=== PATIENT | male | born 1950 ===

== ENCOUNTER 2017-08-07 20:42 | Inpatient (IN) | payer MEDICAID, OTHER ==
[2017-08-07 21:25] VITALS: BMI 23.3
[2017-08-07] MEDS: Meropenem 1 GM in Sodium Chloride 0.9% 100 ML IVPB SCH (22:27)
[2017-08-07] MEDS: Rosuvastatin Calcium 2.5 mg Tab PO SCH (22:28)
--- NOTE | 2017-08-07 23:17 | CP.PCM.HP ---
<Betina Mukherjee - Last Filed: 08/08/17 00:40> History of Present Illness - History of Present Illness History of Present Illness: Patient is a 66 year old male with PMHx of HTN, CAD, [place] with catheterization in 2006 and CABG at [facility] on 07/25/17. Patient getting readmitted after being transferred from [facility] today s/p CABG with possible pancreatitis. Patient has some mild pain at the incision site. Patient denies headache, dizziness, shortness of breath, abdominal pain, nausea, vomiting, constipation or diarrhea. PMD: None Sales Assoc: Unknown. PMHx: WA (2006) with catherization and possible stent placement PSHx: hernia repair (1978), CABG on 07/25/17 Allergies: NKDA Social Hx: Denies Tobacco, Alcohol, or illicit drug use. Family Hx: Denies Meds: patient put on meds that he was discharged with from [facility] Present on Admission - Present on Admission Any Indicators Present on Admission: No History of DVT/PE: No History of Uncontrolled Diabetes: No Urinary Catheter: No Decubitus Ulcer Present: No Review of Systems - Constitutional Constitutional: absent: Fatigue, Headache - EENT Eyes: absent: Blurred Vision - Cardiovascular Cardiovascular: Leg Edema. absent: Dyspnea, Palpitations Additional comments: pain around sternotomy - Respiratory Respiratory: absent: Dyspnea, Wheezing, Stridor - Gastrointestinal Gastrointestinal: absent: Abdominal Pain, Constipation, Diarrhea, Nausea, Vomiting - Genitourinary Genitourinary: absent: Difficulty Urinating - Integumentary Integumentary: absent: Rash Additional comments: chest incision with thomas s/p CABG Past Patient History - Past Medical History & Family History Past Medical History?: Yes - Past Social History Smoking Status: Never Smoked - CARDIAC Hx Hypercholesterolemia: Yes ("I had highchol 2006 but not anymore") Hx Hypertension: Yes (" I had htn 2006 but not anymore") - PULMONARY Hx Respiratory Disorders: No - NEUROLOGICAL Hx Neurological Disorder: No - HEENT Hx HEENT Problems: No - RENAL Hx Chronic Kidney Disease: No - ENDOCRINE/METABOLIC Hx Endocrine Disorders: No - HEMATOLOGICAL/ONCOLOGICAL Hx Blood Disorders: No - INTEGUMENTARY Hx Dermatological Problems: No - MUSCULOSKELETAL/RHEUMATOLOGICAL Hx Musculoskeletal Disorders: No Hx Falls: No - GASTROINTESTINAL Hx Gastrointestinal Disorders: No - GENITOURINARY/GYNECOLOGICAL Hx Genitourinary Disorders: No - PSYCHIATRIC Hx Substance Use: No - SURGICAL HISTORY Hx Surgeries: Yes Hx Cardiac Catheterization: Yes ("2006") Hx Herniorrhaphy: Yes ("1978") - ANESTHESIA Hx Anesthesia: Yes Hx Anesthesia Reactions: No Meds Allergies/Adverse Reactions: Allergies Allergy/AdvReac Type Severity Reaction Status Date / Time No Known Allergies Allergy Unverified 07/11/17 16:42 Physical Exam - Constitutional Appears: Non-toxic, No Acute Distress - Head Exam Head Exam: ATRAUMATIC, NORMAL INSPECTION, NORMOCEPHALIC - Eye Exam Eye Exam: EOMI, Normal appearance - Respiratory Exam Respiratory Exam: Clear to Auscultation Bilateral, NORMAL BREATHING PATTERN - Cardiovascular Exam Cardiovascular Exam: RRR, +S1, +S2 - GI/Abdominal Exam GI & Abdominal Exam: Normal Bowel Sounds, Soft. absent: Tenderness - Extremities Exam Extremities exam: Positive for: normal inspection, pedal edema Additional comments: trace pitting edema b/l lower extremities - Neurological Exam Neurological exam: Alert, Oriented x3 - Psychiatric Exam Psychiatric exam: Normal Affect, Normal Mood - Skin Skin Exam: Normal Color, Warm Results - Vital Signs Recent Vital Signs: Last Vital Signs Temp 97.6 F 08/07/17 20:55 Pulse 70 08/07/17 20:55 Resp 20 08/07/17 20:55 BP 108/67 08/07/17 20:55 Pulse Ox 95 08/07/17 20:55 Assessment & Plan - Assessment and Plan (Free Text) Assessment: CAD, s/p CABG ASA 81mg po daily Plavix 75mg po daily Crestor 2.5mg PO HS Pseudomonas in blood culture Moxifloxacin 400mg q24h Merrem 1 gm q8h repeat blood cultures Hx HTN Metoprolol Tartrate 50mg po BID Elevated Amylase and Lipase continue to monitor CT abd/pelvis showed no evidence of pancreatitis Constipation Colace 100mg po BID Hx DM Insulin Aspart 2 unit sc ACTID ISS-low accuchecks ACHS Prophylaxis DVT: Heparin 5000u sc q8h GI: Protonix 40mg po daily Multivitamin po daily <Matthew Li - Last Filed: 08/08/17 06:32> Results - Vital Signs Recent Vital Signs: Last Vital Signs Temp 98.3 F 08/08/17 00:00 Pulse 77 08/08/17 00:00 Resp 20 08/08/17 00:00 BP 99/62 L 08/08/17 00:00 Pulse Ox 94 L 08/08/17 00:00 Assessment & Plan - Date & Time Date: 08/08/17 (I have seen and examined the patient. I agree with the findings and plan of care as documented by Dr. Mukherjee. Patient s/p CABG. Transferred back from [facility]. Continue aspirin, plavix, and crestor. Also with bacteremia. Repeat blood cultures. Avelox and Meropenem. Monitor for hypotensive and tachycardia. Continue home meds for history of diabetes and hypertension. NISS and accuchecks. Monitor for acute changes.) Time: 06:30 Attending/Attestation - Attestation I have personally seen and examined this patient.: Yes I have fully participated in the care of the patient.: Yes I have reviewed all pertinent clinical information: Yes
[2017-08-07] MEDS: Moxifloxacin IV 400mg/250ml NS 400 MG/250 ML BAG IVPB SCH (23:32)
[2017-08-08] MEDS: Meropenem 1 GM in Sodium Chloride 0.9% 100 ML IVPB SCH ×3 (05:13→21:44)
[2017-08-08 07:26] LABS: EOS # 0.3 K/uL (0.0-0.7); MEAN CELL VOLUME 90.4 fL (80.0-94.0)
[2017-08-08 07:34] LABS: BASO # 0.1 K/uL (0.0-0.2); BASO % 0.4 % (0.0-2.0); LYMPH # 1.3 K/uL (1.0-4.3); LYMPH % 10.1 % (20.0-40.0); MEAN CORPUSCULAR HEMOGLOBIN 30.5 pg (27.0-31.0); MEAN CORPUSCULAR HGB CONC 33.7 g/dL (33.0-37.0); MEAN PLATELET VOLUME 8.8 fL (7.2-11.7); MONO # 0.6 K/uL (0.0-0.8); MONO % 4.7 % (0.0-10.0); NEUT # 10.9 K/uL (1.8-7.0); NEUT % 82.8 % (50.0-75.0); RBC 2.61 Mil/uL (4.40-5.90); RED CELL DISTRIBUTION WIDTH 15.1 % (11.5-14.5)
[2017-08-08 07:36] LABS: WHITE BLOOD COUNT 13.1 K/uL (4.8-10.8)
[2017-08-08] MEDS: (Novolin R) Insulin Human Regular 100 units/ml vial SC SCH ×4 (07:58→22:41)
[2017-08-08] MEDS: (Novolog) Insulin Aspart, Recombinant 100 u/ml 10 ml vial SC SCH ×3 (08:04→17:41)
[2017-08-08 08:23] LABS: ALBUMIN 2.4 g/dL (3.5-5.0); ALT/SGPT 88 U/L (21-72); AST/SGOT 43 U/L (17-59); BLOOD UREA NITROGEN 17 mg/dL (9-20); CALCIUM 7.7 mg/dl (8.6-10.4); GFR AFRICAN-AMERICAN > 60; GFR NON-AFRICAN AMERICAN > 60; MAGNESIUM 1.6 mg/dL (1.6-2.3)
[2017-08-08 08:26] LABS: ALB/GLOB RATIO 0.9 (1.0-2.1)
[2017-08-08] MEDS: Pantoprazole 40 mg EC Tab PO SCH (09:40)
[2017-08-08] MEDS: Multiple Vitamins Tab PO SCH (09:40)
--- NOTE | 2017-08-08 18:52 | CP.PCM.CON ---
History of Present Illness - History of Present Illness History of Present Illness: dictated Past Patient History - Past Medical History & Family History Past Medical History?: Yes - Past Social History Smoking Status: Never Smoked - CARDIAC Hx Cardiac Disorders: Yes (CAD, CABG 07/25/17) Hx Hypercholesterolemia: Yes ("I had highchol 2006 but not anymore") Hx Hypertension: Yes (" I had htn 2006 but not anymore") - PULMONARY Hx Respiratory Disorders: No - NEUROLOGICAL Hx Neurological Disorder: No - HEENT Hx HEENT Problems: No - RENAL Hx Chronic Kidney Disease: No - ENDOCRINE/METABOLIC Hx Endocrine Disorders: No - HEMATOLOGICAL/ONCOLOGICAL Hx Blood Disorders: No - INTEGUMENTARY Hx Dermatological Problems: No - MUSCULOSKELETAL/RHEUMATOLOGICAL Hx Musculoskeletal Disorders: No Hx Falls: No - GASTROINTESTINAL Hx Gastrointestinal Disorders: No - GENITOURINARY/GYNECOLOGICAL Hx Genitourinary Disorders: No - PSYCHIATRIC Hx Substance Use: No - SURGICAL HISTORY Hx Surgeries: Yes Hx Cardiac Catheterization: Yes ("2006") Hx Herniorrhaphy: Yes ("1978") - ANESTHESIA Hx Anesthesia: Yes Hx Anesthesia Reactions: No Meds Allergies/Adverse Reactions: Allergies Allergy/AdvReac Type Severity Reaction Status Date / Time No Known Allergies Allergy Unverified 07/11/17 16:42 - Medications Medications: Current Medications Aspirin (Aspirin Chewable) 81 mg PO DAILY [facility] Last Admin: 08/08/17 09:40 Dose: 81 mg Clopidogrel Bisulfate (Plavix) 75 mg PO DAILY [facility] Last Admin: 08/08/17 09:46 Dose: 75 mg Docusate Sodium (Colace) 100 mg PO BID [facility] Last Admin: 08/08/17 17:42 Dose: 100 mg Heparin Sodium (Porcine) (Heparin) 5,000 units SC Q8 [facility] Last Admin: 08/08/17 14:10 Dose: 5,000 units Meropenem 1 gm/ Sodium (Chloride) 100 mls @ 100 mls/hr IVPB Q8 [facility] Last Admin: 08/08/17 14:07 Dose: 100 mls/hr Moxifloxacin HCl (Avelox Iv 400mg/250ml Ns) 400 mg in 250 mls @ 167 mls/hr IVPB Q24H [facility] Last Admin: 08/07/17 23:32 Dose: 167 mls/hr Insulin Aspart (Novolog) 2 unit SC ACTID [facility] Last Admin: 08/08/17 17:41 Dose: 2 unit Insulin Human Regular (Novolin R) 0 unit SC ACHS [facility] PRN Reason: Protocol Last Admin: 08/08/17 17:43 Dose: Not Given Metoprolol Tartrate (Lopressor) 50 mg PO BID [facility] Last Admin: 08/08/17 17:43 Dose: Not Given Multivitamins (Hexavitamin) 1 tab PO DAILY [facility] Last Admin: 08/08/17 09:40 Dose: 1 tab Pantoprazole Sodium (Protonix Ec Tab) 40 mg PO DAILY [facility] Last Admin: 08/08/17 09:40 Dose: 40 mg Pneumococcal Polyvalent Vaccine (Pneumovax 23 Vaccine) 0.5 ml IM .ONCE ONE Stop: 08/09/17 10:01 Rosuvastatin Calcium (Crestor) 2.5 mg PO HS [facility] Last Admin: 08/07/17 22:28 Dose: 2.5 mg Results - Vital Signs Recent Vital Signs: Last Vital Signs Temp 98.7 F 08/08/17 17:20 Pulse 76 08/08/17 17:20 Resp 20 08/08/17 17:20 BP 98/58 L 08/08/17 17:20 Pulse Ox 95 08/08/17 17:20 - Labs Result Diagrams: 08/08/17 07:10 08/08/17 07:10 Labs: Laboratory Results - last 24 hr 08/08/17 08/08/17 08/08/17 07:10 07:10 07:31 WBC 13.1 H D RBC 2.61 L Hgb 8.0 L D Hct 23.6 L MCV 90.4 MCH 30.5 MCHC 33.7 RDW 15.1 H Plt Count 450 H D MPV 8.8 Neut % (Auto) 82.8 H Lymph % (Auto) 10.1 L Lake % (Auto) 4.7 Eos % (Auto) 2.0 Baso % (Auto) 0.4 Neut # 10.9 H Lymph # 1.3 Lake # 0.6 Eos # 0.3 Baso # 0.1 Sodium 134 Potassium 3.9 Chloride 107 Carbon Dioxide 21 L Anion Gap 10 BUN 17 Creatinine 1.1 Est GFR ( Amer) > 60 Est GFR (Non-Af Amer) > 60 POC Glucose (mg/dL) 94 Random Glucose 84 Calcium 7.7 L Phosphorus 2.6 Magnesium 1.6 Total Bilirubin 1.4 H AST 43 ALT 88 H Alkaline Phosphatase 108 Total Protein 5.1 L Albumin 2.4 L D Globulin 2.7 Albumin/Globulin Ratio 0.9 L 08/08/17 08/08/17 11:34 16:27 WBC RBC Hgb Hct MCV MCH MCHC RDW Plt Count MPV Neut % (Auto) Lymph % (Auto) Lake % (Auto) Eos % (Auto) Baso % (Auto) Neut # Lymph # Lake # Eos # Baso # Sodium Potassium Chloride Carbon Dioxide Anion Gap BUN Creatinine Est GFR ( Amer) Est GFR (Non-Af Amer) POC Glucose (mg/dL) 114 H 108 Random Glucose Calcium Phosphorus Magnesium Total Bilirubin AST ALT Alkaline Phosphatase Total Protein Albumin Globulin Albumin/Globulin Ratio
--- NOTE | 2017-08-08 19:26 | CP.PCM.PN ---
Subjective - Date & Time of Evaluation Date of Evaluation: 08/08/17 Time of Evaluation: 14:00 - Subjective Subjective: lying on bed comfortable Denies pain,no sob,no complain. Has chest CABG site clean with thomas on.Right chest tube side covered Objective - Vital Signs/Intake and Output Vital Signs (last 24 hours): Temp Pulse Resp BP Pulse Ox 98.7 F 76 20 98/58 L 95 08/08/17 17:20 08/08/17 17:20 08/08/17 17:20 08/08/17 17:20 08/08/17 17:20 - Medications Medications: Current Medications Aspirin (Aspirin Chewable) 81 mg PO DAILY [facility] Last Admin: 08/08/17 09:40 Dose: 81 mg Clopidogrel Bisulfate (Plavix) 75 mg PO DAILY [facility] Last Admin: 08/08/17 09:46 Dose: 75 mg Docusate Sodium (Colace) 100 mg PO BID [facility] Last Admin: 08/08/17 17:42 Dose: 100 mg Heparin Sodium (Porcine) (Heparin) 5,000 units SC Q8 [facility] Last Admin: 08/08/17 14:10 Dose: 5,000 units Meropenem 1 gm/ Sodium (Chloride) 100 mls @ 100 mls/hr IVPB Q8 [facility] Last Admin: 08/08/17 14:07 Dose: 100 mls/hr Moxifloxacin HCl (Avelox Iv 400mg/250ml Ns) 400 mg in 250 mls @ 167 mls/hr IVPB Q24H [facility] Last Admin: 08/07/17 23:32 Dose: 167 mls/hr Insulin Aspart (Novolog) 2 unit SC ACTID [facility] Last Admin: 08/08/17 17:41 Dose: 2 unit Insulin Human Regular (Novolin R) 0 unit SC ACHS [facility] PRN Reason: Protocol Last Admin: 08/08/17 17:43 Dose: Not Given Metoprolol Tartrate (Lopressor) 50 mg PO BID [facility] Last Admin: 08/08/17 17:43 Dose: Not Given Multivitamins (Hexavitamin) 1 tab PO DAILY [facility] Last Admin: 08/08/17 09:40 Dose: 1 tab Pantoprazole Sodium (Protonix Ec Tab) 40 mg PO DAILY [facility] Last Admin: 08/08/17 09:40 Dose: 40 mg Pneumococcal Polyvalent Vaccine (Pneumovax 23 Vaccine) 0.5 ml IM .ONCE ONE Stop: 08/09/17 10:01 Rosuvastatin Calcium (Crestor) 2.5 mg PO HS [facility] Last Admin: 08/07/17 22:28 Dose: 2.5 mg - Labs Labs: 08/08/17 07:10 08/08/17 07:10 - Constitutional Appears: Chronically Ill - Head Exam Head Exam: ATRAUMATIC - Eye Exam Eye Exam: Normal appearance - ENT Exam ENT Exam: Mucous Membranes Moist - Neck Exam Neck Exam: Full ROM - Respiratory Exam Respiratory Exam: Clear to Ausculation Bilateral. absent: Chest Wall Tenderness (thomas in place ,no signs of infection) - Cardiovascular Exam Cardiovascular Exam: REGULAR RHYTHM - GI/Abdominal Exam GI & Abdominal Exam: Soft, Normal Bowel Sounds - Exam External exam: NORMAL EXTERNAL EXAM - Extremities Exam Extremities Exam: Full ROM - Back Exam Back Exam: NORMAL INSPECTION - Neurological Exam Neurological Exam: Oriented x3 - Psychiatric Exam Psychiatric exam: Normal Mood - Skin Skin Exam: Dry Assessment and Plan - Assessment and Plan (Free Text) Assessment: This patient is a 66 year old male with PMHx of HTN, CAD, s/p [place] with catheterization and [place] [facility] [place] 07[place]. Patient getting readmitted from [facility]. At [facility] cabg x2,reop for bleeding,multiple blood transfusion ,post op hypoxic respiratory failure,extubated on 07/22, s/p left sided post op pneumothorax pig tail removed 08/05. Blood culture positive for pseudomonas (origin ?). on Merrem given for 7 days at [facility] ,levaquin started at [facility] on 08/07 Recommend to remove thomas on 08/11/[address] Grant on 08/12/2017 continue asprin,plavix,merrem,levaquin,lopressor,protonix an dinsulin Has elevated amylase and lipase.CT abdomen and pelvis with no pancreatitis Plan: 1. Bacteremia/Pseudomonas Continue merrem and avelox Had 7days on Merrem at [facility] as per d/c summary Follow repeat blood cultures ID consult 2.s/p CABG with post op bleeding and pneumothorax chest x ray asprin,plavix,statin and lopressor 3. DM-monitor sugar 4.Elevated amylase and lipase 5. Anemia post op bleeding follow CBC DVT prophylasix and GI prophylasix Plan PT,OT
[2017-08-08 20:43] LABS: URINE BACTERIA RARE (<OCC); URINE BILIRUBIN NEGATIVE (NEGATIVE); URINE BLOOD 3+ (NEGATIVE); URINE CLARITY Clear (Clear); URINE COLOR Yellow (YELLOW); URINE GLUCOSE (UA) NORMAL (Normal); URINE LEUKOCYTE ESTERASE NEG Leu/uL (Negative); URINE NITRATE NEGATIVE (NEGATIVE); URINE PROTEIN NEGATIVE (NEGATIVE); URINE UROBILINOGEN NORMAL mg/dL (0.2-1.0)
--- NOTE | 2017-08-08 21:34 | CON ---
INFECTIOUS DISEASE CONSULTATION REQUESTED BY: Silvana Cronin MD. HISTORY OF PRESENT ILLNESS: This patient is a 66-year-old male. He has a history of hypertension, coronary artery disease and MT and he was sent for CABG at [facility] on 07/25/2017 and the patient was getting readmitted and was transferred here for further workup. He also had a 60% pneumothorax and on 07/30/2017, there are blood cultures which are positive for pseudomonas. He comes back with meropenem and Avelox IV on board and we will continue that. He had a sternal wound and he has many drain sites. Sternal wound right now appears unremarkable. He denies any headache. Denies ear, nose, throat problem. Denies chest pain. No shortness of breath. No abdominal pain and seems to be recuperating, but has this blood cultures which are recently positive and pneumothorax. PAST MEDICAL HISTORY: None. He had a cardiac cath with stent placement. PAST SURGICAL HISTORY: Hernia repair, CABG on 07/25/2017. ALLERGIES: HE IS NOT ALLERGIC TO ANY MEDICINE. FAMILY HISTORY: Noncontributory. SOCIAL HISTORY: Negative for smoking or drinking or any drug abuse. MEDICATIONS: He is on aspirin, Plavix, Colace, heparin, Novolog and meropenem as well as metoprolol, moxifloxacin, and pantoprazole and Crestor, so he is on his cardiac meds and IV medications. PHYSICAL EXAMINATION: VITAL SIGNS: T-max is 98.7, pulse 76, blood pressure is 98/58, respirations are 20. HEENT: Head is atraumatic, normocephalic. Pupils are reacting to light. He speaks Dutch. NECK: Supple. JVP is flat. CHEST WALL: Has scar which is healing and has many drain sites. LUNGS: Clear. Decreased breath sounds on both bases. HEART: S1 and S2 are regular. No murmurs appreciated. ABDOMEN: Soft, nontender. No guarding. No rigidity present. EXTREMITIES: Have no edema, clubbing or cyanosis noted. LABORATORY DATA: Labs are noted. White count is 13.1, hemoglobin 8, hematocrit 23.6, platelet count is 450. The chemistry shows sodium is 134, potassium 3.9, chloride is 107, CO2 is 21 and BUN is 17, creatinine is 1.1 and total bili is 1.1, AST is 43, ALT is 88. ASSESSMENT: At this time, the patient is admitted with Pseudomonas septicemia, etiology of which is unclear. He did have pneumothorax, so it could be related to the lungs. We will order blood as well as urine culture. We will continue meropenem he received from 07/30/2017 on, today is 08/08/2017, so he is at his ninth day, I would think and we will give it for 12 more days. We will follow. Also, we will need to follow the CAT scan of the chest. He did have CAT scan of abdomen and pelvis, which showed no evidence of pancreatitis, it seems. We will follow if we need to do any CAT scan or discontinue the antibiotic. We will need to review the chart for this. Brad Asher MD
[2017-08-08] MEDS: Rosuvastatin Calcium 2.5 mg Tab PO SCH (21:43)
[2017-08-08] MEDS: Moxifloxacin IV 400mg/250ml NS 400 MG/250 ML BAG IVPB SCH (22:23)
[2017-08-09] MEDS: Meropenem 1 GM in Sodium Chloride 0.9% 100 ML IVPB SCH ×3 (05:30→21:23)
[2017-08-09 07:31] LABS: BASO # 0.1 K/uL (0.0-0.2); BASO % 0.6 % (0.0-2.0); EOS # 0.2 K/uL (0.0-0.7); HEMOGLOBIN 8.5 g/dL (12.0-18.0); LYMPH # 1.1 K/uL (1.0-4.3); LYMPH % 9.7 % (20.0-40.0); MEAN CELL VOLUME 90.9 fL (80.0-94.0); MEAN CORPUSCULAR HEMOGLOBIN 30.4 pg (27.0-31.0); MEAN CORPUSCULAR HGB CONC 33.5 g/dL (33.0-37.0); MEAN PLATELET VOLUME 8.7 fL (7.2-11.7); MONO # 0.6 K/uL (0.0-0.8); MONO % 5.6 % (0.0-10.0); NEUT # 9.3 K/uL (1.8-7.0); NEUT % 82.1 % (50.0-75.0); NRBC % 0.1 % (0.0-2.0); PLATELET COUNT 486 K/uL (130-400); RBC 2.79 Mil/uL (4.40-5.90); RED CELL DISTRIBUTION WIDTH 15.6 % (11.5-14.5); WHITE BLOOD COUNT 11.3 K/uL (4.8-10.8)
[2017-08-09] MEDS: (Novolin R) Insulin Human Regular 100 units/ml vial SC SCH ×4 (07:48→21:39)
[2017-08-09 07:49] LABS: ALBUMIN 2.5 g/dL (3.5-5.0); ALT/SGPT 85 U/L (21-72); AMYLASE 290 U/L (30-110); AST/SGOT 44 U/L (17-59); BLOOD UREA NITROGEN 18 mg/dL (9-20); CALCIUM 7.9 mg/dl (8.6-10.4); GFR AFRICAN-AMERICAN > 60; GFR NON-AFRICAN AMERICAN > 60; LIPASE 1050 U/L (23-300); MAGNESIUM 1.6 mg/dL (1.6-2.3)
[2017-08-09] MEDS: (Novolog) Insulin Aspart, Recombinant 100 u/ml 10 ml vial SC SCH ×3 (08:01→16:58)
[2017-08-09] MEDS: Multiple Vitamins Tab PO SCH (09:56)
[2017-08-09] MEDS: Pantoprazole 40 mg EC Tab PO SCH (09:56)
[2017-08-09] MEDS ORDERED: Influenza Vaccine 60 mcg/0.5 mL SYR (4YR UP) IM ONE (10:00)
[2017-08-09] MEDS ORDERED: Pneumococcal 23-Valent Vaccine IM ONE (10:00)
[2017-08-09 10:59] LABS: BANDS 2 % (0-2); EOSINOPHIL 1 % (0-4); LYMPHOCYTE 10 % (20-40); MONOCYTE 5 % (0-10); NEUTROPHIL 82 % (50-75); TOTAL CELLS COUNTED 100
[2017-08-09 11:01] LABS: ANISOCYTOSIS SLIGHT; HYPOCHROMIC SLIGHT; PLATELET ESTIMATE SLIGHTLY INCREASED (NORMAL); POLYCHROMIC SLIGHT; TOXIC GRANULATION PRESENT
[2017-08-09 11:02] LABS: LARGE PLATELETS PRESENT
--- NOTE | 2017-08-09 13:26 | RAD ---
PROCEDURE: CHEST RADIOGRAPH, 1 VIEW HISTORY: s/p Pneumothorax,bacteremia COMPARISON: None available. FINDINGS: LUNGS: Left lower lobe opacification likely representing some combination of atelectasis/infiltrate and effusion. Mild right basilar atelectasis and small right-sided effusion. PLEURA: No pneumothorax or pleural fluid seen. CARDIOVASCULAR: Interval sternotomy and CABG surgery. Cardiomegaly. OSSEOUS STRUCTURES: No significant abnormalities. VISUALIZED UPPER ABDOMEN: Normal. OTHER FINDINGS: Metallic skin closure thomas overlying the left parasagittal -mid thorax. IMPRESSION: Left lower lobe opacification likely representing some combination of atelectasis/infiltrate and effusion. Mild right basilar atelectasis and small right-sided effusion. Go the
--- NOTE | 2017-08-09 16:17 | CP.PCM.PN ---
Subjective - Date & Time of Evaluation Date of Evaluation: 08/09/17 Time of Evaluation: 13:25 - Subjective Subjective: Seen and examined,c/o Feeling Tired,no chest pain,no sob chest drain site and chest wound without signs of infection Right lateral chest Ecchymosis Objective - Vital Signs/Intake and Output Vital Signs (last 24 hours): Temp Pulse Resp BP Pulse Ox 98.1 F 80 20 108/71 95 08/09/17 08:00 08/09/17 08:00 08/09/17 08:00 08/09/17 08:00 08/09/17 08:00 Intake and Output: 08/09/17 08/09/17 06:59 18:59 Intake Total 1700 550 Balance 1700 550 - Medications Medications: Current Medications Aspirin (Aspirin Chewable) 81 mg PO DAILY [facility] Last Admin: 08/09/17 09:56 Dose: 81 mg Clopidogrel Bisulfate (Plavix) 75 mg PO DAILY [facility] Last Admin: 08/09/17 09:56 Dose: 75 mg Docusate Sodium (Colace) 100 mg PO BID [facility] Last Admin: 08/09/17 09:56 Dose: 100 mg Heparin Sodium (Porcine) (Heparin) 5,000 units SC Q8 [facility] Last Admin: 08/09/17 13:05 Dose: 5,000 units Meropenem 1 gm/ Sodium (Chloride) 100 mls @ 100 mls/hr IVPB Q8 [facility] Last Admin: 08/09/17 13:05 Dose: 100 mls/hr Moxifloxacin HCl (Avelox Iv 400mg/250ml Ns) 400 mg in 250 mls @ 167 mls/hr IVPB Q24H [facility] Last Admin: 08/08/17 22:23 Dose: 167 mls/hr Insulin Aspart (Novolog) 2 unit SC ACTID [facility] Last Admin: 08/09/17 11:47 Dose: 2 unit Insulin Human Regular (Novolin R) 0 unit SC ACHS [facility] PRN Reason: Protocol Last Admin: 08/09/17 11:43 Dose: Not Given Metoprolol Tartrate (Lopressor) 50 mg PO BID [facility] Last Admin: 08/09/17 09:56 Dose: 50 mg Multivitamins (Hexavitamin) 1 tab PO DAILY [facility] Last Admin: 08/09/17 09:56 Dose: 1 tab Pantoprazole Sodium (Protonix Ec Tab) 40 mg PO DAILY [facility] Last Admin: 08/09/17 09:56 Dose: 40 mg Rosuvastatin Calcium (Crestor) 2.5 mg PO HS [facility] Last Admin: 08/08/17 21:43 Dose: 2.5 mg - Labs Labs: 08/09/17 07:18 08/09/17 07:18 - Constitutional Appears: Non-toxic, Chronically Ill - Head Exam Head Exam: NORMAL INSPECTION - Eye Exam Eye Exam: Normal appearance - ENT Exam ENT Exam: Mucous Membranes Moist - Neck Exam Neck Exam: Full ROM - Respiratory Exam Respiratory Exam: Clear to Ausculation Bilateral, NORMAL BREATHING PATTERN - Cardiovascular Exam Cardiovascular Exam: REGULAR RHYTHM - GI/Abdominal Exam GI & Abdominal Exam: Soft, Normal Bowel Sounds. absent: Tenderness - Extremities Exam Extremities Exam: Full ROM - Back Exam Back Exam: NORMAL INSPECTION - Neurological Exam Neurological Exam: Awake, Oriented x3 - Psychiatric Exam Psychiatric exam: Normal Mood - Skin Skin Exam: Dry. absent: Normal Color (right chest wall old ecchymosis ,drain site ) Assessment and Plan - Assessment and Plan (Free Text) Assessment: This patient is a 66 year old male with PMHx of HTN, CAD, s/p [place] with catheterization and [place] [facility] [place]. Pt was transferred back to us after CABG [place] [facility] [place] x2,reop for bleeding,multiple blood transfusion ,post op hypoxic respiratory failure,extubated on 07/22, s/p left sided post op pneumothorax pig tail removed 08/05. Blood culture positive for pseudomonas likely from UTI,s/p pseudomonas in urine. on Merrem given for 7 days at [facility] ,levaquin started [place] [facility] [place] 08/07 Recommend to remove thomas on 08/11/[address] Grant on 08/12/2017 continue asprin,plavix,merrem,levaquin,lopressor,protonix an dinsulin Has elevated amylase and lipase.CT abdomen and pelvis with no pancreatitis Plan: 1. Bacteremia/Pseudomonas Continue merrem and avelox on Mer[place] at [facility] as per d/c summary.Merrem started on 08/01 Follow repeat blood cultures ID consult appreciated nO fever,leukocytosis improving 2.s/p CABG with post op bleeding and pneumothorax chest x ray noted asprin,plavix,statin and lopressor f/u with Dr Grant 3. DM-monitor sugar 4.Elevated amylase and lipase,CT abd without pancreatitis follow levels,if going up get GI evaluation 5. Anemia post op bleeding follow CBC DVT prophylasix and GI prophylasix Plan PT,OT and continue antibiotics
[2017-08-09] MEDS: Rosuvastatin Calcium 2.5 mg Tab PO SCH (21:24)
--- NOTE | 2017-08-09 22:12 | PN ---
DATE: SUBJECTIVE: The patient, Joshua Troy was seen today. He did not have any complaints. He was feeling better and his wounds have been healing. PHYSICAL EXAMINATION: VITAL SIGNS: T-max is 98.1, pulse 80, blood pressure 108/71, respirations are 20, pulse oximeter is 95%. LUNGS: Clear. HEART: S1, S2 is regular. ABDOMEN: Soft. SKIN: Chest wall is healing. Groin sites are healing. EXTREMITIES: Have no edema. LABORATORY DATA: His white count is 11.3. On 08/01/2017, he had a urine which had Pseudomonas and blood cultures which had Pseudomonas and he was thus started on meropenem there in the [facility] and he is on meropenem and Avelox both at this time to treat the Pseudomonas and we will follow the cultures here and then also urine culture which is pending at this time and we will follow. He is status post CABG, status post pneumothorax and with Pseudomonas septicemia at this time. Brad Asher MD
[2017-08-09] MEDS: Moxifloxacin IV 400mg/250ml NS 400 MG/250 ML BAG IVPB SCH (22:17)
[2017-08-10] MEDS: Meropenem 1 GM in Sodium Chloride 0.9% 100 ML IVPB SCH ×3 (05:11→21:26)
[2017-08-10] MEDS: (Novolin R) Insulin Human Regular 100 units/ml vial SC SCH ×4 (07:30→21:28)
[2017-08-10] MEDS: (Novolog) Insulin Aspart, Recombinant 100 u/ml 10 ml vial SC SCH ×3 (07:36→17:52)
[2017-08-10] MEDS: Pantoprazole 40 mg EC Tab PO SCH (09:14)
[2017-08-10] MEDS: Multiple Vitamins Tab PO SCH (09:14)
[2017-08-10 09:26] LABS: BASO # 0.1 K/uL (0.0-0.2); BASO % 0.5 % (0.0-2.0); EOS # 0.2 K/uL (0.0-0.7); HEMOGLOBIN 10.1 g/dL (12.0-18.0); LYMPH # 1.1 K/uL (1.0-4.3); LYMPH % 10.2 % (20.0-40.0); MEAN CELL VOLUME 91.3 fL (80.0-94.0); MEAN CORPUSCULAR HEMOGLOBIN 30.3 pg (27.0-31.0); MEAN CORPUSCULAR HGB CONC 33.1 g/dL (33.0-37.0); MEAN PLATELET VOLUME 8.2 fL (7.2-11.7); MONO # 0.5 K/uL (0.0-0.8); NEUT # 8.7 K/uL (1.8-7.0); NEUT % 82.3 % (50.0-75.0); RBC 3.33 Mil/uL (4.40-5.90); RED CELL DISTRIBUTION WIDTH 15.9 % (11.5-14.5); WHITE BLOOD COUNT 10.6 K/uL (4.8-10.8)
[2017-08-10 09:39] LABS: ALB/GLOB RATIO 0.9 (1.0-2.1); ALBUMIN 2.9 g/dL (3.5-5.0); ALT/SGPT 87 U/L (21-72); AMYLASE 299 U/L (30-110); AST/SGOT 51 U/L (17-59); BLOOD UREA NITROGEN 17 mg/dL (9-20); CALCIUM 8.3 mg/dl (8.6-10.4); GFR AFRICAN-AMERICAN > 60; GFR NON-AFRICAN AMERICAN > 60; LIPASE 1089 U/L (23-300); MAGNESIUM 1.7 mg/dL (1.6-2.3)
--- NOTE | 2017-08-10 17:12 | CP.PCM.PN ---
Subjective - Date & Time of Evaluation Date of Evaluation: 08/10/17 Time of Evaluation: 14:00 - Subjective Subjective: Patient was seen and examined,Feeling tired and very weak ,no fever,no sob Objective - Vital Signs/Intake and Output Vital Signs (last 24 hours): Temp Pulse Resp BP Pulse Ox 98.2 F 73 20 104/67 98 08/10/17 16:44 08/10/17 16:44 08/10/17 16:44 08/10/17 16:44 08/10/17 16:44 Intake and Output: 08/10/17 08/10/17 06:59 18:59 Intake Total 1250 550 Output Total 1400 750 Balance -150 -200 - Medications Medications: Current Medications Aspirin (Aspirin Chewable) 81 mg PO DAILY [facility] Last Admin: 08/10/17 09:14 Dose: 81 mg Clopidogrel Bisulfate (Plavix) 75 mg PO DAILY [facility] Last Admin: 08/10/17 09:14 Dose: 75 mg Docusate Sodium (Colace) 100 mg PO BID [facility] Last Admin: 08/10/17 09:14 Dose: 100 mg Heparin Sodium (Porcine) (Heparin) 5,000 units SC Q8 [facility] Last Admin: 08/10/17 13:31 Dose: 5,000 units Meropenem 1 gm/ Sodium (Chloride) 100 mls @ 100 mls/hr IVPB Q8 [facility] Last Admin: 08/10/17 13:31 Dose: 100 mls/hr Moxifloxacin HCl (Avelox Iv 400mg/250ml Ns) 400 mg in 250 mls @ 167 mls/hr IVPB Q24H [facility] Last Admin: 08/09/17 22:17 Dose: 167 mls/hr Insulin Aspart (Novolog) 2 unit SC ACTID [facility] Last Admin: 08/10/17 11:11 Dose: Not Given Insulin Human Regular (Novolin R) 0 unit SC ACHS [facility] PRN Reason: Protocol Last Admin: 08/10/17 11:11 Dose: Not Given Metoprolol Tartrate (Lopressor) 50 mg PO BID [facility] Last Admin: 08/10/17 09:14 Dose: 50 mg Multivitamins (Hexavitamin) 1 tab PO DAILY [facility] Last Admin: 08/10/17 09:14 Dose: 1 tab Pantoprazole Sodium (Protonix Ec Tab) 40 mg PO DAILY [facility] Last Admin: 08/10/17 09:14 Dose: 40 mg Rosuvastatin Calcium (Crestor) 2.5 mg PO HS [facility] Last Admin: 08/09/17 21:24 Dose: 2.5 mg - Labs Labs: 08/10/17 09:19 08/10/17 09:19 - Constitutional Appears: Chronically Ill - Eye Exam Eye Exam: Normal appearance - ENT Exam ENT Exam: Mucous Membranes Moist - Neck Exam Neck Exam: Full ROM - Respiratory Exam Respiratory Exam: Clear to Ausculation Bilateral, NORMAL BREATHING PATTERN. absent: Chest Wall Tenderness (right chest drain site clean,chest thomas in place) - Cardiovascular Exam Cardiovascular Exam: REGULAR RHYTHM - GI/Abdominal Exam GI & Abdominal Exam: Soft, Normal Bowel Sounds - Extremities Exam Extremities Exam: Full ROM - Back Exam Back Exam: NORMAL INSPECTION - Neurological Exam Neurological Exam: Awake, Oriented x3 - Psychiatric Exam Psychiatric exam: Normal Mood - Skin Skin Exam: Dry Assessment and Plan - Assessment and Plan (Free Text) Assessment: This patient is a 66 year old male with PMHx of HTN, CAD, s/p CO with catheterization and CABG at [facility] [place] on 07/25/17. Pt was transferred back to us after CABG At [facility] [place] cabg x2,reop for bleeding,multiple blood transfusion ,post op hypoxic respiratory failure,extubated on 07/22, s/p left sided post op pneumothorax pig tail removed 08/05. Blood culture positive for pseudomonas likely from UTI,s/p pseudomonas in urine. on Merrem given for 7 days at [facility] [place] ,levaquin started at [facility] [place] on 08/07 Recommend to remove thomas on 08/11/[address] Grant on 08/12/2017 Has elevated amylase and lipase.CT abdomen and pelvis with no pancreatitis Plan: 1. Bacteremia/Pseudomonas Continue merrem and avelox on Merrem at [facility] [place] as per d/c summary.Merrem started on 08/01 repeat blood cultures-no growth ID consult appreciated nO fever,leukocytosis improving 2.s/p CABG with post op bleeding and pneumothorax chest x ray noted asprin,plavix,statin and lopressor f/u with Dr Grant 3. DM-monitor sugar 4.Elevated amylase and lipase,CT abd without pancreatitis follow levels,if going up get GI evaluation 5. Anemia post op bleeding follow CBC 6.S/P pneumonia and pneumothorax chest x ray noted,do f/u chest x donnell DVT prophylasix and GI prophylasix Plan PT,OT and continue antibiotics
[2017-08-10] MEDS: Rosuvastatin Calcium 2.5 mg Tab PO SCH (21:26)
[2017-08-10] MEDS: Moxifloxacin IV 400mg/250ml NS 400 MG/250 ML BAG IVPB SCH (22:32)
[2017-08-11] MEDS: Meropenem 1 GM in Sodium Chloride 0.9% 100 ML IVPB SCH ×2 (05:02→14:08)
[2017-08-11 09:03] LABS: BASO # 0.1 K/uL (0.0-0.2); BASO % 0.6 % (0.0-2.0); EOS # 0.2 K/uL (0.0-0.7); EOS % 2.1 % (0.0-4.0); HEMOGLOBIN 10.7 g/dL (12.0-18.0); LYMPH % 10.1 % (20.0-40.0); MEAN CELL VOLUME 91.8 fL (80.0-94.0); MEAN CORPUSCULAR HEMOGLOBIN 31.1 pg (27.0-31.0); MEAN CORPUSCULAR HGB CONC 33.8 g/dL (33.0-37.0); MEAN PLATELET VOLUME 8.5 fL (7.2-11.7); MONO # 0.6 K/uL (0.0-0.8); MONO % 5.5 % (0.0-10.0); NEUT # 8.5 K/uL (1.8-7.0); NEUT % 81.7 % (50.0-75.0); RBC 3.45 Mil/uL (4.40-5.90); RED CELL DISTRIBUTION WIDTH 16.5 % (11.5-14.5); WHITE BLOOD COUNT 10.3 K/uL (4.8-10.8)
[2017-08-11] MEDS: (Novolin R) Insulin Human Regular 100 units/ml vial SC SCH ×4 (09:05→21:26)
[2017-08-11] MEDS: (Novolog) Insulin Aspart, Recombinant 100 u/ml 10 ml vial SC SCH ×3 (09:06→17:10)
[2017-08-11 09:37] LABS: ALT/SGPT 89 U/L (21-72); AMYLASE 277 U/L (30-110); AST/SGOT 50 U/L (17-59); BLOOD UREA NITROGEN 17 mg/dL (9-20); CALCIUM 8.2 mg/dl (8.6-10.4); GFR AFRICAN-AMERICAN > 60; GFR NON-AFRICAN AMERICAN > 60; LIPASE 913 U/L (23-300)
[2017-08-11] MEDS: Saccharomyces Boulardi 250 mg Cap PO SCH ×2 (11:12→17:08)
[2017-08-11] MEDS: Multiple Vitamins Tab PO SCH (11:12)
[2017-08-11] MEDS: Pantoprazole 40 mg EC Tab PO SCH (11:12)
--- NOTE | 2017-08-11 16:15 | CP.PCM.PN ---
<GeorgetownLouise jamisonandre Saenz - Last Filed: 08/11/17 17:14> Subjective - Date & Time of Evaluation Date of Evaluation: 08/11/17 Time of Evaluation: 07:10 - Subjective Subjective: Medicine Note ( PGY-1)---> Dr. Dutotn's service Patient was seen and examined at bedside. Patient states that he is doing well but feels very fatigued. Patient is tolerating diet and has been out of bed to chair. Patient denies chest pain, sob, palpitations, fever, chills, dizziness but admits to no bowel movement for two days. Objective - Vital Signs/Intake and Output Vital Signs (last 24 hours): Temp Pulse Resp BP Pulse Ox 98.1 F 80 20 108/71 95 08/11/17 07:52 08/11/17 07:52 08/11/17 07:52 08/11/17 07:52 08/11/17 07:52 Intake and Output: 08/11/17 08/11/17 06:59 18:59 Intake Total 470 300 Output Total 600 Balance -130 300 - Medications Medications: Current Medications Aspirin (Aspirin Chewable) 81 mg PO DAILY [facility] Last Admin: 08/11/17 11:12 Dose: 81 mg Clopidogrel Bisulfate (Plavix) 75 mg PO DAILY [facility] Last Admin: 08/11/17 11:12 Dose: 75 mg Docusate Sodium (Colace) 100 mg PO BID [facility] Last Admin: 08/11/17 11:12 Dose: 100 mg Meropenem 1 gm/ Sodium (Chloride) 100 mls @ 100 mls/hr IVPB Q8 [facility] Last Admin: 08/11/17 14:08 Dose: 100 mls/hr Insulin Aspart (Novolog) 2 unit SC ACTID [facility] Last Admin: 08/11/17 12:14 Dose: Not Given Insulin Human Regular (Novolin R) 0 unit SC ACHS [facility] PRN Reason: Protocol Last Admin: 08/11/17 12:14 Dose: Not Given Metoprolol Tartrate (Lopressor) 50 mg PO BID [facility] Last Admin: 08/11/17 11:19 Dose: Not Given Moxifloxacin HCl (Avelox) 400 mg PO DAILY [facility] Multivitamins (Hexavitamin) 1 tab PO DAILY [facility] Last Admin: 08/11/17 11:12 Dose: 1 tab Pantoprazole Sodium (Protonix Ec Tab) 40 mg PO DAILY [facility] Last Admin: 08/11/17 11:12 Dose: 40 mg Rosuvastatin Calcium (Crestor) 2.5 mg PO HS [facility] Last Admin: 08/10/17 21:26 Dose: 2.5 mg Saccharomyces Boulardii (Florastor) 250 mg PO BID [facility] Last Admin: 08/11/17 11:12 Dose: 250 mg Sennosides (Senokot Tab) 17.5 mg PO DAILY [facility] - Labs Labs: 08/11/17 08:50 08/11/17 08:50 - Constitutional Appears: Well, No Acute Distress - Head Exam Head Exam: ATRAUMATIC - Eye Exam Eye Exam: EOMI - Respiratory Exam Respiratory Exam: Clear to Ausculation Bilateral, NORMAL BREATHING PATTERN Additional comments: S/p CABG at [facility] 07/21/[address] - Cardiovascular Exam Cardiovascular Exam: REGULAR RHYTHM, +S1, +S2 - GI/Abdominal Exam GI & Abdominal Exam: Soft, Normal Bowel Sounds. absent: Tenderness - Neurological Exam Neurological Exam: Alert, Awake, Oriented x3 - Psychiatric Exam Psychiatric exam: Normal Affect, Normal Mood - Skin Skin Exam: Normal Color Assessment and Plan (1) S/P CABG (coronary artery bypass graft) Assessment & Plan: F/u with Dr. Grant CABG at [facility] 07/25/17 At [facility] cabg x2,reop for bleeding,multiple blood transfusion ,post op hypoxic respiratory failure,extubated on 07/22, s/p left sided post op pneumothorax pig tail removed 08/05, noted on chest X-ray * Chest X-ray (08/08/17): Mild Right basilar atelactasis and small right sided pleural effusion Medications: * ASA 81mg po daily * Plavix 75mg po daily * Crestor 2.5mg PO HS Status: Acute (2) History of coronary artery disease Assessment & Plan: CABG at [facility] 07/25/17 Medications: * ASA 81mg po daily * Plavix 75mg po daily * Crestor 2.5mg PO HS Status: Acute (3) Bacteremia Assessment & Plan: Dr. Lb HELTON on board---> help appreciated Blood culture positive for pseudomonas likely from UTI,s/p pseudomonas in urine * Meropenem started on 08/01 at [facility] as per d/c summary. * Levaquin 08/07 Current medications: * Meropenem 1gm IVPB Q8H (Discontinued 08/11/17) * Avelox 400mg IVPB Q24H ( Discontinued 08/11/17) Labs: Repeat Blood culture (08/08/17): No growth Leukocytosis trending down Status: Acute (4) Elevated amylase and lipase Assessment & Plan: Trending down Continue to monitor Imaging: * CT abd/pelvis showed no evidence of pancreatitis as per [facility] discharge summary Status: Acute (5) Constipation Assessment & Plan: Medications: * Docusate 100mg PO BID * Senna A and B 17.5mg PO daily Status: Acute (6) History of hypertension Assessment & Plan: Medication: * Lopressor 50mg PO BID Continue to monitor Status: Acute (7) History of diabetes mellitus Assessment & Plan: Accuchecks Novolog 2 units TIDAC ISS low dose Status: Acute (8) Prophylactic measure Assessment & Plan: GI: Protonix 40mg PO daily DVT: Lovenox 30mg SC daily Florastor 250mg po bid PT and OT Disposition: DELIA recommendation as per PT and OT Status: Acute <Florencio Dutton H - Last Filed: 08/11/17 18:31> Objective - Vital Signs/Intake and Output Vital Signs (last 24 hours): Temp Pulse Resp BP Pulse Ox 98.2 F 89 20 103/70 96 08/11/17 15:00 08/11/17 15:00 08/11/17 15:00 08/11/17 15:00 08/11/17 15:00 Intake and Output: 08/11/17 08/11/17 06:59 18:59 Intake Total 470 300 Output Total 600 Balance -130 300 - Medications Medications: Current Medications Aspirin (Aspirin Chewable) 81 mg PO DAILY [facility] Last Admin: 08/11/17 11:12 Dose: 81 mg Clopidogrel Bisulfate (Plavix) 75 mg PO DAILY [facility] Last Admin: 08/11/17 11:12 Dose: 75 mg Docusate Sodium (Colace) 100 mg PO BID [facility] Last Admin: 08/11/17 17:08 Dose: 100 mg Enoxaparin Sodium (Lovenox) 30 mg SC DAILY [facility] Insulin Aspart (Novolog) 2 unit SC ACTID [facility] Last Admin: 08/11/17 17:10 Dose: Not Given Insulin Human Regular (Novolin R) 0 unit SC ACHS [facility] PRN Reason: Protocol Last Admin: 08/11/17 17:09 Dose: Not Given Metoprolol Tartrate (Lopressor) 50 mg PO BID [facility] Last Admin: 08/11/17 17:08 Dose: 50 mg Multivitamins (Hexavitamin) 1 tab PO DAILY [facility] Last Admin: 08/11/17 11:12 Dose: 1 tab Pantoprazole Sodium (Protonix Ec Tab) 40 mg PO DAILY [facility] Last Admin: 08/11/17 11:12 Dose: 40 mg Rosuvastatin Calcium (Crestor) 2.5 mg PO HS [facility] Last Admin: 08/10/17 21:26 Dose: 2.5 mg Saccharomyces Boulardii (Florastor) 250 mg PO BID [facility] Last Admin: 08/11/17 17:08 Dose: 250 mg Sennosides (Senokot Tab) 17.5 mg PO DAILY [facility] - Labs Labs: 08/11/17 08:50 08/11/17 08:50 Attending/Attestation - Attestation I have personally seen and examined this patient.: Yes I have fully participated in the care of the patient.: Yes I have reviewed all pertinent clinical information, including history, physical exam and plan: Yes Notes (Text): 08/11/17 18:31 Medical attending: Patient was seen and examined by me, agrees the above note by medical assisting instructor. This patient in no to the hospitalist service from previous admissions. He recently went to [facility] after he was found that he had multivessel disease on a cardiac cath done here [facility]. While here at [facility] he had CABG surgery done. While there he was also found to have positive blood cultures for Pseudomonas. He also had positive Pseudomonas growth in the urine as well he has been on IV meropenem at [facility]. He was then transferred back here to [facility]. He remains on, Plavix, Lopressor , statin, aspirin From what I understand this past week he's been exceptionally weak. He is very dependent on physical therapy. Our goals for the patient is to have him ambulate more. It may be that he'll need a walking cane or rolling walker. Also that his repeat blood cultures were negative. Ideally the patient would benefit a lot from going to subacute rehabilitation or transitional care unit, however because of his economic situation this may not be readily possible Thank you very much, Florencio Dutton
[2017-08-11] MEDS: Rosuvastatin Calcium 2.5 mg Tab PO SCH (21:27)
[2017-08-12 07:04] LABS: BASO # 0.1 K/uL (0.0-0.2); BASO % 0.6 % (0.0-2.0); EOS # 0.3 K/uL (0.0-0.7); EOS % 2.2 % (0.0-4.0); HEMOGLOBIN 10.4 g/dL (12.0-18.0); LYMPH # 1.1 K/uL (1.0-4.3); LYMPH % 9.7 % (20.0-40.0); MEAN CORPUSCULAR HEMOGLOBIN 30.6 pg (27.0-31.0); MEAN CORPUSCULAR HGB CONC 33.6 g/dL (33.0-37.0); MEAN PLATELET VOLUME 7.9 fL (7.2-11.7); MONO # 0.6 K/uL (0.0-0.8); MONO % 5.4 % (0.0-10.0); NEUT # 9.5 K/uL (1.8-7.0); NEUT % 82.1 % (50.0-75.0); PLATELET COUNT 521 K/uL (130-400); RBC 3.41 Mil/uL (4.40-5.90); RED CELL DISTRIBUTION WIDTH 16.7 % (11.5-14.5); WHITE BLOOD COUNT 11.5 K/uL (4.8-10.8)
[2017-08-12 07:50] LABS: ALBUMIN 3.1 g/dL (3.5-5.0); ALT/SGPT 84 U/L (21-72); AST/SGOT 43 U/L (17-59); BLOOD UREA NITROGEN 22 mg/dL (9-20); CALCIUM 8.5 mg/dl (8.6-10.4); GFR AFRICAN-AMERICAN > 60; GFR NON-AFRICAN AMERICAN 51; MAGNESIUM 1.8 mg/dL (1.6-2.3)
[2017-08-12] MEDS: (Novolog) Insulin Aspart, Recombinant 100 u/ml 10 ml vial SC SCH ×3 (07:51→16:30)
[2017-08-12] MEDS: (Novolin R) Insulin Human Regular 100 units/ml vial SC SCH ×4 (07:51→21:25)
--- NOTE | 2017-08-12 09:07 | CP.PCM.PN ---
<ArturDarshanaruddy Saenz - Last Filed: 08/12/17 11:03> Subjective - Date & Time of Evaluation Date of Evaluation: 08/12/17 Time of Evaluation: 07:00 - Subjective Subjective: Medicine Note (PGY-1)---> Dr. Dutton's service Patient was seen and examined at bedside. Patient states that he is doing well and has no new complaints. Patient is tolerating diet and has been out of bed chair and has been working with physical therapy. Patient denies fever, chills, nausea, vomiting, chest pain, SOB, palpitations but admits to fatigue. Objective - Vital Signs/Intake and Output Vital Signs (last 24 hours): Temp Pulse Resp BP Pulse Ox 97.7 F 78 20 102/71 98 08/12/17 08:21 08/12/17 08:21 08/12/17 08:21 08/12/17 08:21 08/12/17 08:21 Intake and Output: 08/12/17 08/12/17 06:59 18:59 Intake Total 540 Output Total 1250 Balance -710 - Medications Medications: Current Medications Aspirin (Aspirin Chewable) 81 mg PO DAILY [facility] Last Admin: 08/11/17 11:12 Dose: 81 mg Clopidogrel Bisulfate (Plavix) 75 mg PO DAILY [facility] Last Admin: 08/11/17 11:12 Dose: 75 mg Docusate Sodium (Colace) 100 mg PO BID [facility] Last Admin: 08/11/17 17:08 Dose: 100 mg Enoxaparin Sodium (Lovenox) 30 mg SC DAILY [facility] Insulin Aspart (Novolog) 2 unit SC ACTID [facility] Last Admin: 08/12/17 07:51 Dose: Not Given Insulin Human Regular (Novolin R) 0 unit SC ACHS [facility] PRN Reason: Protocol Last Admin: 08/12/17 07:51 Dose: Not Given Metoprolol Tartrate (Lopressor) 50 mg PO BID [facility] Last Admin: 08/11/17 17:08 Dose: 50 mg Multivitamins (Hexavitamin) 1 tab PO DAILY [facility] Last Admin: 08/11/17 11:12 Dose: 1 tab Pantoprazole Sodium (Protonix Ec Tab) 40 mg PO DAILY [facility] Last Admin: 08/11/17 11:12 Dose: 40 mg Rosuvastatin Calcium (Crestor) 2.5 mg PO HS [facility] Last Admin: 08/11/17 21:27 Dose: 2.5 mg Saccharomyces Boulardii (Florastor) 250 mg PO BID [facility] Last Admin: 08/11/17 17:08 Dose: 250 mg Sennosides (Senokot Tab) 17.5 mg PO DAILY [facility] - Labs Labs: 08/12/17 06:50 08/12/17 06:50 - Constitutional Appears: Well, No Acute Distress - Head Exam Head Exam: ATRAUMATIC - Eye Exam Eye Exam: EOMI - ENT Exam ENT Exam: Mucous Membranes Moist - Respiratory Exam Respiratory Exam: Clear to Ausculation Bilateral, NORMAL BREATHING PATTERN - Cardiovascular Exam Cardiovascular Exam: REGULAR RHYTHM, +S1 Additional comments: CABG 07/25/17 at [facility] [place] still in place - GI/Abdominal Exam GI & Abdominal Exam: Firm, Guarding, Rigid, Soft, Normal Bowel Sounds - Extremities Exam Extremities Exam: Normal Inspection. absent: Calf Tenderness, Pedal Edema - Neurological Exam Neurological Exam: Alert, Awake, Oriented x3 - Psychiatric Exam Psychiatric exam: Normal Affect - Skin Skin Exam: Normal Color Assessment and Plan (1) S/P CABG (coronary artery bypass graft) Assessment & Plan: F/u with Dr. Grant, Cardithoracic surgeon Mixing Technician, Dr. Bautista----> Consulted CABG at [facility] 07/25/17 Cardiac catheterization (07/15/17)- Dr. Bautista: Multi-vessel disease with 95% stenosis in mid segment of LAD with in-stent re-stenosis. Intimal irregularities in the first diagonal branch. 80% stenosis in proximal segment of circumflex artery. 90% stenosis of right coronary artery. Normal LV systolic function with estimated EF of 50%. Echocardiogram (07/12/17): Showed normal LV size, borderline concentric LV hypertrophy, moderately to severely impaired systolic function, septal hypokinesis, mild to moderate aortic regurgitation, and aortic root is moderately enlarged. At [facility] cabg x2, reop for bleeding,multiple blood transfusion, post op hypoxic, respiratory failure, extubated on 07/22, s/p left sided post op pneumothorax pig tail removed 08/05, noted on chest X-ray * Chest X-ray (08/08/17): Mild Right basilar atelactasis and small right sided pleural effusion Medications: * ASA 81mg po daily * Plavix 75mg po daily * Crestor 2.5mg PO HS Status: Acute (2) History of coronary artery disease Assessment & Plan: CABG at [facility] 07/25/17 * cardiac catheterization (07/14/17) which showed multi-vessel disease with 95% stenosis in mid segment of LAD with in-stent re-stenosis. Intimal irregularities in the first diagonal branch. 80% stenosis in proximal segment of circumflex artery. 90% stenosis of right coronary artery. Normal LV systolic function with estimated EF of 50%. Medications: * ASA 81mg po daily * Plavix 75mg po daily * Crestor 2.5mg PO HS Status: Acute (3) Bacteremia Assessment & Plan: SUNITHA, Dr. Asher on board---> help appreciated Blood culture positive for pseudomonas likely from UTI,s/p pseudomonas in urine * Meropenem started on 08/01 at [facility] as per d/c summary. * Levaquin 08/07 Current medications: * Meropenem 1gm IVPB Q8H (Discontinued 08/11/17) * Avelox 400mg IVPB Q24H ( Discontinued 08/11/17) Labs: Repeat Blood culture (08/08/17): No growth Leukocytosis trending down Status: Acute (4) Elevated amylase and lipase Assessment & Plan: Trending down Continue to monitor Imaging: * CT abd/pelvis showed no evidence of pancreatitis as per [facility] discharge summary Status: Acute (5) Constipation Assessment & Plan: Resolving Medications: * Docusate 100mg PO BID * Senna A and B 17.5mg PO daily Status: Acute (6) History of hypertension Assessment & Plan: Stable Medication: * Lopressor 50mg PO BID Continue to monitor Status: Acute (7) History of diabetes mellitus Assessment & Plan: Accuchecks Novolog 2 units TIDAC ISS low dose Status: Acute (8) Prophylactic measure Assessment & Plan: GI: Protonix 40mg PO daily DVT: Lovenox 30mg SC daily Florastor 250mg po bid PT and OT Disposition: DELIA recommendation as per PT and OT . As per complex case manager, patient' s insurance does not cover DELIA at the moment, but will discuss with social media strategist if something can be done. Status: Acute Status: Acute <Florencio Dutton H - Last Filed: 08/12/17 14:33> Objective - Vital Signs/Intake and Output Vital Signs (last 24 hours): Temp Pulse Resp BP Pulse Ox 97.7 F 78 20 102/71 98 08/12/17 08:21 08/12/17 08:21 08/12/17 08:21 08/12/17 08:21 08/12/17 08:21 Intake and Output: 08/12/17 08/12/17 06:59 18:59 Intake Total 540 Output Total 1250 Balance -710 - Medications Medications: Current Medications Aspirin (Aspirin Chewable) 81 mg PO DAILY [facility] Last Admin: 08/12/17 10:58 Dose: 81 mg Clopidogrel Bisulfate (Plavix) 75 mg PO DAILY [facility] Last Admin: 08/12/17 10:57 Dose: 75 mg Docusate Sodium (Colace) 100 mg PO BID [facility] Last Admin: 08/12/17 10:58 Dose: 100 mg Enoxaparin Sodium (Lovenox) 30 mg SC DAILY [facility] Last Admin: 08/12/17 10:59 Dose: 30 mg Insulin Aspart (Novolog) 2 unit SC ACTID [facility] Last Admin: 08/12/17 12:33 Dose: Not Given Insulin Human Regular (Novolin R) 0 unit SC [facility] PRN Reason: Protocol Last Admin: 08/12/17 12:33 Dose: Not Given Metoprolol Tartrate (Lopressor) 50 mg PO BID [facility] Last Admin: 08/12/17 11:04 Dose: Not Given Multivitamins (Hexavitamin) 1 tab PO DAILY [facility] Last Admin: 08/12/17 10:57 Dose: 1 tab Pantoprazole Sodium (Protonix Ec Tab) 40 mg PO DAILY [facility] Last Admin: 08/12/17 10:58 Dose: 40 mg Rosuvastatin Calcium (Crestor) 2.5 mg PO HS [facility] Last Admin: 08/11/17 21:27 Dose: 2.5 mg Saccharomyces Boulardii (Florastor) 250 mg PO BID [facility] Last Admin: 08/12/17 10:58 Dose: 250 mg Sennosides (Senokot Tab) 17.5 mg PO DAILY [facility] Last Admin: 08/12/17 10:58 Dose: 17.5 mg - Labs Labs: 08/12/17 06:50 08/12/17 06:50 Attending/Attestation - Attestation I have personally seen and examined this patient.: Yes I have fully participated in the care of the patient.: Yes I have reviewed all pertinent clinical information, including history, physical exam and plan: Yes Notes (Text): 08/12/17 14:33 Medical attending: Patient was seen and examined by me, agrees the above note by medical record retrieval specialist. The patient was able to participate with physical therapy yesterday however from what I understand it need a lot of assistance. He had difficulty standing due to feeling weak. We explained to the patient via clubhouse manager that ideally he would benefit from acute rehabilitation however at this time it's unclear if he' ll be able to go to acute rehabilitation or not. In the meantime we encouraged to participate with physical therapy while here as much as possible. He was under any acute distress we saw him, he is not short of breath he did not have chest pain. He was not having fevers. Thank you very much, Florencio Dutton
[2017-08-12 09:18] LABS: EOSINOPHIL 1 % (0-4); LYMPHOCYTE 8 % (20-40); MONOCYTE 7 % (0-10); NEUTROPHIL 84 % (50-75); TOTAL CELLS COUNTED 100
[2017-08-12 09:19] LABS: ANISOCYTOSIS SLIGHT; HYPOCHROMIC SLIGHT; PLATELET ESTIMATE SLIGHTLY INCREASED (NORMAL); POLYCHROMIC SLIGHT
[2017-08-12] MEDS: Multiple Vitamins Tab PO SCH (10:57)
[2017-08-12] MEDS: Saccharomyces Boulardi 250 mg Cap PO SCH ×2 (10:58→18:25)
[2017-08-12] MEDS: Pantoprazole 40 mg EC Tab PO SCH (10:58)
[2017-08-12] MEDS: Enoxaparin 30 mg Syringe SC SCH (10:59)
[2017-08-12] MEDS: Rosuvastatin Calcium 2.5 mg Tab PO SCH (21:35)
[2017-08-13 07:14] LABS: BASO # 0.1 K/uL (0.0-0.2); BASO % 0.6 % (0.0-2.0); EOS # 0.3 K/uL (0.0-0.7); EOS % 2.6 % (0.0-4.0); HEMOGLOBIN 10.4 g/dL (12.0-18.0); LYMPH # 0.9 K/uL (1.0-4.3); LYMPH % 9.5 % (20.0-40.0); MEAN CELL VOLUME 91.9 fL (80.0-94.0); MEAN CORPUSCULAR HEMOGLOBIN 30.3 pg (27.0-31.0); MEAN PLATELET VOLUME 8.2 fL (7.2-11.7); MONO # 0.5 K/uL (0.0-0.8); MONO % 5.3 % (0.0-10.0); NEUT # 8.1 K/uL (1.8-7.0); PLATELET COUNT 462 K/uL (130-400); RBC 3.43 Mil/uL (4.40-5.90); RED CELL DISTRIBUTION WIDTH 17.2 % (11.5-14.5); WHITE BLOOD COUNT 9.9 K/uL (4.8-10.8)
[2017-08-13 07:45] LABS: ALB/GLOB RATIO 0.9 (1.0-2.1); ALBUMIN 3.1 g/dL (3.5-5.0); ALT/SGPT 80 U/L (21-72); AST/SGOT 33 U/L (17-59); BLOOD UREA NITROGEN 22 mg/dL (9-20); CALCIUM 8.3 mg/dl (8.6-10.4); GFR AFRICAN-AMERICAN > 60; GFR NON-AFRICAN AMERICAN > 60; MAGNESIUM 1.8 mg/dL (1.6-2.3)
[2017-08-13] MEDS: (Novolin R) Insulin Human Regular 100 units/ml vial SC SCH ×4 (08:08→21:28)
[2017-08-13] MEDS: (Novolog) Insulin Aspart, Recombinant 100 u/ml 10 ml vial SC SCH ×4 (08:09→16:30)
[2017-08-13 09:14] LABS: EOSINOPHIL 1 % (0-4); LYMPHOCYTE 10 % (20-40); MONOCYTE 2 % (0-10); NEUTROPHIL 87 % (50-75); TOTAL CELLS COUNTED 100
[2017-08-13 09:15] LABS: ANISOCYTOSIS SLIGHT; HYPOCHROMIC SLIGHT; PLATELET ESTIMATE SLIGHTLY INCREASED (NORMAL); POLYCHROMIC SLIGHT
[2017-08-13] MEDS: Enoxaparin 30 mg Syringe SC SCH (09:57)
[2017-08-13] MEDS: Multiple Vitamins Tab PO SCH (09:57)
[2017-08-13] MEDS: Pantoprazole 40 mg EC Tab PO SCH (09:58)
[2017-08-13] MEDS: Saccharomyces Boulardi 250 mg Cap PO SCH (09:59)
--- NOTE | 2017-08-13 13:30 | CP.PCM.PN ---
<FaunsdaleBria jamison Dany - Last Filed: 08/13/17 13:41> Subjective - Date & Time of Evaluation Date of Evaluation: 08/13/17 Time of Evaluation: 07:05 - Subjective Subjective: Medicine Note (PGY-1)---> Dr. Dutton's service Patient was seen and examined at bedside. Patient states that he is doing well and has no new complaints. Patient is tolerating diet and has been out of bed to chair and has been working with physical therapy. Patient denies fever, chills, nausea, vomiting, chest pain, palpitations but admits to fatigue and SOB. Objective - Vital Signs/Intake and Output Vital Signs (last 24 hours): Temp Pulse Resp BP Pulse Ox 97.7 F 71 20 96/60 L 96 08/13/17 00:00 08/13/17 00:00 08/13/17 00:00 08/13/17 00:00 08/13/17 00:00 Intake and Output: 08/13/17 08/13/17 06:59 18:59 Intake Total 300 200 Output Total 500 450 Balance -200 -250 - Medications Medications: Current Medications Aspirin (Aspirin Chewable) 81 mg PO DAILY [facility] Last Admin: 08/13/17 09:57 Dose: 81 mg Clopidogrel Bisulfate (Plavix) 75 mg PO DAILY [facility] Last Admin: 08/13/17 09:58 Dose: 75 mg Docusate Sodium (Colace) 100 mg PO BID [facility] Last Admin: 08/13/17 09:57 Dose: 100 mg Enoxaparin Sodium (Lovenox) 30 mg SC DAILY [facility] Last Admin: 08/13/17 09:57 Dose: 30 mg Insulin Aspart (Novolog) 2 unit SC ACTID [facility] Last Admin: 08/13/17 11:59 Dose: Not Given Insulin Human Regular (Novolin R) 0 unit SC [facility] PRN Reason: Protocol Last Admin: 08/13/17 11:58 Dose: Not Given Metoprolol Tartrate (Lopressor) 50 mg PO BID [facility] Last Admin: 08/13/17 09:57 Dose: 50 mg Multivitamins (Hexavitamin) 1 tab PO DAILY [facility] Last Admin: 08/13/17 09:57 Dose: 1 tab Pantoprazole Sodium (Protonix Ec Tab) 40 mg PO DAILY [facility] Last Admin: 08/13/17 09:58 Dose: 40 mg Rosuvastatin Calcium (Crestor) 2.5 mg PO HS [facility] Last Admin: 08/12/17 21:35 Dose: 2.5 mg Saccharomyces Boulardii (Florastor) 250 mg PO BID [facility] Last Admin: 08/13/17 09:59 Dose: 250 mg Sennosides (Senokot Tab) 17.5 mg PO DAILY [facility] Last Admin: 08/13/17 09:58 Dose: 8.6 mg - Labs Labs: 08/13/17 06:55 08/13/17 06:55 - Constitutional Appears: No Acute Distress - Head Exam Head Exam: ATRAUMATIC - Eye Exam Eye Exam: EOMI - ENT Exam ENT Exam: Mucous Membranes Moist - Respiratory Exam Respiratory Exam: Clear to Ausculation Bilateral, NORMAL BREATHING PATTERN - Cardiovascular Exam Cardiovascular Exam: REGULAR RHYTHM, +S1, +S2 - GI/Abdominal Exam GI & Abdominal Exam: Soft, Normal Bowel Sounds. absent: Distended, Guarding, Rigid, Tenderness - Extremities Exam Extremities Exam: Normal Inspection. absent: Calf Tenderness, Pedal Edema - Back Exam Back Exam: absent: CVA tenderness (L), CVA tenderness (R) - Neurological Exam Neurological Exam: Alert, Awake, Oriented x3 - Psychiatric Exam Psychiatric exam: Normal Affect - Skin Skin Exam: Normal Color Assessment and Plan (1) S/P CABG (coronary artery bypass graft) Assessment & Plan: F/u with Dr. Grant, Cardithoracic surgeon Staff Readiness Officer, Dr. Bautista----> [place] [facility] [place] Cardiac catheterization (07/15/17)- Dr. Bautista: Multi-vessel disease with 95% stenosis in mid segment of LAD with in-stent re-stenosis. Intimal irregularities in the first diagonal branch. 80% stenosis in proximal segment of circumflex artery. 90% stenosis of right coronary artery. Normal LV systolic function with estimated EF of 50%. Echocardiogram (07/12/17): Showed normal LV size, borderline concentric LV hypertrophy, moderately to severely impaired systolic function, septal hypokinesis, mild to moderate aortic regurgitation, and aortic root is moderately enlarged. [place] [facility] [place], reop for bleeding,multiple blood transfusion, post op hypoxic, respiratory failure, extubated on 07/22, s/p left sided post op pneumothorax pig tail removed 08/05, noted on chest X-ray * Chest X-ray (08/08/17): Mild Right basilar atelactasis and small right sided pleural effusion Medications: * ASA 81mg po daily * Plavix 75mg po daily * Crestor 2.5mg PO HS Status: Acute (2) History of coronary artery disease Assessment & Plan: CABG [place] [facility] [place] * cardiac catheterization (07/14/17) which showed multi-vessel disease with 95% stenosis in mid segment of LAD with in-stent re-stenosis. Intimal irregularities in the first diagonal branch. 80% stenosis in proximal segment of circumflex artery. 90% stenosis of right coronary artery. Normal LV systolic function with estimated EF of 50%. Medications: * ASA 81mg po daily * Plavix 75mg po daily * Crestor 2.5mg PO HS Status: Acute (3) Bacteremia Assessment & Plan: Dr. Asher on board---> help appreciated Blood culture positive for pseudomonas likely from UTI,s/p pseudomonas in urine * Meropenem started on 08/01 [place] [facility] as per d/c summary. * Levaquin 08/07 Current medications: * Meropenem 1gm IVPB Q8H (Discontinued 08/11/17) * Avelox 400mg IVPB Q24H ( Discontinued 08/11/17) Labs: Repeat Blood culture (08/08/17): No growth Leukocytosis trending down Status: Acute (4) Elevated amylase and lipase Assessment & Plan: Trending down Continue to monitor Imaging: * CT abd/pelvis showed no evidence of pancreatitis as per [facility] [place] Status: Acute (5) Constipation Assessment & Plan: Resolving Medications: * Docusate 100mg PO BID * Senna A and B 17.5mg PO daily Status: Acute (6) History of hypertension Assessment & Plan: Stable Medication: * Lopressor 50mg PO BID Continue to monitor Status: Acute (7) History of diabetes mellitus Assessment & Plan: Accuchecks Novolog 2 units TIDAC ISS low dose Status: Acute (8) Prophylactic measure Assessment & Plan: GI: Protonix 40mg PO daily DVT: Lovenox 30mg SC daily Multivitamins 1 tab PO daily PT and OT Disposition: DELIA recommendation as per PT and OT . As per caser up, patient' s insurance does not cover DELIA at the moment, but will discuss with social welfare clerk if something can be done. In the mean time, patient will continue to work closely with physical therapy. Status: Acute <Florencio Dutton H - Last Filed: 08/13/17 14:56> Objective - Vital Signs/Intake and Output Vital Signs (last 24 hours): Temp Pulse Resp BP Pulse Ox 97.7 F 71 20 96/60 L 96 08/13/17 00:00 08/13/17 00:00 08/13/17 00:00 08/13/17 00:00 08/13/17 00:00 Intake and Output: 08/13/17 08/13/17 06:59 18:59 Intake Total 300 880 Output Total 500 450 Balance -200 430 - Medications Medications: Current Medications Aspirin (Aspirin Chewable) 81 mg PO DAILY [facility] Last Admin: 08/13/17 09:57 Dose: 81 mg Clopidogrel Bisulfate (Plavix) 75 mg PO DAILY [facility] Last Admin: 08/13/17 09:58 Dose: 75 mg Docusate Sodium (Colace) 100 mg PO BID [facility] Last Admin: 08/13/17 09:57 Dose: 100 mg Enoxaparin Sodium (Lovenox) 30 mg SC DAILY [facility] Last Admin: 08/13/17 09:57 Dose: 30 mg Insulin Aspart (Novolog) 2 unit SC ACTID [facility] Last Admin: 08/13/17 11:59 Dose: Not Given Insulin Human Regular (Novolin R) 0 unit SC [facility] PRN Reason: Protocol Last Admin: 08/13/17 11:58 Dose: Not Given Metoprolol Tartrate (Lopressor) 50 mg PO BID [facility] Last Admin: 08/13/17 09:57 Dose: 50 mg Multivitamins (Hexavitamin) 1 tab PO DAILY [facility] Last Admin: 08/13/17 09:57 Dose: 1 tab Pantoprazole Sodium (Protonix Ec Tab) 40 mg PO DAILY [facility] Last Admin: 08/13/17 09:58 Dose: 40 mg Rosuvastatin Calcium (Crestor) 2.5 mg PO HS [facility] Last Admin: 08/12/17 21:35 Dose: 2.5 mg Sennosides (Senokot Tab) 17.5 mg PO DAILY [facility] Last Admin: 08/13/17 09:58 Dose: 8.6 mg - Labs Labs: 08/13/17 06:55 08/13/17 06:55 Attending/Attestation - Attestation I have personally seen and examined this patient.: Yes I have fully participated in the care of the patient.: Yes I have reviewed all pertinent clinical information, including history, physical exam and plan: Yes Notes (Text): 08/13/17 14:56 Medical attending: Patient was seen and examined by me, agrees the above note by associate medical director. The patient was not under any acute distress we saw him. He was out of bed sitting in a chair. He explains to us that when he did try to participate with physical therapy yesterday that he felt very weak and also got very short of breath. Working to get a PA and lateral chest x-ray just assess if he's had any potential pulmonary congestion or edema. Thank you very much, Florencio Dutton
[2017-08-13 14:17] LABS: LIPASE 962 U/L (23-300)
--- NOTE | 2017-08-13 14:22 | RAD ---
HISTORY: COMPARISON: 08/08/2017. TECHNIQUE: Chest PA and lateral FINDINGS: LINES AND TUBES: None. LUNG AND PLEURA: Again seen is a right basilar atelectasis and persistent consolidation in the left lower lobe. There are stable bilateral pleural effusions. HEART AND MEDIASTINUM: The cardiomediastinal silhouette is stable. Status post CABG. The hilar and mediastinal contours are within normal limits. SKELETAL STRUCTURES: The bony structures are within normal limits for the patient's age. VISUALIZED UPPER ABDOMEN: Normal. OTHER FINDINGS: None. IMPRESSION: No change in right basilar atelectasis and left lower lobe consolidation with small pleural effusions.
[2017-08-13] MEDS: Rosuvastatin Calcium 2.5 mg Tab PO SCH (21:28)
[2017-08-14 07:35] LABS: BASO % 0.5 % (0.0-2.0); EOS # 0.2 K/uL (0.0-0.7); EOS % 2.7 % (0.0-4.0); HEMOGLOBIN 10.3 g/dL (12.0-18.0); LYMPH % 12.6 % (20.0-40.0); MEAN CELL VOLUME 91.3 fL (80.0-94.0); MEAN CORPUSCULAR HEMOGLOBIN 30.7 pg (27.0-31.0); MEAN CORPUSCULAR HGB CONC 33.6 g/dL (33.0-37.0); MEAN PLATELET VOLUME 8.1 fL (7.2-11.7); MONO # 0.5 K/uL (0.0-0.8); MONO % 6.3 % (0.0-10.0); NEUT # 5.9 K/uL (1.8-7.0); NEUT % 77.9 % (50.0-75.0); RBC 3.36 Mil/uL (4.40-5.90); RED CELL DISTRIBUTION WIDTH 17.3 % (11.5-14.5); WHITE BLOOD COUNT 7.5 K/uL (4.8-10.8)
[2017-08-14 07:59] LABS: ALBUMIN 3.1 g/dL (3.5-5.0); ALT/SGPT 67 U/L (21-72); AST/SGOT 35 U/L (17-59); BLOOD UREA NITROGEN 21 mg/dL (9-20); CALCIUM 8.4 mg/dl (8.6-10.4); GFR AFRICAN-AMERICAN > 60; GFR NON-AFRICAN AMERICAN > 60; LIPASE 888 U/L (23-300); MAGNESIUM 1.8 mg/dL (1.6-2.3)
[2017-08-14] MEDS: (Novolin R) Insulin Human Regular 100 units/ml vial SC SCH ×4 (08:34→22:04)
[2017-08-14] MEDS: (Novolog) Insulin Aspart, Recombinant 100 u/ml 10 ml vial SC SCH ×3 (08:35→17:10)
[2017-08-14] MEDS: Pantoprazole 40 mg EC Tab PO SCH (09:17)
[2017-08-14] MEDS: Multiple Vitamins Tab PO SCH (09:18)
[2017-08-14] MEDS: Enoxaparin 30 mg Syringe SC SCH (09:19)
--- NOTE | 2017-08-14 11:20 | CP.PCM.PN ---
<Bria Siddiqui Dany - Last Filed: 08/14/17 11:33> Subjective - Date & Time of Evaluation Date of Evaluation: 08/14/17 Time of Evaluation: 07:20 - Subjective Subjective: Medicine Note (PGY-1)---> Dr. Dutton's service Patient was seen and examined at bedside. Patient states that he is feeling very weak this morning and nauseous. Patient denies chest pain, SOB, headache, blurry vision, dizziness, vomiting. Patient was out of bed to chair today, tolerating diet and working with physical therapy. Objective - Vital Signs/Intake and Output Vital Signs (last 24 hours): Temp Pulse Resp BP Pulse Ox 97.9 F 85 20 106/73 96 08/14/17 08:00 08/14/17 08:00 08/14/17 08:00 08/14/17 08:00 08/13/17 23:21 - Medications Medications: Current Medications Aspirin (Aspirin Chewable) 81 mg PO DAILY [facility] Last Admin: 08/14/17 09:17 Dose: 81 mg Clopidogrel Bisulfate (Plavix) 75 mg PO DAILY [facility] Last Admin: 08/14/17 09:18 Dose: 75 mg Docusate Sodium (Colace) 100 mg PO BID [facility] Last Admin: 08/14/17 09:17 Dose: 100 mg Enoxaparin Sodium (Lovenox) 30 mg SC DAILY [facility] Last Admin: 08/14/17 09:19 Dose: 30 mg Insulin Aspart (Novolog) 2 unit SC ACTID [facility] Last Admin: 08/14/17 08:35 Dose: Not Given Insulin Human Regular (Novolin R) 0 unit SC [facility] PRN Reason: Protocol Last Admin: 08/14/17 08:34 Dose: Not Given Metoprolol Tartrate (Lopressor) 12.5 mg PO BID [facility] Multivitamins (Hexavitamin) 1 tab PO DAILY [facility] Last Admin: 08/14/17 09:18 Dose: 1 tab Pantoprazole Sodium (Protonix Ec Tab) 40 mg PO DAILY [facility] Last Admin: 08/14/17 09:17 Dose: 40 mg Rosuvastatin Calcium (Crestor) 2.5 mg PO HS [facility] Last Admin: 08/13/17 21:28 Dose: 2.5 mg Sennosides (Senokot Tab) 17.5 mg PO DAILY [facility] Last Admin: 08/14/17 09:18 Dose: 17.5 mg - Labs Labs: 08/14/17 07:06 08/14/17 07:06 - Constitutional Appears: Well, No Acute Distress - Head Exam Head Exam: absent: ATRAUMATIC - Eye Exam Eye Exam: EOMI - ENT Exam ENT Exam: Mucous Membranes Moist - Respiratory Exam Respiratory Exam: NORMAL BREATHING PATTERN Additional comments: 2L NC - Cardiovascular Exam Cardiovascular Exam: REGULAR RHYTHM, +S1, +S2 Additional comments: Alex in place, s/p CABG (07/25/17) - GI/Abdominal Exam GI & Abdominal Exam: Soft, Normal Bowel Sounds. absent: Tenderness - Extremities Exam Extremities Exam: Normal Inspection. absent: Calf Tenderness - Neurological Exam Neurological Exam: Alert, Awake, Oriented x3 - Psychiatric Exam Psychiatric exam: Normal Affect - Skin Skin Exam: Normal Color Assessment and Plan (1) S/P CABG (coronary artery bypass graft) Assessment & Plan: F/u with Dr. Grant, Cardithoracic surgeon Echocardiologist, Dr. Bautista----> Consulted CABG at [facility] [place] 07/25/17 Cardiac catheterization (07/15/17)- Dr. Bautista: Multi-vessel disease with 95% stenosis in mid segment of LAD with in-stent re-stenosis. Intimal irregularities in the first diagonal branch. 80% stenosis in proximal segment of circumflex artery. 90% stenosis of right coronary artery. Normal LV systolic function with estimated EF of 50%. Echocardiogram (07/12/17): Showed normal LV size, borderline concentric LV hypertrophy, moderately to severely impaired systolic function, septal hypokinesis, mild to moderate aortic regurgitation, and aortic root is moderately enlarged. At [facility] cabg x2, reop for bleeding,multiple blood transfusion, post op hypoxic, respiratory failure, extubated on 07/22, s/p left sided post op pneumothorax pig tail removed 08/05, noted on chest X-ray * Chest X-ray (08/08/17): Mild Right basilar atelactasis and small right sided pleural effusion * Repeat Chest X-ray (08/13/17): No change in right basilar atelectasis and left lower lobe consolidation with small pleural effusions. * f/u Repeat echo: Medications: * ASA 81mg po daily * Plavix 75mg po daily * Crestor 2.5mg PO HS * Lopressor 50mg PO BID -----> Switched to 12.5mg PO BID Status: Acute (2) History of coronary artery disease Assessment & Plan: CABG at [facility] 07/25/17 * cardiac catheterization (07/14/17) which showed multi-vessel disease with 95% stenosis in mid segment of LAD with in-stent re-stenosis. Intimal irregularities in the first diagonal branch. 80% stenosis in proximal segment of circumflex artery. 90% stenosis of right coronary artery. Normal LV systolic function with estimated EF of 50%. Medications: * ASA 81mg po daily * Plavix 75mg po daily * Crestor 2.5mg PO HS Status: Acute (3) Bacteremia Assessment & Plan: Dr. Asher on board---> help appreciated Blood culture positive for pseudomonas likely from UTI,s/p pseudomonas in urine * Meropenem started on 08/01 at [facility] as per d/c summary. * Levaquin 08/07 Current medications: * Meropenem 1gm IVPB Q8H (Discontinued 08/11/17) * Avelox 400mg IVPB Q24H ( Discontinued 08/11/17) Labs: Repeat Blood culture (08/08/17): No growth Leukocytosis normalized Status: Acute (4) Elevated amylase and lipase Assessment & Plan: Trending down Continue to monitor Imaging: * CT abd/pelvis showed no evidence of pancreatitis as per [facility] discharge summary Status: Acute (5) Constipation Assessment & Plan: Resolving Medications: * Docusate 100mg PO BID * Senna A and B 17.5mg PO daily Status: Acute (6) History of hypertension Assessment & Plan: Stable Medication: * Lopressor 50mg PO BID----> Decreased to 12.5mg PO BID ( 08/14/2017) Continue to monitor Status: Acute (7) History of diabetes mellitus Assessment & Plan: Accuchecks Novolog 2 units TIDAC ISS low dose Status: Acute (8) Prophylactic measure Assessment & Plan: GI: Protonix 40mg PO daily DVT: Lovenox 30mg SC daily Multivitamins 1 tab PO daily PT and OT Disposition: DELIA recommendation as per PT and OT . As per returned case inspector, patient' s insurance does not cover DELIA at the moment, but will discuss with nephrology social worker if something can be done. In the mean time, patient will continue to work closely with physical therapy. Status: Acute <Dutton,Peter H - Last Filed: 08/14/17 15:39> Objective - Vital Signs/Intake and Output Vital Signs (last 24 hours): Temp Pulse Resp BP Pulse Ox 97.9 F 85 20 101/73 96 08/14/17 08:00 08/14/17 13:59 08/14/17 13:59 08/14/17 13:59 08/13/17 23:21 Intake and Output: 08/14/17 08/14/17 06:59 18:59 Intake Total 400 Balance 400 - Medications Medications: Current Medications Aspirin (Aspirin Chewable) 81 mg PO DAILY [facility] Last Admin: 08/14/17 09:17 Dose: 81 mg Clopidogrel Bisulfate (Plavix) 75 mg PO DAILY [facility] Last Admin: 08/14/17 09:18 Dose: 75 mg Docusate Sodium (Colace) 100 mg PO BID [facility] Last Admin: 08/14/17 09:17 Dose: 100 mg Enoxaparin Sodium (Lovenox) 30 mg SC DAILY [facility] Last Admin: 08/14/17 09:19 Dose: 30 mg Insulin Aspart (Novolog) 2 unit SC ACTID [facility] Last Admin: 08/14/17 12:22 Dose: Not Given Insulin Human Regular (Novolin R) 0 unit SC [facility] PRN Reason: Protocol Last Admin: 08/14/17 12:21 Dose: Not Given Metoprolol Tartrate (Lopressor) 12.5 mg PO BID [facility] Last Admin: 08/14/17 11:55 Dose: Not Given Multivitamins (Hexavitamin) 1 tab PO DAILY [facility] Last Admin: 08/14/17 09:18 Dose: 1 tab Pantoprazole Sodium (Protonix Ec Tab) 40 mg PO DAILY [facility] Last Admin: 08/14/17 09:17 Dose: 40 mg Rosuvastatin Calcium (Crestor) 2.5 mg PO HS [facility] Last Admin: 08/13/17 21:28 Dose: 2.5 mg Sennosides (Senokot Tab) 17.5 mg PO DAILY [facility] Last Admin: 08/14/17 09:18 Dose: 17.5 mg - Labs Labs: 08/14/17 07:06 08/14/17 07:06 Attending/Attestation - Attestation I have personally seen and examined this patient.: Yes I have fully participated in the care of the patient.: Yes I have reviewed all pertinent clinical information, including history, physical exam and plan: Yes Notes (Text): 08/14/17 15:38 Medical attending: Patient was seen and examined by me, agrees the above note by medical library assistant. The patient is still extremely weak and fatigued he has a lot of trouble with physical therapy. He is sitting up out of bed, however he needs assistance just getting from the chair to his bed. We encouraged the patient to continue to participate with physical therapy. Thank you very much, Florencio Dutton
[2017-08-14] MEDS: Rosuvastatin Calcium 2.5 mg Tab PO SCH (21:48)
[2017-08-15] MEDS: (Novolog) Insulin Aspart, Recombinant 100 u/ml 10 ml vial SC SCH ×3 (07:39→16:30)
[2017-08-15] MEDS: (Novolin R) Insulin Human Regular 100 units/ml vial SC SCH ×4 (07:39→21:57)
[2017-08-15 08:12] LABS: BASO # 0.1 K/uL (0.0-0.2); BASO % 0.7 % (0.0-2.0); EOS # 0.2 K/uL (0.0-0.7); EOS % 3.1 % (0.0-4.0); HEMOGLOBIN 10.8 g/dL (12.0-18.0); LYMPH % 13.9 % (20.0-40.0); MEAN CELL VOLUME 92.2 fL (80.0-94.0); MEAN CORPUSCULAR HEMOGLOBIN 30.7 pg (27.0-31.0); MEAN CORPUSCULAR HGB CONC 33.3 g/dL (33.0-37.0); MEAN PLATELET VOLUME 7.8 fL (7.2-11.7); MONO # 0.4 K/uL (0.0-0.8); MONO % 5.8 % (0.0-10.0); NEUT # 5.8 K/uL (1.8-7.0); NEUT % 76.5 % (50.0-75.0); RBC 3.53 Mil/uL (4.40-5.90); RED CELL DISTRIBUTION WIDTH 17.8 % (11.5-14.5); WHITE BLOOD COUNT 7.5 K/uL (4.8-10.8)
[2017-08-15 08:32] LABS: BLOOD UREA NITROGEN 17 mg/dL (9-20); GFR AFRICAN-AMERICAN > 60; GFR NON-AFRICAN AMERICAN > 60
[2017-08-15 08:33] LABS: ALBUMIN 3.3 g/dL (3.5-5.0); ALT/SGPT 64 U/L (21-72); AST/SGOT 32 U/L (17-59); CALCIUM 8.4 mg/dl (8.6-10.4); LIPASE 667 U/L (23-300); MAGNESIUM 1.7 mg/dL (1.6-2.3)
[2017-08-15] MEDS: Multiple Vitamins Tab PO SCH (10:29)
[2017-08-15] MEDS: Pantoprazole 40 mg EC Tab PO SCH (10:29)
[2017-08-15] MEDS: Enoxaparin 30 mg Syringe SC SCH (10:29)
--- NOTE | 2017-08-15 14:42 | CP.PCM.PN ---
<[place] jamison Dany - Last Filed: 08/15/17 14:43> Subjective - Date & Time of Evaluation Date of Evaluation: 08/15/17 Time of Evaluation: 07:10 - Subjective Subjective: Medicine Note (PGY-1)---> Dr. Dutton's service Patient was seen and examined at bedside. Patient states that his symptoms are improving but still feeling quite fatigued. Patient denies chest pain, SOB, headache, blurry vision, dizziness, vomiting. Patient was out of bed to chair today and working with physical therapy. Objective - Vital Signs/Intake and Output Vital Signs (last 24 hours): Temp Pulse Resp BP Pulse Ox 98.3 F 86 20 105/68 96 08/15/17 07:42 08/15/17 07:42 08/15/17 07:42 08/15/17 07:42 08/15/17 07:42 - Medications Medications: Current Medications Aspirin (Aspirin Chewable) 81 mg PO DAILY [facility] Last Admin: 08/15/17 10:29 Dose: 81 mg Clopidogrel Bisulfate (Plavix) 75 mg PO DAILY [facility] Last Admin: 08/15/17 10:29 Dose: 75 mg Docusate Sodium (Colace) 100 mg PO BID [facility] Last Admin: 08/15/17 10:29 Dose: 100 mg Enoxaparin Sodium (Lovenox) 30 mg SC DAILY [facility] Last Admin: 08/15/17 10:29 Dose: 30 mg Insulin Aspart (Novolog) 2 unit SC ACTID [facility] Last Admin: 08/15/17 11:15 Dose: Not Given Insulin Human Regular (Novolin R) 0 unit SC ACHS [facility] PRN Reason: Protocol Last Admin: 08/15/17 11:15 Dose: Not Given Metoprolol Tartrate (Lopressor) 12.5 mg PO BID [facility] Last Admin: 08/15/17 10:29 Dose: 12.5 mg Multivitamins (Hexavitamin) 1 tab PO DAILY [facility] Last Admin: 08/15/17 10:29 Dose: 1 tab Pantoprazole Sodium (Protonix Ec Tab) 40 mg PO DAILY [facility] Last Admin: 08/15/17 10:29 Dose: 40 mg Rosuvastatin Calcium (Crestor) 2.5 mg PO HS [facility] Last Admin: 08/14/17 21:48 Dose: 2.5 mg Sennosides (Senokot Tab) 17.5 mg PO DAILY [facility] Last Admin: 08/15/17 10:29 Dose: 17.5 mg Sodium Phosphate (Fleet Enema) 135 ml MI DAILY PRN - Labs Labs: 08/15/17 07:43 08/15/17 07:43 - Constitutional Appears: Well, No Acute Distress - Head Exam Head Exam: ATRAUMATIC - Eye Exam Eye Exam: EOMI - ENT Exam ENT Exam: Mucous Membranes Moist - Respiratory Exam Respiratory Exam: Clear to Ausculation Bilateral, NORMAL BREATHING PATTERN Additional comments: on 2L NC - Cardiovascular Exam Cardiovascular Exam: REGULAR RHYTHM, +S1, +S2 - GI/Abdominal Exam GI & Abdominal Exam: Soft, Normal Bowel Sounds - Extremities Exam Extremities Exam: Normal Inspection. absent: Calf Tenderness, Pedal Edema - Neurological Exam Neurological Exam: Alert, Awake, Oriented x3 - Psychiatric Exam Psychiatric exam: Normal Affect - Skin Skin Exam: Normal Color Assessment and Plan (1) S/P CABG (coronary artery bypass graft) Assessment & Plan: F/u with Dr. Grant, Cardithoracic surgeon Transportation Solutions Manager, Dr. Bautista----> Consulted CABG at [facility] 07/25/17 Cardiac catheterization (07/15/17)- Dr. Bautista: Multi-vessel disease with 95% stenosis in mid segment of LAD with in-stent re-stenosis. Intimal irregularities in the first diagonal branch. 80% stenosis in proximal segment of circumflex artery. 90% stenosis of right coronary artery. Normal LV systolic function with estimated EF of 50%. Echocardiogram (07/12/17): Showed normal LV size, borderline concentric LV hypertrophy, moderately to severely impaired systolic function, septal hypokinesis, mild to moderate aortic regurgitation, and aortic root is moderately enlarged. At [facility] cabg x2, reop for bleeding,multiple blood transfusion, post op hypoxic, respiratory failure, extubated on 07/22, s/p left sided post op pneumothorax pig tail removed 08/05, noted on chest X-ray * Chest X-ray (08/08/17): Mild Right basilar atelactasis and small right sided pleural effusion * Repeat Chest X-ray (08/13/17): No change in right basilar atelectasis and left lower lobe consolidation with small pleural effusions. * f/u Repeat echo: Medications: * ASA 81mg po daily * Plavix 75mg po daily * Crestor 2.5mg PO HS * Lopressor 50mg PO BID -----> Switched to 12.5mg PO BID Status: Acute (2) History of coronary artery disease Assessment & Plan: CABG at [facility] 07/25/17 * cardiac catheterization (07/14/17) which showed multi-vessel disease with 95% stenosis in mid segment of LAD with in-stent re-stenosis. Intimal irregularities in the first diagonal branch. 80% stenosis in proximal segment of circumflex artery. 90% stenosis of right coronary artery. Normal LV systolic function with estimated EF of 50%. Medications: * ASA 81mg po daily * Plavix 75mg po daily * Crestor 2.5mg PO HS Status: Acute (3) Bacteremia Assessment & Plan: Resolved Dr. Asher on board---> help appreciated Blood culture positive for pseudomonas likely from UTI, s/p pseudomonas in urine * Meropenem started on 08/01 at [facility] as per d/c summary. * Levaquin 08/07 Medications: * Meropenem 1gm IVPB Q8H (Discontinued 08/11/17) * Avelox 400mg IVPB Q24H ( Discontinued 08/11/17) Labs: Repeat Blood culture (08/08/17): No growth Leukocytosis normalized Status: Acute (4) Elevated amylase and lipase Assessment & Plan: Trending down Continue to monitor Imaging: * CT abd/pelvis showed no evidence of pancreatitis as per [facility] discharge summary Status: Acute (5) Constipation Assessment & Plan: Resolving Medications: * Docusate 100mg PO BID * Senna A and B 17.5mg PO daily * Fleet enema PRN Status: Acute (6) History of hypertension Assessment & Plan: Stable Medication: * Lopressor 50mg PO BID----> Decreased to 12.5mg PO BID ( 08/14/2017) Continue to monitor Status: Acute (7) History of diabetes mellitus Assessment & Plan: Accuchecks Novolog 2 units TIDAC ISS low dose Status: Acute (8) Prophylactic measure Assessment & Plan: GI: Protonix 40mg PO daily DVT: Lovenox 30mg SC daily Multivitamins 1 tab PO daily PT and OT Disposition: DELIA recommendation as per PT and OT . As per case checker, patient' s insurance does not cover DELIA or home physical therapy at the moment, but will discuss with social service liaison if something can be done. In the mean time, patient will continue to work very closely with physical therapy. Status: Acute <Florencio Dutton H - Last Filed: 08/15/17 16:17> Objective - Vital Signs/Intake and Output Vital Signs (last 24 hours): Temp Pulse Resp BP Pulse Ox 98.3 F 86 20 105/68 96 08/15/17 07:42 08/15/17 07:42 08/15/17 07:42 08/15/17 07:42 08/15/17 07:42 Intake and Output: 08/15/17 08/15/17 06:59 18:59 Intake Total 450 Balance 450 - Medications Medications: Current Medications Aspirin (Aspirin Chewable) 81 mg PO DAILY [facility] Last Admin: 08/15/17 10:29 Dose: 81 mg Clopidogrel Bisulfate (Plavix) 75 mg PO DAILY [facility] Last Admin: 08/15/17 10:29 Dose: 75 mg Docusate Sodium (Colace) 100 mg PO BID [facility] Last Admin: 08/15/17 10:29 Dose: 100 mg Enoxaparin Sodium (Lovenox) 30 mg SC DAILY [facility] Last Admin: 08/15/17 10:29 Dose: 30 mg Insulin Aspart (Novolog) 2 unit SC ACTID [facility] Last Admin: 08/15/17 11:15 Dose: Not Given Insulin Human Regular (Novolin R) 0 unit SC ACHS [facility] PRN Reason: Protocol Last Admin: 08/15/17 11:15 Dose: Not Given Metoprolol Tartrate (Lopressor) 12.5 mg PO BID [facility] Last Admin: 08/15/17 10:29 Dose: 12.5 mg Multivitamins (Hexavitamin) 1 tab PO DAILY [facility] Last Admin: 08/15/17 10:29 Dose: 1 tab Pantoprazole Sodium (Protonix Ec Tab) 40 mg PO DAILY [facility] Last Admin: 08/15/17 10:29 Dose: 40 mg Rosuvastatin Calcium (Crestor) 2.5 mg PO HS [facility] Last Admin: 08/14/17 21:48 Dose: 2.5 mg Sennosides (Senokot Tab) 17.5 mg PO DAILY [facility] Last Admin: 08/15/17 10:29 Dose: 17.5 mg Sodium Phosphate (Fleet Enema) 135 ml MI DAILY [facility] Last Admin: 08/15/17 15:27 Dose: 135 ml - Labs Labs: 08/15/17 07:43 08/15/17 07:43 Attending/Attestation - Attestation I have personally seen and examined this patient.: Yes I have fully participated in the care of the patient.: Yes I have reviewed all pertinent clinical information, including history, physical exam and plan: Yes Notes (Text): 08/15/17 16:17 Medical attending: Patient was seen and examined by me, agrees the above note by medical billing clerk. The patient was not under any acute distress at this time. He was sitting up out of bed in a chair He is able to participate better with physical therapy today. He explains that he had to still use the rolling walker however he was able to get out to almost the nurses station and then back to his room. He was very proud of this. As mentioned previously patient has just had been to [facility] and also at that time had a bout with pancreatitis and then septicemia. He's been bedbound for quite some time now. Because of economic/social situations he' s not qualify for DELIA at this moment. Thank you very much, Florencio Dutton
[2017-08-15] MEDS: Rosuvastatin Calcium 2.5 mg Tab PO SCH (21:57)
[2017-08-16] MEDS: (Novolog) Insulin Aspart, Recombinant 100 u/ml 10 ml vial SC SCH ×3 (07:30→16:30)
[2017-08-16] MEDS: (Novolin R) Insulin Human Regular 100 units/ml vial SC SCH ×4 (07:30→22:35)
[2017-08-16 07:36] LABS: BASO # 0.1 K/uL (0.0-0.2); BASO % 0.8 % (0.0-2.0); EOS # 0.3 K/uL (0.0-0.7); EOS % 4.2 % (0.0-4.0); HEMOGLOBIN 10.6 g/dL (12.0-18.0); LYMPH # 0.8 K/uL (1.0-4.3); LYMPH % 11.9 % (20.0-40.0); MEAN CORPUSCULAR HEMOGLOBIN 30.8 pg (27.0-31.0); MEAN CORPUSCULAR HGB CONC 33.5 g/dL (33.0-37.0); MEAN PLATELET VOLUME 8.1 fL (7.2-11.7); MONO # 0.4 K/uL (0.0-0.8); MONO % 6.5 % (0.0-10.0); NEUT # 5.3 K/uL (1.8-7.0); NEUT % 76.6 % (50.0-75.0); RBC 3.45 Mil/uL (4.40-5.90); RED CELL DISTRIBUTION WIDTH 18.7 % (11.5-14.5); WHITE BLOOD COUNT 6.9 K/uL (4.8-10.8)
[2017-08-16 08:14] LABS: ALBUMIN 3.2 g/dL (3.5-5.0); ALT/SGPT 58 U/L (21-72); AST/SGOT 37 U/L (17-59); BLOOD UREA NITROGEN 19 mg/dL (9-20); CALCIUM 8.7 mg/dl (8.6-10.4); GFR AFRICAN-AMERICAN > 60; GFR NON-AFRICAN AMERICAN > 60; LIPASE 678 U/L (23-300); MAGNESIUM 1.7 mg/dL (1.6-2.3)
[2017-08-16] MEDS: Multiple Vitamins Tab PO SCH (10:29)
[2017-08-16] MEDS: Enoxaparin 30 mg Syringe SC SCH (10:30)
[2017-08-16] MEDS: Pantoprazole 40 mg EC Tab PO SCH (10:31)
--- NOTE | 2017-08-16 12:11 | CP.PCM.PN ---
<Bria Siddiqui Dany - Last Filed: 08/16/17 12:21> Subjective - Date & Time of Evaluation Date of Evaluation: 08/16/17 Time of Evaluation: 08:30 - Subjective Subjective: Medicine Note (PGY-1)---> Dr. Dutton's service Patient was seen and examined at bedside. Patient states that he is doing well with mild fatigue. Patient continues to get out of bed to chair and working with physical therapy daily. Patient denies chest pain, SOB, palpitations, headache, blurry vision, dizziness, vomiting and abdominal pain. Patient is tolerating diet. Objective - Vital Signs/Intake and Output Vital Signs (last 24 hours): Temp Pulse Resp BP Pulse Ox 97.8 F 76 20 105/66 96 08/16/17 00:05 08/16/17 00:05 08/16/17 00:05 08/16/17 00:05 08/16/17 00:05 - Medications Medications: Current Medications Aspirin (Aspirin Chewable) 81 mg PO DAILY [facility] Last Admin: 08/16/17 10:29 Dose: 81 mg Clopidogrel Bisulfate (Plavix) 75 mg PO DAILY [facility] Last Admin: 08/16/17 10:31 Dose: 75 mg Docusate Sodium (Colace) 100 mg PO BID [facility] Last Admin: 08/16/17 10:29 Dose: 100 mg Enoxaparin Sodium (Lovenox) 30 mg SC DAILY [facility] Last Admin: 08/16/17 10:30 Dose: 30 mg Insulin Aspart (Novolog) 2 unit SC ACTID [facility] Last Admin: 08/16/17 07:30 Dose: Not Given Insulin Human Regular (Novolin R) 0 unit SC [facility] PRN Reason: Protocol Last Admin: 08/16/17 07:30 Dose: Not Given Metoprolol Tartrate (Lopressor) 12.5 mg PO BID [facility] Last Admin: 08/16/17 10:30 Dose: 12.5 mg Multivitamins (Hexavitamin) 1 tab PO DAILY [facility] Last Admin: 08/16/17 10:29 Dose: 1 tab Pantoprazole Sodium (Protonix Ec Tab) 40 mg PO DAILY [facility] Last Admin: 08/16/17 10:31 Dose: 40 mg Rosuvastatin Calcium (Crestor) 2.5 mg PO HS [facility] Last Admin: 08/15/17 21:57 Dose: 2.5 mg Sennosides (Senokot Tab) 17.5 mg PO DAILY [facility] Last Admin: 08/16/17 10:32 Dose: 17.5 mg Sodium Phosphate (Fleet Enema) 135 ml MA DAILY [facility] Last Admin: 08/15/17 15:27 Dose: 135 ml - Labs Labs: 08/16/17 07:05 08/16/17 07:05 - Constitutional Appears: Well, No Acute Distress - Head Exam Head Exam: ATRAUMATIC - Eye Exam Eye Exam: EOMI, Normal appearance - ENT Exam ENT Exam: Mucous Membranes Moist - Respiratory Exam Respiratory Exam: Clear to Ausculation Bilateral, NORMAL BREATHING PATTERN - Cardiovascular Exam Cardiovascular Exam: REGULAR RHYTHM, +S1, +S2 Additional comments: [place]07[place]25/17[place] [facility] [place] place) - GI/Abdominal Exam GI & Abdominal Exam: Soft, Normal Bowel Sounds. absent: Firm, Guarding, Rigid, Tenderness - Extremities Exam Extremities Exam: Normal Inspection. absent: Calf Tenderness, Pedal Edema, Tenderness - Neurological Exam Neurological Exam: Alert, Awake, Oriented x3 - Psychiatric Exam Psychiatric exam: Normal Affect, Normal Mood - Skin Skin Exam: Normal Color Assessment and Plan (1) S/P CABG (coronary artery bypass graft) Assessment & Plan: F/u with Dr. Grant, Cardithoracic surgeon Manager Credit, Dr. Bautista----> Consult[place] [facility] [place] Cardiac catheterization (07/15/17)- Dr. Bautista: Multi-vessel disease with 95% stenosis in mid segment of LAD with in-stent re-stenosis. Intimal irregularities in the first diagonal branch. 80% stenosis in proximal segment of circumflex artery. 90% stenosis of right coronary artery. Normal LV systolic function with estimated EF of 50%. Echocardiogram (07/12/17): Showed normal LV size, borderline concentric LV hypertrophy, moderately to severely impaired systolic function, septal hypokinesis, mild to moderate aortic regurgitation, and aortic root is moderately enlarged. [place] [facility] [place], reop for bleeding,multiple blood transfusion, post op hypoxic, respiratory failure, extubated on 07/22, s/p left sided post op pneumothorax pig tail removed 08/05, noted on chest X-ray * Chest X-ray (08/08/17): Mild Right basilar atelactasis and small right sided pleural effusion * Repeat Chest X-ray (08/13/17): No change in right basilar atelectasis and left lower lobe consolidation with small pleural effusions. * F/U official Echocardiogram report (08/14/17): Medications: * ASA 81mg po daily * Plavix 75mg po daily * Crestor 2.5mg PO HS * Lopressor 50mg PO BID -----> Switched to 12.5mg PO BID Status: Acute (2) History of coronary artery disease Assessment & Plan: [place] [facility] [place] * cardiac catheterization (07/14/17) which showed multi-vessel disease with 95% stenosis in mid segment of LAD with in-stent re-stenosis. Intimal irregularities in the first diagonal branch. 80% stenosis in proximal segment of circumflex artery. 90% stenosis of right coronary artery. Normal LV systolic function with estimated EF of 50%. Medications: * ASA 81mg po daily * Plavix 75mg po daily * Crestor 2.5mg PO HS * Lopressor 12.5mg PO BID Status: Acute (3) Bacteremia Assessment & Plan: Resolved Dr. Asher on board---> help appreciated Blood culture positive for pseudomonas likely from UTI, s/p pseudomonas in urine * Meropenem started [place] 08/01 [place] [facility] [place] per d/c summary. * Levaquin 08/07 Medications: * Meropenem 1gm IVPB Q8H (Discontinued 08/11/17) * Avelox 400mg IVPB Q24H ( Discontinued 08/11/17) Labs: Repeat Blood culture (08/08/17): No growth Leukocytosis normalized and no bandemia; no signs of infection Status: Acute (4) Elevated amylase and lipase Assessment & Plan: Trending down Continue to monitor with labs Imaging: * CT abd/pelvis showed no evidence of pancreatitis as per [facility] [place] summary Status: Acute (5) Constipation Assessment & Plan: Resolving Medications: * Docusate 100mg PO BID * Senna A and B 17.5mg PO daily * Fleet enema PRN Status: Acute (6) History of hypertension Assessment & Plan: Stable Medication: * Lopressor 50mg PO BID----> Decreased to 12.5mg PO BID ( 08/14/2017) Continue to monitor with vital signs Status: Acute (7) History of diabetes mellitus Assessment & Plan: Accuchecks Novolog 2 units TIDAC ISS low dose Status: Acute (8) Prophylactic measure Assessment & Plan: GI: Protonix 40mg PO daily DVT: Lovenox 30mg SC daily Multivitamins 1 tab PO daily PT and OT Disposition: DELIA recommendation as per PT and OT . As per director of casework, patient' s insurance does not cover DELIA or home physical therapy at the moment. sand control worker working on the possibility of DELIA or home physical therapy approval. In the mean time, patient will continue to work very closely with physical therapy. Status: Acute Status: Acute <Florencio Dutton H - Last Filed: 08/16/17 14:13> Objective - Vital Signs/Intake and Output Vital Signs (last 24 hours): Temp Pulse Resp BP Pulse Ox 97.8 F 76 20 105/66 96 08/16/17 00:05 08/16/17 00:05 08/16/17 00:05 08/16/17 00:05 08/16/17 00:05 - Medications Medications: Current Medications Aspirin (Aspirin Chewable) 81 mg PO DAILY [facility] Last Admin: 08/16/17 10:29 Dose: 81 mg Clopidogrel Bisulfate (Plavix) 75 mg PO DAILY [facility] Last Admin: 08/16/17 10:31 Dose: 75 mg Docusate Sodium (Colace) 100 mg PO BID [facility] Last Admin: 08/16/17 10:29 Dose: 100 mg Enoxaparin Sodium (Lovenox) 30 mg SC DAILY [facility] Last Admin: 08/16/17 10:30 Dose: 30 mg Insulin Aspart (Novolog) 2 unit SC ACTID [facility] Last Admin: 08/16/17 12:16 Dose: Not Given Insulin Human Regular (Novolin R) 0 unit SC ACHS [facility] PRN Reason: Protocol Last Admin: 08/16/17 12:15 Dose: Not Given Metoprolol Tartrate (Lopressor) 12.5 mg PO BID [facility] Last Admin: 08/16/17 10:30 Dose: 12.5 mg Multivitamins (Hexavitamin) 1 tab PO DAILY [facility] Last Admin: 08/16/17 10:29 Dose: 1 tab Pantoprazole Sodium (Protonix Ec Tab) 40 mg PO DAILY [facility] Last Admin: 08/16/17 10:31 Dose: 40 mg Rosuvastatin Calcium (Crestor) 2.5 mg PO HS [facility] Last Admin: 08/15/17 21:57 Dose: 2.5 mg Sennosides (Senokot Tab) 17.5 mg PO DAILY [facility] Last Admin: 08/16/17 10:32 Dose: 17.5 mg Sodium Phosphate (Fleet Enema) 135 ml MA DAILY [facility] Last Admin: 08/15/17 15:27 Dose: 135 ml - Labs Labs: 08/16/17 07:05 08/16/17 07:05 Attending/Attestation - Attestation I have personally seen and examined this patient.: Yes I have fully participated in the care of the patient.: Yes I have reviewed all pertinent clinical information, including history, physical exam and plan: Yes Notes (Text): Medical Attending: Patient was seen and examined by me. Agree with the above note by the resident Today patient's brother was present - patient was ok with this as we talked. I updated the patient's brother with the recent heart surgery / bypass We encourage patient to continue with working with PT as well as being as active as possible Continue medications thank you Florencio Dutton
[2017-08-16] MEDS: Rosuvastatin Calcium 2.5 mg Tab PO SCH (21:28)
--- NOTE | 2017-08-17 01:36 | CARD ---
APPROVED REPORT EXAM: Two-dimensional and M-mode echocardiogram with Doppler and color Doppler. Other Information Quality : GoodRhythm : Surgery/Intervention CABG: Date: JUL 2017 RISK FACTORS Hypertension Diabetes 2D DIMENSIONS IVSd1.3 (0.7-1.1cm)LVDd4.2 (3.9-5.9cm) PWd1.2 (0.7-1.1cm)LVDs3.7 (2.5-4.0cm) FS (%) 12.3 %LVEF (%)26.8 (>50%) M-Mode DIMENSIONS Left Atrium (MM)3.40 (2.5-4.0cm)Aortic Root3.84 (2.2-3.7cm) Aortic Cusp Exc.2.22 (1.5-2.0cm) Aortic Valve AI P 1/2 [id number] Mitral Valve MV E Qkhpgzwx96.2cm/sMV A Tdxjunds543.9cm/sE/A ratio0.5 TDI E/Lateral E'0.0E/Medial E'0.0 Tricuspid Valve TR Peak Epavbmcl612gp/sTR Peak Gr.[id number] LEFT VENTRICLE The left ventricle is normal size. There is mild concentric left ventricular hypertrophy. Left ventricle systolic function is severely impaired. The Ejection Fraction is 25-30%. Significant regional wall motion abnormalities noted. The left ventricular diastolic function is abnormal. Transmitral Doppler flow pattern is Grade I-abnormal relaxation pattern. No left ventricle thrombus noted on this study. RIGHT VENTRICLE The right ventricle is normal size. The right ventricular systolic function is normal. ATRIA The left atrium size is normal. The right atrium size is normal. AORTIC VALVE The aortic valve is mildly sclerotic. The aortic valve is trileaflet. There is mild aortic regurgitation. There is no aortic valvular stenosis. There is no aortic valvular vegetation. MITRAL VALVE Mitral annular calcification is mild to moderate. There is no evidence of mitral valve prolapse. There is no mitral valve stenosis. TRICUSPID VALVE The tricuspid valve is normal in structure. There is mild tricuspid regurgitation. Right ventricular systolic pressure is estimated at less than 30 mmHg. There is no pulmonary hypertension. There is no tricuspid valve prolapse or vegetation. There is no tricuspid valve stenosis. PULMONIC VALVE The pulmonic valve is not well visualized. There is no pulmonic valvular regurgitation. GREAT VESSELS There is mild aortic root dilatation. The IVC is normal in size and collapses >50% with inspiration. PERICARDIAL EFFUSION There is no pericardial effusion. There is no pleural effusion. <Conclusion> The left ventricle is normal size. Left ventricle systolic function is severely impaired. The Ejection Fraction is 25-30%. The left ventricular diastolic function is abnormal. Transmitral Doppler flow pattern is Grade I-abnormal relaxation pattern. The right ventricle is normal size. The right ventricular systolic function is normal. The left atrium size is normal. The right atrium size is normal. There is mild aortic regurgitation. There is mild tricuspid regurgitation. There is mild aortic root dilatation.
--- NOTE | 2017-08-17 02:04 | PN ---
DATE: SUBJECTIVE: He is being treated for Pseudomonas septicemia. He is feeling better now. He remains afebrile. No new complaints. He is getting physical therapy and has no chest pain. His surgical scars are healing. Chest tube sites are healing. PHYSICAL EXAMINATION: LUNGS: Clear. No crackles or rales present. HEART: S1 and S2 is regular. ABDOMEN: Soft, nontender. No guarding, no rigidity present. EXTREMITIES: Have no edema, clubbing, or cyanosis. ASSESSMENT AND PLAN: He is status post coronary artery bypass graft with Pseudomonas bacteremia, which was most likely from the urinary tract infection and he has been on antibiotics since 08/08 and should continue antibiotics. I am going to put them back; I do not know why they discontinued it. Patient needs Merrem for 2 weeks and that was from 08/01, I think from 08/01 he was on the antibiotics, so he got antibiotics from 08/01 and he got almost 2 weeks, so those were discontinued and he is doing better now. Brad Asher MD
[2017-08-17 07:30] LABS: BASO % 0.4 % (0.0-2.0); EOS # 0.3 K/uL (0.0-0.7); EOS % 4.8 % (0.0-4.0); HEMOGLOBIN 10.6 g/dL (12.0-18.0); LYMPH # 0.7 K/uL (1.0-4.3); LYMPH % 11.3 % (20.0-40.0); MEAN CELL VOLUME 93.1 fL (80.0-94.0); MEAN CORPUSCULAR HEMOGLOBIN 30.8 pg (27.0-31.0); MEAN CORPUSCULAR HGB CONC 33.1 g/dL (33.0-37.0); MEAN PLATELET VOLUME 7.8 fL (7.2-11.7); MONO # 0.4 K/uL (0.0-0.8); MONO % 6.4 % (0.0-10.0); NEUT # 4.9 K/uL (1.8-7.0); NEUT % 77.1 % (50.0-75.0); NRBC % 0.1 % (0.0-2.0); RBC 3.46 Mil/uL (4.40-5.90); RED CELL DISTRIBUTION WIDTH 18.2 % (11.5-14.5); WHITE BLOOD COUNT 6.4 K/uL (4.8-10.8)
[2017-08-17 07:55] LABS: ALT/SGPT 52 U/L (21-72); AST/SGOT 31 U/L (17-59); BLOOD UREA NITROGEN 16 mg/dL (9-20); CALCIUM 8.3 mg/dl (8.6-10.4); GFR AFRICAN-AMERICAN > 60; GFR NON-AFRICAN AMERICAN > 60; LIPASE 586 U/L (23-300); MAGNESIUM 1.6 mg/dL (1.6-2.3)
[2017-08-17] MEDS: (Novolin R) Insulin Human Regular 100 units/ml vial SC SCH ×3 (08:00→22:00)
[2017-08-17] MEDS: (Novolog) Insulin Aspart, Recombinant 100 u/ml 10 ml vial SC SCH ×2 (08:00→17:25)
[2017-08-17] MEDS: Multiple Vitamins Tab PO SCH (09:26)
[2017-08-17] MEDS: Enoxaparin 30 mg Syringe SC SCH (09:26)
[2017-08-17] MEDS: Pantoprazole 40 mg EC Tab PO SCH (09:28)
--- NOTE | 2017-08-17 10:32 | CP.PCM.PN ---
<HueysvilleBria jamison Dany - Last Filed: 08/17/17 10:52> Subjective - Date & Time of Evaluation Date of Evaluation: 08/17/17 Time of Evaluation: 08:00 - Subjective Subjective: Medicine Note (PGY-1)---> Dr. Dutton's service Patient was seen and examined at bedside. Patient states that he is doing well with mild fatigue. Patient continues to get out of bed to chair daily. Patient denies chest pain, SOB, palpitations, headache, blurry vision, dizziness, vomiting and abdominal pain. Patient is tolerating diet. Patient has no complaints at time. Objective - Vital Signs/Intake and Output Vital Signs (last 24 hours): Temp Pulse Resp BP Pulse Ox 97.9 F 85 20 111/78 95 08/17/17 07:55 08/17/17 07:55 08/17/17 07:55 08/17/17 07:55 08/17/17 07:55 Intake and Output: 08/17/17 08/17/17 06:59 18:59 Intake Total 930 Balance 930 - Medications Medications: Current Medications Aspirin (Aspirin Chewable) 81 mg PO DAILY [facility] Last Admin: 08/17/17 09:26 Dose: 81 mg Clopidogrel Bisulfate (Plavix) 75 mg PO DAILY [facility] Last Admin: 08/17/17 09:28 Dose: 75 mg Docusate Sodium (Colace) 100 mg PO BID [facility] Last Admin: 08/17/17 09:26 Dose: 100 mg Enoxaparin Sodium (Lovenox) 30 mg SC DAILY [facility] Last Admin: 08/17/17 09:26 Dose: 30 mg Insulin Aspart (Novolog) 2 unit SC ACTID [facility] Last Admin: 08/17/17 08:00 Dose: Not Given Insulin Human Regular (Novolin R) 0 unit SC ACHS [facility] PRN Reason: Protocol Last Admin: 08/17/17 08:00 Dose: Not Given Metoprolol Tartrate (Lopressor) 12.5 mg PO BID [facility] Last Admin: 08/17/17 09:26 Dose: 12.5 mg Multivitamins (Hexavitamin) 1 tab PO DAILY [facility] Last Admin: 08/17/17 09:26 Dose: 1 tab Pantoprazole Sodium (Protonix Ec Tab) 40 mg PO DAILY [facility] Last Admin: 08/17/17 09:28 Dose: 40 mg Rosuvastatin Calcium (Crestor) 2.5 mg PO HS [facility] Last Admin: 08/16/17 21:28 Dose: 2.5 mg Sennosides (Senokot Tab) 17.5 mg PO DAILY [facility] Last Admin: 08/17/17 09:28 Dose: 17.5 mg Sodium Phosphate (Fleet Enema) 135 ml MS DAILY [facility] Last Admin: 08/15/17 15:27 Dose: 135 ml - Labs Labs: 08/17/17 07:17 08/17/17 07:17 Assessment and Plan (1) S/P CABG (coronary artery bypass graft) Assessment & Plan: /u with Dr. Grant, Cardithoracic surgeon Mortgage Or Loan Underwriter, Dr. Bautista----> [place] [facility] [place] Cardiac catheterization (07/15/17)- Dr. Bautista: Multi-vessel disease with 95% stenosis in mid segment of LAD with in-stent re-stenosis. Intimal irregularities in the first diagonal branch. 80% stenosis in proximal segment of circumflex artery. 90% stenosis of right coronary artery. Normal LV systolic function with estimated EF of 50%. Echocardiogram (07/12/17): Showed normal LV size, borderline concentric LV hypertrophy, moderately to severely impaired systolic function, septal hypokinesis, mild to moderate aortic regurgitation, and aortic root is moderately enlarged. At [facility] [place] x[place], reop for bleeding,multiple blood transfusion, post op hypoxic, respiratory failure, extubated on 07/22, s/p left sided post op pneumothorax pig tail removed 08/05, noted on chest X-ray * Chest X-ray (08/08/17): Mild Right basilar atelactasis and small right sided pleural effusion * Repeat Chest X-ray (08/13/17): No change in right basilar atelectasis and left lower lobe consolidation with small pleural effusions. * Echocardiogram report (08/14/17): EF (25-30%), LV systolic is severely impaired, LV diastolic function is abnormal, LV is normal size. Right ventricle is normal size, with normal systolic function, RA is normal size. Mild Aortic root dilatation and mild triscuspid regurgitation Medications: * ASA 81mg po daily * Plavix 75mg po daily * Crestor 2.5mg PO HS * Lopressor 50mg PO BID -----> Switched to 12.5mg PO BID Status: Acute (2) History of coronary artery disease Assessment & Plan: CABG [place] [facility] [place] * cardiac catheterization (07/14/17) which showed multi-vessel disease with 95% stenosis in mid segment of LAD with in-stent re-stenosis. Intimal irregularities in the first diagonal branch. 80% stenosis in proximal segment of circumflex artery. 90% stenosis of right coronary artery. Normal LV systolic function with estimated EF of 50%. Medications: * ASA 81mg po daily * Plavix 75mg po daily * Crestor 2.5mg PO HS * Lopressor 12.5mg PO BID Status: Acute (3) Bacteremia Assessment & Plan: Resolved Dr. Asher on board---> help appreciated Blood culture positive for pseudomonas likely from UTI, s/p pseudomonas in urine * Meropenem started on 08/01 at [facility] as per d/c summary. * Levaquin 08/07 Medications: * Meropenem 1gm IVPB Q8H (Discontinued 08/11/17) * Avelox 400mg IVPB Q24H ( Discontinued 08/11/17) Labs: Repeat Blood culture (08/08/17): No growth Leukocytosis normalized and no bandemia; no signs of infection Status: Acute (4) Elevated amylase and lipase Assessment & Plan: Trending down Continue to monitor with labs Imaging: * CT abd/pelvis showed no evidence of pancreatitis as per [facility] [place] summary Status: Acute (5) Constipation Assessment & Plan: Resolving Medications: * Docusate 100mg PO BID * Senna A and B 17.5mg PO daily * Fleet enema PRN Status: Acute (6) History of hypertension Assessment & Plan: Stable Medication: * Lopressor 50mg PO BID----> Decreased to 12.5mg PO BID ( 08/14/2017) Continue to monitor with vital signs Status: Acute (7) History of diabetes mellitus Assessment & Plan: Accuchecks Novolog 2 units TIDAC ISS low dose Status: Acute (8) Prophylactic measure Assessment & Plan: GI: Protonix 40mg PO daily DVT: Lovenox 30mg SC daily Multivitamins 1 tab PO daily PT and OT Incentive spirometer Disposition: DELIA recommendation as per PT and OT . As per case management rn, patient' s insurance does not cover DELIA or home physical therapy at the moment. 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 In the mean time, patient will continue to work very closely with physical therapy. Status: Acute <DuttonFlorencio patterson H - Last Filed: 08/17/17 15:02> Objective - Vital Signs/Intake and Output Vital Signs (last 24 hours): Temp Pulse Resp BP Pulse Ox 97.9 F 85 20 111/78 95 08/17/17 07:55 08/17/17 07:55 08/17/17 07:55 08/17/17 07:55 08/17/17 07:55 Intake and Output: 08/17/17 08/17/17 06:59 18:59 Intake Total 930 780 Output Total 600 Balance 930 180 - Medications Medications: Current Medications Aspirin (Aspirin Chewable) 81 mg PO DAILY [facility] Last Admin: 08/17/17 09:26 Dose: 81 mg Clopidogrel Bisulfate (Plavix) 75 mg PO DAILY [facility] Last Admin: 08/17/17 09:28 Dose: 75 mg Docusate Sodium (Colace) 100 mg PO BID [facility] Last Admin: 08/17/17 09:26 Dose: 100 mg Enoxaparin Sodium (Lovenox) 30 mg SC DAILY [facility] Last Admin: 08/17/17 09:26 Dose: 30 mg Insulin Aspart (Novolog) 2 unit SC ACTID [facility] Last Admin: 08/17/17 08:00 Dose: Not Given Insulin Human Regular (Novolin R) 0 unit SC ACHS [facility] PRN Reason: Protocol Last Admin: 08/17/17 08:00 Dose: Not Given Metoprolol Tartrate (Lopressor) 12.5 mg PO BID [facility] Last Admin: 08/17/17 09:26 Dose: 12.5 mg Multivitamins (Hexavitamin) 1 tab PO DAILY [facility] Last Admin: 08/17/17 09:26 Dose: 1 tab Pantoprazole Sodium (Protonix Ec Tab) 40 mg PO DAILY [facility] Last Admin: 08/17/17 09:28 Dose: 40 mg Rosuvastatin Calcium (Crestor) 2.5 mg PO HS [facility] Last Admin: 08/16/17 21:28 Dose: 2.5 mg Sennosides (Senokot Tab) 17.5 mg PO DAILY [facility] Last Admin: 08/17/17 09:28 Dose: 17.5 mg Sodium Phosphate (Fleet Enema) 135 ml MS DAILY [facility] Last Admin: 08/15/17 15:27 Dose: 135 ml - Labs Labs: 08/17/17 07:17 08/17/17 07:17 Attending/Attestation - Attestation I have personally seen and examined this patient.: Yes I have fully participated in the care of the patient.: Yes I have reviewed all pertinent clinical information, including history, physical exam and plan: Yes Notes (Text): 08/17/17 15:00 Medical Attending: Patient was seen and examined by me He is doing a lot more PT now. He still requires a rolling walker however he is able to go past the nurses station from his room in the corner He reports no acute distress. No chest pain and no shortness of breath Continue with medication regimen at this time thank you Florencio Dutton
[2017-08-17] MEDS: Rosuvastatin Calcium 2.5 mg Tab PO SCH (21:49)
[2017-08-18] MEDS: (Novolin R) Insulin Human Regular 100 units/ml vial SC SCH ×4 (08:05→21:51)
[2017-08-18] MEDS: (Novolog) Insulin Aspart, Recombinant 100 u/ml 10 ml vial SC SCH ×3 (08:14→16:00)
[2017-08-18] MEDS: Enoxaparin 30 mg Syringe SC SCH (09:46)
[2017-08-18] MEDS: Multiple Vitamins Tab PO SCH (09:48)
[2017-08-18] MEDS: Pantoprazole 40 mg EC Tab PO SCH (09:48)
--- NOTE | 2017-08-18 11:18 | CP.PCM.PN ---
Addendum entered and electronically signed by Bria Siddiqui 08/18/17 13:06: As per conversation with Dr. Grant's office, patient can be seen for post-op visit on 08/26/17 Original Note: <Bria Siddiqui - Last Filed: 08/18/17 12:15> Subjective - Date & Time of Evaluation Date of Evaluation: 08/18/17 Time of Evaluation: 06:45 - Subjective Subjective: Medicine note (PGY-1)----> Dr. Cronin Patient was seen and examined at bedside. Patient was out of bed to chair. Patient states that he is doing well and has no new complaints. Patient denies chest pain, SOB, palpitations, dizziness, fever, chills, nausea and vomiting. Patient continues to work closely with physical therapy. Patient was given a walker so that he can ambulate more on his own. Objective - Vital Signs/Intake and Output Vital Signs (last 24 hours): Temp Pulse Resp BP Pulse Ox 98 F 80 20 105/75 98 08/18/17 08:00 08/18/17 08:00 08/18/17 08:00 08/18/17 08:00 08/18/17 08:00 Intake and Output: 08/18/17 08/18/17 06:59 18:59 Intake Total 650 Output Total 400 Balance 250 - Medications Medications: Current Medications Aspirin (Aspirin Chewable) 81 mg PO DAILY [facility] Last Admin: 08/18/17 09:48 Dose: 81 mg Clopidogrel Bisulfate (Plavix) 75 mg PO DAILY [facility] Last Admin: 08/18/17 09:52 Dose: 75 mg Docusate Sodium (Colace) 100 mg PO BID [facility] Last Admin: 08/18/17 09:48 Dose: 100 mg Enoxaparin Sodium (Lovenox) 30 mg SC DAILY [facility] Last Admin: 08/18/17 09:46 Dose: 30 mg Insulin Aspart (Novolog) 2 unit SC ACTID [facility] Last Admin: 08/18/17 08:14 Dose: Not Given Insulin Human Regular (Novolin R) 0 unit SC ACHS [facility] PRN Reason: Protocol Last Admin: 08/18/17 08:05 Dose: Not Given Metoprolol Tartrate (Lopressor) 12.5 mg PO BID [facility] Last Admin: 08/18/17 09:47 Dose: 12.5 mg Multivitamins (Hexavitamin) 1 tab PO DAILY [facility] Last Admin: 08/18/17 09:48 Dose: 1 tab Pantoprazole Sodium (Protonix Ec Tab) 40 mg PO DAILY [facility] Last Admin: 08/18/17 09:48 Dose: 40 mg Rosuvastatin Calcium (Crestor) 2.5 mg PO HS [facility] Last Admin: 08/17/17 21:49 Dose: 2.5 mg Sennosides (Senokot Tab) 17.5 mg PO DAILY [facility] Last Admin: 08/18/17 09:48 Dose: 17.5 mg Sodium Phosphate (Fleet Enema) 135 ml SC DAILY [facility] Last Admin: 08/15/17 15:27 Dose: 135 ml - Labs Labs: 08/17/17 07:17 08/17/17 07:17 - Constitutional Appears: Well, No Acute Distress - Head Exam Head Exam: ATRAUMATIC - Eye Exam Eye Exam: EOMI, Normal appearance - ENT Exam ENT Exam: Mucous Membranes Moist - Respiratory Exam Respiratory Exam: Decreased Breath Sounds, NORMAL BREATHING PATTERN Additional comments: Bilateral lower bases - Cardiovascular Exam Cardiovascular Exam: REGULAR RHYTHM, +S1, +S2 - GI/Abdominal Exam GI & Abdominal Exam: Soft, Normal Bowel Sounds. absent: Tenderness - Extremities Exam Extremities Exam: Normal Inspection. absent: Calf Tenderness, Pedal Edema - Neurological Exam Neurological Exam: Alert, Awake, Oriented x3 - Psychiatric Exam Psychiatric exam: Normal Affect - Skin Skin Exam: Normal Color Assessment and Plan (1) S/P CABG (coronary artery bypass graft) Assessment & Plan: F/u with Dr. Grant, Cardiothoracic surgeon [place] [facility] [place] as per Dr. Bautista at [phone] and left a voicemail for Dr. Grant (08/18/17) Will manage as per Dr. Grant's recommendation Film Processor, Dr. Bautista----> Consulted * Management as per recommendation [place] [facility] [place] Cardiac catheterization (07/15/17)- Dr. Bautista: Multi-vessel disease with 95% stenosis in mid segment of LAD with in-stent re-stenosis. Intimal irregularities in the first diagonal branch. 80% stenosis in proximal segment of circumflex artery. 90% stenosis of right coronary artery. Normal LV systolic function with estimated EF of 50%. Echocardiogram (07/12/17): Showed normal LV size, borderline concentric LV hypertrophy, moderately to severely impaired systolic function, septal hypokinesis, mild to moderate aortic regurgitation, and aortic root is moderately enlarged. [place] [facility] [place], reop for bleeding,multiple blood transfusion, post op hypoxic, respiratory failure, extubated on 07/22, s/p left sided post op pneumothorax pig tail removed 08/05, noted on chest X-ray * Chest X-ray (08/08/17): Mild Right basilar atelactasis and small right sided pleural effusion * Repeat Chest X-ray (08/13/17): No change in right basilar atelectasis and left lower lobe consolidation with small pleural effusions. * Echocardiogram report (08/14/17): EF (25-30%), LV systolic is severely impaired, LV diastolic function is abnormal, LV is normal size. Right ventricle is normal size, with normal systolic function, RA is normal size. Mild Aortic root dilatation and mild triscuspid regurgitation Medications: * ASA 81mg po daily * Plavix 75mg po daily * Crestor 2.5mg PO HS * Lopressor 50mg PO BID -----> Switched to 12.5mg PO BID Status: Acute (2) History of coronary artery disease Assessment & Plan: [place] [facility] [place] * cardiac catheterization (07/14/17) which showed multi-vessel disease with 95% stenosis in mid segment of LAD with in-stent re-stenosis. Intimal irregularities in the first diagonal branch. 80% stenosis in proximal segment of circumflex artery. 90% stenosis of right coronary artery. Normal LV systolic function with estimated EF of 50%. Medications: * ASA 81mg po daily * Plavix 75mg po daily * Crestor 2.5mg PO HS * Lopressor 12.5mg PO BID Status: Acute (3) Bacteremia Assessment & Plan: Resolved Dr. Asher on board---> help appreciated Blood culture positive for pseudomonas likely from UTI, s/p pseudomonas in urine * Meropenem started on 08/01 [place] [facility] [place] d/[place] summary. * Levaquin 08/07 Medications: * Meropenem 1gm IVPB Q8H (Discontinued 08/11/17) * Avelox 400mg IVPB Q24H ( Discontinued 08/11/17) Labs: Repeat Blood culture (08/08/17): No growth Leukocytosis normalized and no bandemia; no signs of infection Status: Acute (4) Elevated amylase and lipase Assessment & Plan: Trending down Continue to monitor with labs Imaging: * CT abd/pelvis showed no evidence of pancreatitis as per [facility] [place] Status: Acute (5) Constipation Assessment & Plan: Resolving Medications: * Docusate 100mg PO BID * Senna A and B 17.5mg PO daily * Fleet enema PRN Status: Acute (6) History of hypertension Assessment & Plan: Stable Medication: * Lopressor 50mg PO BID----> Decreased to 12.5mg PO BID ( 08/14/2017) Continue to monitor with vital signs Status: Acute (7) History of diabetes mellitus Assessment & Plan: Accuchecks Novolog 2 units TIDAC ISS low dose Status: Acute (8) Prophylactic measure Assessment & Plan: GI: Protonix 40mg PO daily DVT: Lovenox 30mg SC daily Multivitamins 1 tab PO daily PT and OT Incentive spirometer Disposition: DELIA recommendation as per PT and OT . As per case hardener, patient' s insurance does not cover DELIA or home physical therapy at the moment. 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 In the mean time, patient will continue to work very closely with physical therapy. Patient was given a walker today by physical therapy in order for patient to ambulate more frequently Status: Acute <Marjorie Cronin - Last Filed: 08/18/17 17:23> Objective - Vital Signs/Intake and Output Vital Signs (last 24 hours): Temp Pulse Resp BP Pulse Ox 97.8 F 77 20 100/68 97 08/18/17 15:10 08/18/17 15:10 08/18/17 15:10 08/18/17 15:10 08/18/17 15:10 Intake and Output: 08/18/17 08/18/17 06:59 18:59 Intake Total 650 360 Output Total 400 Balance 250 360 - Medications Medications: Current Medications Aspirin (Aspirin Chewable) 81 mg PO DAILY [facility] Last Admin: 08/18/17 09:48 Dose: 81 mg Clopidogrel Bisulfate (Plavix) 75 mg PO DAILY [facility] Last Admin: 08/18/17 09:52 Dose: 75 mg Docusate Sodium (Colace) 100 mg PO BID [facility] Last Admin: 08/18/17 09:48 Dose: 100 mg Enoxaparin Sodium (Lovenox) 30 mg SC DAILY [facility] Last Admin: 08/18/17 09:46 Dose: 30 mg Insulin Aspart (Novolog) 2 unit SC ACTID [facility] Last Admin: 08/18/17 12:30 Dose: Not Given Insulin Human Regular (Novolin R) 0 unit SC ACHS [facility] PRN Reason: Protocol Last Admin: 08/18/17 12:30 Dose: Not Given Metoprolol Tartrate (Lopressor) 12.5 mg PO BID [facility] Last Admin: 08/18/17 09:47 Dose: 12.5 mg Multivitamins (Hexavitamin) 1 tab PO DAILY [facility] Last Admin: 08/18/17 09:48 Dose: 1 tab Pantoprazole Sodium (Protonix Ec Tab) 40 mg PO DAILY [facility] Last Admin: 08/18/17 09:48 Dose: 40 mg Rosuvastatin Calcium (Crestor) 2.5 mg PO HS [facility] Last Admin: 08/17/17 21:49 Dose: 2.5 mg Sennosides (Senokot Tab) 17.5 mg PO DAILY [facility] Last Admin: 08/18/17 09:48 Dose: 17.5 mg Sodium Phosphate (Fleet Enema) 135 ml SC DAILY [facility] Last Admin: 08/15/17 15:27 Dose: 135 ml - Labs Labs: 08/18/17 11:34 08/18/17 11:34 Attending/Attestation - Attestation I have personally seen and examined this patient.: Yes I have fully participated in the care of the patient.: Yes I have reviewed all pertinent clinical information, including history, physical exam and plan: Yes Notes (Text): Patient was seen and examined His chest wound is clean with thomas in place. right axillary drain site with dark /minimal discharge Encourage to ambulate,monitor pulse oxy d/c plan as per CW/SW [place] cardiac [place] [facility] [place]/18[place] 17:21
[2017-08-18 11:42] LABS: BASO % 0.3 % (0.0-2.0); EOS # 0.4 K/uL (0.0-0.7); EOS % 5.3 % (0.0-4.0); HEMOGLOBIN 11.2 g/dL (12.0-18.0); LYMPH # 0.7 K/uL (1.0-4.3); MEAN CELL VOLUME 93.4 fL (80.0-94.0); MEAN CORPUSCULAR HEMOGLOBIN 30.7 pg (27.0-31.0); MEAN CORPUSCULAR HGB CONC 32.9 g/dL (33.0-37.0); MEAN PLATELET VOLUME 7.9 fL (7.2-11.7); MONO # 0.5 K/uL (0.0-0.8); MONO % 7.3 % (0.0-10.0); NEUT # 5.2 K/uL (1.8-7.0); NEUT % 77.1 % (50.0-75.0); NRBC % 0.1 % (0.0-2.0); RBC 3.65 Mil/uL (4.40-5.90); RED CELL DISTRIBUTION WIDTH 19.2 % (11.5-14.5); WHITE BLOOD COUNT 6.7 K/uL (4.8-10.8)
[2017-08-18 12:10] LABS: ALB/GLOB RATIO 0.8 (1.0-2.1); ALBUMIN 3.5 g/dL (3.5-5.0); ALT/SGPT 47 U/L (21-72); AST/SGOT 48 U/L (17-59); BLOOD UREA NITROGEN 14 mg/dL (9-20); CALCIUM 8.4 mg/dl (8.6-10.4); GFR AFRICAN-AMERICAN > 60; GFR NON-AFRICAN AMERICAN > 60; MAGNESIUM 1.8 mg/dL (1.6-2.3)
[2017-08-18] MEDS: Rosuvastatin Calcium 2.5 mg Tab PO SCH (21:49)
[2017-08-19 06:40] LABS: BASO % 0.7 % (0.0-2.0); EOS # 0.4 K/uL (0.0-0.7); EOS % 6.7 % (0.0-4.0); HEMOGLOBIN 10.3 g/dL (12.0-18.0); LYMPH # 0.8 K/uL (1.0-4.3); LYMPH % 13.7 % (20.0-40.0); MEAN CELL VOLUME 92.5 fL (80.0-94.0); MEAN CORPUSCULAR HEMOGLOBIN 30.6 pg (27.0-31.0); MEAN CORPUSCULAR HGB CONC 33.1 g/dL (33.0-37.0); MEAN PLATELET VOLUME 7.8 fL (7.2-11.7); MONO # 0.5 K/uL (0.0-0.8); MONO % 8.5 % (0.0-10.0); NEUT # 3.9 K/uL (1.8-7.0); NEUT % 70.4 % (50.0-75.0); NRBC % 0.1 % (0.0-2.0); RBC 3.36 Mil/uL (4.40-5.90); WHITE BLOOD COUNT 5.6 K/uL (4.8-10.8)
[2017-08-19 06:56] LABS: ALB/GLOB RATIO 0.8 (1.0-2.1); ALBUMIN 3.1 g/dL (3.5-5.0); ALT/SGPT 59 U/L (21-72); AST/SGOT 28 U/L (17-59); BLOOD UREA NITROGEN 13 mg/dL (9-20); CALCIUM 8.2 mg/dl (8.6-10.4); GFR AFRICAN-AMERICAN > 60; GFR NON-AFRICAN AMERICAN > 60; MAGNESIUM 1.6 mg/dL (1.6-2.3)
[2017-08-19] MEDS: (Novolin R) Insulin Human Regular 100 units/ml vial SC SCH ×4 (08:14→21:16)
[2017-08-19] MEDS: (Novolog) Insulin Aspart, Recombinant 100 u/ml 10 ml vial SC SCH ×3 (08:15→16:30)
[2017-08-19] MEDS: Multiple Vitamins Tab PO SCH (09:27)
[2017-08-19] MEDS: Pantoprazole 40 mg EC Tab PO SCH (09:28)
[2017-08-19] MEDS: Enoxaparin 30 mg Syringe SC SCH (09:33)
--- NOTE | 2017-08-19 10:01 | CP.PCM.PN ---
<South GardinerDarshana jamisonruddy Saenz - Last Filed: 08/19/17 10:33> Subjective - Date & Time of Evaluation Date of Evaluation: 08/19/17 Time of Evaluation: 07:00 - Subjective Subjective: Medicine note (PGY-1)----> Dr. Cronin Patient was seen and examined at bedside. Patient was out of bed to chair. Patient states that he is doing well and has no new complaints. Patient denies chest pain, SOB, palpitations, dizziness, fever, chills, nausea and vomiting. Patient continues to work closely with physical therapy. Patient was given a walker so that he can ambulate more on his own. Pa Objective - Vital Signs/Intake and Output Vital Signs (last 24 hours): Temp Pulse Resp BP Pulse Ox 97.9 F 97 H 20 118/83 95 08/19/17 08:05 08/19/17 08:05 08/19/17 08:05 08/19/17 08:05 08/19/17 08:05 Intake and Output: 08/19/17 08/19/17 06:59 18:59 Intake Total 300 Balance 300 - Medications Medications: Current Medications Albuterol/Ipratropium (Duoneb 3 Mg/0.5 Mg (3 Ml) Ud) 3 ml INH RQ6 [facility] Aspirin (Aspirin Chewable) 81 mg PO DAILY [facility] Last Admin: 08/19/17 09:26 Dose: 81 mg Clopidogrel Bisulfate (Plavix) 75 mg PO DAILY [facility] Last Admin: 08/19/17 09:28 Dose: 75 mg Docusate Sodium (Colace) 100 mg PO BID [facility] Last Admin: 08/19/17 09:27 Dose: 100 mg Enoxaparin Sodium (Lovenox) 30 mg SC DAILY [facility] Last Admin: 08/19/17 09:33 Dose: 30 mg Insulin Aspart (Novolog) 2 unit SC ACTID [facility] Last Admin: 08/19/17 08:15 Dose: Not Given Insulin Human Regular (Novolin R) 0 unit SC ACHS [facility] PRN Reason: Protocol Last Admin: 08/19/17 08:14 Dose: Not Given Metoprolol Tartrate (Lopressor) 12.5 mg PO BID [facility] Last Admin: 08/19/17 09:27 Dose: 12.5 mg Multivitamins (Hexavitamin) 1 tab PO DAILY [facility] Last Admin: 08/19/17 09:27 Dose: 1 tab Pantoprazole Sodium (Protonix Ec Tab) 40 mg PO DAILY [facility] Last Admin: 08/19/17 09:28 Dose: 40 mg Rosuvastatin Calcium (Crestor) 2.5 mg PO HS [facility] Last Admin: 08/18/17 21:49 Dose: 2.5 mg Sennosides (Senokot Tab) 17.5 mg PO DAILY [facility] Last Admin: 08/19/17 09:28 Dose: 17.5 mg Sodium Phosphate (Fleet Enema) 135 ml [place] DAILY [facility] Last Admin: 08/15/17 15:27 Dose: 135 ml - Labs Labs: 08/19/17 06:24 08/19/17 06:24 - Constitutional Appears: Well, No Acute Distress - Head Exam Head Exam: ATRAUMATIC, NORMAL INSPECTION - Eye Exam Eye Exam: EOMI, Normal appearance - ENT Exam ENT Exam: Mucous Membranes Moist - Respiratory Exam Respiratory Exam: Decreased Breath Sounds, NORMAL BREATHING PATTERN Additional comments: Bilateral lower bases - Cardiovascular Exam Cardiovascular Exam: REGULAR RHYTHM, +S1, +S2 Additional comments: S/P CABG on 07/25/17, Alex will be removed on 08/26/[address] Grant, Cardiothoracic surgeon at [facility] - GI/Abdominal Exam GI & Abdominal Exam: Soft, Normal Bowel Sounds. absent: Tenderness - Extremities Exam Extremities Exam: Normal Inspection. absent: Pedal Edema - Neurological Exam Neurological Exam: Alert, Awake - Psychiatric Exam Psychiatric exam: Normal Affect - Skin Skin Exam: Normal Color Assessment and Plan (1) S/P CABG (coronary artery bypass graft) Assessment & Plan: F/u with Dr. Grant, Cardiothoracic surgeon Called [facility] Cardiothoracic office as per Dr. Bautista at [phone] and left a voicemail for Dr. Grant (08/18/17); Patient is scheduled for an appointment with Dr. Grant on 08/26/17 for post-op care Will manage as per Dr. Grant's recommendation Industrial Psychology Teacher, Dr. Bautista----> Consulted * Management as per recommendation CABG at [facility] 07/25/17 Cardiac catheterization (07/15/17)- Dr. Bautista: Multi-vessel disease with 95% stenosis in mid segment of LAD with in-stent re-stenosis. Intimal irregularities in the first diagonal branch. 80% stenosis in proximal segment of circumflex artery. 90% stenosis of right coronary artery. Normal LV systolic function with estimated EF of 50%. Echocardiogram (07/12/17): Showed normal LV size, borderline concentric LV hypertrophy, moderately to severely impaired systolic function, septal hypokinesis, mild to moderate aortic regurgitation, and aortic root is moderately enlarged. At [facility] cabg x2, reop for bleeding,multiple blood transfusion, post op hypoxic, respiratory failure, extubated on 07/22, s/p left sided post op pneumothorax pig tail removed 08/05, noted on chest X-ray * Chest X-ray (08/08/17): Mild Right basilar atelactasis and small right sided pleural effusion * Repeat Chest X-ray (08/13/17): No change in right basilar atelectasis and left lower lobe consolidation with small pleural effusions. * Echocardiogram report (08/14/17): EF (25-30%), LV systolic is severely impaired, LV diastolic function is abnormal, LV is normal size. Right ventricle is normal size, with normal systolic function, RA is normal size. Mild Aortic root dilatation and mild triscuspid regurgitation Medications/Management: * ASA 81mg po daily * Plavix 75mg po daily * Crestor 2.5mg PO HS * Lopressor 50mg PO BID -----> Switched to 12.5mg PO BID * Duonebs 3ML INH RQ6H and chest physical therapy Status: Acute (2) History of coronary artery disease Assessment & Plan: CABG at [facility] 07/25/17 * cardiac catheterization (07/14/17) which showed multi-vessel disease with 95% stenosis in mid segment of LAD with in-stent re-stenosis. Intimal irregularities in the first diagonal branch. 80% stenosis in proximal segment of circumflex artery. 90% stenosis of right coronary artery. Normal LV systolic function with estimated EF of 50%. Medications: * ASA 81mg po daily * Plavix 75mg po daily * Crestor 2.5mg PO HS * Lopressor 12.5mg PO BID Status: Acute (3) Bacteremia Assessment & Plan: Resolved Dr. Asher on board---> help appreciated Blood culture positive for pseudomonas likely from UTI, s/p pseudomonas in urine * Meropenem started on 08/01 at [facility] as per d/c summary. * Levaquin 08/07 Medications: * Meropenem 1gm IVPB Q8H (Discontinued 08/11/17) * Avelox 400mg IVPB Q24H ( Discontinued 08/11/17) Labs: Repeat Blood culture (08/08/17): No growth Leukocytosis normalized and no bandemia; no signs of infection Status: Acute Status: Acute (4) Elevated amylase and lipase Assessment & Plan: Trending down Continue to monitor with labs Imaging: * CT abd/pelvis showed no evidence of pancreatitis as per [facility] discharge summary Status: Acute (5) Constipation Assessment & Plan: Resolving Medications: * Docusate 100mg PO BID * Senna A and B 17.5mg PO daily * Fleet enema PRN Status: Acute (6) History of hypertension Assessment & Plan: Stable Medication: * Lopressor 50mg PO BID----> Decreased to 12.5mg PO BID ( 08/14/2017) Continue to monitor with vital signs Status: Acute (7) History of diabetes mellitus Assessment & Plan: Accuchecks Novolog 2 units TIDAC ISS low dose Status: Acute (8) Prophylactic measure Assessment & Plan: GI: Protonix 40mg PO daily DVT: Lovenox 30mg SC daily Multivitamins 1 tab PO daily PT and OT Incentive spirometer Disposition: DELIA recommendation as per PT and OT . As per machine adjuster leader case trim, patient' s insurance does not cover DELIA or home physical therapy at the moment. 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 In the mean time, patient will continue to work very closely with physical therapy. Patient was given a walker today by physical therapy in order for patient to ambulate more frequently Patient will follow up with Dr. Grant, cardiothoracic surgeon at [facility] on for post-op care Status: Acute <Marjorie Cronin - Last Filed: 08/19/17 18:26> Objective - Vital Signs/Intake and Output Vital Signs (last 24 hours): Temp Pulse Resp BP Pulse Ox 98.4 F 90 20 111/71 95 08/19/17 15:00 08/19/17 16:27 08/19/17 15:00 08/19/17 15:00 08/19/17 16:27 Intake and Output: 08/19/17 08/19/17 06:59 18:59 Intake Total 300 360 Balance 300 360 - Medications Medications: Current Medications Albuterol/Ipratropium (Duoneb 3 Mg/0.5 Mg (3 Ml) Ud) 3 ml INH RQ6 [facility] Last Admin: 08/19/17 13:22 Dose: Not Given Aspirin (Aspirin Chewable) 81 mg PO DAILY [facility] Last Admin: 08/19/17 09:26 Dose: 81 mg Clopidogrel Bisulfate (Plavix) 75 mg PO DAILY [facility] Last Admin: 08/19/17 09:28 Dose: 75 mg Docusate Sodium (Colace) 100 mg PO BID [facility] Last Admin: 08/19/17 17:46 Dose: 100 mg Enoxaparin Sodium (Lovenox) 30 mg SC DAILY [facility] Last Admin: 08/19/17 09:33 Dose: 30 mg Insulin Aspart (Novolog) 2 unit SC ACTID [facility] Last Admin: 08/19/17 16:30 Dose: Not Given Insulin Human Regular (Novolin R) 0 unit SC ACHS [facility] PRN Reason: Protocol Last Admin: 08/19/17 16:30 Dose: Not Given Metoprolol Tartrate (Lopressor) 12.5 mg PO BID [facility] Last Admin: 08/19/17 17:46 Dose: 12.5 mg Multivitamins (Hexavitamin) 1 tab PO DAILY [facility] Last Admin: 08/19/17 09:27 Dose: 1 tab Pantoprazole Sodium (Protonix Ec Tab) 40 mg PO DAILY [facility] Last Admin: 08/19/17 09:28 Dose: 40 mg Rosuvastatin Calcium (Crestor) 2.5 mg PO HS [facility] Last Admin: 08/18/17 21:49 Dose: 2.5 mg Sennosides (Senokot Tab) 17.5 mg PO DAILY [facility] Last Admin: 08/19/17 09:28 Dose: 17.5 mg Sodium Phosphate (Fleet Enema) 135 ml [place] DAILY [facility] Last Admin: 08/15/17 15:27 Dose: 135 ml - Labs Labs: 08/19/17 06:24 08/19/17 06:24 Attending/Attestation - Attestation I have personally seen and examined this patient.: Yes I have fully participated in the care of the patient.: Yes I have reviewed all pertinent clinical information, including history, physical exam and plan: Yes Notes (Text): Seen and examined.d/w PT his ambulation is improving.On oxygen during ambulation chest x ray done shows improvement Encourage ambulation f/w cardiology 08/19/17 18:25
[2017-08-19] MEDS: Albuterol-Ipratrop 3 mg / 0.5 (3 ml) UD INH SCH ×3 (11:08→20:58)
--- NOTE | 2017-08-19 15:25 | RAD ---
PROCEDURE: CHEST RADIOGRAPH, 1 VIEW HISTORY: Hypoxia COMPARISON: None available. FINDINGS: LUNGS: Interval increased lung volume. Interval improvement in the aeration at the right lung base were prior basilar atelectasis was reported. The consolidation -left lung base so was last. Residual thin bands of fibrosis or subsegmental atelectasis here persists. PLEURA: No pneumothorax. Similar small bilateral pleural effusions CARDIOVASCULAR: Mild cardiomegaly similar. Status post sternotomy and coronary artery bypass surgery - similar-appearing. OSSEOUS STRUCTURES: Sternotomy VISUALIZED UPPER ABDOMEN: Normal. OTHER FINDINGS: None. IMPRESSION: Interval improvement in the bibasilar atelectasis and/or fibrosis. . Similar small bilateral pleural effusions Postop changes as before
[2017-08-19] MEDS: Rosuvastatin Calcium 2.5 mg Tab PO SCH (21:20)
[2017-08-20] MEDS: Albuterol-Ipratrop 3 mg / 0.5 (3 ml) UD INH SCH ×4 (02:46→19:29)
[2017-08-20 06:56] LABS: BASO % 0.4 % (0.0-2.0); EOS # 0.4 K/uL (0.0-0.7); EOS % 7.9 % (0.0-4.0); HEMOGLOBIN 10.3 g/dL (12.0-18.0); LYMPH # 0.7 K/uL (1.0-4.3); LYMPH % 13.8 % (20.0-40.0); MEAN CORPUSCULAR HEMOGLOBIN 30.8 pg (27.0-31.0); MEAN CORPUSCULAR HGB CONC 33.1 g/dL (33.0-37.0); MEAN PLATELET VOLUME 8.1 fL (7.2-11.7); MONO # 0.5 K/uL (0.0-0.8); MONO % 8.8 % (0.0-10.0); NEUT # 3.7 K/uL (1.8-7.0); NEUT % 69.1 % (50.0-75.0); NRBC % 0.1 % (0.0-2.0); RBC 3.35 Mil/uL (4.40-5.90); RED CELL DISTRIBUTION WIDTH 18.9 % (11.5-14.5); WHITE BLOOD COUNT 5.3 K/uL (4.8-10.8)
[2017-08-20 07:05] LABS: ALT/SGPT 48 U/L (21-72); AST/SGOT 33 U/L (17-59); BLOOD UREA NITROGEN 15 mg/dL (9-20); CALCIUM 8.3 mg/dl (8.6-10.4); GFR AFRICAN-AMERICAN > 60; GFR NON-AFRICAN AMERICAN > 60; LIPASE 568 U/L (23-300); MAGNESIUM 1.6 mg/dL (1.6-2.3)
[2017-08-20] MEDS: (Novolin R) Insulin Human Regular 100 units/ml vial SC SCH ×4 (08:10→22:00)
[2017-08-20] MEDS: (Novolog) Insulin Aspart, Recombinant 100 u/ml 10 ml vial SC SCH ×3 (08:11→16:30)
[2017-08-20] MEDS: Multiple Vitamins Tab PO SCH (09:28)
[2017-08-20] MEDS: Enoxaparin 30 mg Syringe SC SCH (09:28)
[2017-08-20] MEDS: Pantoprazole 40 mg EC Tab PO SCH (09:29)
--- NOTE | 2017-08-20 09:48 | CP.PCM.PN ---
<ArturDarshanaruddy Saenz - Last Filed: 08/20/17 11:33> Subjective - Date & Time of Evaluation Date of Evaluation: 08/20/17 Time of Evaluation: 07:05 - Subjective Subjective: Medicine note (PGY-1)----> Dr. Cronin Patient was seen and examined at bedside. Patient was out of bed to chair. Patient states that he is doing well and has no new complaints. Patient denies chest pain, SOB, palpitations, dizziness, fever, chills, nausea and vomiting. Patient continues to work closely with physical therapy. Patient states that he has been utilizing his walker to ambulate more as well as his incentive spirometer. As per nursing, patient had dark urine. Objective - Vital Signs/Intake and Output Vital Signs (last 24 hours): Temp Pulse Resp BP Pulse Ox 98.1 F 106 H 20 122/79 97 08/20/17 08:57 08/20/17 08:57 08/20/17 08:57 08/20/17 08:57 08/20/17 08:57 Intake and Output: 08/20/17 08/20/17 06:59 18:59 Intake Total 400 Output Total 700 Balance -300 - Medications Medications: Current Medications Albuterol/Ipratropium (Duoneb 3 Mg/0.5 Mg (3 Ml) Ud) 3 ml INH RQ6 [facility] Last Admin: 08/20/17 07:35 Dose: 3 ml Aspirin (Aspirin Chewable) 81 mg PO DAILY [facility] Last Admin: 08/20/17 09:27 Dose: 81 mg Clopidogrel Bisulfate (Plavix) 75 mg PO DAILY [facility] Last Admin: 08/20/17 09:28 Dose: 75 mg Docusate Sodium (Colace) 100 mg PO BID [facility] Last Admin: 08/20/17 09:27 Dose: 100 mg Enoxaparin Sodium (Lovenox) 30 mg SC DAILY [facility] Last Admin: 08/20/17 09:28 Dose: 30 mg Insulin Aspart (Novolog) 2 unit SC ACTID [facility] Last Admin: 08/20/17 08:11 Dose: Not Given Insulin Human Regular (Novolin R) 0 unit SC ACHS [facility] PRN Reason: Protocol Last Admin: 08/20/17 08:10 Dose: Not Given Metoprolol Tartrate (Lopressor) 12.5 mg PO BID [facility] Last Admin: 08/20/17 09:28 Dose: 12.5 mg Multivitamins (Hexavitamin) 1 tab PO DAILY [facility] Last Admin: 08/20/17 09:28 Dose: 1 tab Pantoprazole Sodium (Protonix Ec Tab) 40 mg PO DAILY [facility] Last Admin: 08/20/17 09:29 Dose: 40 mg Rosuvastatin Calcium (Crestor) 2.5 mg PO HS [facility] Last Admin: 08/19/17 21:20 Dose: 2.5 mg Sennosides (Senokot Tab) 17.5 mg PO DAILY [facility] Last Admin: 08/20/17 09:29 Dose: 17.5 mg Sodium Phosphate (Fleet Enema) 135 ml [place] DAILY [facility] Last Admin: 08/15/17 15:27 Dose: 135 ml - Labs Labs: 08/20/17 06:40 08/20/17 06:40 - Constitutional Appears: Well, No Acute Distress - Head Exam Head Exam: ATRAUMATIC, NORMAL INSPECTION - Eye Exam Eye Exam: EOMI - ENT Exam ENT Exam: Mucous Membranes Moist - Respiratory Exam Respiratory Exam: Clear to Ausculation Bilateral, NORMAL BREATHING PATTERN Additional comments: On 2L NC - Cardiovascular Exam Cardiovascular Exam: REGULAR RHYTHM, +S1, +S2 - GI/Abdominal Exam GI & Abdominal Exam: Soft, Normal Bowel Sounds - Extremities Exam Extremities Exam: Normal Inspection - Neurological Exam Neurological Exam: Alert, Awake, Oriented x3 - Psychiatric Exam Psychiatric exam: Normal Affect, Normal Mood - Skin Skin Exam: Normal Color Assessment and Plan (1) S/P CABG (coronary artery bypass graft) Assessment & Plan: F/u with Dr. Grant, Cardiothoracic surgeon [place] [facility] [place]oth[place] office as per Dr. Bautista at [phone] and left a voicemail for Dr. Grant (08/18/17); Patient is scheduled for an appointment with Dr. Grant on 08/26/17 for post-op care Will manage as per Dr. Grant's recommendation Courtroom Reporter, Dr. Bautista----> Consulted * Management as per recommendation CABG at [facility] 07/25/17 Cardiac catheterization (07/15/17)- Dr. Bautista: Multi-vessel disease with 95% stenosis in mid segment of LAD with in-stent re-stenosis. Intimal irregularities in the first diagonal branch. 80% stenosis in proximal segment of circumflex artery. 90% stenosis of right coronary artery. Normal LV systolic function with estimated EF of 50%. Echocardiogram (07/12/17): Showed normal LV size, borderline concentric LV hypertrophy, moderately to severely impaired systolic function, septal hypokinesis, mild to moderate aortic regurgitation, and aortic root is moderately enlarged. At [facility] [place] x2, reop for bleeding,multiple blood transfusion, post op hypoxic, respiratory failure, extubated on 07/22, s/p left sided post op pneumothorax pig tail removed 08/05, noted on chest X-ray * Chest X-ray (08/08/17): Mild Right basilar atelactasis and small right sided pleural effusion * Repeat Chest X-ray (08/13/17): No change in right basilar atelectasis and left lower lobe consolidation with small pleural effusions. * Echocardiogram report (08/14/17): EF (25-30%), LV systolic is severely impaired, LV diastolic function is abnormal, LV is normal size. Right ventricle is normal size, with normal systolic function, RA is normal size. Mild Aortic root dilatation and mild triscuspid regurgitation Medications/Management: * ASA 81mg po daily * Plavix 75mg po daily * Crestor 2.5mg PO HS * Lopressor 50mg PO BID -----> Switched to 12.5mg PO BID * Duonebs 3ML INH RQ6H and chest physical therapy Status: Acute (2) History of coronary artery disease Assessment & Plan: CABG at [facility] [place] * cardiac catheterization (07/14/17) which showed multi-vessel disease with 95% stenosis in mid segment of LAD with in-stent re-stenosis. Intimal irregularities in the first diagonal branch. 80% stenosis in proximal segment of circumflex artery. 90% stenosis of right coronary artery. Normal LV systolic function with estimated EF of 50%. Medications: * ASA 81mg po daily * Plavix 75mg po daily * Crestor 2.5mg PO HS * Lopressor 12.5mg PO BID Status: Acute (3) Urine discoloration Assessment & Plan: f/U UA Encourage fluid intake Status: Acute (4) Constipation Assessment & Plan: Resolving Medications: * Docusate 100mg PO BID * Senna A and B 17.5mg PO daily * Fleet enema PRN Status: Acute (5) Bacteremia Assessment & Plan: Resolved Dr. Asher on board---> help appreciated Blood culture positive for pseudomonas likely from UTI, s/p pseudomonas in urine * Meropenem started on 08/01 at [facility] as per d/c summary. * Levaquin 08/07 Medications: * Meropenem 1gm IVPB Q8H (Discontinued 08/11/17) * Avelox 400mg IVPB Q24H ( Discontinued 08/11/17) Labs: Repeat Blood culture (08/08/17): No growth Leukocytosis normalized and no bandemia; no signs of infection Status: Acute (6) Serum lipase elevation Assessment & Plan: Trending down Continue to monitor with labs Imaging: * CT abd/pelvis showed no evidence of pancreatitis as per [facility] discharge summary Status: Acute (7) History of hypertension Assessment & Plan: Stable Medication: * Lopressor 50mg PO BID----> Decreased to 12.5mg PO BID ( 08/14/2017) Continue to monitor with vital signs Status: Acute (8) History of diabetes mellitus Assessment & Plan: Accuchecks Novolog 2 units TIDAC ISS low dose Status: Acute (9) Prophylactic measure Assessment & Plan: GI: Protonix 40mg PO daily DVT: Lovenox 30mg SC daily Multivitamins 1 tab PO daily PT and OT Incentive spirometer Disposition: DELIA recommendation as per PT and OT . As per pillowcase maker, patient' s insurance does not cover DELIA or home physical therapy at the moment. 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 In the mean time, patient will continue to work very closely with physical therapy. Patient was given a walker today by physical therapy in order for patient to ambulate more frequently Patient will follow up with Dr. Grant, cardiothoracic surgeon at [facility] [place] for post-op care Status: Acute <Marjorie Cronin - Last Filed: 08/20/17 15:27> Objective - Vital Signs/Intake and Output Vital Signs (last 24 hours): Temp Pulse Resp BP Pulse Ox 98.1 F 106 H 20 122/79 97 08/20/17 08:57 08/20/17 08:57 08/20/17 08:57 08/20/17 08:57 08/20/17 08:57 Intake and Output: 08/20/17 08/20/17 06:59 18:59 Intake Total 400 480 Output Total 700 400 Balance -300 80 - Medications Medications: Current Medications Albuterol/Ipratropium (Duoneb 3 Mg/0.5 Mg (3 Ml) Ud) 3 ml INH RQ6 [facility] Last Admin: 08/20/17 13:13 Dose: 3 ml Aspirin (Aspirin Chewable) 81 mg PO DAILY [facility] Last Admin: 08/20/17 09:27 Dose: 81 mg Clopidogrel Bisulfate (Plavix) 75 mg PO DAILY [facility] Last Admin: 08/20/17 09:28 Dose: 75 mg Docusate Sodium (Colace) 100 mg PO BID [facility] Last Admin: 08/20/17 09:27 Dose: 100 mg Enoxaparin Sodium (Lovenox) 30 mg SC DAILY [facility] Last Admin: 08/20/17 09:28 Dose: 30 mg Insulin Aspart (Novolog) 2 unit SC ACTID [facility] Last Admin: 08/20/17 12:30 Dose: Not Given Insulin Human Regular (Novolin R) 0 unit SC ACHS [facility] PRN Reason: Protocol Last Admin: 08/20/17 12:30 Dose: Not Given Metoprolol Tartrate (Lopressor) 12.5 mg PO BID [facility] Last Admin: 08/20/17 09:28 Dose: 12.5 mg Multivitamins (Hexavitamin) 1 tab PO DAILY [facility] Last Admin: 08/20/17 09:28 Dose: 1 tab Pantoprazole Sodium (Protonix Ec Tab) 40 mg PO DAILY [facility] Last Admin: 08/20/17 09:29 Dose: 40 mg Rosuvastatin Calcium (Crestor) 2.5 mg PO HS [facility] Last Admin: 08/19/17 21:20 Dose: 2.5 mg Sennosides (Senokot Tab) 17.5 mg PO DAILY [facility] Last Admin: 08/20/17 09:29 Dose: 17.5 mg Sodium Phosphate (Fleet Enema) 135 ml [place] DAILY [facility] Last Admin: 08/15/17 15:27 Dose: 135 ml - Labs Labs: 08/20/17 06:40 08/20/17 06:40 Attending/Attestation - Attestation I have personally seen and examined this patient.: Yes I have fully participated in the care of the patient.: Yes I have reviewed all pertinent clinical information, including history, physical exam and plan: Yes Notes (Text): seen and examined this morning. no chest pain,no sob,using walker plan discussed with the resident f/u his surgeon
[2017-08-20 12:50] LABS: URINE BILIRUBIN NEGATIVE (NEGATIVE); URINE BLOOD 3+ (NEGATIVE); URINE CLARITY Hazy (Clear); URINE COLOR Yellow (YELLOW); URINE GLUCOSE (UA) NORMAL (Normal); URINE LEUKOCYTE ESTERASE 3+ Leu/uL (Negative); URINE NITRATE NEGATIVE (NEGATIVE); URINE PROTEIN 2+ mg/dL (NEGATIVE); URINE UROBILINOGEN NORMAL mg/dL (0.2-1.0)
[2017-08-20 12:53] LABS: URINE BACTERIA OCC (<OCC); WBC CLUMPS FEW /hpf
[2017-08-20] MEDS: Rosuvastatin Calcium 2.5 mg Tab PO SCH (22:01)
[2017-08-21] MEDS: Albuterol-Ipratrop 3 mg / 0.5 (3 ml) UD INH SCH ×4 (02:54→19:36)
[2017-08-21] MEDS: (Novolin R) Insulin Human Regular 100 units/ml vial SC SCH ×2 (08:05→12:04)
[2017-08-21] MEDS: (Novolog) Insulin Aspart, Recombinant 100 u/ml 10 ml vial SC SCH ×2 (08:05→12:04)
[2017-08-21 08:08] LABS: BASO % 0.4 % (0.0-2.0); EOS # 0.4 K/uL (0.0-0.7); EOS % 8.3 % (0.0-4.0); HEMOGLOBIN 10.7 g/dL (12.0-18.0); LYMPH # 0.8 K/uL (1.0-4.3); LYMPH % 18.1 % (20.0-40.0); MEAN CELL VOLUME 92.7 fL (80.0-94.0); MEAN CORPUSCULAR HEMOGLOBIN 31.5 pg (27.0-31.0); MEAN PLATELET VOLUME 7.8 fL (7.2-11.7); MONO # 0.5 K/uL (0.0-0.8); MONO % 9.8 % (0.0-10.0); NEUT % 63.4 % (50.0-75.0); NRBC % 0.1 % (0.0-2.0); RBC 3.38 Mil/uL (4.40-5.90); RED CELL DISTRIBUTION WIDTH 18.7 % (11.5-14.5); WHITE BLOOD COUNT 4.7 K/uL (4.8-10.8)
[2017-08-21 08:36] LABS: ALBUMIN 3.1 g/dL (3.5-5.0); ALT/SGPT 50 U/L (21-72); AST/SGOT 22 U/L (17-59); BLOOD UREA NITROGEN 14 mg/dL (9-20); CALCIUM 8.5 mg/dl (8.6-10.4); GFR AFRICAN-AMERICAN > 60; GFR NON-AFRICAN AMERICAN > 60; LIPASE 479 U/L (23-300); MAGNESIUM 1.6 mg/dL (1.6-2.3)
[2017-08-21] MEDS: Pantoprazole 40 mg EC Tab PO SCH (10:16)
[2017-08-21] MEDS: Enoxaparin 30 mg Syringe SC SCH (10:17)
[2017-08-21] MEDS: Multiple Vitamins Tab PO SCH (10:17)
--- NOTE | 2017-08-21 10:19 | CP.PCM.PN ---
<Bria Siddiqui E - Last Filed: 08/21/17 14:47> Subjective - Date & Time of Evaluation Date of Evaluation: 08/21/17 Time of Evaluation: 07:20 - Subjective Subjective: Medicine note ( PGY-1)-----> Dr. Cronin's service Patient was seen and examined at bedside. Patient states that he is doing well and has no complaints. As per nursing, there were no acute issues overnight. Patient denies chest pain, SOB, palpitations, fever, chills, nausea and vomiting. Patient continues to get out of bed daily, using his walker and works with physical therapy. Objective - Vital Signs/Intake and Output Vital Signs (last 24 hours): Temp Pulse Resp BP Pulse Ox 98.2 F 105 H 20 111/75 96 08/21/17 08:52 08/21/17 08:52 08/21/17 08:52 08/21/17 08:52 08/21/17 08:52 Intake and Output: 08/21/17 08/21/17 06:59 18:59 Intake Total 550 Output Total 1150 Balance -600 - Medications Medications: Current Medications Albuterol/Ipratropium (Duoneb 3 Mg/0.5 Mg (3 Ml) Ud) 3 ml INH RQ6 [facility] Last Admin: 08/21/17 07:37 Dose: 3 ml Aspirin (Aspirin Chewable) 81 mg PO DAILY [facility] Last Admin: 08/20/17 09:27 Dose: 81 mg Clopidogrel Bisulfate (Plavix) 75 mg PO DAILY [facility] Last Admin: 08/20/17 09:28 Dose: 75 mg Docusate Sodium (Colace) 100 mg PO BID [facility] Last Admin: 08/20/17 17:56 Dose: 100 mg Enoxaparin Sodium (Lovenox) 30 mg SC DAILY [facility] Last Admin: 08/20/17 09:28 Dose: 30 mg Insulin Aspart (Novolog) 2 unit SC ACTID [facility] Last Admin: 08/21/17 08:05 Dose: Not Given Insulin Human Regular (Novolin R) 0 unit SC ACHS [facility] PRN Reason: Protocol Last Admin: 08/21/17 08:05 Dose: Not Given Metoprolol Tartrate (Lopressor) 12.5 mg PO BID [facility] Last Admin: 08/20/17 17:56 Dose: 12.5 mg Multivitamins (Hexavitamin) 1 tab PO DAILY [facility] Last Admin: 08/20/17 09:28 Dose: 1 tab Pantoprazole Sodium (Protonix Ec Tab) 40 mg PO DAILY [facility] Last Admin: 08/20/17 09:29 Dose: 40 mg Rosuvastatin Calcium (Crestor) 2.5 mg PO HS [facility] Last Admin: 08/20/17 22:01 Dose: 2.5 mg Sennosides (Senokot Tab) 17.5 mg PO DAILY [facility] Last Admin: 08/20/17 09:29 Dose: 17.5 mg Sodium Phosphate (Fleet Enema) 135 ml ID DAILY [facility] Last Admin: 08/15/17 15:27 Dose: 135 ml - Labs Labs: 08/21/17 07:58 08/21/17 07:58 - Constitutional Appears: Well, No Acute Distress - Head Exam Head Exam: ATRAUMATIC, NORMAL INSPECTION - Eye Exam Eye Exam: EOMI, Normal appearance - ENT Exam ENT Exam: Mucous Membranes Moist - Respiratory Exam Respiratory Exam: NORMAL BREATHING PATTERN Additional comments: On 2L NC - Cardiovascular Exam Cardiovascular Exam: REGULAR RHYTHM, +S1, +S2 Additional comments: S/p CABG [place] 07/25/17 at [facility]; Post-op follow-up with Rudy Hickey, cardiothoracic surgeon on 08/26/[address] - GI/Abdominal Exam GI & Abdominal Exam: Soft, Normal Bowel Sounds. absent: Firm, Guarding, Rigid, Tenderness - Extremities Exam Extremities Exam: Normal Inspection. absent: Calf Tenderness, Pedal Edema - Neurological Exam Neurological Exam: Alert, Awake, Oriented x3 Assessment and Plan (1) S/P CABG (coronary artery bypass graft) Assessment & Plan: F/u with Dr. Grant, Cardiothoracic surgeon Called [facility] Cardioth[place]acic office as per Dr. Bautista at [phone] and left a voicemail for Dr. Grant (08/18/17); Patient is scheduled for an appointment with Dr. Grant on 08/26/17 for post-op care Will manage as per Dr. Grant's recommendation Portrait Studio Photographer, Dr. Bautista----> Consulted * Management as per recommendation CABG at [facility] 07/25/17 Cardiac catheterization (07/15/17)- Dr. Bautista: Multi-vessel disease with 95% stenosis in mid segment of LAD with in-stent re-stenosis. Intimal irregularities in the first diagonal branch. 80% stenosis in proximal segment of circumflex artery. 90% stenosis of right coronary artery. Normal LV systolic function with estimated EF of 50%. Echocardiogram (07/12/17): Showed normal LV size, borderline concentric LV hypertrophy, moderately to severely impaired systolic function, septal hypokinesis, mild to moderate aortic regurgitation, and aortic root is moderately enlarged. At [facility] cabg x2, reop for bleeding,multiple blood transfusion, post op hypoxic, respiratory failure, extubated on 07/22, s/p left sided post op pneumothorax pig tail removed 08/05, noted on chest X-ray * Chest X-ray (08/08/17): Mild Right basilar atelactasis and small right sided pleural effusion * Repeat Chest X-ray (08/13/17): No change in right basilar atelectasis and left lower lobe consolidation with small pleural effusions. * Echocardiogram report (08/14/17): EF (25-30%), LV systolic is severely impaired, LV diastolic function is abnormal, LV is normal size. Right ventricle is normal size, with normal systolic function, RA is normal size. 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 Intimal irregularities in the first diagonal branch. 80% stenosis in proximal segment of circumflex artery. 90% stenosis of right coronary artery. Normal LV systolic function with estimated EF of 50%. Medications: * ASA 81mg po daily * Plavix 75mg po daily * Crestor 2.5mg PO HS * Lopressor 12.5mg PO BID Status: Acute (4) Urine discoloration Assessment & Plan: f/U UA Encourage fluid intake Status: Acute (5) Constipation Assessment & Plan: Resolving Medications: * Docusate 100mg PO BID * Senna A and B 17.5mg PO daily * Fleet enema PRN Status: Acute (6) Bacteremia Assessment & Plan: Resolved Dr. Asher on board---> help appreciated Blood culture positive for pseudomonas likely from UTI, s/p pseudomonas in urine * Meropenem started on 08/01 at [facility] as per d/c summary. * Levaquin 08/07 Medications: * Meropenem 1gm IVPB Q8H (Discontinued 08/11/17) * Avelox 400mg IVPB Q24H ( Discontinued 08/11/17) Labs: Repeat Blood culture (08/08/17): No growth Leukocytosis normalized and no bandemia; no signs of infection Status: Acute (7) Serum lipase elevation Assessment & Plan: Trending down Continue to monitor with labs Imaging: * CT abd/pelvis showed no evidence of pancreatitis as per [facility] discharge summary Status: Acute (8) History of hypertension Assessment & Plan: Stable Medication: * Lopressor 50mg PO BID----> Decreased to 12.5mg PO BID ( 08/14/2017) Continue to monitor with vital signs Status: Acute (9) History of diabetes mellitus Assessment & Plan: Accuchecks Novolog 2 units TIDAC ISS low dose Status: Acute (10) Prophylactic measure Assessment & Plan: GI: Protonix 40mg PO daily DVT: Lovenox 30mg SC daily Multivitamins 1 tab PO daily PT and OT Incentive spirometer Disposition: DELIA recommendation as per PT and OT . As per mental health case manager, patient' s insurance does not cover DELIA or home physical therapy at the moment. 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 In the mean time, patient will continue to work very closely with physical therapy. Patient was given a walker today by physical therapy in order for patient to ambulate more frequently Patient will follow up with Dr. Grant, cardiothoracic surgeon at [facility] on for post-op care Status: Acute <Marjorie Cronin - Last Filed: 08/21/17 18:06> Objective - Vital Signs/Intake and Output Vital Signs (last 24 hours): Temp Pulse Resp BP Pulse Ox 98.3 F 97 H 20 132/77 97 08/21/17 15:00 08/21/17 16:15 08/21/17 15:00 08/21/17 16:15 08/21/17 16:15 Intake and Output: 08/21/17 08/21/17 06:59 18:59 Intake Total 550 360 Output Total 1150 Balance -600 360 - Medications Medications: Current Medications Albuterol/Ipratropium (Duoneb 3 Mg/0.5 Mg (3 Ml) Ud) 3 ml INH RQ6 [facility] Last Admin: 08/21/17 13:45 Dose: 3 ml Aspirin (Aspirin Chewable) 81 mg PO DAILY [facility] Last Admin: 08/21/17 10:16 Dose: 81 mg Clopidogrel Bisulfate (Plavix) 75 mg PO DAILY [facility] Last Admin: 08/21/17 10:17 Dose: 75 mg Docusate Sodium (Colace) 100 mg PO BID [facility] Last Admin: 08/21/17 10:17 Dose: 100 mg Enoxaparin Sodium (Lovenox) 30 mg SC DAILY [facility] Last Admin: 08/21/17 10:17 Dose: 30 mg Insulin Aspart (Novolog) 2 unit SC ACTID [facility] Last Admin: 08/21/17 12:04 Dose: Not Given Insulin Human Regular (Novolin R) 0 unit SC ACHS [facility] PRN Reason: Protocol Last Admin: 08/21/17 12:04 Dose: Not Given Metoprolol Tartrate (Lopressor) 12.5 mg PO BID [facility] Last Admin: 08/21/17 10:17 Dose: 12.5 mg Multivitamins (Hexavitamin) 1 tab PO DAILY [facility] Last Admin: 08/21/17 10:17 Dose: 1 tab Pantoprazole Sodium (Protonix Ec Tab) 40 mg PO DAILY [facility] Last Admin: 08/21/17 10:16 Dose: 40 mg Rosuvastatin Calcium (Crestor) 2.5 mg PO HS [facility] Last Admin: 08/20/17 22:01 Dose: 2.5 mg Sennosides (Senokot Tab) 17.5 mg PO DAILY [facility] Last Admin: 08/21/17 10:17 Dose: 17.5 mg Sodium Phosphate (Fleet Enema) 135 ml ID DAILY [facility] Last Admin: 08/15/17 15:27 Dose: 135 ml - Labs Labs: 08/21/17 07:58 08/21/17 07:58 Attending/Attestation - Attestation I have personally seen and examined this patient.: Yes I have fully participated in the care of the patient.: Yes I have reviewed all pertinent clinical information, including history, physical exam and plan: Yes Notes (Text): Patient was seen and examined ,no complain,ambulating with walker/get tired and SOB His pulse oxy checked without oxygen during ambulation and resting He is hypoxic during ambulation d/w Dr Garcia CTA ordered Has poor venous access to give contrast IR request for access I agree with the resident's documentation of the assessment and the plan 08/21/17 18:06
[2017-08-21] MEDS ORDERED: Iodixanol 320 mg/ml 150 ml Bottle IV ONE (12:04)
[2017-08-21 13:50] LABS: ABG ALLEN TEST POS; ARTERIAL BLOOD GAS HCO3 27.4 mmol/L (21-28); ARTERIAL BLOOD GAS HEMOGLOBIN 9.9 g/dL (11.7-17.4); ARTERIAL BLOOD GAS O2 SAT 97.8 % (95-98); ARTERIAL BLOOD GAS PCO2 34 mm/Hg (35-45); ARTERIAL BLOOD GAS PO2 72 mm/Hg (80-100); ARTERIAL BLOOD GAS TCO2 27.5 mmol/L (22-28)
[2017-08-21] MEDS: Rosuvastatin Calcium 2.5 mg Tab PO SCH (21:30)
[2017-08-22] MEDS: Albuterol-Ipratrop 3 mg / 0.5 (3 ml) UD INH SCH ×4 (01:16→19:39)
[2017-08-22 08:01] LABS: BASO % 0.6 % (0.0-2.0); EOS # 0.4 K/uL (0.0-0.7); EOS % 8.1 % (0.0-4.0); HEMOGLOBIN 10.6 g/dL (12.0-18.0); LYMPH # 0.7 K/uL (1.0-4.3); LYMPH % 14.5 % (20.0-40.0); MEAN CELL VOLUME 93.6 fL (80.0-94.0); MEAN CORPUSCULAR HEMOGLOBIN 31.5 pg (27.0-31.0); MEAN CORPUSCULAR HGB CONC 33.6 g/dL (33.0-37.0); MEAN PLATELET VOLUME 8.1 fL (7.2-11.7); MONO # 0.5 K/uL (0.0-0.8); MONO % 11.2 % (0.0-10.0); NEUT # 3.2 K/uL (1.8-7.0); NEUT % 65.6 % (50.0-75.0); RBC 3.37 Mil/uL (4.40-5.90); RED CELL DISTRIBUTION WIDTH 18.6 % (11.5-14.5); WHITE BLOOD COUNT 4.8 K/uL (4.8-10.8)
[2017-08-22] MEDS: (Novolin R) Insulin Human Regular 100 units/ml vial SC SCH ×4 (08:24→22:05)
[2017-08-22] MEDS: (Novolog) Insulin Aspart, Recombinant 100 u/ml 10 ml vial SC SCH ×3 (08:24→17:10)
[2017-08-22 08:26] LABS: ALBUMIN 3.2 g/dL (3.5-5.0); ALT/SGPT 43 U/L (21-72); AST/SGOT 25 U/L (17-59); BLOOD UREA NITROGEN 13 mg/dL (9-20); CALCIUM 8.5 mg/dl (8.6-10.4); GFR AFRICAN-AMERICAN > 60; GFR NON-AFRICAN AMERICAN > 60; MAGNESIUM 1.5 mg/dL (1.6-2.3)
[2017-08-22 08:29] LABS: ALB/GLOB RATIO 1.1 (1.0-2.1)
[2017-08-22] MEDS: Pantoprazole 40 mg EC Tab PO SCH (10:09)
[2017-08-22] MEDS: Multiple Vitamins Tab PO SCH (10:09)
[2017-08-22] MEDS: Enoxaparin 30 mg Syringe SC SCH (10:10)
--- NOTE | 2017-08-22 10:59 | CP.PCM.PN ---
Addendum entered and electronically signed by Bria Siddiqui 08/22/17 15:15: Chest CT: No CT evidence for acute pulmonary embolism. 7 mm subpleural nodule in the right lower lobe. Follow-up CT scan in 6-12 months interval is recommended to assess stability. Mild cardiomegaly, small pericardial effusion and trace bilateral pleural effusions. Original Note: <Bria Siddiqui - Last Filed: 08/22/17 10:54> Subjective - Date & Time of Evaluation Date of Evaluation: 08/22/17 Time of Evaluation: 07:35 - Subjective Subjective: Medicine note ( PGY-1): Dr. Cronin's service Patient was seen and examined at bedside. Patient states that he is doing well and has no complaints. Patient denies chest pain, SOB, palpitations, fever, chills, nausea and vomiting but admits to mild cough. Patient continues to get out of bed to chair. Incentive spirometer use was reinforced during the encounter. Objective - Vital Signs/Intake and Output Vital Signs (last 24 hours): Temp Pulse Resp BP Pulse Ox 98.3 F 104 H 20 103/66 97 08/22/17 08:50 08/22/17 08:50 08/22/17 08:50 08/22/17 08:50 08/22/17 08:50 Intake and Output: 08/22/17 08/22/17 06:59 18:59 Intake Total 180 Balance 180 - Medications Medications: Current Medications Albuterol/Ipratropium (Duoneb 3 Mg/0.5 Mg (3 Ml) Ud) 3 ml INH RQ6 [facility] Last Admin: 08/22/17 07:34 Dose: 3 ml Aspirin (Aspirin Chewable) 81 mg PO DAILY [facility] Last Admin: 08/22/17 10:09 Dose: 81 mg Clopidogrel Bisulfate (Plavix) 75 mg PO DAILY [facility] Last Admin: 08/22/17 10:09 Dose: 75 mg Docusate Sodium (Colace) 100 mg PO BID [facility] Last Admin: 08/22/17 10:09 Dose: 100 mg Enoxaparin Sodium (Lovenox) 30 mg SC DAILY [facility] Last Admin: 08/22/17 10:10 Dose: 30 mg Insulin Aspart (Novolog) 2 unit SC ACTID [facility] Last Admin: 08/22/17 08:24 Dose: Not Given Insulin Human Regular (Novolin R) 0 unit SC ACHS [facility] PRN Reason: Protocol Last Admin: 08/22/17 08:24 Dose: Not Given Metoprolol Tartrate (Lopressor) 12.5 mg PO BID [facility] Last Admin: 08/22/17 10:09 Dose: 12.5 mg Multivitamins (Hexavitamin) 1 tab PO DAILY [facility] Last Admin: 08/22/17 10:09 Dose: 1 tab Pantoprazole Sodium (Protonix Ec Tab) 40 mg PO DAILY [facility] Last Admin: 08/22/17 10:09 Dose: 40 mg Rosuvastatin Calcium (Crestor) 2.5 mg PO HS [facility] Last Admin: 08/21/17 21:30 Dose: 2.5 mg Sennosides (Senokot Tab) 17.5 mg PO DAILY [facility] Last Admin: 08/22/17 10:09 Dose: 17.5 mg Sodium Phosphate (Fleet Enema) 135 ml VT DAILY [facility] Last Admin: 08/15/17 15:27 Dose: 135 ml - Labs Labs: 08/22/17 07:33 08/22/17 07:33 - Constitutional Appears: Well, No Acute Distress - Head Exam Head Exam: ATRAUMATIC, NORMAL INSPECTION - Eye Exam Eye Exam: EOMI - ENT Exam ENT Exam: Mucous Membranes Moist - Respiratory Exam Respiratory Exam: Decreased Breath Sounds, NORMAL BREATHING PATTERN - Cardiovascular Exam Cardiovascular Exam: REGULAR RHYTHM, +S1, +S2 - GI/Abdominal Exam GI & Abdominal Exam: Soft, Normal Bowel Sounds. absent: Tenderness - Extremities Exam Extremities Exam: Normal Inspection - Neurological Exam Neurological Exam: Alert, Awake, Oriented x3 - Psychiatric Exam Psychiatric exam: Normal Affect, Normal Mood - Skin Skin Exam: Normal Color Assessment and Plan (1) S/P CABG (coronary artery bypass graft) Assessment & Plan: F/u with Dr. Grant, Cardiothoracic surgeon Called [facility] Cardiothoracic office as per Dr. Bautista at [phone] and left a voicemail for Dr. Grant (08/18/17); Patient is scheduled for an appointment with Dr. Grant on 08/26/17 for post-op care Will manage as per Dr. Grant's recommendation Cook Helper, Dr. Bautista----> Consulted * Management as per recommendation CABG at [facility] 07/25/17 Cardiac catheterization (07/15/17)- Dr. Bautista: Multi-vessel disease with 95% stenosis in mid segment of LAD with in-stent re-stenosis. Intimal irregularities in the first diagonal branch. 80% stenosis in proximal segment of circumflex artery. 90% stenosis of right coronary artery. Normal LV systolic function with estimated EF of 50%. Echocardiogram (07/12/17): Showed normal LV size, borderline concentric LV hypertrophy, moderately to severely impaired systolic function, septal hypokinesis, mild to moderate aortic regurgitation, and aortic root is moderately enlarged. At [facility] cabg x2, reop for bleeding,multiple blood transfusion, post op hypoxic, respiratory failure, extubated on 07/22, s/p left sided post op pneumothorax pig tail removed 08/05, noted on chest X-ray * Chest X-ray (08/08/17): Mild Right basilar atelactasis and small right sided pleural effusion * Repeat Chest X-ray (08/13/17): No change in right basilar atelectasis and left lower lobe consolidation with small pleural effusions. * Echocardiogram report (08/14/17): EF (25-30%), LV systolic is severely impaired, LV diastolic function is abnormal, LV is normal size. Right ventricle is normal size, with normal systolic function, RA is normal size. 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 Intimal irregularities in the first diagonal branch. 80% stenosis in proximal segment of circumflex artery. 90% stenosis of right coronary artery. Normal LV systolic function with estimated EF of 50%. Medications: * ASA 81mg po daily * Plavix 75mg po daily * Crestor 2.5mg PO HS * Lopressor 12.5mg PO BID Status: Acute (4) Urine discoloration Assessment & Plan: Encourage fluid intake UA ( LE (3+) and Urine WBC (50) UC: + Psedomonas Aeruginosa Medications: * Cipro 500mg PO BID (Started 08/22/17) Status: Acute (5) Constipation Assessment & Plan: Resolving Medications: * Docusate 100mg PO BID * Senna A and B 17.5mg PO daily * Fleet enema PRN Status: Acute (6) Bacteremia Assessment & Plan: Resolved Dr. Asher on board---> help appreciated Blood culture positive for pseudomonas likely from UTI, s/p pseudomonas in urine * Meropenem started on 08/01 at [facility] as per d/c summary. * Levaquin 08/07 Medications: * Meropenem 1gm IVPB Q8H (Discontinued 08/11/17) * Avelox 400mg IVPB Q24H ( Discontinued 08/11/17) Labs: Repeat Blood culture (08/08/17): No growth Leukocytosis normalized and no bandemia; no signs of infection Status: Acute (7) Serum lipase elevation Assessment & Plan: Trending down Continue to monitor with labs Imaging: * CT abd/pelvis showed no evidence of pancreatitis as per [facility] discharge summary Status: Acute (8) History of hypertension Assessment & Plan: Stable Medication: * Lopressor 50mg PO BID----> Decreased to 12.5mg PO BID ( 08/14/2017) Continue to monitor with vital signs Status: Acute (9) History of diabetes mellitus Assessment & Plan: Accuchecks Novolog 2 units TIDAC ISS low dose Status: Acute (10) Prophylactic measure Assessment & Plan: GI: Protonix 40mg PO daily DVT: Lovenox 30mg SC daily Multivitamins 1 tab PO daily PT and OT Incentive spirometer Disposition: DELIA recommendation as per PT and OT . As per case picker, patient' s insurance does not cover DELIA or home physical therapy at the moment. group social worker working on the possibility of DELIA or home physical therapy approval. In the mean time, patient will continue to work very closely with physical therapy. Patient was given a walker today by physical therapy in order for patient to ambulate more frequently Patient will follow up with Dr. Grant, cardiothoracic surgeon at [facility] on for post-op care Status: Acute <Marjorie Cronin - Last Filed: 08/22/17 17:40> Objective - Vital Signs/Intake and Output Vital Signs (last 24 hours): Temp Pulse Resp BP Pulse Ox 98.9 F 96 H 20 129/78 93 L 08/22/17 16:00 08/22/17 16:00 08/22/17 16:00 08/22/17 16:00 08/22/17 16:00 Intake and Output: 08/22/17 08/22/17 06:59 18:59 Intake Total 180 350 Balance 180 350 - Medications Medications: Current Medications Albuterol/Ipratropium (Duoneb 3 Mg/0.5 Mg (3 Ml) Ud) 3 ml INH RQ6 [facility] Last Admin: 08/22/17 13:19 Dose: 3 ml Aspirin (Aspirin Chewable) 81 mg PO DAILY [facility] Last Admin: 08/22/17 10:09 Dose: 81 mg Ciprofloxacin (Cipro) 500 mg PO BID [facility] Last Admin: 08/22/17 11:57 Dose: 500 mg Clopidogrel Bisulfate (Plavix) 75 mg PO DAILY [facility] Last Admin: 08/22/17 10:09 Dose: 75 mg Docusate Sodium (Colace) 100 mg PO BID [facility] Last Admin: 08/22/17 17:33 Dose: 100 mg Enoxaparin Sodium (Lovenox) 30 mg SC DAILY [facility] Last Admin: 08/22/17 10:10 Dose: 30 mg Insulin Aspart (Novolog) 2 unit SC ACTID [facility] Last Admin: 08/22/17 11:36 Dose: Not Given Insulin Human Regular (Novolin R) 0 unit SC ACHS [facility] PRN Reason: Protocol Last Admin: 08/22/17 11:36 Dose: Not Given Metoprolol Tartrate (Lopressor) 12.5 mg PO BID [facility] Last Admin: 08/22/17 17:33 Dose: 12.5 mg Multivitamins (Hexavitamin) 1 tab PO DAILY [facility] Last Admin: 08/22/17 10:09 Dose: 1 tab Pantoprazole Sodium (Protonix Ec Tab) 40 mg PO DAILY [facility] Last Admin: 08/22/17 10:09 Dose: 40 mg Rosuvastatin Calcium (Crestor) 2.5 mg PO HS [facility] Last Admin: 08/21/17 21:30 Dose: 2.5 mg Sennosides (Senokot Tab) 17.5 mg PO DAILY [facility] Last Admin: 08/22/17 10:09 Dose: 17.5 mg Sodium Phosphate (Fleet Enema) 135 ml [place] DAILY [facility] Last Admin: 08/15/17 15:27 Dose: 135 ml - Labs Labs: 08/22/17 07:33 08/22/17 07:33 Attending/Attestation - Attestation I have personally seen and examined this patient.: Yes I have fully participated in the care of the patient.: Yes I have reviewed all pertinent clinical information, including history, physical exam and plan: Yes Notes (Text): Patient seen and examined CTA done to rule out PE-negative for PE I agree with the documentation of the assessment and plan 08/22/17 17:38
[2017-08-22] MEDS ORDERED: Iodixanol 320 mg/ml 150 ml Bottle IV ONE (12:26)
--- NOTE | 2017-08-22 12:53 | CP.PCM.CON ---
History of Present Illness - History of Present Illness History of Present Illness: reason for consultation: patient desaturates on exertion Patient is a 66 year old male with PMHx of HTN, CAD, s/p CABG at [facility] on 07/25/17. Patient admitted after being transferred from [facility] s/p CABG with possible pancreatitis. Patient denies headache, dizziness, shortness of breath, abdominal pain, nausea, vomiting, constipation or diarrhea. ABG done on room air showed no hypoxemia, but saturation drops on exertion. Patient denies history of smoking. PMD: None Admitting Officer: Unknown. PMHx: OR (2006) with catherization and possible stent placement PSHx: hernia repair (1978), CABG on 07/25/17 Allergies: NKDA Social Hx: Denies Tobacco, Alcohol, or illicit drug use. Family Hx: Denies Meds: patient put on meds that he was discharged with from [facility] Past Patient History - Past Medical History & Family History Past Medical History?: Yes - Past Social History Smoking Status: Never Smoked - CARDIAC Hx Cardiac Disorders: Yes (CAD, CABG 07/25/17) Hx Hypercholesterolemia: Yes ("I had highchol 2006 but not anymore") Hx Hypertension: Yes (" I had htn 2006 but not anymore") - PULMONARY Hx Respiratory Disorders: No - NEUROLOGICAL Hx Neurological Disorder: No - HEENT Hx HEENT Problems: No - RENAL Hx Chronic Kidney Disease: No - ENDOCRINE/METABOLIC Hx Endocrine Disorders: No - HEMATOLOGICAL/ONCOLOGICAL Hx Blood Disorders: No - INTEGUMENTARY Hx Dermatological Problems: No - MUSCULOSKELETAL/RHEUMATOLOGICAL Hx Musculoskeletal Disorders: No Hx Falls: No - GASTROINTESTINAL Hx Gastrointestinal Disorders: No - GENITOURINARY/GYNECOLOGICAL Hx Genitourinary Disorders: No - PSYCHIATRIC Hx Substance Use: No - SURGICAL HISTORY Hx Surgeries: Yes Hx Cardiac Catheterization: Yes ("2006") Hx Herniorrhaphy: Yes ("1978") - ANESTHESIA Hx Anesthesia: Yes Hx Anesthesia Reactions: No Meds Allergies/Adverse Reactions: Allergies Allergy/AdvReac Type Severity Reaction Status Date / Time No Known Allergies Allergy Unverified 07/11/17 16:42 - Medications Medications: Current Medications Albuterol/Ipratropium (Duoneb 3 Mg/0.5 Mg (3 Ml) Ud) 3 ml INH RQ6 [facility] Last Admin: 08/22/17 07:34 Dose: 3 ml Aspirin (Aspirin Chewable) 81 mg PO DAILY [facility] Last Admin: 08/22/17 10:09 Dose: 81 mg Ciprofloxacin (Cipro) 500 mg PO BID [facility] Last Admin: 08/22/17 11:57 Dose: 500 mg Clopidogrel Bisulfate (Plavix) 75 mg PO DAILY [facility] Last Admin: 08/22/17 10:09 Dose: 75 mg Docusate Sodium (Colace) 100 mg PO BID [facility] Last Admin: 08/22/17 10:09 Dose: 100 mg Enoxaparin Sodium (Lovenox) 30 mg SC DAILY [facility] Last Admin: 08/22/17 10:10 Dose: 30 mg Insulin Aspart (Novolog) 2 unit SC ACTID [facility] Last Admin: 08/22/17 11:36 Dose: Not Given Insulin Human Regular (Novolin R) 0 unit SC ACHS [facility] PRN Reason: Protocol Last Admin: 08/22/17 11:36 Dose: Not Given Metoprolol Tartrate (Lopressor) 12.5 mg PO BID [facility] Last Admin: 08/22/17 10:09 Dose: 12.5 mg Multivitamins (Hexavitamin) 1 tab PO DAILY [facility] Last Admin: 08/22/17 10:09 Dose: 1 tab Pantoprazole Sodium (Protonix Ec Tab) 40 mg PO DAILY [facility] Last Admin: 08/22/17 10:09 Dose: 40 mg Rosuvastatin Calcium (Crestor) 2.5 mg PO HS [facility] Last Admin: 08/21/17 21:30 Dose: 2.5 mg Sennosides (Senokot Tab) 17.5 mg PO DAILY [facility] Last Admin: 08/22/17 10:09 Dose: 17.5 mg Sodium Phosphate (Fleet Enema) 135 ml [place] DAILY [facility]N Last Admin: 08/15/17 15:27 Dose: 135 ml Physical Exam - Head Exam Head Exam: ATRAUMATIC, NORMOCEPHALIC - Eye Exam Eye Exam: Normal appearance - ENT Exam ENT Exam: Mucous Membranes Moist - Neck Exam Neck exam: Positive for: Normal Inspection - Respiratory Exam Respiratory Exam: Decreased Breath Sounds - Cardiovascular Exam Cardiovascular Exam: REGULAR RHYTHM - GI/Abdominal Exam GI & Abdominal Exam: Normal Bowel Sounds, Soft - Extremities Exam Extremities exam: Positive for: normal inspection Results - Vital Signs Recent Vital Signs: Last Vital Signs Temp 98.3 F 08/22/17 08:50 Pulse 104 H 08/22/17 08:50 Resp 20 08/22/17 08:50 BP 103/66 08/22/17 08:50 Pulse Ox 97 08/22/17 08:50 - Labs Result Diagrams: 08/22/17 07:33 08/22/17 07:33 Labs: Laboratory Results - last 24 hr 08/21/17 08/21/17 08/21/17 13:47 16:25 20:57 WBC RBC Hgb Hct MCV MCH MCHC RDW Plt Count MPV Neut % (Auto) Lymph % (Auto) Blackford % (Auto) Eos % (Auto) Baso % (Auto) Neut # Lymph # [place]ford # Eos # Baso # Puncture Site Rrad pCO2 34 L pO2 72 L HCO3 27.4 ABG pH 7.50 H ABG Total CO2 27.5 ABG O2 Saturation 97.8 ABG Base Excess 3.3 H ABG Hemoglobin 9.9 L ABG Carboxyhemoglobin 2.7 H POC ABG HHb (Measured) 2.1 ABG Methemoglobin 1.5 Jason Test Pos Hgb O2 Saturation 93.7 L Sodium Potassium Chloride Carbon Dioxide Anion Gap BUN Creatinine Est GFR ( Amer) Est GFR (Non-Af Amer) POC Glucose (mg/dL) 133 H 95 Random Glucose Calcium Phosphorus Magnesium Total Bilirubin AST ALT Alkaline Phosphatase Total Protein Albumin Globulin Albumin/Globulin Ratio 08/22/17 08/22/17 08/22/17 07:07 07:33 07:33 WBC 4.8 RBC 3.37 L Hgb 10.6 L Hct 31.5 L MCV 93.6 MCH 31.5 H MCHC 33.6 RDW 18.6 H Plt Count 249 MPV 8.1 Neut % (Auto) 65.6 Lymph % (Auto) 14.5 L Blackford % (Auto) 11.2 H Eos % (Auto) 8.1 H Baso % (Auto) 0.6 Neut # 3.2 Lymph # 0.7 L Blackford # 0.5 Eos # 0.4 Baso # 0.0 Puncture Site pCO2 pO2 HCO3 ABG pH ABG Total CO2 ABG O2 Saturation ABG Base Excess ABG Hemoglobin ABG Carboxyhemoglobin POC ABG HHb (Measured) ABG Methemoglobin Jason Test Hgb O2 Saturation Sodium 138 Potassium 4.2 Chloride 102 Carbon Dioxide 29 Anion Gap 11 BUN 13 Creatinine 1.1 Est GFR ( Amer) > 60 Est GFR (Non-Af Amer) > 60 POC Glucose (mg/dL) 81 Random Glucose 90 Calcium 8.5 L Phosphorus 4.7 H Magnesium 1.5 L Total Bilirubin 0.7 AST 25 ALT 43 Alkaline Phosphatase 99 Total Protein 6.1 L Albumin 3.2 L Globulin 2.9 Albumin/Globulin Ratio 1.1 08/22/17 11:14 WBC RBC Hgb Hct MCV MCH MCHC RDW Plt Count MPV Neut % (Auto) Lymph % (Auto) Blackford % (Auto) Eos % (Auto) Baso % (Auto) Neut # Lymph # Blackford # Eos # Baso # Puncture Site pCO2 pO2 HCO3 ABG pH ABG Total CO2 ABG O2 Saturation ABG Base Excess ABG Hemoglobin ABG Carboxyhemoglobin POC ABG HHb (Measured) ABG Methemoglobin Jason Test Hgb O2 Saturation Sodium Potassium Chloride Carbon Dioxide Anion Gap BUN Creatinine Est GFR ( Amer) Est GFR (Non-Af Amer) POC Glucose (mg/dL) 95 Random Glucose Calcium Phosphorus Magnesium Total Bilirubin AST ALT Alkaline Phosphatase Total Protein Albumin Globulin Albumin/Globulin Ratio Assessment & Plan (1) Hypoxia Status: Acute Comment: hypoxemia on exertion most likely secondary to atelectasis which again is due to recent surgery. CT angio. Nebulizer treatment
--- NOTE | 2017-08-22 13:31 | CT ---
PROCEDURE: CT Chest with contrast (Pulmonary Angiogram) HISTORY: HYPOXIA ON AMBULATION COMPARISON: None available. TECHNIQUE: Axial computed tomography images were obtained of the chest in the pulmonary arterial phase of enhancement. Coronal and sagittal reformatted images were created and reviewed. Intravenous contrast dose: 100 mL Visipaque 320 Radiation dose: Total exam DLP = 292.81 mGy-cm. This CT exam was performed using one or more of the following dose reduction techniques: Automated exposure control, adjustment of the mA and/or kV according to patient size, and/or use of iterative reconstruction technique. FINDINGS: PULMONARY ARTERIES: There are no filling defects in the pulmonary arteries to suggest acute pulmonary embolism. AORTA: There is mild dilatation of the ascending aorta. LUNGS: There is subsegmental atelectasis in the left lower lobe. There is a 7 mm subpleural nodule in the right lower lobe. No focal consolidation. PLEURAL SPACES: There are trace pleural effusions. No pneumothorax. HEART: There is mild cardiomegaly and small pericardial effusion. There are advanced atherosclerotic coronary arteries. LYMPH NODES: No pathologic lymphadenopathy. BONES, CHEST WALL: Unremarkable. No fracture or destructive lesion OTHER FINDINGS: Unremarkable. IMPRESSION: 1. No CT evidence for acute pulmonary embolism. 2. 7 mm subpleural nodule in the right lower lobe. Follow-up CT scan in 6-12 months interval is recommended to assess stability. 3. Mild cardiomegaly, small pericardial effusion and trace bilateral pleural effusions.
[2017-08-22] MEDS: Rosuvastatin Calcium 2.5 mg Tab PO SCH (22:04)
[2017-08-23] MEDS: Albuterol-Ipratrop 3 mg / 0.5 (3 ml) UD INH SCH ×4 (01:58→19:24)
--- NOTE | 2017-08-23 02:21 | CP.PCM.PN ---
<Dulce Maria Guajardo - Last Filed: 08/23/17 02:18> Subjective - Date & Time of Evaluation Date of Evaluation: 08/23/17 Time of Evaluation: 02:18 - Subjective Subjective: Medicine Progress note for Dr. Cronin Patient was seen and examined at bedside. Patient reports feeling well. He reports he has mild pain when he touches his chest and pain at his right lateral chest with deep inspiration. Patient otherwise has no complaints and denies having abdominal pain, shortness of breath, nausea, vomiting, fevers, headaches, and leg pain. Objective - Vital Signs/Intake and Output Vital Signs (last 24 hours): Temp Pulse Resp BP Pulse Ox 98.2 F 83 20 105/68 97 08/22/17 23:39 08/22/17 23:39 08/22/17 23:39 08/22/17 23:39 08/22/17 23:39 Intake and Output: 08/22/17 08/23/17 18:59 06:59 Intake Total 350 350 Balance 350 350 - Medications Medications: Current Medications Albuterol/Ipratropium (Duoneb 3 Mg/0.5 Mg (3 Ml) Ud) 3 ml INH RQ6 [facility] Last Admin: 08/23/17 01:58 Dose: 3 ml Aspirin (Aspirin Chewable) 81 mg PO DAILY [facility] Last Admin: 08/22/17 10:09 Dose: 81 mg Ciprofloxacin (Cipro) 500 mg PO BID [facility] Last Admin: 08/22/17 17:39 Dose: 500 mg Clopidogrel Bisulfate (Plavix) 75 mg PO DAILY [facility] Last Admin: 08/22/17 10:09 Dose: 75 mg Docusate Sodium (Colace) 100 mg PO BID [facility] Last Admin: 08/22/17 17:33 Dose: 100 mg Enoxaparin Sodium (Lovenox) 30 mg SC DAILY [facility] Last Admin: 08/22/17 10:10 Dose: 30 mg Insulin Aspart (Novolog) 2 unit SC ACTID [facility] Last Admin: 08/22/17 17:10 Dose: Not Given Insulin Human Regular (Novolin R) 0 unit SC ACHS [facility] PRN Reason: Protocol Last Admin: 08/22/17 22:05 Dose: Not Given Metoprolol Tartrate (Lopressor) 12.5 mg PO BID [facility] Last Admin: 08/22/17 17:33 Dose: 12.5 mg Multivitamins (Hexavitamin) 1 tab PO DAILY [facility] Last Admin: 08/22/17 10:09 Dose: 1 tab Pantoprazole Sodium (Protonix Ec Tab) 40 mg PO DAILY [facility] Last Admin: 08/22/17 10:09 Dose: 40 mg Rosuvastatin Calcium (Crestor) 2.5 mg PO HS [facility] Last Admin: 08/22/17 22:04 Dose: 2.5 mg Sennosides (Senokot Tab) 17.5 mg PO DAILY [facility] Last Admin: 08/22/17 10:09 Dose: 17.5 mg Sodium Phosphate (Fleet Enema) 135 ml [place] DAILY [facility] Last Admin: 08/15/17 15:27 Dose: 135 ml - Labs Labs: 08/22/17 07:33 08/22/17 07:33 - Constitutional Appears: No Acute Distress - Head Exam Head Exam: ATRAUMATIC, NORMAL INSPECTION - Eye Exam Eye Exam: EOMI, Normal appearance - ENT Exam ENT Exam: Mucous Membranes Moist - Respiratory Exam Respiratory Exam: Decreased Breath Sounds, Clear to Ausculation Bilateral, NORMAL BREATHING PATTERN. absent: Rales, Rhonchi, Wheezes, Respiratory Distress - Cardiovascular Exam Cardiovascular Exam: REGULAR RHYTHM, +S1, +S2 - GI/Abdominal Exam GI & Abdominal Exam: Soft, Normal Bowel Sounds. absent: Distended, Firm, Tenderness - Extremities Exam Extremities Exam: Normal Inspection - Neurological Exam Neurological Exam: Alert, Awake, Oriented x3 - Psychiatric Exam Psychiatric exam: Normal Affect, Normal Mood - Skin Skin Exam: Dry, Normal Color, Warm Additional comments: thomas-mildline chest; surgical site- clean, dry, intact; Assessment and Plan - Assessment and Plan (Free Text) Plan: Assessment and Plan (1) S/P CABG (coronary artery bypass graft) Assessment & Plan: * F/u with Dr. Grant, Cardiothoracic surgeon * Called [facility] Cardiothoracic office as per Dr. Bautista at [phone] and left a voicemail for Dr. Grant (08/18/17); Patient is scheduled for an appointment with Dr. Grant on 08/26/17 for post-op care * Will manage as per Dr. Grant's recommendation * Tool Coordinator, Dr. Bautista----> Consulted * Management as per recommendation * Cardiac catheterization (07/15/17)- Dr. Bautista: Multi-vessel disease with 95% stenosis in mid segment of LAD with in-stent re-stenosis. Intimal irregularities in the first diagonal branch. 80% stenosis in proximal segment of circumflex artery. 90% stenosis of right coronary artery. Normal LV systolic function with estimated EF of 50%. * CABG at [facility] 07/25/17 * At [facility] cabg x2, reop for bleeding,multiple blood transfusion, post op hypoxic, respiratory failure, extubated on 07/22, s/p left sided post op pneumothorax pig tail removed 08/05, noted on chest X-ray * Echocardiogram (07/12/17): Showed normal LV size, borderline concentric LV hypertrophy, moderately to severely impaired systolic function, septal hypokinesis, mild to moderate aortic regurgitation, and aortic root is moderately enlarged. * Echocardiogram report (08/14/17): EF (25-30%), LV systolic is severely impaired, LV diastolic function is abnormal, LV is normal size. Right ventricle is normal size, with normal systolic function, RA is normal size. Mild Aortic root dilatation and mild triscuspid regurgitation Chest X-ray (08/08/17): Mild Right basilar atelactasis and small right sided pleural effusion * Repeat Chest X-ray (08/13/17): No change in right basilar atelectasis and left lower lobe consolidation with small pleural effusions. Medications/Management: * ASA 81mg po daily * Plavix 75mg po daily * Crestor 2.5mg PO HS * Lopressor 50mg PO BID -----> Switched to 12.5mg PO BID * Duonebs 3ML INH RQ6H and chest physical therapy Status: Acute (2) Hypoxia Assessment & Plan: On ambulation Snailer Consult, Dr. Garcia * Management as per recommendation * AB.50/34/72/27.4 * Chest CT: No CT evidence for acute pulmonary embolism. 7 mm subpleural nodule in the right lower lobe. Follow-up CT scan in 6-12 months interval is recommended to assess stability. Mild cardiomegaly, small pericardial effusion and trace bilateral pleural effusions. (3) History of coronary artery disease Assessment & Plan: CABG at [facility] 07/25/17 * cardiac catheterization (07/14/17) which showed multi-vessel disease with 95% stenosis in mid segment of LAD with in-stent re-stenosis. Intimal irregularities in the first diagonal branch. 80% stenosis in proximal segment of circumflex artery. 90% stenosis of right coronary artery. Normal LV systolic function with estimated EF of 50%. Medications: * ASA 81mg po daily * Plavix 75mg po daily * Crestor 2.5mg PO HS * Lopressor 12.5mg PO BID (4) Urine discoloration Assessment & Plan: Encourage fluid intake UA ( LE (3+) and Urine WBC (50) UC: + Psedomonas Aeruginosa Medications: * Cipro 500mg PO BID (Started 08/22/17) (5) Constipation Assessment & Plan: Resolving Medications: * Docusate 100mg PO BID * Senna A and B 17.5mg PO daily * Fleet enema PRN (6) Bacteremia Assessment & Plan: Resolved Dr. Asher on board---> help appreciated Blood culture positive for pseudomonas likely from UTI, s/p pseudomonas in urine * Meropenem started on 08/01 at [facility] as per d/c summary. * Levaquin 08/07 Medications: * Meropenem 1gm IVPB Q8H (Discontinued 08/11/17) * Avelox 400mg IVPB Q24H ( Discontinued 08/11/17) Labs: Repeat Blood culture (08/08/17): No growth Leukocytosis normalized and no bandemia; no signs of infection (7) Serum lipase elevation Assessment & Plan: Trending down Continue to monitor with labs Imaging: * CT abd/pelvis showed no evidence of pancreatitis as per [facility] discharge summary (8) History of hypertension Assessment & Plan: Stable Continue to monitor with vital signs Medication: * Lopressor 50mg PO BID----> Decreased to 12.5mg PO BID ( 08/14/2017) (9) History of diabetes mellitus Assessment & Plan: Accuchecks Novolog 2 units TIDAC ISS low dose (10) Prophylactic measure Assessment & Plan: GI: Protonix 40mg PO daily DVT: Lovenox 30mg SC daily Multivitamins 1 tab PO daily PT and OT Incentive spirometer Disposition: DELIA recommendation as per PT and OT . As per mattress spring encaser, patient' s insurance does not cover DELIA or home physical therapy at the moment. storage worker working on the possibility of DELIA or home physical therapy approval. In the mean time, patient will continue to work very closely with physical therapy. Patient was given a walker today by physical therapy in order for patient to ambulate more frequently Patient will follow up with Dr. Grant, cardiothoracic surgeon at [facility] on for post-op care <VenuMichael carverashiajustino - Last Filed: 08/23/17 18:27> Objective - Vital Signs/Intake and Output Vital Signs (last 24 hours): Temp Pulse Resp BP Pulse Ox 97.6 F 86 20 111/77 97 08/23/17 16:00 08/23/17 16:00 08/23/17 16:00 08/23/17 16:00 08/23/17 16:00 Intake and Output: 08/23/17 08/23/17 06:59 18:59 Intake Total 470 240 Balance 470 240 - Medications Medications: Current Medications Albuterol/Ipratropium (Duoneb 3 Mg/0.5 Mg (3 Ml) Ud) 3 ml INH RQ6 [facility] Last Admin: 08/23/17 13:13 Dose: 3 ml Aspirin (Aspirin Chewable) 81 mg PO DAILY [facility] Last Admin: 08/23/17 09:00 Dose: 81 mg Ciprofloxacin (Cipro) 500 mg PO BID [facility] Last Admin: 08/23/17 17:59 Dose: 500 mg Clopidogrel Bisulfate (Plavix) 75 mg PO DAILY [facility] Last Admin: 08/23/17 08:59 Dose: 75 mg Docusate Sodium (Colace) 100 mg PO BID [facility] Last Admin: 08/23/17 18:00 Dose: 100 mg Enoxaparin Sodium (Lovenox) 30 mg SC DAILY [facility] Last Admin: 08/23/17 09:00 Dose: 30 mg Insulin Aspart (Novolog) 2 unit SC ACTID [facility] Last Admin: 08/23/17 12:22 Dose: Not Given Insulin Human Regular (Novolin R) 0 unit SC ACHS [facility] PRN Reason: Protocol Last Admin: 08/23/17 11:31 Dose: Not Given Metoprolol Tartrate (Lopressor) 12.5 mg PO BID [facility] Last Admin: 08/23/17 18:00 Dose: 12.5 mg Multivitamins (Hexavitamin) 1 tab PO DAILY [facility] Last Admin: 08/23/17 09:00 Dose: 1 tab Pantoprazole Sodium (Protonix Ec Tab) 40 mg PO DAILY [facility] Last Admin: 08/23/17 09:00 Dose: 40 mg Rosuvastatin Calcium (Crestor) 2.5 mg PO HS [facility] Last Admin: 08/22/17 22:04 Dose: 2.5 mg Sennosides (Senokot Tab) 17.5 mg PO DAILY [facility] Last Admin: 08/23/17 08:59 Dose: 17.5 mg Sodium Phosphate (Fleet Enema) 135 ml [place] DAILY [facility] Last Admin: 08/15/17 15:27 Dose: 135 ml - Labs Labs: 08/23/17 06:44 08/23/17 06:44 Attending/Attestation - Attestation I have personally seen and examined this patient.: Yes I have fully participated in the care of the patient.: Yes I have reviewed all pertinent clinical information, including history, physical exam and plan: Yes Notes (Text): patient was seen and examined No complain,Denies shortness of breath,sitting comfortable,walking with case management assistant CTA negative for PE 08/23/17 18:25
[2017-08-23 06:52] LABS: BASO % 0.4 % (0.0-2.0); EOS # 0.4 K/uL (0.0-0.7); HEMOGLOBIN 10.5 g/dL (12.0-18.0); LYMPH # 0.7 K/uL (1.0-4.3); LYMPH % 14.9 % (20.0-40.0); MEAN CELL VOLUME 92.1 fL (80.0-94.0); MEAN CORPUSCULAR HEMOGLOBIN 31.4 pg (27.0-31.0); MEAN CORPUSCULAR HGB CONC 34.1 g/dL (33.0-37.0); MEAN PLATELET VOLUME 7.4 fL (7.2-11.7); MONO # 0.6 K/uL (0.0-0.8); MONO % 12.7 % (0.0-10.0); NEUT # 2.9 K/uL (1.8-7.0); NRBC % 1.1 % (0.0-2.0); RBC 3.34 Mil/uL (4.40-5.90); RED CELL DISTRIBUTION WIDTH 18.4 % (11.5-14.5); WHITE BLOOD COUNT 4.5 K/uL (4.8-10.8)
[2017-08-23 07:08] LABS: ALB/GLOB RATIO 1.1 (1.0-2.1); ALT/SGPT 48 U/L (21-72); AST/SGOT 36 U/L (17-59); BLOOD UREA NITROGEN 14 mg/dL (9-20); CALCIUM 8.7 mg/dl (8.6-10.4); GFR AFRICAN-AMERICAN > 60; GFR NON-AFRICAN AMERICAN > 60; LIPASE 305 U/L (23-300); MAGNESIUM 1.5 mg/dL (1.6-2.3)
[2017-08-23] MEDS: (Novolin R) Insulin Human Regular 100 units/ml vial SC SCH ×2 (07:49→11:31)
[2017-08-23] MEDS: (Novolog) Insulin Aspart, Recombinant 100 u/ml 10 ml vial SC SCH ×2 (07:49→12:22)
[2017-08-23] MEDS: Enoxaparin 30 mg Syringe SC SCH (09:00)
[2017-08-23] MEDS: Pantoprazole 40 mg EC Tab PO SCH (09:00)
[2017-08-23] MEDS: Multiple Vitamins Tab PO SCH (09:00)
[2017-08-23] MEDS ORDERED: Magnesium Sulfate 1 gm in D5W 1 GM/100 ML BAG IVPB ONE (10:00)
[2017-08-23] MEDS: Rosuvastatin Calcium 2.5 mg Tab PO SCH (22:04)
--- NOTE | 2017-08-24 01:14 | CP.PCM.PN ---
<Dulce Maria Guajardo - Last Filed: 08/24/17 01:11> Subjective - Date & Time of Evaluation Date of Evaluation: 08/24/17 Time of Evaluation: 01:11 - Subjective Subjective: Medicine Progress note for Dr. Cronin Patient was seen and examined at bedside. Patient reports feeling well. He reports he feels shaky ever since the nurses tried getting an IV yesterday. He also reports he sometimes feels a pinching sensation at his midline. Patient otherwise has no complaints and denies having abdominal pain, shortness of breath, nausea, vomiting, fevers, headaches, and leg pain. Objective - Vital Signs/Intake and Output Vital Signs (last 24 hours): Temp Pulse Resp BP Pulse Ox 98 F 90 20 104/69 96 08/24/17 00:30 08/24/17 00:30 08/24/17 00:30 08/24/17 00:30 08/24/17 00:30 Intake and Output: 08/23/17 08/24/17 18:59 06:59 Intake Total 240 200 Balance 240 200 - Medications Medications: Current Medications Albuterol/Ipratropium (Duoneb 3 Mg/0.5 Mg (3 Ml) Ud) 3 ml INH RQ6 [facility] Last Admin: 08/23/17 19:24 Dose: 3 ml Aspirin (Aspirin Chewable) 81 mg PO DAILY [facility] Last Admin: 08/23/17 09:00 Dose: 81 mg Ciprofloxacin (Cipro) 500 mg PO BID [facility] Last Admin: 08/23/17 17:59 Dose: 500 mg Clopidogrel Bisulfate (Plavix) 75 mg PO DAILY [facility] Last Admin: 08/23/17 08:59 Dose: 75 mg Docusate Sodium (Colace) 100 mg PO BID [facility] Last Admin: 08/23/17 18:00 Dose: 100 mg Enoxaparin Sodium (Lovenox) 30 mg SC DAILY [facility] Last Admin: 08/23/17 09:00 Dose: 30 mg Insulin Aspart (Novolog) 2 unit SC ACTID [facility] Last Admin: 08/23/17 12:22 Dose: Not Given Insulin Human Regular (Novolin R) 0 unit SC ACHS [facility] PRN Reason: Protocol Last Admin: 08/23/17 11:31 Dose: Not Given Metoprolol Tartrate (Lopressor) 12.5 mg PO BID [facility] Last Admin: 08/23/17 18:00 Dose: 12.5 mg Multivitamins (Hexavitamin) 1 tab PO DAILY [facility] Last Admin: 08/23/17 09:00 Dose: 1 tab Pantoprazole Sodium (Protonix Ec Tab) 40 mg PO DAILY [facility] Last Admin: 08/23/17 09:00 Dose: 40 mg Rosuvastatin Calcium (Crestor) 2.5 mg PO HS [facility] Last Admin: 08/23/17 22:04 Dose: 2.5 mg Sennosides (Senokot Tab) 17.5 mg PO DAILY [facility] Last Admin: 08/23/17 08:59 Dose: 17.5 mg Sodium Phosphate (Fleet Enema) 135 ml UT DAILY [facility] Last Admin: 08/15/17 15:27 Dose: 135 ml - Labs Labs: 08/23/17 06:44 08/23/17 06:44 - Additional Findings Additional findings: - Constitutional Appears: No Acute Distress - Head Exam Head Exam: ATRAUMATIC, NORMAL INSPECTION - Eye Exam Eye Exam: EOMI, Normal appearance - ENT Exam ENT Exam: Mucous Membranes Moist - Respiratory Exam Respiratory Exam: Decreased Breath Sounds, Clear to Ausculation Bilateral, NORMAL BREATHING PATTERN. absent: Rales, Rhonchi, Wheezes, Respiratory Distress - Cardiovascular Exam Cardiovascular Exam: REGULAR RHYTHM, +S1, +S2 - GI/Abdominal Exam GI & Abdominal Exam: Soft, Normal Bowel Sounds. absent: Distended, Firm, Tenderness - Extremities Exam Extremities Exam: Normal Inspection - Neurological Exam Neurological Exam: Alert, Awake, Oriented x3 - Psychiatric Exam Psychiatric exam: Normal Affect, Normal Mood - Skin Skin Exam: Dry, Normal Color, Warm Additional comments: thomas-mildline chest; surgical site- clean, dry, intact; midline on Right UE Assessment and Plan - Assessment and Plan (Free Text) Plan: Assessment and Plan (1) S/P CABG (coronary artery bypass graft) Assessment & Plan: * F/u with Dr. Grant, Cardiothoracic surgeon * Called [facility] [place] as per Dr. Bautista at [phone] and left a voicemail for Dr. Grant (08/18/17); Patient is scheduled for an appointment with Dr. Grant on 08/26/17 for post-op care * Will manage as per Dr. Grant's recommendation * [employer], Dr. Bautista----> Consulted * Management as per recommendation * Cardiac catheterization (07/15/17)- Dr. Bautista: Multi-vessel disease with 95% stenosis in mid segment of LAD with in-stent re-stenosis. Intimal irregularities in the first diagonal branch. 80% stenosis in proximal segment of circumflex artery. 90% stenosis of right coronary artery. Normal LV systolic function with estimated EF of 50%. * CABG at [facility] [place]17 * At [facility] cabg x2, reop for bleeding,multiple blood transfusion, post op hypoxic, respiratory failure, extubated on 07/22, s/p left sided post op pneumothorax pig tail removed 08/05, noted on chest X-ray * Echocardiogram (07/12/17): Showed normal LV size, borderline concentric LV hypertrophy, moderately to severely impaired systolic function, septal hypokinesis, mild to moderate aortic regurgitation, and aortic root is moderately enlarged. * Echocardiogram report (08/14/17): EF (25-30%), LV systolic is severely impaired, LV diastolic function is abnormal, LV is normal size. Right ventricle is normal size, with normal systolic function, RA is normal size. Mild Aortic root dilatation and mild triscuspid regurgitation Chest X-ray (08/08/17): Mild Right basilar atelactasis and small right sided pleural effusion * Repeat Chest X-ray (08/13/17): No change in right basilar atelectasis and left lower lobe consolidation with small pleural effusions. Medications/Management: * ASA 81mg po daily * Plavix 75mg po daily * Crestor 2.5mg PO HS * Lopressor 50mg PO BID -----> Switched to 12.5mg PO BID * Duonebs 3ML INH RQ6H and chest physical therapy Status: Acute (2) Hypoxia Assessment & Plan: On ambulation Switch Coupler Consult, Dr. Garcia * Management as per recommendation * AB.50/34/72/27.4 * Chest CT: No CT evidence for acute pulmonary embolism. 7 mm subpleural nodule in the right lower lobe. Follow-up CT scan in 6-12 months interval is recommended to assess stability. Mild cardiomegaly, small pericardial effusion and trace bilateral pleural effusions. (3) History of coronary artery disease Assessment & Plan: CABG at [facility] 07/[place]17 * cardiac catheterization (07/14/17) which showed multi-vessel disease with 95% stenosis in mid segment of LAD with in-stent re-stenosis. Intimal irregularities in the first diagonal branch. 80% stenosis in proximal segment of circumflex artery. 90% stenosis of right coronary artery. Normal LV systolic function with estimated EF of 50%. Medications: * ASA 81mg po daily * Plavix 75mg po daily * Crestor 2.5mg PO HS * Lopressor 12.5mg PO BID (4) Urine discoloration Assessment & Plan: Encourage fluid intake UA ( LE (3+) and Urine WBC (50) UC: + Psedomonas Aeruginosa Medications: * Cipro 500mg PO BID (Started 08/22/17) (5) Constipation Assessment & Plan: Resolving Medications: * Docusate 100mg PO BID * Senna A and B 17.5mg PO daily * Fleet enema PRN (6) Bacteremia Assessment & Plan: Resolved Dr. Asher on board---> help appreciated Blood culture positive for pseudomonas likely from UTI, s/p pseudomonas in urine * Meropenem started on 08/01 at [facility] as per d/c summary. * Levaquin 08/07 Medications: * Meropenem 1gm IVPB Q8H (Discontinued 08/11/17) * Avelox 400mg IVPB Q24H ( Discontinued 08/11/17) Labs: Repeat Blood culture (08/08/17): No growth Leukocytosis normalized and no bandemia; no signs of infection (7) Serum lipase elevation Assessment & Plan: Trending down Continue to monitor with labs Imaging: * CT abd/pelvis showed no evidence of pancreatitis as per [facility] discharge summary (8) History of hypertension Assessment & Plan: Stable Continue to monitor with vital signs Medication: * Lopressor 50mg PO BID----> Decreased to 12.5mg PO BID ( 08/14/2017) (9) History of diabetes mellitus Assessment & Plan: Accuchecks Novolog 2 units TIDAC ISS low dose (10) Prophylactic measure Assessment & Plan: GI: Protonix 40mg PO daily DVT: Lovenox 30mg SC daily Multivitamins 1 tab PO daily PT and OT Incentive spirometer Disposition: DELIA recommendation as per PT and OT . As per test case developer, patient' s insurance does not cover DELIA or home physical therapy at the moment. convention worker working on the possibility of DELIA or home physical therapy approval. In the mean time, patient will continue to work very closely with physical therapy. Patient was given a walker today by physical therapy in order for patient to ambulate more frequently Patient will follow up with Dr. Grant, cardiothoracic surgeon at [facility] on for post-op care <Marjorie Cronin - Last Filed: 08/24/17 12:47> Objective - Vital Signs/Intake and Output Vital Signs (last 24 hours): Temp Pulse Resp BP Pulse Ox 98.3 F 91 H 20 104/66 96 08/24/17 07:23 08/24/17 07:23 08/24/17 07:23 08/24/17 07:23 08/24/17 07:23 Intake and Output: 08/24/17 08/24/17 06:59 18:59 Intake Total 200 Balance 200 - Medications Medications: Current Medications Aspirin (Aspirin Chewable) 81 mg PO DAILY [facility] Last Admin: 08/24/17 10:22 Dose: 81 mg Calcium [facility] ([facility]lo) [facility] Ciprofloxacin (Cipro) 500 mg PO BID [facility] Last Admin: 08/24/17 10:31 Dose: 500 mg Clopidogrel Bisulfate (Plavix) 75 mg PO DAILY [facility] Last Admin: 08/24/17 10:21 Dose: 75 mg Docusate Sodium (Colace) 100 mg PO BID [facility] Last Admin: 08/24/17 10:21 Dose: 100 mg Enoxaparin Sodium (Lovenox) 30 mg SC DAILY [facility] Last Admin: 08/24/17 10:22 Dose: 30 mg Insulin Aspart (Novolog) 2 unit SC ACTID [facility] Last Admin: 08/24/17 11:49 Dose: Not Given Insulin Human Regular (Novolin R) 0 unit SC [facility] PRN Reason: Protocol Last Admin: 08/24/17 11:49 Dose: Not Given Metoprolol Tartrate (Lopressor) 12.5 mg PO BID [facility] Last Admin: 08/23/17 18:00 Dose: 12.5 mg Multivitamins (Hexavitamin) 1 tab PO DAILY [facility] Last Admin: 08/24/17 10:21 Dose: 1 tab Pantoprazole Sodium (Protonix Ec Tab) 40 mg PO DAILY [facility] Last Admin: 08/24/17 10:22 Dose: 40 mg Rosuvastatin Calcium (Crestor) 2.5 mg PO HS [facility] Last Admin: 08/23/17 22:04 Dose: 2.5 mg Sennosides (Senokot Tab) 17.2 mg PO DAILY [facility] Last Admin: 08/24/17 10:32 Dose: Not Given Sodium Phosphate (Fleet Enema) 135 ml UT DAILY [facility] Last Admin: 08/15/17 15:27 Dose: 135 ml - Labs Labs: 08/24/17 08:06 08/24/17 08:06 Attending/Attestation - Attestation I have personally seen and examined this patient.: Yes I have fully participated in the care of the patient.: Yes I have reviewed all pertinent clinical information, including history, physical exam and plan: Yes Notes (Text): Lying on bed, 08/24/17 12:46
[2017-08-24] MEDS: Albuterol-Ipratrop 3 mg / 0.5 (3 ml) UD INH SCH ×2 (01:25→07:34)
[2017-08-24 08:14] LABS: BASO % 0.5 % (0.0-2.0); EOS # 0.3 K/uL (0.0-0.7); EOS % 7.2 % (0.0-4.0); LYMPH # 0.7 K/uL (1.0-4.3); LYMPH % 15.3 % (20.0-40.0); MEAN CELL VOLUME 92.7 fL (80.0-94.0); MEAN CORPUSCULAR HEMOGLOBIN 31.5 pg (27.0-31.0); MEAN PLATELET VOLUME 7.6 fL (7.2-11.7); MONO # 0.6 K/uL (0.0-0.8); MONO % 12.9 % (0.0-10.0); NEUT # 2.9 K/uL (1.8-7.0); NEUT % 64.1 % (50.0-75.0); RBC 3.48 Mil/uL (4.40-5.90); RED CELL DISTRIBUTION WIDTH 17.8 % (11.5-14.5); WHITE BLOOD COUNT 4.5 K/uL (4.8-10.8)
[2017-08-24 08:50] LABS: ALBUMIN 3.1 g/dL (3.5-5.0); ALT/SGPT 42 U/L (21-72); AST/SGOT 30 U/L (17-59); BLOOD UREA NITROGEN 16 mg/dL (9-20); CALCIUM 8.3 mg/dl (8.6-10.4); GFR AFRICAN-AMERICAN > 60; GFR NON-AFRICAN AMERICAN > 60; MAGNESIUM 1.6 mg/dL (1.6-2.3)
[2017-08-24] MEDS: (Novolin R) Insulin Human Regular 100 units/ml vial SC SCH ×4 (10:19→21:53)
[2017-08-24] MEDS: (Novolog) Insulin Aspart, Recombinant 100 u/ml 10 ml vial SC SCH ×3 (10:20→17:40)
[2017-08-24] MEDS: Multiple Vitamins Tab PO SCH (10:21)
[2017-08-24] MEDS: Enoxaparin 30 mg Syringe SC SCH (10:22)
[2017-08-24] MEDS: Pantoprazole 40 mg EC Tab PO SCH (10:22)
[2017-08-24] MEDS: Rosuvastatin Calcium 2.5 mg Tab PO SCH (21:53)
[2017-08-25 07:37] LABS: BASO % 0.7 % (0.0-2.0); EOS # 0.3 K/uL (0.0-0.7); HEMOGLOBIN 11.1 g/dL (12.0-18.0); LYMPH # 0.8 K/uL (1.0-4.3); LYMPH % 17.9 % (20.0-40.0); MEAN CELL VOLUME 93.2 fL (80.0-94.0); MEAN CORPUSCULAR HEMOGLOBIN 31.5 pg (27.0-31.0); MEAN CORPUSCULAR HGB CONC 33.8 g/dL (33.0-37.0); MEAN PLATELET VOLUME 7.9 fL (7.2-11.7); MONO # 0.5 K/uL (0.0-0.8); MONO % 11.8 % (0.0-10.0); NEUT # 2.8 K/uL (1.8-7.0); NEUT % 62.6 % (50.0-75.0); RBC 3.52 Mil/uL (4.40-5.90); WHITE BLOOD COUNT 4.5 K/uL (4.8-10.8)
[2017-08-25 08:02] LABS: ALB/GLOB RATIO 0.8 (1.0-2.1); ALBUMIN 3.1 g/dL (3.5-5.0); ALT/SGPT 47 U/L (21-72); AST/SGOT 26 U/L (17-59); BLOOD UREA NITROGEN 15 mg/dL (9-20); CALCIUM 8.6 mg/dl (8.6-10.4); GFR AFRICAN-AMERICAN > 60; GFR NON-AFRICAN AMERICAN > 60; MAGNESIUM 1.6 mg/dL (1.6-2.3)
[2017-08-25] MEDS: (Novolin R) Insulin Human Regular 100 units/ml vial SC SCH ×4 (08:15→21:27)
[2017-08-25] MEDS: (Novolog) Insulin Aspart, Recombinant 100 u/ml 10 ml vial SC SCH ×3 (08:16→17:20)
[2017-08-25] MEDS: Enoxaparin 30 mg Syringe SC SCH (09:01)
[2017-08-25] MEDS: Pantoprazole 40 mg EC Tab PO SCH (09:01)
[2017-08-25] MEDS: Multiple Vitamins Tab PO SCH (09:03)
--- NOTE | 2017-08-25 11:45 | CP.PCM.PN ---
<Bria Siddiqui Dany - Last Filed: 08/25/17 14:43> Subjective - Date & Time of Evaluation Date of Evaluation: 08/25/17 Time of Evaluation: 07:30 - Subjective Subjective: Medicine Note (PGY-1)---> Dr. Dutton's service Patient was seen and examined at bedside. Patient states that he is doing well and has no complaints. As per nursing, patient had no acute issues overnight. Patient continues to tolerate diet and ambulating while using his walker. Patient denies chest pain, palpitations, SOB, nausea, vomiting, fever, chills or urinary symptoms. Patient is aware that he is going to the [facility] at [facility] [place] [place], tomorrow, 08/26/17, for post-op care. Objective - Vital Signs/Intake and Output Vital Signs (last 24 hours): Temp Pulse Resp BP Pulse Ox 97.7 F 87 20 117/80 98 08/25/17 08:14 08/25/17 08:14 08/25/17 08:14 08/25/17 08:14 08/25/17 08:14 Intake and Output: 08/25/17 08/25/17 06:59 18:59 Intake Total 240 Balance 240 - Medications Medications: Current Medications Aspirin (Aspirin Chewable) 81 mg PO DAILY [facility] Last Admin: 08/25/17 09:01 Dose: 81 mg [facility]) [facility] Last Admin: 08/25/17 08:50 Dose: 667 mg Ciprofloxacin (Cipro) 500 mg PO BID [facility] Last Admin: 08/25/17 09:01 Dose: 500 mg Clopidogrel Bisulfate (Plavix) 75 mg PO DAILY [facility] Last Admin: 08/25/17 09:02 Dose: 75 mg Docusate Sodium (Colace) 100 mg PO BID [facility] Last Admin: 08/25/17 09:02 Dose: 100 mg Enoxaparin Sodium (Lovenox) 30 mg SC DAILY [facility] Last Admin: 08/25/17 09:01 Dose: 30 mg Insulin Aspart (Novolog) 2 unit SC ACTID [facility] Last Admin: 08/25/17 08:16 Dose: Not Given Insulin Human Regular (Novolin R) 0 unit SC ACHS [facility] PRN Reason: Protocol Last Admin: 08/25/17 08:15 Dose: Not Given Metoprolol Tartrate (Lopressor) 12.5 mg PO BID [facility] Last Admin: 08/25/17 09:01 Dose: 12.5 mg Multivitamins (Hexavitamin) 1 tab PO DAILY [facility] Last Admin: 08/25/17 09:03 Dose: 1 tab Pantoprazole Sodium (Protonix Ec Tab) 40 mg PO DAILY [facility] Last Admin: 08/25/17 09:01 Dose: 40 mg Rosuvastatin Calcium (Crestor) 2.5 mg PO HS [facility] Last Admin: 08/24/17 21:53 Dose: 2.5 mg Sennosides (Senokot Tab) 17.2 mg PO DAILY [facility] Last Admin: 08/25/17 09:01 Dose: 17.2 mg Sodium Phosphate (Fleet Enema) 135 ml ID DAILY [facility] Last Admin: 08/15/17 15:27 Dose: 135 ml - Labs Labs: 08/25/17 07:14 08/25/17 07:14 - Constitutional Appears: Well, No Acute Distress - Head Exam Head Exam: ATRAUMATIC - Eye Exam Eye Exam: EOMI, Normal appearance - ENT Exam ENT Exam: Mucous Membranes Moist - Respiratory Exam Respiratory Exam: Decreased Breath Sounds, NORMAL BREATHING PATTERN Additional comments: Bilateral lower lobes - Cardiovascular Exam Cardiovascular Exam: REGULAR RHYTHM, +S1, +S2 Additional comments: CABG ON 07/25/17, thomas in place. Plans for staple removal tomorrow by Dr. Grant, Cardiothoracic surgeon at [facility] [place] [place] - GI/Abdominal Exam GI & Abdominal Exam: Soft, Normal Bowel Sounds. absent: Distended, Guarding, Rigid, Tenderness - Extremities Exam Extremities Exam: Normal Inspection. absent: Calf Tenderness, Pedal Edema - Neurological Exam Neurological Exam: Alert, Awake, Oriented x3 - Psychiatric Exam Psychiatric exam: Normal Affect, Normal Mood - Skin Skin Exam: Normal Color Assessment and Plan (1) S/P CABG (coronary artery bypass graft) Assessment & Plan: F/u with Dr. Grant, Cardiothoracic surgeon Called [facility] [place] [place] Cardiothoracic office as per Dr. Bautista at [phone] and left a voicemail for Dr. Grant (08/18/17); Patient is scheduled for an appointment with Dr. Grant on 08/26/17 for post-op care Will manage as per Dr. Grant's recommendation Personal Attendant, Dr. Bautista----> Consulted * Management as per recommendation CABG at [facility] [place] [place] 07/25/17 Cardiac catheterization (07/15/17)- Dr. Bautista: Multi-vessel disease with 95% stenosis in mid segment of LAD with in-stent re-stenosis. Intimal irregularities in the first diagonal branch. 80% stenosis in proximal segment of circumflex artery. 90% stenosis of right coronary artery. Normal LV systolic function with estimated EF of 50%. Echocardiogram (07/12/17): Showed normal LV size, borderline concentric LV hypertrophy, moderately to severely impaired systolic function, septal hypokinesis, mild to moderate aortic regurgitation, and aortic root is moderately enlarged. At [facility] [place] [place] cabg x2, reop for bleeding,multiple blood transfusion, post op hypoxic, respiratory failure, extubated on 07/22, s/p left sided post op pneumothorax pig tail removed 08/05, noted on chest X-ray * Chest X-ray (08/08/17): Mild Right basilar atelactasis and small right sided pleural effusion * Repeat Chest X-ray (08/13/17): No change in right basilar atelectasis and left lower lobe consolidation with small pleural effusions. * Echocardiogram report (08/14/17): EF (25-30%), LV systolic is severely impaired, LV diastolic function is abnormal, LV is normal size. Right ventricle is normal size, with normal systolic function, RA is normal size. Mild Aortic root dilatation and mild triscuspid regurgitation Medications/Management: * ASA 81mg po daily * Plavix 75mg po daily * Crestor 2.5mg PO HS * Lopressor 50mg PO BID -----> Switched to 12.5mg PO BID * Duonebs 3ML INH RQ6H and chest physical therapy Status: Acute (2) Hypoxia Assessment & Plan: On ambulation Orthopedic Shoe Fitter Consult, Dr. Garcia * Management as per recommendation * AB.50/34/72/27.4 * Chest CT: No CT evidence for acute pulmonary embolism. 7 mm subpleural nodule in the right lower lobe. Follow-up CT scan in 6-12 months interval is recommended to assess stability. Mild cardiomegaly, small pericardial effusion and trace bilateral pleural effusions. Continue to encourage incentive spirometer use Status: Acute (3) History of coronary artery disease Assessment & Plan: CABG at [facility] [place] [place] 07/25/17 * cardiac catheterization (07/14/17) which showed multi-vessel disease with 95% stenosis in mid segment of LAD with in-stent re-stenosis. Intimal irregularities in the first diagonal branch. 80% stenosis in proximal segment of circumflex artery. 90% stenosis of right coronary artery. Normal LV systolic function with estimated EF of 50%. Medications: * ASA 81mg po daily * Plavix 75mg po daily * Crestor 2.5mg PO HS * Lopressor 12.5mg PO BID Status: Acute (4) Urine discoloration Assessment & Plan: Discoloration resolved Encourage fluid intake UA ( LE (3+) and Urine WBC (50) UC: + Psedomonas Aeruginosa Medications: * Cipro 500mg PO BID (Started 08/22/17) Status: Acute (5) Urinary tract infection Assessment & Plan: UA ( LE (3+) and Urine WBC (50) UC: + Psedomonas Aeruginosa Medications: * Cipro 500mg PO BID (Started 08/22/17) Status: Acute (6) Constipation Assessment & Plan: Resolving Medications: * Docusate 100mg PO BID * Senna A and B 17.5mg PO daily * Fleet enema PRN Status: Acute (7) Bacteremia Assessment & Plan: Resolved Dr. Asher on board---> help appreciated Blood culture positive for pseudomonas likely from UTI, s/p pseudomonas in urine * Meropenem started on 08/01 at [facility] [place] [place] as per d/c summary. * Levaquin 08/07 Medications: * Meropenem 1gm IVPB Q8H (Discontinued 08/11/17) * Avelox 400mg IVPB Q24H ( Discontinued 08/11/17) Labs: Repeat Blood culture (08/08/17): No growth Repeat Blood culture (08/22/17): No growth Leukocytosis normalized and no bandemia; no signs of infection Status: Acute (8) Serum lipase elevation Assessment & Plan: Trending down Continue to monitor with labs Imaging: * CT abd/pelvis showed no evidence of pancreatitis as per [facility] [place] [place] discharge summary Status: Acute (9) History of diabetes mellitus Assessment & Plan: Accuchecks Novolog 2 units TIDAC ISS low dose Status: Acute (10) History of hypertension Assessment & Plan: Stable Continue to monitor with vital signs Medication: * Lopressor 50mg PO BID----> Decreased to 12.5mg PO BID ( 08/14/2017) Status: Acute (11) Prophylactic measure Assessment & Plan: GI: Protonix 40mg PO daily DVT: Lovenox 30mg SC daily Multivitamins 1 tab PO daily PT and OT Continue to encourage Incentive spirometer used Status: Acute <Florencio Dutton H - Last Filed: 08/25/17 15:39> Objective - Vital Signs/Intake and Output Vital Signs (last 24 hours): Temp Pulse Resp BP Pulse Ox 97.7 F 87 20 117/80 98 08/25/17 08:14 08/25/17 08:14 08/25/17 08:14 08/25/17 08:14 08/25/17 08:14 Intake and Output: 08/25/17 08/25/17 06:59 18:59 Intake Total 740 Balance 740 - Medications Medications: Current Medications Albuterol/Ipratropium (Duoneb 3 Mg/0.5 Mg (3 Ml) Ud) 3 ml INH RQ6 [facility] Aspirin (Aspirin Chewable) 81 mg PO DAILY [facility] Last Admin: 08/25/17 09:01 Dose: 81 mg Calcium Acetate (Phoslo) 667 mg PO BIDCC [facility] Last Admin: 08/25/17 08:50 Dose: 667 mg Ciprofloxacin (Cipro) 500 mg PO BID [facility] Last Admin: 08/25/17 09:01 Dose: 500 mg Clopidogrel Bisulfate (Plavix) 75 mg PO DAILY [facility] Last Admin: 08/25/17 09:02 Dose: 75 mg Docusate Sodium (Colace) 100 mg PO BID [facility] Last Admin: 08/25/17 09:02 Dose: 100 mg Enoxaparin Sodium (Lovenox) 30 mg SC DAILY [facility] Last Admin: 08/25/17 09:01 Dose: 30 mg Insulin Aspart (Novolog) 2 unit SC ACTID [facility] Last Admin: 08/25/17 11:48 Dose: Not Given Insulin Human Regular (Novolin R) 0 unit SC ACHS [facility] PRN Reason: Protocol Last Admin: 08/25/17 11:48 Dose: Not Given Metoprolol Tartrate (Lopressor) 12.5 mg PO BID [facility] Last Admin: 08/25/17 09:01 Dose: 12.5 mg Multivitamins (Hexavitamin) 1 tab PO DAILY [facility] Last Admin: 08/25/17 09:03 Dose: 1 tab Pantoprazole Sodium (Protonix Ec Tab) 40 mg PO DAILY [facility] Last Admin: 08/25/17 09:01 Dose: 40 mg Rosuvastatin Calcium (Crestor) 2.5 mg PO HS [facility] Last Admin: 08/24/17 21:53 Dose: 2.5 mg Sennosides (Senokot Tab) 17.2 mg PO DAILY [facility] Last Admin: 08/25/17 09:01 Dose: 17.2 mg Sodium Phosphate (Fleet Enema) 135 ml ID DAILY [facility] Last Admin: 08/15/17 15:27 Dose: 135 ml - Labs Labs: 08/25/17 07:14 08/25/17 07:14 Attending/Attestation - Attestation I have personally seen and examined this patient.: Yes I have fully participated in the care of the patient.: Yes I have reviewed all pertinent clinical information, including history, physical exam and plan: Yes Notes (Text): 08/25/17 15:39 Medical attending: Patient was seen and examined by me, agrees the above note by certified medical dosimetrist. There was no acute events the previous week, the patient is pending going over to [facility] [place] to be evaluated by cardiology for follow-up visit and then returned here to [facility] he'll be continuing with his physical therapy. As mentioned previously he is improving in strength. Last week's team was concerned about his desaturations whenever he attempted physical therapy. 4 Been told he's doing better on physical therapy and does not desaturate as much as previously. Last week's team also did a CTA and showed that he does not have any pulmonary embolism Thank you very much, Florencio Dutton
[2017-08-25] MEDS: Albuterol-Ipratrop 3 mg / 0.5 (3 ml) UD INH SCH (20:33)
[2017-08-25] MEDS: Rosuvastatin Calcium 2.5 mg Tab PO SCH (21:27)
[2017-08-26] MEDS: Albuterol-Ipratrop 3 mg / 0.5 (3 ml) UD INH SCH ×4 (01:45→19:16)
[2017-08-26] MEDS: (Novolog) Insulin Aspart, Recombinant 100 u/ml 10 ml vial SC SCH ×3 (07:30→17:51)
[2017-08-26] MEDS: (Novolin R) Insulin Human Regular 100 units/ml vial SC SCH ×4 (07:30→21:37)
[2017-08-26 07:52] LABS: BASO % 0.6 % (0.0-2.0); EOS # 0.2 K/uL (0.0-0.7); EOS % 4.3 % (0.0-4.0); HEMOGLOBIN 10.9 g/dL (12.0-18.0); LYMPH # 0.8 K/uL (1.0-4.3); LYMPH % 16.1 % (20.0-40.0); MEAN CELL VOLUME 92.5 fL (80.0-94.0); MEAN CORPUSCULAR HEMOGLOBIN 30.9 pg (27.0-31.0); MEAN CORPUSCULAR HGB CONC 33.4 g/dL (33.0-37.0); MEAN PLATELET VOLUME 7.6 fL (7.2-11.7); MONO # 0.6 K/uL (0.0-0.8); MONO % 11.8 % (0.0-10.0); NEUT # 3.5 K/uL (1.8-7.0); NEUT % 67.2 % (50.0-75.0); NRBC % 0.3 % (0.0-2.0); RBC 3.51 Mil/uL (4.40-5.90); RED CELL DISTRIBUTION WIDTH 18.1 % (11.5-14.5); WHITE BLOOD COUNT 5.2 K/uL (4.8-10.8)
[2017-08-26 08:31] LABS: ALBUMIN 3.1 g/dL (3.5-5.0); ALT/SGPT 50 U/L (21-72); AST/SGOT 21 U/L (17-59); BLOOD UREA NITROGEN 16 mg/dL (9-20); CALCIUM 8.4 mg/dl (8.6-10.4); GFR AFRICAN-AMERICAN > 60; GFR NON-AFRICAN AMERICAN > 60; MAGNESIUM 1.5 mg/dL (1.6-2.3)
[2017-08-26 08:37] LABS: ALB/GLOB RATIO 0.8 (1.0-2.1)
--- NOTE | 2017-08-26 10:59 | CP.PCM.PN ---
<Bria Siddiqui Dany - Last Filed: 08/26/17 10:57> Subjective - Date & Time of Evaluation Date of Evaluation: 08/26/17 Time of Evaluation: 07:50 - Subjective Subjective: Medicine Note (PGY-1)-----> Dr. Dutton's service Patient was seen and examined at bedside. Patient states that he is doing well and has no new complaints. Patient denies chest pain, SOB, palpitations, dizziness, fever, chills, nausea or vomiting. Patient is tolerating diet and ambulating. Patient is aware that he is going to [facility] for post-op visit with Dr. Grant. Objective - Vital Signs/Intake and Output Vital Signs (last 24 hours): Temp Pulse Resp BP Pulse Ox 97.6 F 91 H 20 104/70 95 08/26/17 07:35 08/26/17 07:35 08/26/17 07:35 08/26/17 07:35 08/26/17 07:35 - Medications Medications: Current Medications Albuterol/Ipratropium (Duoneb 3 Mg/0.5 Mg (3 Ml) Ud) 3 ml INH RQ6 [facility] Last Admin: 08/26/17 07:37 Dose: 3 ml Aspirin (Aspirin Chewable) 81 mg PO DAILY [facility] Last Admin: 08/25/17 09:01 Dose: 81 mg Calcium Acetate ([facility]oslo) [facility] Last Admin: 08/25/17 17:21 Dose: 667 mg Ciprofloxacin (Cipro) 500 mg PO BID [facility] Last Admin: 08/25/17 17:20 Dose: 500 mg Clopidogrel Bisulfate (Plavix) 75 mg PO DAILY [facility] Last Admin: 08/25/17 09:02 Dose: 75 mg Docusate Sodium (Colace) 100 mg PO BID [facility] Last Admin: 08/25/17 17:21 Dose: 100 mg Enoxaparin Sodium (Lovenox) 30 mg SC DAILY [facility] Last Admin: 08/25/17 09:01 Dose: 30 mg Insulin Aspart (Novolog) 2 unit SC ACTID [facility] Last Admin: 08/25/17 17:20 Dose: Not Given Insulin Human Regular (Novolin R) 0 unit SC ACHS [facility] PRN Reason: Protocol Last Admin: 08/25/17 21:27 Dose: Not Given Metoprolol Tartrate (Lopressor) 12.5 mg PO BID [facility] Last Admin: 08/25/17 17:20 Dose: 12.5 mg Multivitamins (Hexavitamin) 1 tab PO DAILY [facility] Last Admin: 08/25/17 09:03 Dose: 1 tab Pantoprazole Sodium (Protonix Ec Tab) 40 mg PO DAILY [facility] Last Admin: 08/25/17 09:01 Dose: 40 mg Rosuvastatin Calcium (Crestor) 2.5 mg PO HS [facility] Last Admin: 08/25/17 21:27 Dose: 2.5 mg Sennosides (Senokot Tab) 17.2 mg PO DAILY [facility] Last Admin: 08/25/17 09:01 Dose: 17.2 mg Sodium Phosphate (Fleet Enema) 135 ml HI DAILY [facility] Last Admin: 08/15/17 15:27 Dose: 135 ml - Labs Labs: 08/26/17 07:41 08/26/17 07:41 - Constitutional Appears: Well, No Acute Distress - Head Exam Head Exam: ATRAUMATIC - Eye Exam Eye Exam: EOMI, Normal appearance - ENT Exam ENT Exam: Mucous Membranes Moist - Respiratory Exam Respiratory Exam: NORMAL BREATHING PATTERN - Cardiovascular Exam Cardiovascular Exam: REGULAR RHYTHM, +S1, +S2 - GI/Abdominal Exam GI & Abdominal Exam: Soft, Normal Bowel Sounds. absent: Guarding, Rigid, Tenderness - Extremities Exam Extremities Exam: Normal Inspection. absent: Calf Tenderness, Pedal Edema - Neurological Exam Neurological Exam: Alert, Awake, Oriented x3 - Psychiatric Exam Psychiatric exam: Normal Affect, Normal Mood - Skin Skin Exam: Normal Color Assessment and Plan (1) S/P CABG (coronary artery bypass graft) Assessment & Plan: F/u with Dr. Grant, Cardiothoracic surgeon * Patient to be seen today at [facility] by Dr. Grant for post-op care * Will continue to manage as per Dr. Grant's recommendation Distribution Operations Manager, Dr. Bautista----> Consulted * Management as per recommendation CABG at [facility] 07/25/17 Cardiac catheterization (07/15/17)- Dr. Bautista: Multi-vessel disease with 95% stenosis in mid segment of LAD with in-stent re-stenosis. Intimal irregularities in the first diagonal branch. 80% stenosis in proximal segment of circumflex artery. 90% stenosis of right coronary artery. Normal LV systolic function with estimated EF of 50%. Echocardiogram (07/12/17): Showed normal LV size, borderline concentric LV hypertrophy, moderately to severely impaired systolic function, septal hypokinesis, mild to moderate aortic regurgitation, and aortic root is moderately enlarged. At [facility] cabg x2, reop for bleeding,multiple blood transfusion, post op hypoxic, respiratory failure, extubated on 07/22, s/p left sided post op pneumothorax pig tail removed 08/05, noted on chest X-ray * Chest X-ray (08/08/17): Mild Right basilar atelactasis and small right sided pleural effusion * Repeat Chest X-ray (08/13/17): No change in right basilar atelectasis and left lower lobe consolidation with small pleural effusions. * Echocardiogram report (08/14/17): EF (25-30%), LV systolic is severely impaired, LV diastolic function is abnormal, LV is normal size. Right ventricle is normal size, with normal systolic function, RA is normal size. 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 Garcia * Management as per recommendation * AB.50/34/72/27.4 * Chest CT: No CT evidence for acute pulmonary embolism. 7 mm subpleural nodule in the right lower lobe. Follow-up CT scan in 6-12 months interval is recommended to assess stability. Mild cardiomegaly, small pericardial effusion and trace bilateral pleural effusions. Continue to encourage incentive spirometer use and physical therapy Status: Acute (3) History of coronary artery disease Assessment & Plan: CABG at [facility] [place] 07/25/17 * cardiac catheterization (07/14/17) which showed multi-vessel disease with 95% stenosis in mid segment of LAD with in-stent re-stenosis. Intimal irregularities in the first diagonal branch. 80% stenosis in proximal segment of circumflex artery. 90% stenosis of right coronary artery. Normal LV systolic function with estimated EF of 50%. Medications: * ASA 81mg po daily * Plavix 75mg po daily * Crestor 2.5mg PO HS * Lopressor 12.5mg PO BID Status: Acute (4) Urine discoloration Assessment & Plan: Discoloration resolved Encourage fluid intake UA ( LE (3+) and Urine WBC (50) UC: + Psedomonas Aeruginosa Medications: * Cipro 500mg PO BID (Started 08/22/17 Status: Acute (5) Urinary tract infection Assessment & Plan: UA ( LE (3+) and Urine WBC (50) UC: + Psedomonas Aeruginosa Medications: * Cipro 500mg PO BID (Started 08/22/17) Status: Acute (6) Constipation Assessment & Plan: Resolving Medications: * Docusate 100mg PO BID * Senna A and B 17.5mg PO daily * Fleet enema PRN Status: Acute (7) Bacteremia Assessment & Plan: Resolved Dr. Asher on board---> help appreciated Blood culture positive for pseudomonas likely from UTI, s/p pseudomonas in urine * Meropenem started on 08/01 at [facility] as per d/c summary. * Levaquin 08/07 Medications: * Meropenem 1gm IVPB Q8H (Discontinued 08/11/17) * Avelox 400mg IVPB Q24H ( Discontinued 08/11/17) Labs: Repeat Blood culture (08/08/17): No growth Repeat Blood culture (08/22/17): No growth Leukocytosis normalized and no bandemia; no signs of infection Status: Acute (8) Serum lipase elevation Assessment & Plan: Trending down Continue to monitor with labs Imaging: * CT abd/pelvis showed no evidence of pancreatitis as per [facility] discharge summary Status: Acute (9) History of diabetes mellitus Status: Acute (10) History of hypertension Assessment & Plan: Stable Continue to monitor with vital signs Medication: * Lopressor 50mg PO BID----> Decreased to 12.5mg PO BID ( 08/14/2017) Status: Acute (11) Prophylactic measure Assessment & Plan: GI: Protonix 40mg PO daily DVT: Lovenox 30mg SC daily Multivitamins 1 tab PO daily PT and OT Continue to encourage Incentive spirometer used Status: Acute <Florencio Dutton H - Last Filed: 08/26/17 13:22> Objective - Vital Signs/Intake and Output Vital Signs (last 24 hours): Temp Pulse Resp BP Pulse Ox 97.6 F 91 H 20 104/70 95 08/26/17 07:35 08/26/17 07:35 08/26/17 07:35 08/26/17 07:35 08/26/17 07:35 - Medications Medications: Current Medications Albuterol/Ipratropium (Duoneb 3 Mg/0.5 Mg (3 Ml) Ud) 3 ml INH RQ6 [facility] Last Admin: 08/26/17 07:37 Dose: 3 ml Aspirin (Aspirin Chewable) 81 mg PO DAILY [facility] Last Admin: 08/26/17 11:28 Dose: 81 mg Calcium Acetate (Phoslo) 667 mg PO BIDCC [facility] Last Admin: 08/26/17 08:00 Dose: Not Given Ciprofloxacin (Cipro) 500 mg PO BID [facility] Last Admin: 08/26/17 11:29 Dose: 500 mg Clopidogrel Bisulfate (Plavix) 75 mg PO DAILY [facility] Last Admin: 08/26/17 11:28 Dose: 75 mg Docusate Sodium (Colace) 100 mg PO BID [facility] Last Admin: 08/26/17 11:28 Dose: 100 mg Enoxaparin Sodium (Lovenox) 30 mg SC DAILY [facility] Last Admin: 08/26/17 11:28 Dose: 30 mg Insulin Aspart (Novolog) 2 unit SC ACTID [facility] Last Admin: 08/26/17 11:33 Dose: Not Given Insulin Human Regular (Novolin R) 0 unit SC ACHS [facility] PRN Reason: Protocol Last Admin: 08/26/17 11:32 Dose: Not Given Metoprolol Tartrate (Lopressor) 12.5 mg PO BID [facility] Last Admin: 08/26/17 11:35 Dose: 12.5 mg Multivitamins (Hexavitamin) 1 tab PO DAILY [facility] Last Admin: 08/26/17 11:28 Dose: 1 tab Pantoprazole Sodium (Protonix Ec Tab) 40 mg PO DAILY [facility] Last Admin: 08/26/17 11:30 Dose: 40 mg Rosuvastatin Calcium (Crestor) 2.5 mg PO HS [facility] Last Admin: 08/25/17 21:27 Dose: 2.5 mg Sennosides (Senokot Tab) 17.2 mg PO DAILY [facility] Last Admin: 08/26/17 11:30 Dose: 17.2 mg Sodium Phosphate (Fleet Enema) 135 ml HI DAILY [facility] Last Admin: 08/15/17 15:27 Dose: 135 ml - Labs Labs: 08/26/17 07:41 08/26/17 07:41 Attending/Attestation - Attestation I have personally seen and examined this patient.: Yes I have fully participated in the care of the patient.: Yes I have reviewed all pertinent clinical information, including history, physical exam and plan: Yes Notes (Text): 08/26/17 13:22 Medical attending: Patient was seen and examined by me as well, agree with the above note by medical claims manager. Please note I did not actually see the patient today as of this morning try checking back again later on in the afternoon. He has left just temporarily to follow-up with surgeon at [facility] and will be coming back later sometime today thank you Florencio Dutton
[2017-08-26] MEDS: Multiple Vitamins Tab PO SCH (11:28)
[2017-08-26] MEDS: Enoxaparin 30 mg Syringe SC SCH (11:28)
[2017-08-26] MEDS: Pantoprazole 40 mg EC Tab PO SCH (11:30)
[2017-08-26] MEDS: Rosuvastatin Calcium 2.5 mg Tab PO SCH (21:37)
[2017-08-27] MEDS: Albuterol-Ipratrop 3 mg / 0.5 (3 ml) UD INH SCH ×4 (01:50→20:10)
[2017-08-27 08:26] LABS: BASO # 0.1 K/uL (0.0-0.2); BASO % 0.9 % (0.0-2.0); EOS # 0.3 K/uL (0.0-0.7); EOS % 4.2 % (0.0-4.0); HEMOGLOBIN 12.8 g/dL (12.0-18.0); LYMPH # 1.3 K/uL (1.0-4.3); LYMPH % 19.5 % (20.0-40.0); MEAN CELL VOLUME 93.3 fL (80.0-94.0); MEAN CORPUSCULAR HEMOGLOBIN 31.2 pg (27.0-31.0); MEAN CORPUSCULAR HGB CONC 33.4 g/dL (33.0-37.0); MEAN PLATELET VOLUME 7.4 fL (7.2-11.7); MONO # 0.6 K/uL (0.0-0.8); MONO % 8.4 % (0.0-10.0); NEUT # 4.4 K/uL (1.8-7.0); RBC 4.12 Mil/uL (4.40-5.90); RED CELL DISTRIBUTION WIDTH 18.3 % (11.5-14.5); WHITE BLOOD COUNT 6.6 K/uL (4.8-10.8)
[2017-08-27] MEDS: (Novolog) Insulin Aspart, Recombinant 100 u/ml 10 ml vial SC SCH ×3 (08:30→17:39)
[2017-08-27] MEDS: (Novolin R) Insulin Human Regular 100 units/ml vial SC SCH ×4 (08:30→21:15)
[2017-08-27 08:51] LABS: ALB/GLOB RATIO 1.1 (1.0-2.1); ALBUMIN 3.9 g/dL (3.5-5.0); ALT/SGPT 48 U/L (21-72); AST/SGOT 31 U/L (17-59); BLOOD UREA NITROGEN 13 mg/dL (9-20); CALCIUM 8.9 mg/dl (8.6-10.4); GFR AFRICAN-AMERICAN > 60; GFR NON-AFRICAN AMERICAN > 60; MAGNESIUM 1.6 mg/dL (1.6-2.3)
[2017-08-27] MEDS: Pantoprazole 40 mg EC Tab PO SCH (09:13)
[2017-08-27] MEDS: Multiple Vitamins Tab PO SCH (09:14)
[2017-08-27] MEDS: Enoxaparin 30 mg Syringe SC SCH (09:14)
--- NOTE | 2017-08-27 09:39 | CP.PCM.PN ---
<Bria Siddiqui Dany - Last Filed: 08/27/17 09:35> Subjective - Date & Time of Evaluation Date of Evaluation: 08/27/17 Time of Evaluation: 07:05 - Subjective Subjective: Medicine Note (PGY-1)-----> Dr. Dutton's service Patient was seen and examined at bedside. Patient states that he is doing well. Patient had complaints of right hand trembling, he thinks it is from daily lab work; patient does have mild baseline trembling. Patient denies chest pain, SOB , palpitations, dizziness, fever, chills, nausea or vomiting. Patient is tolerating diet and ambulating with his worker. Objective - Vital Signs/Intake and Output Vital Signs (last 24 hours): Temp Pulse Resp BP Pulse Ox 97.8 F 91 H 20 122/80 95 08/27/17 08:00 08/27/17 08:00 08/27/17 08:00 08/27/17 08:00 08/27/17 08:00 Intake and Output: 08/27/17 08/27/17 06:59 18:59 Intake Total 400 240 Balance 400 240 - Medications Medications: Current Medications Albuterol/Ipratropium (Duoneb 3 Mg/0.5 Mg (3 Ml) Ud) 3 ml INH RQ6 [facility] Last Admin: 08/27/17 01:50 Dose: Not Given Aspirin (Aspirin Chewable) 81 mg PO DAILY [facility] Last Admin: 08/27/17 09:13 Dose: 81 mg Calcium Acetate (Phoslo) 667 mg PO BIDCC [facility] Last Admin: 08/27/17 09:00 Dose: 667 mg Ciprofloxacin (Cipro) 500 mg PO BID [facility] Last Admin: 08/27/17 09:13 Dose: 500 mg Clopidogrel Bisulfate (Plavix) 75 mg PO DAILY [facility] Last Admin: 08/27/17 09:14 Dose: 75 mg Docusate Sodium (Colace) 100 mg PO BID [facility] Last Admin: 08/27/17 09:13 Dose: 100 mg Enoxaparin Sodium (Lovenox) 30 mg SC DAILY [facility] Last Admin: 08/27/17 09:14 Dose: 30 mg Insulin Aspart (Novolog) 2 unit SC ACTID [facility] Last Admin: 08/27/17 08:30 Dose: Not Given Insulin Human Regular (Novolin R) 0 unit SC ACHS [facility] PRN Reason: Protocol Last Admin: 08/27/17 08:30 Dose: Not Given Metoprolol Tartrate (Lopressor) 12.5 mg PO BID [facility] Last Admin: 08/27/17 09:13 Dose: 12.5 mg Multivitamins (Hexavitamin) 1 tab PO DAILY [facility] Last Admin: 08/27/17 09:14 Dose: 1 tab Pantoprazole Sodium (Protonix Ec Tab) 40 mg PO DAILY [facility] Last Admin: 08/27/17 09:13 Dose: 40 mg Rosuvastatin Calcium (Crestor) 2.5 mg PO HS [facility] Last Admin: 08/26/17 21:37 Dose: 2.5 mg Sennosides (Senokot Tab) 17.2 mg PO DAILY [facility] Last Admin: 08/27/17 09:13 Dose: 17.2 mg Sodium Phosphate (Fleet Enema) 135 ml [place] DAILY [facility] Last Admin: 08/15/17 15:27 Dose: 135 ml - Labs Labs: 08/27/17 08:10 08/27/17 08:10 - Constitutional Appears: Well, No Acute Distress - Head Exam Head Exam: ATRAUMATIC - Eye Exam Eye Exam: EOMI, Normal appearance - ENT Exam ENT Exam: Mucous Membranes Moist - Respiratory Exam Respiratory Exam: Clear to Ausculation Bilateral, NORMAL BREATHING PATTERN - Cardiovascular Exam Cardiovascular Exam: REGULAR RHYTHM, +S1, +S2 Additional comments: CABG 07/25/[address] [facility], thomas removed 08/26/[address] Grant, cardiothoracic surgeon at [facility] - GI/Abdominal Exam GI & Abdominal Exam: Soft, Normal Bowel Sounds. absent: Distended, Firm, Guarding, Rigid - Extremities Exam Extremities Exam: Normal Inspection. absent: Calf Tenderness, Pedal Edema - Neurological Exam Neurological Exam: Alert, Awake, Oriented x3 - Psychiatric Exam Psychiatric exam: Normal Affect, Normal Mood - Skin Skin Exam: Normal Color, Warm Assessment and Plan (1) S/P CABG (coronary artery bypass graft) Assessment & Plan: F/u with Dr. Grant, Cardiothoracic surgeon * Patient seen today at [facility] by Dr. Grant for post-op care; thomas removed ( 08/26/17) * Will continue to manage as per Dr. Grant's recommendation Private Inquiry Agent, Dr. Bautista----> Consulted * Management as per recommendation CABG at [facility] 07/25/17 Cardiac catheterization (07/15/17)- Dr. Bautista: Multi-vessel disease with 95% stenosis in mid segment of LAD with in-stent re-stenosis. Intimal irregularities in the first diagonal branch. 80% stenosis in proximal segment of circumflex artery. 90% stenosis of right coronary artery. Normal LV systolic function with estimated EF of 50%. Echocardiogram (07/12/17): Showed normal LV size, borderline concentric LV hypertrophy, moderately to severely impaired systolic function, septal hypokinesis, mild to moderate aortic regurgitation, and aortic root is moderately enlarged. At [facility] cabg x2, reop for bleeding,multiple blood transfusion, post op hypoxic, respiratory failure, extubated on 07/22, s/p left sided post op pneumothorax pig tail removed 08/05, noted on chest X-ray * Chest X-ray (08/08/17): Mild Right basilar atelactasis and small right sided pleural effusion * Repeat Chest X-ray (08/13/17): No change in right basilar atelectasis and left lower lobe consolidation with small pleural effusions. * Echocardiogram report (08/14/17): EF (25-30%), LV systolic is severely impaired, LV diastolic function is abnormal, LV is normal size. Right ventricle is normal size, with normal systolic function, RA is normal size. 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 Garcia * Management as per recommendation * AB.50/34/72/27.4 * Chest CT: No CT evidence for acute pulmonary embolism. 7 mm subpleural nodule in the right lower lobe. Follow-up CT scan in 6-12 months interval is recommended to assess stability. Mild cardiomegaly, small pericardial effusion and trace bilateral pleural effusions. Continue to encourage incentive spirometer use and physical therapy * As per physical therapy, improving saturtation during gait and able to recovery desaturation with rest Status: Acute (3) History of coronary artery disease Assessment & Plan: CABG at [facility] 07/25/17 * cardiac catheterization (07/14/17) which showed multi-vessel disease with 95% stenosis in mid segment of LAD with in-stent re-stenosis. Intimal irregularities in the first diagonal branch. 80% stenosis in proximal segment of circumflex artery. 90% stenosis of right coronary artery. Normal LV systolic function with estimated EF of 50%. Medications: * ASA 81mg po daily * Plavix 75mg po daily * Crestor 2.5mg PO HS * Lopressor 12.5mg PO BID Status: Acute (4) Urinary tract infection Assessment & Plan: UA ( LE (3+) and Urine WBC (50) UC: + Psedomonas Aeruginosa Medications: * Cipro 500mg PO BID (Started 08/22/17) Status: Acute (5) Constipation Assessment & Plan: Resolving Medications: * Docusate 100mg PO BID * Senna A and B 17.5mg PO daily * Fleet enema PRN Status: Acute (6) Bacteremia Assessment & Plan: Resolved Dr. Asher on board---> help appreciated Blood culture positive for pseudomonas likely from UTI, s/p pseudomonas in urine * Meropenem started on 08/[address] [facility] as per d/c summary. * Levaquin 08/07 Medications: * Meropenem 1gm IVPB Q8H (Discontinued 08/11/17) * Avelox 400mg IVPB Q24H ( Discontinued 08/11/17) Labs: Repeat Blood culture (08/08/17): No growth Repeat Blood culture (08/22/17): No growth Leukocytosis normalized and no bandemia; no signs of infection Status: Acute (7) Serum lipase elevation Assessment & Plan: Trending down Continue to monitor with labs Imaging: * CT abd/pelvis showed no evidence of pancreatitis as per [facility] discharge summary Status: Acute (8) History of diabetes mellitus Assessment & Plan: Accuchecks Novolog 2 units TIDAC ISS low dose Status: Acute (9) History of hypertension Assessment & Plan: Stable with medication Continue to monitor with vital signs Medication: * Lopressor 50mg PO BID----> Decreased to 12.5mg PO BID ( 08/14/2017) Status: Acute (10) Prophylactic measure Assessment & Plan: GI: Protonix 40mg PO daily DVT: Lovenox 30mg SC daily Multivitamins 1 tab PO daily PT and OT Continue to encourage Incentive spirometer used Status: Acute <Florencio Dutton H - Last Filed: 08/27/17 12:56> Objective - Vital Signs/Intake and Output Vital Signs (last 24 hours): Temp Pulse Resp BP Pulse Ox 97.8 F 91 H 20 122/80 95 08/27/17 08:00 08/27/17 08:00 08/27/17 08:00 08/27/17 08:00 08/27/17 08:00 Intake and Output: 08/27/17 08/27/17 06:59 18:59 Intake Total 400 240 Balance 400 240 - Medications Medications: Current Medications Albuterol/Ipratropium (Duoneb 3 Mg/0.5 Mg (3 Ml) Ud) 3 ml INH RQ6 [facility] Last Admin: 08/27/17 07:48 Dose: 3 ml Aspirin (Aspirin Chewable) 81 mg PO DAILY [facility] Last Admin: 08/27/17 09:13 Dose: 81 mg Calcium Acetate (Phoslo) 667 mg PO BIDCC [facility] Last Admin: 08/27/17 09:00 Dose: 667 mg Ciprofloxacin (Cipro) 500 mg PO BID [facility] Last Admin: 08/27/17 09:13 Dose: 500 mg Clopidogrel Bisulfate (Plavix) 75 mg PO DAILY [facility] Last Admin: 08/27/17 09:14 Dose: 75 mg Docusate Sodium (Colace) 100 mg PO BID [facility] Last Admin: 08/27/17 09:13 Dose: 100 mg Enoxaparin Sodium (Lovenox) 30 mg SC DAILY [facility] Last Admin: 08/27/17 09:14 Dose: 30 mg Insulin Aspart (Novolog) 2 unit SC ACTID [facility] Last Admin: 08/27/17 12:22 Dose: Not Given Insulin Human Regular (Novolin R) 0 unit SC ACHS [facility] PRN Reason: Protocol Last Admin: 08/27/17 12:22 Dose: Not Given Metoprolol Tartrate (Lopressor) 12.5 mg PO BID [facility] Last Admin: 08/27/17 09:13 Dose: 12.5 mg Multivitamins (Hexavitamin) 1 tab PO DAILY [facility] Last Admin: 08/27/17 09:14 Dose: 1 tab Pantoprazole Sodium (Protonix Ec Tab) 40 mg PO DAILY [facility] Last Admin: 08/27/17 09:13 Dose: 40 mg Rosuvastatin Calcium (Crestor) 2.5 mg PO HS [facility] Last Admin: 08/26/17 21:37 Dose: 2.5 mg Sennosides (Senokot Tab) 17.2 mg PO DAILY [facility] Last Admin: 08/27/17 09:13 Dose: 17.2 mg Sodium Phosphate (Fleet Enema) 135 ml [place] DAILY PR[facility] Last Admin: 08/15/17 15:27 Dose: 135 ml - Labs Labs: 08/27/17 08:10 08/27/17 08:10 Attending/Attestation - Attestation I have personally seen and examined this patient.: Yes I have fully participated in the care of the patient.: Yes I have reviewed all pertinent clinical information, including history, physical exam and plan: Yes Notes (Text): 08/27/17 12:56 Medical attending: Patient was seen and examined by me, agree with the above note by medical social consultant. There is no changes the patient situation at this moment. Summary has given him a new sweater. He appears to be quite happy with thank you very much, Florencio Dutton
[2017-08-27] MEDS: Rosuvastatin Calcium 2.5 mg Tab PO SCH (21:15)
[2017-08-28] MEDS: Albuterol-Ipratrop 3 mg / 0.5 (3 ml) UD INH SCH (01:51)
[2017-08-28] MEDS ORDERED: Phenylephrine 1% Nasal Spray (15 ml) NAS SCH (06:39)
--- NOTE | 2017-08-28 07:09 | PCM.RRT ---
<Bria Siddiqui E - Last Filed: 08/28/17 07:11> CRAFT DEMONSTRATOR Nurses Assessment New IV Insertion Tolerance: Good I.Reason for CRAFT DEMONSTRATOR - A) Acute Change in Patient: Subjective: Patient is a 66 year old male who recently [place] [facility] currently being treated for a UTI ( Pseudomonas A.), CRAFT DEMONSTRATOR was called at 6:31am for profuse nose bled. Upon arrival, patient was very stable, alert and oriented. Patient denies any trauma and states that he has never had nose bled in the past. - Neurological Status (Select all that apply): Responsive, Oriented, Verbal, Follows Commands - Head Head Exam: ATRAUMATIC - Eyes Eye Exam: EOMI - Respiratory Exam Respiratory Exam: NORMAL BREATHING PATTERN - Cardiovascular Exam Cardiovascular Exam: REGULAR RHYTHM, +S1, +S2 - GI/Abdominal Exam GI & Abdominal Exam: Soft, Normal Bowel Sounds. absent: Tenderness - Neurological Exam Neurological Exam: Alert, Awake, Oriented x3 - Extremities Exam Extremities Exam: Normal Inspection. absent: Calf Tenderness Plan - Assessment of Findings&Treatment Plan Patient is a 66 year old male who recently had a CAB[place] on 07/25/17 [place] [facility] and currently being treated for a UTI ( Pseudomonas A.), CRAFT DEMONSTRATOR was called at 6:31am for profuse nose bled. Upon arrival, patient was very stable, alert and oriented. Patient denies any trauma and states that he has never had nose bled in the past. 1. Pinching of the nose 2. No visible trauma 3. Posterior nasal packing (7.5) 4. Type and screen/ Type and cross 5. Coags 6. CBC: monitor H/H, if significantly decreased, transfuse 1 units of PRBC 7. If bleeding does not stop, consider ICU evaluation and Phenylphrine spray ordered 8. ENT consult, Dr. Mata <Rocky Do P - Last Filed: 08/28/17 07:58> CRAFT DEMONSTRATOR Nurses Assessment - Vital Signs Vital Signs: Rapid Response Vital Sign Blood Pressure 118/90 Pulse Rate 104 Respiratory Rate 20 Temperature 98.2 F Oxygen Saturation 96 - Vital Signs at end of CRAFT DEMONSTRATOR Vital Signs at end of CRAFT DEMONSTRATOR: Rapid Response End Vital Sign Blood Pressure 124/89 Pulse Rate 115 Respiratory Rate 20 Temperature 98.2 F O2 Sat by Pulse Oximetry 96 Attending/Attestation - Attestation I have personally seen and examined this patient.: Yes I have fully participated in the care of the patient.: Yes I have reviewed all pertinent clinical information, including history, physical exam and plan: Yes Notes (Text): Right nostril bleeding probably posterior as not stopping with pressure anteriorly, improved with spontaneous pressure and then 7.5 cm rapid rhino inserted and inflated cuff with tolerable pressure. No active anterior or retro pharyngeal bleeding noticed post packing. Stat lab work including coag's ordered. Will start oral doxycycline as abx. ENT consulted.
[2017-08-28 07:16] LABS: BASO # 0.1 K/uL (0.0-0.2); EOS # 0.2 K/uL (0.0-0.7); EOS % 3.3 % (0.0-4.0); HEMOGLOBIN 12.8 g/dL (12.0-18.0); LYMPH # 1.4 K/uL (1.0-4.3); LYMPH % 20.6 % (20.0-40.0); MEAN CELL VOLUME 92.7 fL (80.0-94.0); MEAN CORPUSCULAR HGB CONC 33.4 g/dL (33.0-37.0); MEAN PLATELET VOLUME 7.6 fL (7.2-11.7); MONO # 0.6 K/uL (0.0-0.8); MONO % 8.5 % (0.0-10.0); NEUT # 4.7 K/uL (1.8-7.0); NEUT % 66.6 % (50.0-75.0); RBC 4.12 Mil/uL (4.40-5.90); RED CELL DISTRIBUTION WIDTH 18.3 % (11.5-14.5)
--- NOTE | 2017-08-28 07:17 | CP.PCM.PN ---
Addendum entered and electronically signed by Bria Siddiqui 08/28/17 10:53: Assessment for serum lipase elevation: serum lipase is now within now levels. Original Note: <Bria Siddiqui - Last Filed: 08/28/17 10:37> Subjective - Date & Time of Evaluation Date of Evaluation: 08/28/17 Time of Evaluation: 06:30 - Subjective Subjective: Medicine Note (PGY-1): Dr. Dutton's service Patient was seen and examined at bedside at the beginning of a EXCEL VBA DEVELOPER that was called for him due to profuse right nose bleeding. Patient remained clinical stable during the EXCEL VBA DEVELOPER. Bleeding lasted for 20minutes and started to diminish, posterior nasal packing was used and nasal phenylphrine was ordered; bleeding was controlled with nasal packing and patient's vital signs remained stable during the EXCEL VBA DEVELOPER. Patient was seen approximately 30 minutes later after the EXCEL VBA DEVELOPER, patient stated that he is more comfortable now, denies headache, dizziness, blurry vision, chest pain, SOB, palpitations, nausea and vomiting. Objective - Vital Signs/Intake and Output Vital Signs (last 24 hours): Temp Pulse Resp BP Pulse Ox 98.1 F 88 20 108/69 96 08/28/17 00:13 08/28/17 00:13 08/28/17 00:13 08/28/17 00:13 08/28/17 00:13 - Medications Medications: Current Medications Albuterol/Ipratropium (Duoneb 3 Mg/0.5 Mg (3 Ml) Ud) 3 ml INH RQ6 [facility] Last Admin: 08/28/17 01:51 Dose: 3 ml Aspirin (Aspirin Chewable) 81 mg PO DAILY [facility] Last Admin: 08/27/17 09:13 Dose: 81 mg Calcium Acetate (Phoslo) 667 mg PO BIDCC [facility] Last Admin: 08/27/17 17:38 Dose: 667 mg Ciprofloxacin (Cipro) 500 mg PO BID [facility] Last Admin: 08/27/17 17:38 Dose: 500 mg Clopidogrel Bisulfate (Plavix) 75 mg PO DAILY [facility] Last Admin: 08/27/17 09:14 Dose: 75 mg Docusate Sodium (Colace) 100 mg PO BID [facility] Last Admin: 08/27/17 17:38 Dose: 100 mg Enoxaparin Sodium (Lovenox) 30 mg SC DAILY [facility] Last Admin: 08/27/17 09:14 Dose: 30 mg Insulin Aspart (Novolog) 2 unit SC ACTID [facility] Last Admin: 08/27/17 17:39 Dose: Not Given Insulin Human Regular (Novolin R) 0 unit SC ACHS [facility] PRN Reason: Protocol Last Admin: 08/27/17 21:15 Dose: Not Given Metoprolol Tartrate (Lopressor) 12.5 mg PO BID [facility] Last Admin: 08/27/17 17:39 Dose: 12.5 mg Multivitamins (Hexavitamin) 1 tab PO DAILY [facility] Last Admin: 08/27/17 09:14 Dose: 1 tab Pantoprazole Sodium (Protonix Ec Tab) 40 mg PO DAILY [facility] Last Admin: 08/27/17 09:13 Dose: 40 mg Phenylephrine HCl (Carroll-Synephrine 1% Nasal [place]) 1 ml MACHELLE PRN PRN PRN Reason: Nasal congestion Rosuvastatin Calcium (Crestor) 2.5 mg PO HS [facility] Last Admin: 08/27/17 21:15 Dose: 2.5 mg Sennosides (Senokot Tab) 17.2 mg PO DAILY [facility] Last Admin: 08/27/17 09:13 Dose: 17.2 mg Sodium Phosphate (Fleet Enema) 135 ml [place] DAILY PRN Last Admin: 08/15/17 15:27 Dose: 135 ml - Labs Labs: 08/27/17 08:10 08/27/17 08:10 - Constitutional Appears: Well, No Acute Distress - Head Exam Head Exam: ATRAUMATIC - Eye Exam Eye Exam: EOMI, Normal appearance - ENT Exam ENT Exam: Mucous Membranes Moist - Respiratory Exam Respiratory Exam: Clear to Ausculation Bilateral, NORMAL BREATHING PATTERN - Cardiovascular Exam Cardiovascular Exam: REGULAR RHYTHM, +S1, +S2 - GI/Abdominal Exam GI & Abdominal Exam: Soft, Normal Bowel Sounds. absent: Tenderness - Extremities Exam Extremities Exam: Normal Inspection. absent: Calf Tenderness, Pedal Edema - Neurological Exam Neurological Exam: Alert, Awake, Oriented x3 - Psychiatric Exam Psychiatric exam: Normal Affect, Normal Mood - Skin Skin Exam: Normal Color Assessment and Plan (1) Nasal bleeding Assessment & Plan: Right nose bleeding ENT Consult, Dr. Mata---> Help appreciated * Management as per recommendation Posterior nasal packing Phenylphrine nasal spray PRN Prophylatic DVT, lovenox 30mg SC daily held. Status: Acute (2) S/P CABG (coronary artery bypass graft) Assessment & Plan: F/u with Dr. Grant, Cardiothoracic surgeon * Patient seen today at [facility] [place] by [place]. Grant for post-op care; thomas removed ( 08/26/17) * Will continue to manage as per Dr. 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 Bautista: Multi-vessel disease with 95% stenosis in mid segment of LAD with in-stent re-stenosis. Intimal irregularities in the first diagonal branch. 80% stenosis in proximal segment of circumflex artery. 90% stenosis of right coronary artery. Normal LV systolic function with estimated EF of 50%. Echocardiogram (07/12/17): Showed normal LV size, borderline concentric LV hypertrophy, moderately to severely impaired systolic function, septal hypokinesis, mild to moderate aortic regurgitation, and aortic root is moderately enlarged. At [facility] cabg x2, reop for bleeding,multiple blood transfusion, post op hypoxic, respiratory failure, extubated on 07/22, s/p left sided post op pneumothorax pig tail removed 08/05, noted on chest X-ray * Chest X-ray (08/08/17): Mild Right basilar atelactasis and small right sided pleural effusion * Repeat Chest X-ray (08/13/17): No change in right basilar atelectasis and left lower lobe consolidation with small pleural effusions. * Echocardiogram report (08/14/17): EF (25-30%), LV systolic is severely impaired, LV diastolic function is abnormal, LV is normal size. Right ventricle is normal size, with normal systolic function, RA is normal size. Mild Aortic root dilatation and mild triscuspid regurgitation Medications/Management: * ASA 81mg po daily * Plavix 75mg po daily * Crestor 2.5mg PO HS * Lopressor 50mg PO BID -----> Switched to 12.5mg PO * Duonebs 3ML INH RQ6H and chest physical therapy Status: Acute (3) Hypoxia Assessment & Plan: On ambulation Media Specialist Consult, Dr. Garcia * Management as per recommendation * AB.50/34/72/27.4 * Chest CT: No CT evidence for acute pulmonary embolism. 7 mm subpleural nodule in the right lower lobe. Follow-up CT scan in 6-12 months interval is recommended to assess stability. Mild cardiomegaly, small pericardial effusion and trace bilateral pleural effusions. Continue to encourage incentive spirometer use and physical therapy * As per physical therapy, improving saturtation during gait and able to recovery desaturation with rest Status: Acute (4) History of coronary artery disease Assessment & Plan: CABG at [facility] 07/25/17 * cardiac catheterization (07/14/17) which showed multi-vessel disease with 95% stenosis in mid segment of LAD with in-stent re-stenosis. Intimal irregularities in the first diagonal branch. 80% stenosis in proximal segment of circumflex artery. 90% stenosis of right coronary artery. Normal LV systolic function with estimated EF of 50%. Medications: * ASA 81mg po daily * Plavix 75mg po daily * Crestor 2.5mg PO HS * Lopressor 12.5mg PO BID Status: Acute (5) Urinary tract infection Assessment & Plan: UA ( LE (3+) and Urine WBC (50) UC: + Psedomonas Aeruginosa Medications: * Cipro 500mg PO BID (Started 08/22/17) Status: Acute (6) Constipation Assessment & Plan: Resolved with medications Medications: * Docusate 100mg PO BID * Senna A and B 17.5mg PO daily * Fleet enema PRN Status: Acute (7) Bacteremia Assessment & Plan: Resolved Dr. Asher on board---> help appreciated Blood culture positive for pseudomonas likely from UTI, s/p pseudomonas in urine * Meropenem started on 08/01 at [facility] as per d/c summary. * Levaquin 08/07 Medications: * Meropenem 1gm IVPB Q8H (Discontinued 08/11/17) * Avelox 400mg IVPB Q24H ( Discontinued 08/11/17) Labs: Repeat Blood culture (08/08/17): No growth Repeat Blood culture (08/22/17): No growth Leukocytosis normalized and no bandemia; no signs of infection Status: Acute (8) Serum lipase elevation Assessment & Plan: Trending down Continue to monitor with labs Imaging: * CT abd/pelvis showed no evidence of pancreatitis as per [facility] discharge summary Status: Acute (9) History of diabetes mellitus Assessment & Plan: Accuchecks Novolog 2 units TIDAC ISS low dose Status: Acute (10) History of hypertension Assessment & Plan: Stable with medication Continue to monitor with vital signs Medication: * Lopressor 50mg PO BID----> Decreased to 12.5mg PO BID ( 08/14/2017) Status: Acute (11) Prophylactic measure Assessment & Plan: GI: Protonix 40mg PO daily DVT: Lovenox 30mg SC daily---> Held due to nasal bleeding Multivitamins 1 tab PO daily PT and OT; continue to encourage ambulation with walker Continue to encourage Incentive spirometer used Status: Acute <MarijaFlorencio H - Last Filed: 08/28/17 14:06> Objective - Vital Signs/Intake and Output Vital Signs (last 24 hours): Temp Pulse Resp BP Pulse Ox 98.3 F 88 20 113/76 95 08/28/17 08:34 08/28/17 08:34 08/28/17 08:34 08/28/17 08:34 08/28/17 08:34 - Medications Medications: Current Medications Albuterol/Ipratropium (Duoneb 3 Mg/0.5 Mg (3 Ml) Ud) 3 ml INH RQ6 [facility] Last Admin: 08/28/17 01:51 Dose: 3 ml Aspirin (Aspirin Chewable) 81 mg PO DAILY [facility] Last Admin: 08/28/17 09:34 Dose: Not Given Calcium Acetate (Phoslo) 667 mg PO BIDCC [facility] Last Admin: 08/28/17 09:00 Dose: Not Given Ciprofloxacin (Cipro) 500 mg PO BID [facility] Last Admin: 08/28/17 10:42 Dose: 500 mg Clopidogrel Bisulfate (Plavix) 75 mg PO DAILY [facility] Last Admin: 08/28/17 09:35 Dose: Not Given Docusate Sodium (Colace) 100 mg PO BID [facility] Last Admin: 08/28/17 10:43 Dose: 100 mg Insulin Aspart (Novolog) 2 unit SC ACTID [facility] Last Admin: 08/28/17 12:30 Dose: Not Given Insulin Human Regular (Novolin R) 0 unit SC ACHS [facility] PRN Reason: Protocol Last Admin: 08/28/17 12:30 Dose: Not Given Metoprolol Tartrate (Lopressor) 12.5 mg PO BID [facility] Last Admin: 08/28/17 10:43 Dose: 12.5 mg Multivitamins (Hexavitamin) 1 tab PO DAILY [facility] Last Admin: 08/28/17 10:43 Dose: 1 tab Pantoprazole Sodium (Protonix Ec Tab) 40 mg PO DAILY [facility] Last Admin: 08/28/17 10:43 Dose: 40 mg Rosuvastatin Calcium (Crestor) 2.5 mg PO HS [facility] Last Admin: 08/27/17 21:15 Dose: 2.5 mg Sennosides (Senokot Tab) 17.2 mg PO DAILY [facility] Last Admin: 08/28/17 10:43 Dose: 17.2 mg Sodium Phosphate (Fleet Enema) 135 ml [place] DAILY PRN Last Admin: 08/15/17 15:27 Dose: 135 ml - Labs Labs: 08/28/17 07:08 08/28/17 07:08 PT 12.9 SECONDS (9.7-12.2) H 08/28/17 07:08 INR 1.2 08/28/17 07:08 APTT 29 SECONDS (21-34) 08/28/17 07:08 Attending/Attestation - Attestation I have personally seen and examined this patient.: Yes I have fully participated in the care of the patient.: Yes I have reviewed all pertinent clinical information, including history, physical exam and plan: Yes Notes (Text): 08/28/17 14:06 Medical attending: Reviewed the above note by medical center manager, I also saw the patient with the medical center manager and agree with above. Earlier in the morning the patient had an EXCEL VBA DEVELOPER after he had profusebleeding. It eventually did slowdown and of rhino rocket was placed in the nostril. There is a ENT consult. By the time I came and saw the patient with the medical residents he was not in any acute distress. He denied having any facial or abdominal pain when I saw him. Thank you so much, Florencio Dutton
[2017-08-28 07:26] LABS: INR 1.2; PROTHROMBIN TIME 12.9 SECONDS (9.7-12.2)
[2017-08-28 07:27] LABS: ALB/GLOB RATIO 1.1 (1.0-2.1); ALBUMIN 3.8 g/dL (3.5-5.0); ALT/SGPT 54 U/L (21-72); AST/SGOT 32 U/L (17-59); BLOOD UREA NITROGEN 14 mg/dL (9-20); CALCIUM 8.9 mg/dl (8.6-10.4); GFR AFRICAN-AMERICAN > 60; GFR NON-AFRICAN AMERICAN > 60; LIPASE 251 U/L (23-300); MAGNESIUM 1.6 mg/dL (1.6-2.3)
[2017-08-28] MEDS: (Novolog) Insulin Aspart, Recombinant 100 u/ml 10 ml vial SC SCH ×3 (08:19→17:48)
[2017-08-28] MEDS: (Novolin R) Insulin Human Regular 100 units/ml vial SC SCH ×4 (08:19→22:52)
[2017-08-28] MEDS: Enoxaparin 30 mg Syringe SC SCH (09:34)
[2017-08-28] MEDS: Multiple Vitamins Tab PO SCH (10:43)
[2017-08-28] MEDS: Pantoprazole 40 mg EC Tab PO SCH (10:43)
--- NOTE | 2017-08-28 21:44 | CON ---
DATE: REASON FOR CONSULTATION: Epistaxis. REQUESTING PHYSICIAN: Dr. Berman. HISTORY OF PRESENT ILLNESS: This is a 66-year-old male who began having epistaxis early this morning on the right, that was moderate constant. No pain. Patient was packed with a Rhino Rocket, has not had bleeding since. PAST MEDICAL HISTORY: As noted in the chart by me. MEDICATIONS: As noted in the chart by me. PHYSICAL EXAMINATION HEAD: Atraumatic and normocephalic. FACE: Good facial movements bilaterally. CONSTITUTIONAL: Well fed, well nourished. EXTERNAL NOSE AND EARS: No masses. No lesions. No erythema. No edema. INTERNAL NOSE: Deviated septum. Packed nose on the right. No epistaxis. No masses. No lesions. No erythema. No edema. ORAL CAVITY AND OROPHARYNX: No bleeding or postnasal drip. No masses. No lesions. No erythema. No edema. LIPS AND GUMS: No masses. No lesions. No erythema. No edema. NECK: Supple. THYROID: No thyromegaly. No goiter. LYMPH NODES: No lymphadenopathy in the neck. ASSESSMENT: 1. Epistaxis, controlled. 2. Deviated septum. PLAN: We will keep pack in for 2 days. We will remove pack on Friday. Continue antibiotics. Orlando Mata MD
[2017-08-28] MEDS: Rosuvastatin Calcium 2.5 mg Tab PO SCH (22:52)
[2017-08-29] MEDS: (Novolog) Insulin Aspart, Recombinant 100 u/ml 10 ml vial SC SCH ×3 (07:55→17:10)
[2017-08-29] MEDS: (Novolin R) Insulin Human Regular 100 units/ml vial SC SCH ×4 (07:55→22:04)
[2017-08-29] MEDS: Pantoprazole 40 mg EC Tab PO SCH (09:31)
[2017-08-29] MEDS: Multiple Vitamins Tab PO SCH (09:31)
[2017-08-29 11:27] LABS: BASO % 0.8 % (0.0-2.0); EOS # 0.1 K/uL (0.0-0.7); EOS % 2.5 % (0.0-4.0); HEMOGLOBIN 10.9 g/dL (12.0-18.0); LYMPH # 1.1 K/uL (1.0-4.3); MEAN CELL VOLUME 93.3 fL (80.0-94.0); MEAN CORPUSCULAR HEMOGLOBIN 30.2 pg (27.0-31.0); MEAN CORPUSCULAR HGB CONC 32.3 g/dL (33.0-37.0); MEAN PLATELET VOLUME 7.4 fL (7.2-11.7); MONO # 0.5 K/uL (0.0-0.8); MONO % 8.7 % (0.0-10.0); NEUT # 4.1 K/uL (1.8-7.0); RBC 3.6 Mil/uL (4.40-5.90); WHITE BLOOD COUNT 5.8 K/uL (4.8-10.8)
[2017-08-29 11:44] LABS: ALB/GLOB RATIO 0.8 (1.0-2.1); ALBUMIN 3.2 g/dL (3.5-5.0); ALT/SGPT 64 U/L (21-72); AST/SGOT 35 U/L (17-59); BLOOD UREA NITROGEN 9 mg/dL (9-20); CALCIUM 8.6 mg/dl (8.6-10.4); GFR AFRICAN-AMERICAN > 60; GFR NON-AFRICAN AMERICAN > 60; MAGNESIUM 1.5 mg/dL (1.6-2.3)
[2017-08-29 15:07] LABS: URINE BACTERIA RARE (<OCC); URINE BILIRUBIN NEGATIVE (NEGATIVE); URINE BLOOD NEGATIVE (NEGATIVE); URINE CLARITY Clear (Clear); URINE COLOR Yellow (YELLOW); URINE GLUCOSE (UA) NORMAL (Normal); URINE LEUKOCYTE ESTERASE TRACE Leu/uL (Negative); URINE NITRATE NEGATIVE (NEGATIVE); URINE PROTEIN NEGATIVE (NEGATIVE); URINE UROBILINOGEN NORMAL mg/dL (0.2-1.0)
[2017-08-29] MEDS ORDERED: Magnesium Sulfate 1 gm in D5W 1 GM/100 ML BAG IVPB ONE (16:25)
--- NOTE | 2017-08-29 16:27 | CP.PCM.PN ---
<Parish العليa - Last Filed: 08/29/17 17:00> Subjective - Date & Time of Evaluation Date of Evaluation: 08/29/17 Time of Evaluation: 10:00 - Subjective Subjective: Medicine Note for Hospitalist Service- Dr. Dutton Patient was seen and examined at bedside. No acute complaints. Denied fever, chills, headache, chest pain, SOB, abdominal pain, n/v/d/c, or urinary symptoms. Objective - Vital Signs/Intake and Output Vital Signs (last 24 hours): Temp Pulse Resp BP Pulse Ox 97.9 F 82 20 128/78 95 08/29/17 15:00 08/29/17 15:00 08/29/17 15:00 08/29/17 15:00 08/29/17 15:00 Intake and Output: 08/29/17 08/29/17 06:59 18:59 Intake Total 480 540 Balance 480 540 - Medications Medications: Current Medications Albuterol/Ipratropium (Duoneb 3 Mg/0.5 Mg (3 Ml) Ud) 3 ml INH RQ6 [facility] Last Admin: 08/28/17 01:51 Dose: 3 ml Aspirin (Aspirin Chewable) 81 mg PO DAILY [facility] Last Admin: 08/28/17 09:34 Dose: Not Given [facility] Last Admin: 08/29/17 09:00 Dose: 667 mg Ciprofloxacin (Cipro) 500 mg PO BID [facility] Last Admin: 08/29/17 09:31 Dose: 500 mg Clopidogrel Bisulfate (Plavix) 75 mg PO DAILY [facility] Last Admin: 08/28/17 09:35 Dose: Not Given Docusate Sodium (Colace) 100 mg PO BID [facility] Last Admin: 08/29/17 09:31 Dose: 100 mg Magnesium Sulfate/Dextrose (Magnesium Sulfate 1 Gm/100 Ml D5w) 1 gm in 100 mls @ 200 mls/hr IVPB ONCE ONE Stop: 08/29/17 16:54 Insulin Aspart (Novolog) 2 unit SC ACTID [facility] Last Admin: 08/29/17 12:13 Dose: Not Given Insulin Human Regular (Novolin R) 0 unit SC ACHS [facility] PRN Reason: Protocol Last Admin: 08/29/17 12:13 Dose: Not Given Metoprolol Tartrate (Lopressor) 12.5 mg PO BID [facility] Last Admin: 12/15/17 09:31 Dose: 12.5 mg Multivitamins (Hexavitamin) 1 tab PO DAILY [facility] Last Admin: 08/29/17 09:31 Dose: 1 tab Pantoprazole Sodium (Protonix Ec Tab) 40 mg PO DAILY [facility] Last Admin: 08/29/17 09:31 Dose: 40 mg Rosuvastatin Calcium (Crestor) 2.5 mg PO HS [facility] Last Admin: 08/28/17 22:52 Dose: 2.5 mg Sennosides (Senokot Tab) 17.2 mg PO DAILY [facility] Last Admin: 08/29/17 09:31 Dose: 17.2 mg Sodium Phosphate (Fleet Enema) 135 ml [place] DAILY [facility] Last Admin: 08/15/17 15:27 Dose: 135 ml - Labs Labs: 08/29/17 11:22 08/29/17 11:22 PT 12.9 SECONDS (9.7-12.2) H 08/28/17 07:08 INR 1.2 08/28/17 07:08 APTT 29 SECONDS (21-34) 08/28/17 07:08 - Additional Findings Additional findings: - Constitutional Appears: Well, No Acute Distress - Head Exam Head Exam: ATRAUMATIC - Eye Exam Eye Exam: EOMI, Normal appearance - ENT Exam ENT Exam: Mucous Membranes Moist, rhino rocket in right nostril - Respiratory Exam Respiratory Exam: Clear to Ausculation Bilateral, NORMAL BREATHING PATTERN - Cardiovascular Exam Cardiovascular Exam: REGULAR RHYTHM, +S1, +S2 Additional comments: CABG 07/25/17 at [facility] [place] [place], thomas removed 08/26/[address] Grant, cardiothoracic surgeon at [facility] [place] [place] - GI/Abdominal Exam GI & Abdominal Exam: Soft, Normal Bowel Sounds. absent: Distended, Firm, Guarding, Rigid - Extremities Exam Extremities Exam: Normal Inspection. absent: Calf Tenderness, Pedal Edema - Neurological Exam Neurological Exam: Alert, Awake, Oriented x3 - Psychiatric Exam Psychiatric exam: Normal Affect, Normal Mood - Skin Skin Exam: Normal Color, Warm Assessment and Plan - Assessment and Plan (Free Text) Plan: Epitaxis Assessment & Plan: ENT consulted - Dr. Mata- help appreciated Rhino Rocket placed- will be removed Friday by ENT S/P CABG (coronary artery bypass graft) Assessment & Plan: F/u with Dr. Grant, Cardiothoracic surgeon * Patient seen today at [facility] [place] [place] by Dr. Grant for post-op care; thomas removed ( 08/26/17) * Will continue to manage as per Dr. 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 Bautista: Multi-vessel disease with 95% stenosis in mid segment of LAD with in-stent re-stenosis. Intimal irregularities in the first diagonal branch. 80% stenosis in proximal segment of circumflex artery. 90% stenosis of right coronary artery. Normal LV systolic function with estimated EF of 50%. Echocardiogram (07/12/17): Showed normal LV size, borderline concentric LV hypertrophy, moderately to severely impaired systolic function, septal hypokinesis, mild to moderate aortic regurgitation, and aortic root is moderately enlarged. At [facility] [place] [place] cabg x2, reop for bleeding,multiple blood transfusion, post op hypoxic, respiratory failure, extubated on 07/22, s/p left sided post op pneumothorax pig tail removed 08/05, noted on chest X-ray * Chest X-ray (08/08/17): Mild Right basilar atelactasis and small right sided pleural effusion * Repeat Chest X-ray (08/13/17): No change in right basilar atelectasis and left lower lobe consolidation with small pleural effusions. * Echocardiogram report (08/14/17): EF (25-30%), LV systolic is severely impaired, LV diastolic function is abnormal, LV is normal size. Right ventricle is normal size, with normal systolic function, RA is normal size. Mild Aortic root dilatation and mild triscuspid regurgitation Medications/Management: * ASA 81mg po daily * Plavix 75mg po daily * Crestor 2.5mg PO HS * Lopressor 50mg PO BID -----> Switched to 12.5mg PO * Duonebs 3ML INH RQ6H and chest physical therapy Status: Acute Hypoxia Assessment & Plan: On ambulation Process Designer Consult, Dr. Garcia * Management as per recommendation * AB.50/34/72/27.4 * Chest CT: No CT evidence for acute pulmonary embolism. 7 mm subpleural nodule in the right lower lobe. Follow-up CT scan in 6-12 months interval is recommended to assess stability. Mild cardiomegaly, small pericardial effusion and trace bilateral pleural effusions. Continue to encourage incentive spirometer use and physical therapy * As per physical therapy, improving saturtation during gait and able to recovery desaturation with rest Status: Acute History of coronary artery disease Assessment & Plan: CABG at [facility] [place] [place] 07/25/17 * cardiac catheterization (07/14/17) which showed multi-vessel disease with 95% stenosis in mid segment of LAD with in-stent re-stenosis. Intimal irregularities in the first diagonal branch. 80% stenosis in proximal segment of circumflex artery. 90% stenosis of right coronary artery. Normal LV systolic function with estimated EF of 50%. Medications: * ASA 81mg po daily * Plavix 75mg po daily * Crestor 2.5mg PO HS * Lopressor 12.5mg PO BID Status: Acute Urinary tract infection Assessment & Plan: UA ( LE (3+) and Urine WBC (50) UC: + Psedomonas Aeruginosa Medications: * Cipro 500mg PO BID (Started 08/22/17) Status: Acute Constipation Assessment & Plan: Resolving Medications: * Docusate 100mg PO BID * Senna A and B 17.5mg PO daily * Fleet enema PRN Status: Acute Bacteremia Assessment & Plan: Resolved Dr. Asher on board---> help appreciated Blood culture positive for pseudomonas likely from UTI, s/p pseudomonas in urine * Meropenem started on 08/01 at [facility] [place] [place] as per d/c summary. * Levaquin 08/07 Medications: * Meropenem 1gm IVPB Q8H (Discontinued 08/11/17) * Avelox 400mg IVPB Q24H ( Discontinued 08/11/17) Labs: Repeat Blood culture (08/08/17): No growth Repeat Blood culture (08/22/17): No growth Leukocytosis normalized and no bandemia; no signs of infection Status: Acute Serum lipase elevation Assessment & Plan: Trending down Continue to monitor with labs Imaging: * CT abd/pelvis showed no evidence of pancreatitis as per [facility] [place] [place] discharge summary Status: Acute History of diabetes mellitus Assessment & Plan: Accuchecks Novolog 2 units TIDAC ISS low dose Status: Acute History of hypertension Assessment & Plan: Stable with medication Continue to monitor with vital signs Medication: * Lopressor 50mg PO BID----> Decreased to 12.5mg PO BID ( 08/14/2017) Prophylactic measure Assessment & Plan: GI: Protonix 40mg PO daily DVT: Lovenox 30mg SC daily Multivitamins 1 tab PO daily PT and OT Continue to encourage Incentive spirometer used Status: Acute DW Dr. Dutton, Zohra VELASQUEZ, PGY-1 <Florencio Dutton H - Last Filed: 08/29/17 17:42> Objective - Vital Signs/Intake and Output Vital Signs (last 24 hours): Temp Pulse Resp BP Pulse Ox 97.9 F 82 20 128/78 95 08/29/17 15:00 08/29/17 15:00 08/29/17 15:00 08/29/17 15:00 08/29/17 15:00 Intake and Output: 08/29/17 08/29/17 06:59 18:59 Intake Total 480 540 Balance 480 540 - Medications Medications: Current Medications Albuterol/Ipratropium (Duoneb 3 Mg/0.5 Mg (3 Ml) Ud) 3 ml INH RQ6 [facility] Last Admin: 08/28/17 01:51 Dose: 3 ml Aspirin (Aspirin Chewable) 81 mg PO DAILY [facility] Last Admin: 08/28/17 09:34 Dose: Not Given Calcium Acetate (Phoslo) 667 mg PO BIDCC [facility] Last Admin: 08/29/17 17:34 Dose: 667 mg Ciprofloxacin (Cipro) 500 mg PO BID [facility] Last Admin: 08/29/17 17:30 Dose: 500 mg Clopidogrel Bisulfate (Plavix) 75 mg PO DAILY [facility] Last Admin: 08/28/17 09:35 Dose: Not Given Docusate Sodium (Colace) 100 mg PO BID [facility] Last Admin: 08/29/17 17:31 Dose: 100 mg Insulin Aspart (Novolog) 2 unit SC ACTID [facility] Last Admin: 08/29/17 17:10 Dose: Not Given Insulin Human Regular (Novolin R) 0 unit SC ACHS [facility] PRN Reason: Protocol Last Admin: 08/29/17 17:10 Dose: Not Given Metoprolol Tartrate (Lopressor) 12.5 mg PO BID [facility] Last Admin: 08/29/17 17:31 Dose: 12.5 mg Multivitamins (Hexavitamin) 1 tab PO DAILY [facility] Last Admin: 08/29/17 09:31 Dose: 1 tab Pantoprazole Sodium (Protonix Ec Tab) 40 mg PO DAILY [facility] Last Admin: 08/29/17 09:31 Dose: 40 mg Rosuvastatin Calcium (Crestor) 2.5 mg PO HS [facility] Last Admin: 08/28/17 22:52 Dose: 2.5 mg Sennosides (Senokot Tab) 17.2 mg PO DAILY [facility] Last Admin: 08/29/17 09:31 Dose: 17.2 mg Sodium Phosphate (Fleet Enema) 135 ml IN DAILY [facility] Last Admin: 08/15/17 15:27 Dose: 135 ml - Labs Labs: 08/29/17 11:22 08/29/17 11:22 PT 12.9 SECONDS (9.7-12.2) H 08/28/17 07:08 INR 1.2 08/28/17 07:08 APTT 29 SECONDS (21-34) 08/28/17 07:08 Attending/Attestation - Attestation I have personally seen and examined this patient.: Yes I have fully participated in the care of the patient.: Yes I have reviewed all pertinent clinical information, including history, physical exam and plan: Yes Notes (Text): 08/29/17 17:42 Medical consult: Patient was seen and examined by me, agrees the above note by certified medical dosimetrist. He was not under any acute distress today, he did not have any pain in the facial area on exam. He was not actively bleeding from the right near. No chest pain and no shortness of breath. Appreciate ENT seen the patient, per their notes they're planning to remove this on tomorrow Thank you very much, Florencio Dutton
[2017-08-29] MEDS: Rosuvastatin Calcium 2.5 mg Tab PO SCH (22:06)
--- NOTE | 2017-08-30 00:23 | CP.PCM.PN ---
<Chester HeightsLouise jamisonandre E - Last Filed: 08/30/17 00:44> Subjective - Date & Time of Evaluation Date of Evaluation: 08/30/17 Time of Evaluation: 00:30 - Subjective Subjective: Medicine Note (PGY-1)-----> Dr. Dutton's service Patient was seen and examined at bedside in no acute distress. Patient states that he is doing well and has no new complaints. Patient denies chest pain, palpitations, SOB, cough, dizziness, nausea, vomiting, fever, chills and further episodes of epistaxis. Objective - Vital Signs/Intake and Output Vital Signs (last 24 hours): Temp Pulse Resp BP Pulse Ox 97.6 F 80 20 125/75 96 08/29/17 23:24 08/29/17 23:24 08/29/17 23:24 08/29/17 23:24 08/29/17 23:24 Intake and Output: 08/29/17 08/30/17 18:59 06:59 Intake Total 540 450 Balance 540 450 - Medications Medications: Current Medications Albuterol/Ipratropium (Duoneb 3 Mg/0.5 Mg (3 Ml) Ud) 3 ml INH RQ6 [facility] Last Admin: 08/28/17 01:51 Dose: 3 ml Aspirin (Aspirin Chewable) 81 mg PO DAILY [facility] Last Admin: 08/28/17 09:34 Dose: Not Given Calcium Acetate (Phoslo) 667 mg PO BIDCC [facility] Last Admin: 08/29/17 17:34 Dose: 667 mg Ciprofloxacin (Cipro) 500 mg PO BID [facility] Last Admin: 08/29/17 17:30 Dose: 500 mg Clopidogrel Bisulfate (Plavix) 75 mg PO DAILY [facility] Last Admin: 08/28/17 09:35 Dose: Not Given Docusate Sodium (Colace) 100 mg PO BID [facility] Last Admin: 08/29/17 17:31 Dose: 100 mg Insulin Aspart (Novolog) 2 unit SC ACTID [facility] Last Admin: 08/29/17 17:10 Dose: Not Given Insulin Human Regular (Novolin R) 0 unit SC ACHS [facility] PRN Reason: Protocol Last Admin: 08/29/17 22:04 Dose: Not Given Metoprolol Tartrate (Lopressor) 12.5 mg PO BID [facility] Last Admin: 08/29/17 17:31 Dose: 12.5 mg Multivitamins (Hexavitamin) 1 tab PO DAILY [facility] Last Admin: 08/29/17 09:31 Dose: 1 tab Pantoprazole Sodium (Protonix Ec Tab) 40 mg PO DAILY [facility] Last Admin: 08/29/17 09:31 Dose: 40 mg Rosuvastatin Calcium (Crestor) 2.5 mg PO HS [facility] Last Admin: 08/29/17 22:06 Dose: 2.5 mg Sennosides (Senokot Tab) 17.2 mg PO DAILY [facility] Last Admin: 08/29/17 09:31 Dose: 17.2 mg Sodium Phosphate (Fleet Enema) 135 ml [place] DAILY [facility] Last Admin: 08/15/17 15:27 Dose: 135 ml - Labs Labs: 08/29/17 11:22 08/29/17 11:22 PT 12.9 SECONDS (9.7-12.2) H 08/28/17 07:08 INR 1.2 08/28/17 07:08 APTT 29 SECONDS (21-34) 08/28/17 07:08 - Constitutional Appears: Well, No Acute Distress - Head Exam Head Exam: ATRAUMATIC, NORMAL INSPECTION - Eye Exam Eye Exam: EOMI, Normal appearance - ENT Exam ENT Exam: Mucous Membranes Moist - Respiratory Exam Respiratory Exam: Clear to Ausculation Bilateral, NORMAL BREATHING PATTERN - Cardiovascular Exam Cardiovascular Exam: REGULAR RHYTHM, +S1, +S2 - GI/Abdominal Exam GI & Abdominal Exam: Soft, Normal Bowel Sounds. absent: Distended, Guarding, Rigid, Tenderness - Extremities Exam Extremities Exam: Normal Inspection. absent: Calf Tenderness, Pedal Edema - Neurological Exam Neurological Exam: Alert, Awake, Oriented x3 - Psychiatric Exam Psychiatric exam: Normal Affect, Normal Mood - Skin Skin Exam: Normal Color Assessment and Plan (1) Epistaxis Assessment & Plan: ENT consulted - Dr. Mata- help appreciated * Rhino Rocket placed- will be removed Friday by ENT; further management as per ENT * DVT PPx: lovenox 30mg SC held Status: Acute (2) S/P CABG (coronary artery bypass graft) Assessment & Plan: F/u with Dr. Grant, Cardiothoracic surgeon * Patient seen today at [facility] [place] by Dr. Grant for post-op care; thomas removed ( 08/26/17) * Will continue to manage as per Dr. 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 Bautista: Multi-vessel disease with 95% stenosis in mid segment of LAD with in-stent re-stenosis. Intimal irregularities in the first diagonal branch. 80% stenosis in proximal segment of circumflex artery. 90% stenosis of right coronary artery. Normal LV systolic function with estimated EF of 50%. Echocardiogram (07/12/17): Showed normal LV size, borderline concentric LV hypertrophy, moderately to severely impaired systolic function, septal hypokinesis, mild to moderate aortic regurgitation, and aortic root is moderately enlarged. At [facility] [place] cabg x2, reop for bleeding,multiple blood transfusion, post op hypoxic, respiratory failure, extubated on 07/22, s/p left sided post op pneumothorax pig tail removed 08/05, noted on chest X-ray * Chest X-ray (08/08/17): Mild Right basilar atelactasis and small right sided pleural effusion * Repeat Chest X-ray (08/13/17): No change in right basilar atelectasis and left lower lobe consolidation with small pleural effusions. * Echocardiogram report (08/14/17): EF (25-30%), LV systolic is severely impaired, LV diastolic function is abnormal, LV is normal size. Right ventricle is normal size, with normal systolic function, RA is normal size. 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 7 mm subpleural nodule in the right lower lobe. Follow-up CT scan in 6-12 months interval is recommended to assess stability. Mild cardiomegaly, small pericardial effusion and trace bilateral pleural effusions. Continue to encourage incentive spirometer use and physical therapy * As per physical therapy, improving saturtation during gait and able to recovery desaturation with rest. Status: Acute (4) History of coronary artery disease Assessment & Plan: CABG at [facility] [place] 07/25/17 * cardiac catheterization (07/14/17) which showed multi-vessel disease with 95% stenosis in mid segment of LAD with in-stent re-stenosis. Intimal irregularities in the first diagonal branch. 80% stenosis in proximal segment of circumflex artery. 90% stenosis of right coronary artery. Normal LV systolic function with estimated EF of 50%. Medications: * ASA 81mg po daily * Plavix 75mg po daily * Crestor 2.5mg PO HS * Lopressor 12.5mg PO BID Status: Acute (5) Urinary tract infection Assessment & Plan: UA ( LE (3+) and Urine WBC (50) UC: + Psedomonas Aeruginosa Medications: Cipro 500mg PO BID (Started 08/22/17) Status: Acute (6) Constipation Assessment & Plan: Resolved Medications: * Docusate 100mg PO BID * Senna A and B 17.5mg PO daily Status: Acute (7) Bacteremia Assessment & Plan: Resolved Dr. Asher on board---> help appreciated Blood culture positive for pseudomonas likely from UTI, s/p pseudomonas in urine * Meropenem started on 08/01 at [facility] [place] as per d/c summary. * Levaquin 08/07 Medications: * Meropenem 1gm IVPB Q8H (Discontinued 08/11/17) * Avelox 400mg IVPB Q24H ( Discontinued 08/11/17) Labs: Repeat Blood culture (08/08/17): No growth Repeat Blood culture (08/22/17): No growth Leukocytosis normalized and no bandemia; no signs of infection Status: Acute (8) Serum lipase elevation Assessment & Plan: Trending down; Normalized Continue to monitor with labs Imaging: * CT abd/pelvis showed no evidence of pancreatitis as per [facility] [place] discharge summary Status: Acute (9) History of diabetes mellitus Assessment & Plan: Accuchecks Novolog 2 units TIDAC ISS low dose Status: Acute (10) History of hypertension Assessment & Plan: Stable with medication Continue to monitor with vital signs Medication: * Lopressor 50mg PO BID----> Decreased to 12.5mg PO BID ( 08/14/2017) Status: Acute (11) Prophylactic measure Assessment & Plan: GI: Protonix 40mg PO daily DVT: Lovenox 30mg SC daily Multivitamins 1 tab PO daily PT and OT Continue to encourage Incentive spirometer used Disposition: commissioning manager is working on home health care visit once patient is cleared. Status: Acute <Florencio Dutton H - Last Filed: 08/30/17 12:10> Objective - Vital Signs/Intake and Output Vital Signs (last 24 hours): Temp Pulse Resp BP Pulse Ox 97.8 F 89 20 124/83 95 08/30/17 08:04 08/30/17 08:04 08/30/17 08:04 08/30/17 08:04 08/30/17 08:04 Intake and Output: 08/30/17 08/30/17 06:59 18:59 Intake Total 750 Balance 750 - Medications Medications: Current Medications Albuterol/Ipratropium (Duoneb 3 Mg/0.5 Mg (3 Ml) Ud) 3 ml INH RQ6 [facility] Last Admin: 08/28/17 01:51 Dose: 3 ml Aspirin (Aspirin Chewable) 81 mg PO DAILY [facility] Last Admin: 08/28/17 09:34 Dose: Not Given Calcium Acetate (Phoslo) 667 mg PO BIDCC [facility] Last Admin: 08/30/17 08:00 Dose: 667 mg Ciprofloxacin (Cipro) 500 mg PO BID [facility] Last Admin: 08/30/17 09:46 Dose: 500 mg Clopidogrel Bisulfate (Plavix) 75 mg PO DAILY [facility] Last Admin: 08/28/17 09:35 Dose: Not Given Docusate Sodium (Colace) 100 mg PO BID [facility] Last Admin: 08/30/17 09:46 Dose: 100 mg Insulin Aspart (Novolog) 2 unit SC ACTID [facility] Last Admin: 08/30/17 07:30 Dose: Not Given Insulin Human Regular (Novolin R) 0 unit SC ACHS [facility] PRN Reason: Protocol Last Admin: 08/30/17 07:35 Dose: Not Given Metoprolol Tartrate (Lopressor) 12.5 mg PO BID [facility] Last Admin: 08/30/17 09:46 Dose: 12.5 mg Multivitamins (Hexavitamin) 1 tab PO DAILY [facility] Last Admin: 08/30/17 09:50 Dose: 1 tab Pantoprazole Sodium (Protonix Ec Tab) 40 mg PO DAILY [facility] Last Admin: 12/16/17 09:46 Dose: 40 mg Rosuvastatin Calcium (Crestor) 2.5 mg PO HS [facility] Last Admin: 08/29/17 22:06 Dose: 2.5 mg Sennosides (Senokot Tab) 17.2 mg PO DAILY [facility] Last Admin: 08/30/17 09:46 Dose: 17.2 mg - Labs Labs: 08/30/17 08:01 08/30/17 08:01 PT 12.9 SECONDS (9.7-12.2) H 08/28/17 07:08 INR 1.2 08/28/17 07:08 APTT 29 SECONDS (21-34) 08/28/17 07:08 Attending/Attestation - Attestation I have personally seen and examined this patient.: Yes I have fully participated in the care of the patient.: Yes I have reviewed all pertinent clinical information, including history, physical exam and plan: Yes Notes (Text): 08/30/17 12:09 Medical attending: Patient was seen and examined by me. Agree with the above note by the resident The patient is later today removal of nose packing Patient reports he feels fine. Denied face pain, denied bleeding Hgb is stable as well thank you Florencio Dutton
[2017-08-30] MEDS: (Novolog) Insulin Aspart, Recombinant 100 u/ml 10 ml vial SC SCH ×3 (07:30→17:25)
[2017-08-30] MEDS: (Novolin R) Insulin Human Regular 100 units/ml vial SC SCH ×4 (07:35→21:25)
[2017-08-30 08:13] LABS: BASO % 0.6 % (0.0-2.0); EOS # 0.2 K/uL (0.0-0.7); EOS % 2.3 % (0.0-4.0); HEMOGLOBIN 11.5 g/dL (12.0-18.0); LYMPH # 1.3 K/uL (1.0-4.3); LYMPH % 18.5 % (20.0-40.0); MEAN CELL VOLUME 92.6 fL (80.0-94.0); MEAN CORPUSCULAR HEMOGLOBIN 31.8 pg (27.0-31.0); MEAN CORPUSCULAR HGB CONC 34.3 g/dL (33.0-37.0); MEAN PLATELET VOLUME 7.4 fL (7.2-11.7); MONO # 0.5 K/uL (0.0-0.8); MONO % 6.8 % (0.0-10.0); NEUT # 4.9 K/uL (1.8-7.0); NEUT % 71.8 % (50.0-75.0); RBC 3.62 Mil/uL (4.40-5.90); RED CELL DISTRIBUTION WIDTH 17.4 % (11.5-14.5); WHITE BLOOD COUNT 6.8 K/uL (4.8-10.8)
[2017-08-30 08:29] LABS: ALB/GLOB RATIO 1.1 (1.0-2.1); ALBUMIN 3.4 g/dL (3.5-5.0); ALT/SGPT 65 U/L (21-72); AST/SGOT 29 U/L (17-59); BLOOD UREA NITROGEN 6 mg/dL (9-20); CALCIUM 8.2 mg/dl (8.6-10.4); GFR AFRICAN-AMERICAN > 60; GFR NON-AFRICAN AMERICAN > 60; MAGNESIUM 1.6 mg/dL (1.6-2.3)
[2017-08-30] MEDS: Pantoprazole 40 mg EC Tab PO SCH (09:46)
[2017-08-30] MEDS: Multiple Vitamins Tab PO SCH (09:50)
--- NOTE | 2017-08-30 13:23 | CP.PCM.PN ---
Subjective - Date & Time of Evaluation Date of Evaluation: 08/30/17 Time of Evaluation: 13:20 - Subjective Subjective: NO epistaxis, no pain in nose on both sides head: atraumatic face: good movements General: well fed, well groomed com: communicates well and appropriately external nose and ears: no masses, no lesions nose: pack removed, no epistaxis, no masses, no lesions, deviated septum oc/op: no masses, no lesions, no bloody PND lips/gums: no masses, no lesions neck: supple lymph: no lad thyroid: no goiter a/p: epistaxis resolved deviated septum ok to d/c home from ent point Objective - Vital Signs/Intake and Output Vital Signs (last 24 hours): Temp Pulse Resp BP Pulse Ox 97.8 F 89 20 124/83 95 08/30/17 08:04 08/30/17 08:04 08/30/17 08:04 08/30/17 08:04 08/30/17 08:04 Intake and Output: 08/30/17 08/30/17 06:59 18:59 Intake Total 750 Balance 750 - Medications Medications: Current Medications Albuterol/Ipratropium (Duoneb 3 Mg/0.5 Mg (3 Ml) Ud) 3 ml INH RQ6 [facility] Last Admin: 08/28/17 01:51 Dose: 3 ml Aspirin (Aspirin Chewable) 81 mg PO DAILY [facility] Last Admin: 08/28/17 09:34 Dose: Not Given Calcium Acetate (Phoslo) 667 mg PO BIDCC [facility] Last Admin: 08/30/17 08:00 Dose: 667 mg Ciprofloxacin (Cipro) 500 mg PO BID [facility] Last Admin: 08/30/17 09:46 Dose: 500 mg Clopidogrel Bisulfate (Plavix) 75 mg PO DAILY [facility] Last Admin: 08/28/17 09:35 Dose: Not Given Docusate Sodium (Colace) 100 mg PO BID [facility] Last Admin: 08/30/17 09:46 Dose: 100 mg Insulin Aspart (Novolog) 2 unit SC ACTID [facility] Last Admin: 08/30/17 07:30 Dose: Not Given Insulin Human Regular (Novolin R) 0 unit SC ACHS [facility] PRN Reason: Protocol Last Admin: 08/30/17 07:35 Dose: Not Given Metoprolol Tartrate (Lopressor) 12.5 mg PO BID [facility] Last Admin: 08/30/17 09:46 Dose: 12.5 mg Multivitamins (Hexavitamin) 1 tab PO DAILY [facility] Last Admin: 08/30/17 09:50 Dose: 1 tab Pantoprazole Sodium (Protonix Ec Tab) 40 mg PO DAILY [facility] Last Admin: 08/30/17 09:46 Dose: 40 mg Rosuvastatin Calcium (Crestor) 2.5 mg PO HS [facility] Last Admin: 08/29/17 22:06 Dose: 2.5 mg Sennosides (Senokot Tab) 17.2 mg PO DAILY [facility] Last Admin: 08/30/17 09:46 Dose: 17.2 mg - Labs Labs: 08/30/17 08:01 08/30/17 08:01 PT 12.9 SECONDS (9.7-12.2) H 08/28/17 07:08 INR 1.2 08/28/17 07:08 APTT 29 SECONDS (21-34) 08/28/17 07:08
[2017-08-30] MEDS: Rosuvastatin Calcium 2.5 mg Tab PO SCH (21:26)
--- NOTE | 2017-08-31 00:36 | CP.PCM.PN ---
<Bria Siddiqui E - Last Filed: 08/31/17 00:42> Subjective - Date & Time of Evaluation Date of Evaluation: 08/31/17 Time of Evaluation: 00:30 - Subjective Subjective: Medicine Note (PGY-1)-----> Dr. Dutton's service Patient was seen and examined at bedside in no acute distress. Patient states that he is doing well and has no new complaints. Patient denies chest pain, palpitations, SOB, cough, dizziness, nausea, vomiting, fever, chills and further episodes of epistaxis. Patient's posterior nasal packing has been removed by Dr. Mata. Patient is tolerating diet and ambulating with his walker. Objective - Vital Signs/Intake and Output Vital Signs (last 24 hours): Temp Pulse Resp BP Pulse Ox 98 F 66 18 137/81 99 08/30/17 23:41 08/30/17 23:41 08/30/17 23:41 08/30/17 23:41 08/30/17 23:41 Intake and Output: 08/30/17 08/31/17 18:59 06:59 Intake Total 300 Balance 300 - Medications Medications: Current Medications Albuterol/Ipratropium (Duoneb 3 Mg/0.5 Mg (3 Ml) Ud) 3 ml INH RQ6 [facility] Last Admin: 08/28/17 01:51 Dose: 3 ml Aspirin (Aspirin Chewable) 81 mg PO DAILY [facility] Last Admin: 08/28/17 09:34 Dose: Not Given Calcium Acetate (Phoslo) 667 mg PO BIDCC [facility] Last Admin: 08/30/17 17:37 Dose: 667 mg Ciprofloxacin (Cipro) 500 mg PO BID [facility] Last Admin: 08/30/17 17:39 Dose: 500 mg Clopidogrel Bisulfate (Plavix) 75 mg PO DAILY [facility] Last Admin: 08/28/17 09:35 Dose: Not Given Docusate Sodium (Colace) 100 mg PO BID [facility] Last Admin: 08/30/17 17:39 Dose: 100 mg Insulin Aspart (Novolog) 2 unit SC ACTID [facility] Last Admin: 08/30/17 17:25 Dose: Not Given Insulin Human Regular (Novolin R) 0 unit SC ACHS [facility] PRN Reason: Protocol Last Admin: 08/30/17 21:25 Dose: Not Given Metoprolol Tartrate (Lopressor) 12.5 mg PO BID [facility] Last Admin: 08/30/17 17:40 Dose: 12.5 mg Multivitamins (Hexavitamin) 1 tab PO DAILY [facility] Last Admin: 08/30/17 09:50 Dose: 1 tab Pantoprazole Sodium (Protonix Ec Tab) 40 mg PO DAILY [facility] Last Admin: 08/30/17 09:46 Dose: 40 mg Rosuvastatin Calcium (Crestor) 2.5 mg PO HS [facility] Last Admin: 08/30/17 21:26 Dose: 2.5 mg Sennosides (Senokot Tab) 17.2 mg PO DAILY [facility] Last Admin: 08/30/17 09:46 Dose: 17.2 mg - Labs Labs: 08/30/17 08:01 08/30/17 08:01 PT 12.9 SECONDS (9.7-12.2) H 08/28/17 07:08 INR 1.2 08/28/17 07:08 APTT 29 SECONDS (21-34) 08/28/17 07:08 - Constitutional Appears: Well, No Acute Distress - Head Exam Head Exam: ATRAUMATIC, NORMAL INSPECTION - Eye Exam Eye Exam: EOMI, Normal appearance - ENT Exam ENT Exam: Mucous Membranes Moist - Respiratory Exam Respiratory Exam: Clear to Ausculation Bilateral, NORMAL BREATHING PATTERN - Cardiovascular Exam Cardiovascular Exam: REGULAR RHYTHM, +S1, +S2 - GI/Abdominal Exam GI & Abdominal Exam: Soft, Normal Bowel Sounds. absent: Distended, Firm, Guarding, Rigid, Tenderness - Extremities Exam Extremities Exam: Normal Inspection. absent: Calf Tenderness, Pedal Edema - Neurological Exam Neurological Exam: Alert, Awake, Oriented x3 - Psychiatric Exam Psychiatric exam: Normal Affect, Normal Mood - Skin Skin Exam: Normal Color Assessment and Plan (1) Epistaxis Assessment & Plan: ENT consulted - Dr. Mata- help appreciated * Rhino Rocket placed removed by Dr. Mata * As per Dr. Mata, epistaxis resolved, deviated septum and patient is stable and cleared from ENT standpoint Status: Acute (2) S/P CABG (coronary artery bypass graft) Assessment & Plan: F/u with Dr. Grant, Cardiothoracic surgeon * Patient seen today at [facility] [place] by Dr. Grant for post-op care; thomas removed ( 08/26/17) * Will continue to manage as per Dr. 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 Bautista: Multi-vessel disease with 95% stenosis in mid segment of LAD with in-stent re-stenosis. Intimal irregularities in the first diagonal branch. 80% stenosis in proximal segment of circumflex artery. 90% stenosis of right coronary artery. Normal LV systolic function with estimated EF of 50%. Echocardiogram (07/12/17): Showed normal LV size, borderline concentric LV hypertrophy, moderately to severely impaired systolic function, septal hypokinesis, mild to moderate aortic regurgitation, and aortic root is moderately enlarged. At [facility] [place] cabg x2, reop for bleeding,multiple blood transfusion, post op hypoxic, respiratory failure, extubated on 07/22, s/p left sided post op pneumothorax pig tail removed 08/05, noted on chest X-ray * Chest X-ray (08/08/17): Mild Right basilar atelactasis and small right sided pleural effusion * Repeat Chest X-ray (08/13/17): No change in right basilar atelectasis and left lower lobe consolidation with small pleural effusions. * Echocardiogram report (08/14/17): EF (25-30%), LV systolic is severely impaired, LV diastolic function is abnormal, LV is normal size. Right ventricle is normal size, with normal systolic function, RA is normal size. 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 Garcia * Management as per recommendation * AB.50/34/72/27.4 * Chest CT: No CT evidence for acute pulmonary embolism. 7 mm subpleural nodule in the right lower lobe. Follow-up CT scan in 6-12 months interval is recommended to assess stability. Mild cardiomegaly, small pericardial effusion and trace bilateral pleural effusions. Continue to encourage incentive spirometer use and physical therapy * As per physical therapy, improving saturtation during gait and able to recovery desaturation with rest. Status: Acute (4) History of coronary artery disease Assessment & Plan: CABG at [facility] [place] 07/25/17 * cardiac catheterization (07/14/17) which showed multi-vessel disease with 95% stenosis in mid segment of LAD with in-stent re-stenosis. Intimal irregularities in the first diagonal branch. 80% stenosis in proximal segment of circumflex artery. 90% stenosis of right coronary artery. Normal LV systolic function with estimated EF of 50%. Medications: * ASA 81mg po daily * Plavix 75mg po daily * Crestor 2.5mg PO HS * Lopressor 12.5mg PO BID Status: Acute (5) Urinary tract infection Assessment & Plan: UA ( LE (3+) and Urine WBC (50) UC: + Psedomonas Aeruginosa Medications: Cipro 500mg PO BID (Started 08/22/17) Status: Acute (6) Constipation Assessment & Plan: Resolved Medications: * Docusate 100mg PO BID * Senna A and B 17.5mg PO daily Status: Acute (7) Bacteremia Assessment & Plan: Resolved Dr. Asher on board---> help appreciated Blood culture positive for pseudomonas likely from UTI, s/p pseudomonas in urine * Meropenem started on 08/01 at [facility] [place] as per d/c summary. * Levaquin 08/07 Medications: * Meropenem 1gm IVPB Q8H (Discontinued 08/11/17) * Avelox 400mg IVPB Q24H ( Discontinued 08/11/17) Labs: Repeat Blood culture (08/08/17): No growth Repeat Blood culture (08/22/17): No growth Leukocytosis normalized and no bandemia; no signs of infection Status: Acute (8) Serum lipase elevation Assessment & Plan: Trending down; Normalized Continue to monitor with labs Imaging: * CT abd/pelvis showed no evidence of pancreatitis as per [facility] [facility] discharge summary Status: Acute (9) History of diabetes mellitus Assessment & Plan: Accuchecks Novolog 2 units TIDAC ISS low dose Status: Acute (10) History of hypertension Assessment & Plan: Stable with medication Continue to monitor with vital signs Medication: * Lopressor 50mg PO BID----> Decreased to 12.5mg PO BID ( 08/14/2017) Status: Acute (11) Prophylactic measure Assessment & Plan: GI: Protonix 40mg PO daily DVT: Lovenox 30mg SC daily Multivitamins 1 tab PO daily PT and OT Continue to encourage Incentive spirometer used Disposition: manager talent acquisition is working on home health care visit once patient is cleared. Status: Acute <Florencio Dutton Daryl - Last Filed: 08/31/17 12:39> Objective - Vital Signs/Intake and Output Vital Signs (last 24 hours): Temp Pulse Resp BP Pulse Ox 98.8 F 87 20 135/85 95 08/31/17 07:40 08/31/17 07:40 08/31/17 07:40 08/31/17 07:40 08/31/17 07:40 Intake and Output: 08/31/17 08/31/17 06:59 18:59 Intake Total 250 Balance 250 - Medications Medications: Current Medications Albuterol/Ipratropium (Duoneb 3 Mg/0.5 Mg (3 Ml) Ud) 3 ml INH RQ6 [facility] Last Admin: 08/28/17 01:51 Dose: 3 ml Aspirin (Aspirin Chewable) 81 mg PO DAILY [facility] Last Admin: 08/31/17 10:15 Dose: 81 mg Calcium Acetate (Phoslo) 667 mg PO BIDCC [facility] Last Admin: 08/31/17 08:39 Dose: 667 mg Ciprofloxacin (Cipro) 500 mg PO BID [facility] Last Admin: 08/31/17 10:12 Dose: 500 mg Clopidogrel Bisulfate (Plavix) 75 mg PO DAILY [facility] Last Admin: 08/31/17 10:15 Dose: 75 mg Docusate Sodium (Colace) 100 mg PO BID [facility] Last Admin: 08/31/17 10:12 Dose: 100 mg Enoxaparin Sodium (Lovenox) 30 mg SC DAILY [facility] Last Admin: 08/31/17 10:12 Dose: 30 mg Insulin Aspart (Novolog) 2 unit SC ACTID [facility] Last Admin: 08/31/17 07:35 Dose: Not Given Insulin Human Regular (Novolin R) 0 unit SC [facility] PRN Reason: Protocol Last Admin: 08/31/17 07:34 Dose: Not Given Metoprolol Tartrate (Lopressor) 12.5 mg PO BID [facility] Last Admin: 08/31/17 10:12 Dose: 12.5 mg Multivitamins (Hexavitamin) 1 tab PO DAILY [facility] Last Admin: 08/31/17 10:12 Dose: 1 tab Pantoprazole Sodium (Protonix Ec Tab) 40 mg PO DAILY [facility] Last Admin: 08/31/17 10:12 Dose: 40 mg Rosuvastatin Calcium (Crestor) 2.5 mg PO HS [facility] Last Admin: 08/30/17 21:26 Dose: 2.5 mg Sennosides (Senokot Tab) 17.2 mg PO DAILY [facility] Last Admin: 08/31/17 10:13 Dose: 17.2 mg - Labs Labs: 08/31/17 08:47 08/31/17 08:47 PT 12.9 SECONDS (9.7-12.2) H 08/28/17 07:08 INR 1.2 08/28/17 07:08 APTT 29 SECONDS (21-34) 08/28/17 07:08 Attending/Attestation - Attestation I have personally seen and examined this patient.: Yes I have fully participated in the care of the patient.: Yes I have reviewed all pertinent clinical information, including history, physical exam and plan: Yes Notes (Text): 08/31/17 12:37 Medical Attending: Patient was seen and examined by me. Agree with the above note by the resident The patient had the nasal packing removed yesterday He appears to be well He was out of bed to chair when I saw him Denied face pain, denied chest pain, denied shortness of breath Continue with PT thank you Florencio Dutton
[2017-08-31] MEDS: (Novolin R) Insulin Human Regular 100 units/ml vial SC SCH ×4 (07:34→21:53)
[2017-08-31] MEDS: (Novolog) Insulin Aspart, Recombinant 100 u/ml 10 ml vial SC SCH ×3 (07:35→17:20)
[2017-08-31 09:04] LABS: BASO # 0.1 K/uL (0.0-0.2); EOS # 0.2 K/uL (0.0-0.7); EOS % 2.4 % (0.0-4.0); LYMPH # 1.4 K/uL (1.0-4.3); LYMPH % 20.2 % (20.0-40.0); MEAN CELL VOLUME 92.8 fL (80.0-94.0); MEAN CORPUSCULAR HEMOGLOBIN 31.7 pg (27.0-31.0); MEAN CORPUSCULAR HGB CONC 34.2 g/dL (33.0-37.0); MEAN PLATELET VOLUME 7.5 fL (7.2-11.7); MONO # 0.4 K/uL (0.0-0.8); MONO % 6.3 % (0.0-10.0); NEUT # 4.9 K/uL (1.8-7.0); NEUT % 70.1 % (50.0-75.0); NRBC % 0.1 % (0.0-2.0); RBC 3.77 Mil/uL (4.40-5.90); RED CELL DISTRIBUTION WIDTH 17.9 % (11.5-14.5)
[2017-08-31 09:11] LABS: ALB/GLOB RATIO 1.2 (1.0-2.1); ALBUMIN 3.7 g/dL (3.5-5.0); ALT/SGPT 66 U/L (21-72); AST/SGOT 29 U/L (17-59); BLOOD UREA NITROGEN 7 mg/dL (9-20); CALCIUM 8.6 mg/dl (8.6-10.4); GFR AFRICAN-AMERICAN > 60; GFR NON-AFRICAN AMERICAN 56; MAGNESIUM 1.5 mg/dL (1.6-2.3)
[2017-08-31] MEDS: Multiple Vitamins Tab PO SCH (10:12)
[2017-08-31] MEDS: Pantoprazole 40 mg EC Tab PO SCH (10:12)
[2017-08-31] MEDS: Enoxaparin 30 mg Syringe SC SCH (10:12)
[2017-08-31] MEDS: Rosuvastatin Calcium 2.5 mg Tab PO SCH (21:15)
[2017-09-01] MEDS: (Novolin R) Insulin Human Regular 100 units/ml vial SC SCH ×4 (08:12→21:39)
[2017-09-01] MEDS: (Novolog) Insulin Aspart, Recombinant 100 u/ml 10 ml vial SC SCH ×3 (08:30→16:30)
[2017-09-01] MEDS: Multiple Vitamins Tab PO SCH ×2 (08:53→12:33)
[2017-09-01] MEDS: Pantoprazole 40 mg EC Tab PO SCH ×2 (08:54→12:34)
[2017-09-01] MEDS: Enoxaparin 30 mg Syringe SC SCH ×2 (08:54→12:32)
--- NOTE | 2017-09-01 15:36 | CP.PCM.PN ---
<Bartolome Menjivar - Last Filed: 09/01/17 15:43> Subjective - Date & Time of Evaluation Date of Evaluation: 09/01/17 Time of Evaluation: 15:29 - Subjective Subjective: PGY1 Progress Note for Dr. Cronin Patient seen and examined at bedside. No acute events overnight. Patient is resting comfortably in his room in good spirits. He states he is feeling well. He has no complaints at this time. Objective - Vital Signs/Intake and Output Vital Signs (last 24 hours): Temp Pulse Resp BP Pulse Ox 98.1 F 83 20 123/87 98 09/01/17 07:48 09/01/17 07:48 09/01/17 07:48 09/01/17 07:48 09/01/17 07:48 Intake and Output: 09/01/17 09/01/17 06:59 18:59 Intake Total 590 Balance 590 - Medications Medications: Current Medications Albuterol/Ipratropium (Duoneb 3 Mg/0.5 Mg (3 Ml) Ud) 3 ml INH RQ6 [facility] Last Admin: 08/28/17 01:51 Dose: 3 ml Aspirin (Aspirin Chewable) 81 mg PO DAILY [facility] Last Admin: 09/01/17 12:32 Dose: Not Given Calcium Acetate (Phoslo) 667 mg PO BIDCC [facility] Last Admin: 09/01/17 08:54 Dose: 667 mg Ciprofloxacin (Cipro) 500 mg PO BID [facility] Last Admin: 09/01/17 12:33 Dose: Not Given Clopidogrel Bisulfate (Plavix) 75 mg PO DAILY [facility] Last Admin: 09/01/17 12:34 Dose: Not Given Docusate Sodium (Colace) 100 mg PO BID [facility] Last Admin: 09/01/17 12:33 Dose: Not Given Enoxaparin Sodium (Lovenox) 30 mg SC DAILY [facility] Last Admin: 09/01/17 12:32 Dose: Not Given Insulin Aspart (Novolog) 2 unit SC ACTID [facility] Last Admin: 09/01/17 12:04 Dose: Not Given Insulin Human Regular (Novolin R) 0 unit SC ACHS [facility] PRN Reason: Protocol Last Admin: 09/01/17 12:04 Dose: Not Given Metoprolol Tartrate (Lopressor) 12.5 mg PO BID [facility] Last Admin: 09/01/17 12:33 Dose: Not Given Multivitamins (Hexavitamin) 1 tab PO DAILY [facility] Last Admin: 09/01/17 12:33 Dose: Not Given Pantoprazole Sodium (Protonix Ec Tab) 40 mg PO DAILY [facility] Last Admin: 09/01/17 12:34 Dose: Not Given Rosuvastatin Calcium (Crestor) 2.5 mg PO HS [facility] Last Admin: 08/31/17 21:15 Dose: 2.5 mg Sennosides (Senokot Tab) 17.2 mg PO DAILY [facility] Last Admin: 09/01/17 12:34 Dose: Not Given - Labs Labs: 08/31/17 08:47 08/31/17 08:47 PT 12.9 SECONDS (9.7-12.2) H 08/28/17 07:08 INR 1.2 08/28/17 07:08 APTT 29 SECONDS (21-34) 08/28/17 07:08 - Constitutional Appears: Non-toxic, No Acute Distress - Head Exam Head Exam: ATRAUMATIC, NORMOCEPHALIC - Eye Exam Eye Exam: EOMI, Normal appearance - ENT Exam ENT Exam: Mucous Membranes Moist - Respiratory Exam Respiratory Exam: NORMAL BREATHING PATTERN. absent: Accessory Muscle Use, Respiratory Distress - Cardiovascular Exam Cardiovascular Exam: REGULAR RHYTHM - GI/Abdominal Exam GI & Abdominal Exam: Soft, Normal Bowel Sounds. absent: Distended, Firm, Guarding, Tenderness - Extremities Exam Extremities Exam: Normal Inspection. absent: Calf Tenderness, Pedal Edema - Neurological Exam Neurological Exam: Alert, Awake, Oriented x3 - Psychiatric Exam Psychiatric exam: Normal Affect, Normal Mood - Skin Skin Exam: Dry, Normal Color, Warm Assessment and Plan - Assessment and Plan (Free Text) Plan: Epistaxis ENT consulted - Dr. Mata- help appreciated * Rhino Rocket placed removed by Dr. Mata * As per Dr. Mata, epistaxis resolved, deviated septum and patient is stable and cleared from ENT standpoint s/p CABG (coronary artery bypass graft) F/u with Dr. Grant, Cardiothoracic surgeon * Patient seen today at [facility] by Dr. Grant for post-op care; thomas removed ( 08/26/17) * Will continue to manage as per Dr. Grant's recommendation Gps Navigation Installer, Dr. Bautista----> Consulted * Management as per recommendation CABG at [facility] 07/25/17 Cardiac catheterization (07/15/17)- Dr. Bautista: Multi-vessel disease with 95% stenosis in mid segment of LAD with in-stent re-stenosis. Intimal irregularities in the first diagonal branch. 80% stenosis in proximal segment of circumflex artery. 90% stenosis of right coronary artery. Normal LV systolic function with estimated EF of 50%. Echocardiogram (07/12/17): Showed normal LV size, borderline concentric LV hypertrophy, moderately to severely impaired systolic function, septal hypokinesis, mild to moderate aortic regurgitation, and aortic root is moderately enlarged. At [facility] cabg x2, reop for bleeding,multiple blood transfusion, post op hypoxic, respiratory failure, extubated on 07/22, s/p left sided post op pneumothorax pig tail removed 08/05, noted on chest X-ray * Chest X-ray (08/08/17): Mild Right basilar atelactasis and small right sided pleural effusion * Repeat Chest X-ray (08/13/17): No change in right basilar atelectasis and left lower lobe consolidation with small pleural effusions. * Echocardiogram report (08/14/17): EF (25-30%), LV systolic is severely impaired, LV diastolic function is abnormal, LV is normal size. Right ventricle is normal size, with normal systolic function, RA is normal size. Mild Aortic root dilatation and mild triscuspid regurgitation Medications/Management: * ASA 81mg po daily * Plavix 75mg po daily * Crestor 2.5mg PO HS * Lopressor 12.5mg PO Hypoxia On ambulation [employer] Locator Consult, Dr. Garcia * Management as per recommendation * AB.50/34/72/27.4 * Chest CT: No CT evidence for acute pulmonary embolism. 7 mm subpleural nodule in the right lower lobe. Follow-up CT scan in 6-12 months interval is recommended to assess stability. Mild cardiomegaly, small pericardial effusion and trace bilateral pleural effusions. Continue to encourage incentive spirometer use and physical therapy * As per physical therapy, improving saturtation during gait and able to recovery desaturation with rest. History of coronary artery disease CABG at [facility] 07/25/17 * cardiac catheterization (07/14/17) which showed multi-vessel disease with 95% stenosis in mid segment of LAD with in-stent re-stenosis. Intimal irregularities in the first diagonal branch. 80% stenosis in proximal segment of circumflex artery. 90% stenosis of right coronary artery. Normal LV systolic function with estimated EF of 50%. Medications: * ASA 81mg po daily * Plavix 75mg po daily * Crestor 2.5mg PO HS * Lopressor 12.5mg PO BID Urinary tract infection UA (LE (3+) and Urine WBC (50) UC: + Psedomonas Aeruginosa Medications: Cipro 500mg PO BID (Started 08/22/17) Constipation Resolved Medications: * Docusate 100mg PO BID * Senna A and B 17.5mg PO daily Serum lipase elevation Trending down; Normalized Continue to monitor with labs Imaging: * CT abd/pelvis showed no evidence of pancreatitis as per [facility] discharge summary History of diabetes mellitus Accuchecks Novolog 2 units TIDAC ISS low dose History of hypertension Stable with medication Continue to monitor with vital signs Medication: * Lopressor 12.5mg PO BID Prophylactic measure GI: Protonix 40mg PO daily DVT: Lovenox 30mg SC daily Multivitamins 1 tab PO daily PT and OT - work on improving conditioning - patient lives on third floor Continue to encourage Incentive spirometer used Disposition: manager target working with brother to obtain home health care visit once patient is medically cleared. Patient's brother is attempting to get emergency medicare for the patient that will cover home health care. Case discussed with Dr. Roseanne Mancuso Otto PGY1 <Marjorie Cronin - Last Filed: 09/03/17 11:48> Objective - Vital Signs/Intake and Output Vital Signs (last 24 hours): Temp Pulse Resp BP Pulse Ox 97.9 F 83 20 102/63 96 09/03/17 08:38 09/03/17 08:38 09/03/17 08:38 09/03/17 08:38 09/03/17 08:38 Intake and Output: 09/03/17 09/03/17 06:59 18:59 Intake Total 500 Balance 500 - Medications Medications: Current Medications Albuterol/Ipratropium (Duoneb 3 Mg/0.5 Mg (3 Ml) Ud) 3 ml INH RQ6 [facility] Last Admin: 08/28/17 01:51 Dose: 3 ml Aspirin (Aspirin Chewable) 81 mg PO DAILY [facility] Last Admin: 09/03/17 09:13 Dose: 81 mg Calcium Acetate (Phoslo) 667 mg PO BIDCC [facility] Last Admin: 09/03/17 09:13 Dose: 667 mg Ciprofloxacin (Cipro) 500 mg PO BID [facility] Last Admin: 09/03/17 09:13 Dose: 500 mg Clopidogrel Bisulfate (Plavix) 75 mg PO DAILY [facility] Last Admin: 09/03/17 09:13 Dose: 75 mg Docusate Sodium (Colace) 100 mg PO BID [facility] Last Admin: 09/03/17 09:13 Dose: 100 mg Enoxaparin Sodium (Lovenox) 30 mg SC DAILY [facility] Last Admin: 09/03/17 09:12 Dose: 30 mg Insulin Aspart (Novolog) 2 unit SC ACTID [facility] Last Admin: 09/03/17 11:36 Dose: Not Given Insulin Human Regular (Novolin R) 0 unit SC ACHS [facility] PRN Reason: Protocol Last Admin: 09/03/17 11:36 Dose: Not Given Metoprolol Tartrate (Lopressor) 12.5 mg PO BID [facility] Last Admin: 09/03/17 09:13 Dose: 12.5 mg Multivitamins (Hexavitamin) 1 tab PO DAILY [facility] Last Admin: 09/03/17 09:13 Dose: 1 tab Pantoprazole Sodium (Protonix Ec Tab) 40 mg PO DAILY [facility] Last Admin: 09/03/17 09:14 Dose: 40 mg Rosuvastatin Calcium (Crestor) 2.5 mg PO HS [facility] Last Admin: 09/02/17 22:02 Dose: 2.5 mg Sennosides (Senokot Tab) 17.2 mg PO DAILY [facility] Last Admin: 09/03/17 09:13 Dose: 17.2 mg - Labs Labs: 08/31/17 08:47 08/31/17 08:47 PT 12.9 SECONDS (9.7-12.2) H 08/28/17 07:08 INR 1.2 08/28/17 07:08 APTT 29 SECONDS (21-34) 08/28/17 07:08 Attending/Attestation - Attestation I have personally seen and examined this patient.: Yes I have fully participated in the care of the patient.: Yes I have reviewed all pertinent clinical information, including history, physical exam and plan: Yes Notes (Text): No complain,no nose bleeding seen and examined d/w the resident I agree with the documentation of the assessment and the plan
[2017-09-01] MEDS: Rosuvastatin Calcium 2.5 mg Tab PO SCH (21:40)
--- NOTE | 2017-09-02 07:00 | CP.PCM.PN ---
<Bartolome Menjivar - Last Filed: 09/02/17 13:18> Subjective - Date & Time of Evaluation Date of Evaluation: 09/02/17 Time of Evaluation: 07:00 - Subjective Subjective: PGY1 Progress Note for Dr. Cronin Patient seen and examined at bedside. Patient is resting comfortably in his chair next to the bed in good spirits. He states he is feeling well with no complaints at this time. The patient has been refusing blood draws because he says he is tired of getting stuck every day. He was informed that blood work will now be done once a week unless new symptoms arise. Objective - Vital Signs/Intake and Output Vital Signs (last 24 hours): Temp Pulse Resp BP Pulse Ox 98.3 F 77 20 110/70 95 09/01/17 23:23 09/01/17 23:23 09/01/17 23:23 09/01/17 23:23 09/01/17 23:23 - Medications Medications: Current Medications Albuterol/Ipratropium (Duoneb 3 Mg/0.5 Mg (3 Ml) Ud) 3 ml INH RQ6 [facility] Last Admin: 08/28/17 01:51 Dose: 3 ml Aspirin (Aspirin Chewable) 81 mg PO DAILY [facility] Last Admin: 09/01/17 12:32 Dose: Not Given Calcium Acetate (Phoslo) 667 mg PO BIDCC [facility] Last Admin: 09/01/17 17:00 Dose: 667 mg Ciprofloxacin (Cipro) 500 mg PO BID [facility] Last Admin: 09/01/17 18:00 Dose: 500 mg Clopidogrel Bisulfate (Plavix) 75 mg PO DAILY [facility] Last Admin: 09/01/17 12:34 Dose: Not Given Docusate Sodium (Colace) 100 mg PO BID [facility] Last Admin: 09/01/17 18:11 Dose: 100 mg Enoxaparin Sodium (Lovenox) 30 mg SC DAILY [facility] Last Admin: 09/01/17 12:32 Dose: Not Given Insulin Aspart (Novolog) 2 unit SC ACTID [facility] Last Admin: 09/01/17 16:30 Dose: Not Given Insulin Human Regular (Novolin R) 0 unit SC ACHS [facility] PRN Reason: Protocol Last Admin: 09/01/17 21:39 Dose: Not Given Metoprolol Tartrate (Lopressor) 12.5 mg PO BID [facility] Last Admin: 09/01/17 18:13 Dose: 12.5 mg Multivitamins (Hexavitamin) 1 tab PO DAILY [facility] Last Admin: 09/01/17 12:33 Dose: Not Given Pantoprazole Sodium (Protonix Ec Tab) 40 mg PO DAILY [facility] Last Admin: 09/01/17 12:34 Dose: Not Given Rosuvastatin Calcium (Crestor) 2.5 mg PO HS [facility] Last Admin: 09/01/17 21:40 Dose: 2.5 mg Sennosides (Senokot Tab) 17.2 mg PO DAILY [facility] Last Admin: 09/01/17 12:34 Dose: Not Given - Labs Labs: 08/31/17 08:47 08/31/17 08:47 PT 12.9 SECONDS (9.7-12.2) H 08/28/17 07:08 INR 1.2 08/28/17 07:08 APTT 29 SECONDS (21-34) 08/28/17 07:08 - Constitutional Appears: Non-toxic, No Acute Distress - Head Exam Head Exam: ATRAUMATIC, NORMOCEPHALIC - Eye Exam Eye Exam: EOMI, Normal appearance - ENT Exam ENT Exam: Mucous Membranes Moist - Respiratory Exam Respiratory Exam: NORMAL BREATHING PATTERN. absent: Accessory Muscle Use, Prolonged Expiratory Phase, Respiratory Distress - Cardiovascular Exam Cardiovascular Exam: REGULAR RHYTHM Additional comments: surgical scar healing appropriately. - GI/Abdominal Exam GI & Abdominal Exam: Soft. absent: Distended, Firm, Guarding, Rigid, Tenderness - Extremities Exam Extremities Exam: absent: Calf Tenderness, Pedal Edema - Neurological Exam Neurological Exam: Alert, Awake, Oriented x3 - Psychiatric Exam Psychiatric exam: Normal Affect, Normal Mood - Skin Skin Exam: Dry, Warm Assessment and Plan - Assessment and Plan (Free Text) Plan: s/p CABG (coronary artery bypass graft) F/u with Dr. Grant, Cardiothoracic surgeon * Patient seen today at [facility] by Dr. Grant for post-op care; thomas removed ( 08/26/17) * Will continue to manage as per Dr. Grant's recommendation Dictating Transcribing Machine Servicer, Dr. Bautista----> Consulted * Management as per recommendation CABG at [facility] 07/25/17 Cardiac catheterization (07/15/17)- Dr. Bautista: Multi-vessel disease with 95% stenosis in mid segment of LAD with in-stent re-stenosis. Intimal irregularities in the first diagonal branch. 80% stenosis in proximal segment of circumflex artery. 90% stenosis of right coronary artery. Normal LV systolic function with estimated EF of 50%. Echocardiogram (07/12/17): Showed normal LV size, borderline concentric LV hypertrophy, moderately to severely impaired systolic function, septal hypokinesis, mild to moderate aortic regurgitation, and aortic root is moderately enlarged. At [facility] cabg x2, reop for bleeding,multiple blood transfusion, post op hypoxic, respiratory failure, extubated on 07/22, s/p left sided post op pneumothorax pig tail removed 08/05, noted on chest X-ray * Chest X-ray (08/08/17): Mild Right basilar atelactasis and small right sided pleural effusion * Repeat Chest X-ray (08/13/17): No change in right basilar atelectasis and left lower lobe consolidation with small pleural effusions. * Echocardiogram report (08/14/17): EF (25-30%), LV systolic is severely impaired, LV diastolic function is abnormal, LV is normal size. Right ventricle is normal size, with normal systolic function, RA is normal size. Mild Aortic root dilatation and mild triscuspid regurgitation Medications/Management: * ASA 81mg po daily * Plavix 75mg po daily * Crestor 2.5mg PO HS * Lopressor 12.5mg PO Hypoxia On ambulation [employer] Cook Consult, Dr. Garcia * Management as per recommendation * AB.50/34/72/27.4 * Chest CT: No CT evidence for acute pulmonary embolism. 7 mm subpleural nodule in the right lower lobe. Follow-up CT scan in 6-12 months interval is recommended to assess stability. Mild cardiomegaly, small pericardial effusion and trace bilateral pleural effusions. Continue to encourage incentive spirometer use and physical therapy * As per physical therapy, improving saturtation during gait and able to recovery desaturation with rest. Epistaxis ENT consulted - Dr. Mata- help appreciated * Rhino Rocket placed removed by Dr. Mata * As per Dr. Mata, epistaxis resolved, deviated septum and patient is stable and cleared from ENT standpoint History of coronary artery disease CABG at [facility] 07/25/17 * cardiac catheterization (07/14/17) which showed multi-vessel disease with 95% stenosis in mid segment of LAD with in-stent re-stenosis. Intimal irregularities in the first diagonal branch. 80% stenosis in proximal segment of circumflex artery. 90% stenosis of right coronary artery. Normal LV systolic function with estimated EF of 50%. Medications: * ASA 81mg po daily * Plavix 75mg po daily * Crestor 2.5mg PO HS * Lopressor 12.5mg PO BID Urinary tract infection UA (LE (3+) and Urine WBC (50) UC: + Psedomonas Aeruginosa Medications: Cipro 500mg PO BID (Started 08/22/17) Constipation Resolved Medications: * Docusate 100mg PO BID * Senna A and B 17.5mg PO daily Serum lipase elevation Trending down; Normalized Continue to monitor with labs Imaging: * CT abd/pelvis showed no evidence of pancreatitis as per [facility] discharge summary History of diabetes mellitus Accuchecks Novolog 2 units TIDAC ISS low dose History of hypertension Stable with medication Continue to monitor with vital signs Medication: * Lopressor 12.5mg PO BID Prophylactic measure GI: Protonix 40mg PO daily DVT: Lovenox 30mg SC daily Multivitamins 1 tab PO daily PT and OT - work on improving conditioning - patient lives on third floor - will f/u with PT to see progress of patient to see if he can be safely discharged home without home PT. Continue to encourage Incentive spirometer used Disposition: human resources communications manager working with brother to obtain home health care visit once patient is medically cleared. Patient's brother is attempting to get emergency medicare for the patient that will cover home health care. No new update at this time. Case discussed with Dr. Roseanne Mancuso Otto PGY1 <Marjorie Cronin - Last Filed: 09/03/17 11:49> Objective - Vital Signs/Intake and Output Vital Signs (last 24 hours): Temp Pulse Resp BP Pulse Ox 97.9 F 83 20 102/63 96 09/03/17 08:38 09/03/17 08:38 09/03/17 08:38 09/03/17 08:38 09/03/17 08:38 Intake and Output: 09/03/17 09/03/17 06:59 18:59 Intake Total 500 Balance 500 - Medications Medications: Current Medications Albuterol/Ipratropium (Duoneb 3 Mg/0.5 Mg (3 Ml) Ud) 3 ml INH RQ6 [facility] Last Admin: 08/28/17 01:51 Dose: 3 ml Aspirin (Aspirin Chewable) 81 mg PO DAILY [facility] Last Admin: 09/03/17 09:13 Dose: 81 mg Calcium Acetate (Phoslo) 667 mg PO BIDCC [facility] Last Admin: 09/03/17 09:13 Dose: 667 mg Ciprofloxacin (Cipro) 500 mg PO BID [facility] Last Admin: 09/03/17 09:13 Dose: 500 mg Clopidogrel Bisulfate (Plavix) 75 mg PO DAILY [facility] Last Admin: 09/03/17 09:13 Dose: 75 mg Docusate Sodium (Colace) 100 mg PO BID [facility] Last Admin: 09/03/17 09:13 Dose: 100 mg Enoxaparin Sodium (Lovenox) 30 mg SC DAILY [facility] Last Admin: 09/03/17 09:12 Dose: 30 mg Insulin Aspart (Novolog) 2 unit SC ACTID [facility] Last Admin: 09/03/17 11:36 Dose: Not Given Insulin Human Regular (Novolin R) 0 unit SC [facility] PRN Reason: Protocol Last Admin: 09/03/17 11:36 Dose: Not Given Metoprolol Tartrate (Lopressor) 12.5 mg PO BID [facility] Last Admin: 09/03/17 09:13 Dose: 12.5 mg Multivitamins (Hexavitamin) 1 tab PO DAILY [facility] Last Admin: 09/03/17 09:13 Dose: 1 tab Pantoprazole Sodium (Protonix Ec Tab) 40 mg PO DAILY [facility] Last Admin: 09/03/17 09:14 Dose: 40 mg Rosuvastatin Calcium (Crestor) 2.5 mg PO HS [facility] Last Admin: 09/02/17 22:02 Dose: 2.5 mg Sennosides (Senokot Tab) 17.2 mg PO DAILY [facility] Last Admin: 09/03/17 09:13 Dose: 17.2 mg - Labs Labs: 08/31/17 08:47 08/31/17 08:47 PT 12.9 SECONDS (9.7-12.2) H 08/28/17 07:08 INR 1.2 08/28/17 07:08 APTT 29 SECONDS (21-34) 08/28/17 07:08 Attending/Attestation - Attestation I have personally seen and examined this patient.: Yes I have fully participated in the care of the patient.: Yes I have reviewed all pertinent clinical information, including history, physical exam and plan: Yes Notes (Text): Not ready for discharge home Getting PT Hypoxic while climbing stairs He lives at 3rd floor/Has 60 steps to climb 09/03/17 11:48
[2017-09-02] MEDS: (Novolog) Insulin Aspart, Recombinant 100 u/ml 10 ml vial SC SCH ×3 (07:29→16:30)
[2017-09-02] MEDS: (Novolin R) Insulin Human Regular 100 units/ml vial SC SCH ×4 (07:29→22:03)
[2017-09-02] MEDS: Pantoprazole 40 mg EC Tab PO SCH (09:14)
[2017-09-02] MEDS: Enoxaparin 30 mg Syringe SC SCH (09:15)
[2017-09-02] MEDS: Multiple Vitamins Tab PO SCH (09:15)
[2017-09-02] MEDS: Rosuvastatin Calcium 2.5 mg Tab PO SCH (22:02)
--- NOTE | 2017-09-03 07:03 | CP.PCM.PN ---
<Bartolome Menjivar - Last Filed: 09/03/17 16:57> Subjective - Date & Time of Evaluation Date of Evaluation: 09/03/17 Time of Evaluation: 07:01 - Subjective Subjective: PGY1 Medicine Note for Dr. Cronin Patient seen and examined at bedside this morning. Patient is resting comfortably in his bed. He states that he is feeling well and getting stronger with each passing day. Patient is tolerating his diet. He has no complaints at this time. Objective - Vital Signs/Intake and Output Vital Signs (last 24 hours): Temp Pulse Resp BP Pulse Ox 97.9 F 76 20 105/67 96 09/02/17 23:38 09/02/17 23:38 09/02/17 23:38 09/02/17 23:38 09/02/17 23:38 Intake and Output: 09/03/17 09/03/17 06:59 18:59 Intake Total 500 Balance 500 - Medications Medications: Current Medications Albuterol/Ipratropium (Duoneb 3 Mg/0.5 Mg (3 Ml) Ud) 3 ml INH RQ6 [facility] Last Admin: 08/28/17 01:51 Dose: 3 ml Aspirin (Aspirin Chewable) 81 mg PO DAILY [facility] Last Admin: 09/02/17 09:14 Dose: 81 mg Calcium Acetate (Phoslo) 667 mg PO BIDCC [facility] Last Admin: 09/02/17 17:50 Dose: 667 mg Ciprofloxacin (Cipro) 500 mg PO BID [facility] Last Admin: 09/02/17 17:50 Dose: 500 mg Clopidogrel Bisulfate (Plavix) 75 mg PO DAILY [facility] Last Admin: 09/02/17 09:15 Dose: 75 mg Docusate Sodium (Colace) 100 mg PO BID [facility] Last Admin: 09/02/17 17:50 Dose: 100 mg Enoxaparin Sodium (Lovenox) 30 mg SC DAILY [facility] Last Admin: 09/02/17 09:15 Dose: 30 mg Insulin Aspart (Novolog) 2 unit SC ACTID [facility] Last Admin: 09/02/17 16:30 Dose: Not Given Insulin Human Regular (Novolin R) 0 unit SC ACHS [facility] PRN Reason: Protocol Last Admin: 09/02/17 22:03 Dose: Not Given Metoprolol Tartrate (Lopressor) 12.5 mg PO BID [facility] Last Admin: 09/02/17 17:50 Dose: 12.5 mg Multivitamins (Hexavitamin) 1 tab PO DAILY [facility] Last Admin: 09/02/17 09:15 Dose: 1 tab Pantoprazole Sodium (Protonix Ec Tab) 40 mg PO DAILY [facility] Last Admin: 09/02/17 09:14 Dose: 40 mg Rosuvastatin Calcium (Crestor) 2.5 mg PO HS [facility] Last Admin: 09/02/17 22:02 Dose: 2.5 mg Sennosides (Senokot Tab) 17.2 mg PO DAILY [facility] Last Admin: 09/02/17 09:14 Dose: 17.2 mg - Labs Labs: 08/31/17 08:47 08/31/17 08:47 PT 12.9 SECONDS (9.7-12.2) H 08/28/17 07:08 INR 1.2 08/28/17 07:08 APTT 29 SECONDS (21-34) 08/28/17 07:08 - Constitutional Appears: Non-toxic, No Acute Distress - Head Exam Head Exam: ATRAUMATIC, NORMOCEPHALIC - Eye Exam Eye Exam: EOMI, Normal appearance - ENT Exam ENT Exam: Mucous Membranes Moist - Respiratory Exam Respiratory Exam: NORMAL BREATHING PATTERN. absent: Accessory Muscle Use, Rales , Wheezes, Respiratory Distress - Cardiovascular Exam Cardiovascular Exam: REGULAR RHYTHM, +S1 - GI/Abdominal Exam GI & Abdominal Exam: Soft, Normal Bowel Sounds. absent: Distended, Firm, Guarding, Rigid, Tenderness - Extremities Exam Extremities Exam: absent: Calf Tenderness, Pedal Edema - Neurological Exam Neurological Exam: Alert, Awake, Oriented x3 - Psychiatric Exam Psychiatric exam: Normal Affect, Normal Mood - Skin Skin Exam: Dry, Normal Color, Warm Assessment and Plan - Assessment and Plan (Free Text) Plan: s/p CABG (coronary artery bypass graft) F/u with Dr. Grant, Cardiothoracic surgeon * Patient seen today at [facility] by Dr. Grant for post-op care; thomas removed ( 08/26/17) * Will continue to manage as per Dr. Grant's recommendation Uke Operator, Dr. Bautista----> Consulted * Management as per recommendation CABG at [facility] 07/25/17 Cardiac catheterization (07/15/17)- Dr. Bautista: Multi-vessel disease with 95% stenosis in mid segment of LAD with in-stent re-stenosis. Intimal irregularities in the first diagonal branch. 80% stenosis in proximal segment of circumflex artery. 90% stenosis of right coronary artery. Normal LV systolic function with estimated EF of 50%. Echocardiogram (07/12/17): Showed normal LV size, borderline concentric LV hypertrophy, moderately to severely impaired systolic function, septal hypokinesis, mild to moderate aortic regurgitation, and aortic root is moderately enlarged. At [facility] cabg x2, reop for bleeding,multiple blood transfusion, post op hypoxic, respiratory failure, extubated on 07/22, s/p left sided post op pneumothorax pig tail removed 08/05, noted on chest X-ray * Chest X-ray (08/08/17): Mild Right basilar atelactasis and small right sided pleural effusion * Repeat Chest X-ray (08/13/17): No change in right basilar atelectasis and left lower lobe consolidation with small pleural effusions. * Echocardiogram report (08/14/17): EF (25-30%), LV systolic is severely impaired, LV diastolic function is abnormal, LV is normal size. Right ventricle is normal size, with normal systolic function, RA is normal size. Mild Aortic root dilatation and mild triscuspid regurgitation Medications/Management: * ASA 81mg po daily * Plavix 75mg po daily * Crestor 2.5mg PO HS * Lopressor 12.5mg PO Hypoxia On ambulation Equipment Installer Consult, Dr. Garcia * Management as per recommendation * AB.50/34/72/27.4 * Chest CT: No CT evidence for acute pulmonary embolism. 7 mm subpleural nodule in the right lower lobe. Follow-up CT scan in 6-12 months interval is recommended to assess stability. Mild cardiomegaly, small pericardial effusion and trace bilateral pleural effusions. Continue to encourage incentive spirometer use and physical therapy * As per physical therapy, improving saturtation during gait and able to recovery desaturation with rest. Epistaxis ENT consulted - Dr. Mata- help appreciated * Rhino Rocket placed removed by Dr. Mata * As per Dr. Mata, epistaxis resolved, deviated septum and patient is stable and cleared from ENT standpoint History of coronary artery disease CABG at [facility] 07/25/17 * cardiac catheterization (07/14/17) which showed multi-vessel disease with 95% stenosis in mid segment of LAD with in-stent re-stenosis. Intimal irregularities in the first diagonal branch. 80% stenosis in proximal segment of circumflex artery. 90% stenosis of right coronary artery. Normal LV systolic function with estimated EF of 50%. Medications: * ASA 81mg po daily * Plavix 75mg po daily * Crestor 2.5mg PO HS * Lopressor 12.5mg PO BID Urinary tract infection UA (LE (3+) and Urine WBC (50) UC: + Psedomonas Aeruginosa Medications: Cipro 500mg PO BID (Started 08/22/17) Constipation Resolved Medications: * Docusate 100mg PO BID * Senna A and B 17.5mg PO daily Serum lipase elevation Trending down; Normalized Continue to monitor with labs Imaging: * CT abd/pelvis showed no evidence of pancreatitis as per [facility] discharge summary History of diabetes mellitus Accuchecks Novolog 2 units TIDAC ISS low dose History of hypertension Stable with medication Continue to monitor with vital signs Medication: * Lopressor 12.5mg PO BID Prophylactic measure GI: Protonix 40mg PO daily DVT: Lovenox 30mg SC daily Multivitamins 1 tab PO daily PT and OT - work on improving conditioning - patient lives on third floor - will f/u with PT to see progress of patient to see if he can be safely discharged home without home PT. Continue to encourage Incentive spirometer used Disposition: scanning manager working with brother to obtain home health care visit once patient is medically cleared. Patient's brother is attempting to get emergency medicare for the patient that will cover home health care. No new update at this time. Case discussed with Dr. Roseanne Mancuso Otto PGY1 <Marjorie Cronin - Last Filed: 09/06/17 17:44> Objective - Vital Signs/Intake and Output Vital Signs (last 24 hours): Temp Pulse Resp BP Pulse Ox 97.8 F 73 20 146/91 H 97 09/06/17 15:08 09/06/17 15:08 09/06/17 15:08 09/06/17 15:08 09/06/17 15:08 Intake and Output: 09/06/17 09/06/17 06:59 18:59 Intake Total 0 300 Balance 0 300 - Medications Medications: Current Medications Albuterol/Ipratropium (Duoneb 3 Mg/0.5 Mg (3 Ml) Ud) 3 ml INH RQ6 [facility] Last Admin: 08/28/17 01:51 Dose: 3 ml Aspirin (Aspirin Chewable) 81 mg PO DAILY [facility] Last Admin: 09/06/17 09:20 Dose: 81 mg Calcium Acetate (Phoslo) 667 mg PO BIDCC [facility] Last Admin: 09/06/17 08:50 Dose: 667 mg Clopidogrel Bisulfate (Plavix) 75 mg PO DAILY [facility] Last Admin: 09/06/17 09:21 Dose: 75 mg Enoxaparin Sodium (Lovenox) 30 mg SC DAILY [facility] Last Admin: 09/06/17 10:19 Dose: Not Given Insulin Aspart (Novolog) 2 unit SC ACTID [facility] Last Admin: 09/06/17 11:34 Dose: Not Given Insulin Human Regular (Novolin R) 0 unit SC ACHS [facility] PRN Reason: Protocol Last Admin: 09/06/17 11:33 Dose: Not Given Metoprolol Tartrate (Lopressor) 12.5 mg PO BID [facility] Last Admin: 09/06/17 09:21 Dose: 12.5 mg Sennosides (Senokot Tab) 17.2 mg PO DAILY [facility] Last Admin: 09/06/17 09:20 Dose: 17.2 mg Sodium Chloride ([place] Baby Saline 30 Ml) 0 ml MACHELLE TID [facility] Last Admin: 09/06/17 13:16 Dose: 1 spr - Labs Labs: 08/31/17 08:47 08/31/17 08:47 PT 12.9 SECONDS (9.7-12.2) H 08/28/17 07:08 INR 1.2 08/28/17 07:08 APTT 29 SECONDS (21-34) 08/28/17 07:08 Attending/Attestation - Attestation I have personally seen and examined this patient.: Yes I have fully participated in the care of the patient.: Yes I have reviewed all pertinent clinical information, including history, physical exam and plan: Yes Notes (Text): Patient was seen and examined,no complain,sitting comfortabe spoke to PT. Patient becomes hypoxic going up stairs I agree with the documentation of the residents assessment and the plan
[2017-09-03] MEDS: (Novolog) Insulin Aspart, Recombinant 100 u/ml 10 ml vial SC SCH ×3 (08:21→16:58)
[2017-09-03] MEDS: (Novolin R) Insulin Human Regular 100 units/ml vial SC SCH ×4 (08:21→21:28)
[2017-09-03] MEDS: Enoxaparin 30 mg Syringe SC SCH (09:12)
[2017-09-03] MEDS: Multiple Vitamins Tab PO SCH (09:13)
[2017-09-03] MEDS: Pantoprazole 40 mg EC Tab PO SCH (09:14)
[2017-09-03] MEDS: Rosuvastatin Calcium 2.5 mg Tab PO SCH (21:29)
--- NOTE | 2017-09-04 06:54 | CP.PCM.PN ---
<Bartolome Menjivar - Last Filed: 09/04/17 10:40> Subjective - Date & Time of Evaluation Date of Evaluation: 09/04/17 Time of Evaluation: 06:52 - Subjective Subjective: PGY1 Medicine Note for Dr. Cronin Patient seen and examined at bedside this morning. Patient states he is feeling well. He has been able to get up and walk with a walker. He states his strength is improving and he was able to walk further yesterday than previous days. Objective - Vital Signs/Intake and Output Vital Signs (last 24 hours): Temp Pulse Resp BP Pulse Ox 97.9 F 75 20 117/69 95 09/03/17 23:23 09/03/17 23:23 09/03/17 23:23 09/03/17 23:23 09/03/17 23:23 Intake and Output: 09/03/17 09/04/17 18:59 06:59 Intake Total 400 300 Output Total 400 Balance 400 -100 - Medications Medications: Current Medications Albuterol/Ipratropium (Duoneb 3 Mg/0.5 Mg (3 Ml) Ud) 3 ml INH RQ6 [facility] Last Admin: 08/28/17 01:51 Dose: 3 ml Aspirin (Aspirin Chewable) 81 mg PO DAILY [facility] Last Admin: 09/03/17 09:13 Dose: 81 mg [facility]) [facility] Last Admin: 09/03/17 16:57 Dose: 667 mg Ciprofloxacin (Cipro) 500 mg PO BID [facility] Last Admin: 09/03/17 17:01 Dose: 500 mg Clopidogrel Bisulfate (Plavix) 75 mg PO DAILY [facility] Last Admin: 09/03/17 09:13 Dose: 75 mg Docusate Sodium (Colace) 100 mg PO BID [facility] Last Admin: 09/03/17 17:00 Dose: 100 mg Enoxaparin Sodium (Lovenox) 30 mg SC DAILY [facility] Last Admin: 09/03/17 09:12 Dose: 30 mg Insulin Aspart (Novolog) 2 unit SC ACTID [facility] Last Admin: 09/03/17 16:58 Dose: Not Given Insulin Human Regular (Novolin R) 0 unit SC ACHS [facility] PRN Reason: Protocol Last Admin: 09/03/17 21:28 Dose: Not Given Metoprolol Tartrate (Lopressor) 12.5 mg PO BID [facility] Last Admin: 09/03/17 17:01 Dose: 12.5 mg Multivitamins (Hexavitamin) 1 tab PO DAILY [facility] Last Admin: 09/03/17 09:13 Dose: 1 tab Pantoprazole Sodium (Protonix Ec Tab) 40 mg PO DAILY [facility] Last Admin: 09/03/17 09:14 Dose: 40 mg Rosuvastatin Calcium (Crestor) 2.5 mg PO HS [facility] Last Admin: 09/03/17 21:29 Dose: 2.5 mg Sennosides (Senokot Tab) 17.2 mg PO DAILY [facility] Last Admin: 09/03/17 09:13 Dose: 17.2 mg - Labs Labs: 08/31/17 08:47 08/31/17 08:47 PT 12.9 SECONDS (9.7-12.2) H 08/28/17 07:08 INR 1.2 08/28/17 07:08 APTT 29 SECONDS (21-34) 08/28/17 07:08 - Constitutional Appears: Non-toxic, No Acute Distress - Head Exam Head Exam: ATRAUMATIC, NORMOCEPHALIC - Eye Exam Eye Exam: EOMI, Normal appearance - ENT Exam ENT Exam: Mucous Membranes Moist - Respiratory Exam Respiratory Exam: Clear to Ausculation Bilateral, NORMAL BREATHING PATTERN. absent: Accessory Muscle Use, Rales, Rhonchi, Wheezes, Respiratory Distress - Cardiovascular Exam Cardiovascular Exam: REGULAR RHYTHM, +S1 - GI/Abdominal Exam GI & Abdominal Exam: Soft, Normal Bowel Sounds. absent: Firm, Guarding, Rigid, Tenderness - Extremities Exam Extremities Exam: Normal Inspection. absent: Calf Tenderness, Pedal Edema - Neurological Exam Neurological Exam: Alert, Awake, Oriented x3 - Psychiatric Exam Psychiatric exam: Normal Affect, Normal Mood - Skin Skin Exam: Dry, Warm Assessment and Plan - Assessment and Plan (Free Text) Plan: s/p CABG (coronary artery bypass graft) F/u with Dr. Grant, Cardiothoracic surgeon * Patient seen today at [facility] by [place]. Grant for post-op care; thomas removed ( 08/26/17) * Will continue to manage as per Dr. Grant's recommendation Segment Assembler, Dr. Bautista----> Consulted * Management as per recommendation CABG at [facility] 07/25/17 Cardiac catheterization (07/15/17)- Dr. Bautista: Multi-vessel disease with 95% stenosis in mid segment of LAD with in-stent re-stenosis. Intimal irregularities in the first diagonal branch. 80% stenosis in proximal segment of circumflex artery. 90% stenosis of right coronary artery. Normal LV systolic function with estimated EF of 50%. Echocardiogram (07/12/17): Showed normal LV size, borderline concentric LV hypertrophy, moderately to severely impaired systolic function, septal hypokinesis, mild to moderate aortic regurgitation, and aortic root is moderately enlarged. At [facility] cabg x2, reop for bleeding,multiple blood transfusion, post op hypoxic, respiratory failure, extubated on 07/22, s/p left sided post op pneumothorax pig tail removed 08/05, noted on chest X-ray * Chest X-ray (08/08/17): Mild Right basilar atelactasis and small right sided pleural effusion * Repeat Chest X-ray (08/13/17): No change in right basilar atelectasis and left lower lobe consolidation with small pleural effusions. * Echocardiogram report (08/14/17): EF (25-30%), LV systolic is severely impaired, LV diastolic function is abnormal, LV is normal size. Right ventricle is normal size, with normal systolic function, RA is normal size. Mild Aortic root dilatation and mild triscuspid regurgitation Medications/Management: * ASA 81mg po daily * Plavix 75mg po daily * Crestor 2.5mg PO HS * Lopressor 12.5mg PO Hypoxia On ambulation Veterinary Milk Specialist Consult, Dr. Garcia * Management as per recommendation * AB.50/34/72/27.4 * Chest CT: No CT evidence for acute pulmonary embolism. 7 mm subpleural nodule in the right lower lobe. Follow-up CT scan in 6-12 months interval is recommended to assess stability. Mild cardiomegaly, small pericardial effusion and trace bilateral pleural effusions. Continue to encourage incentive spirometer use and physical therapy * As per physical therapy, improving saturtation during gait and able to recovery desaturation with rest. Epistaxis ENT consulted - Dr. Mata- help appreciated * Rhino Rocket placed removed by Dr. Mata * As per Dr. Mata, epistaxis resolved, deviated septum and patient is stable and cleared from ENT standpoint History of coronary artery disease CABG at [facility] 07/25/17 * cardiac catheterization (07/14/17) which showed multi-vessel disease with 95% stenosis in mid segment of LAD with in-stent re-stenosis. Intimal irregularities in the first diagonal branch. 80% stenosis in proximal segment of circumflex artery. 90% stenosis of right coronary artery. Normal LV systolic function with estimated EF of 50%. Medications: * ASA 81mg po daily * Plavix 75mg po daily * Crestor 2.5mg PO HS * Lopressor 12.5mg PO BID Urinary tract infection UA (LE (3+) and Urine WBC (50) UC: + Psedomonas Aeruginosa Medications: Cipro 500mg PO BID (Started 08/22/17) Constipation Resolved Medications: * Docusate 100mg PO BID * Senna A and B 17.5mg PO daily Serum lipase elevation Trending down; Normalized Continue to monitor with labs Imaging: * CT abd/pelvis showed no evidence of pancreatitis as per [facility] discharge summary History of diabetes mellitus Accuchecks Novolog 2 units TIDAC ISS low dose History of hypertension Stable with medication Continue to monitor with vital signs Medication: * Lopressor 12.5mg PO BID Prophylactic measure GI: Protonix 40mg PO daily DVT: Lovenox 30mg SC daily Multivitamins 1 tab PO daily PT and OT - work on improving conditioning - patient lives on third floor - will f/u with PT to see progress of patient to see if he can be safely discharged home without home PT. Continue to encourage Incentive spirometer used Disposition: manager pediatric working with brother to obtain home health care visit once patient is medically cleared. Patient's brother is attempting to get emergency medicare for the patient that will cover home health care. No new update at this time. Case discussed with Dr. Roseanne Mancuso Otto PGY1 <Marjorie Cronin - Last Filed: 09/06/17 17:46> Objective - Vital Signs/Intake and Output Vital Signs (last 24 hours): Temp Pulse Resp BP Pulse Ox 97.8 F 73 20 146/91 H 97 09/06/17 15:08 09/06/17 15:08 09/06/17 15:08 09/06/17 15:08 09/06/17 15:08 Intake and Output: 09/06/17 09/06/17 06:59 18:59 Intake Total 0 300 Balance 0 300 - Medications Medications: Current Medications Albuterol/Ipratropium (Duoneb 3 Mg/0.5 Mg (3 Ml) Ud) 3 ml INH RQ6 [facility] Last Admin: 08/28/17 01:51 Dose: 3 ml Aspirin (Aspirin Chewable) 81 mg PO DAILY [facility] Last Admin: 09/06/17 09:20 Dose: 81 mg Calcium Acetate (Phoslo) 667 mg PO BIDCC [facility] Last Admin: 09/06/17 08:50 Dose: 667 mg Clopidogrel Bisulfate (Plavix) 75 mg PO DAILY [facility] Last Admin: 09/06/17 09:21 Dose: 75 mg Enoxaparin Sodium (Lovenox) 30 mg SC DAILY [facility] Last Admin: 09/06/17 10:19 Dose: Not Given Insulin Aspart (Novolog) 2 unit SC ACTID [facility] Last Admin: 09/06/17 11:34 Dose: Not Given Insulin Human Regular (Novolin R) 0 unit SC ACHS [facility] PRN Reason: Protocol Last Admin: 09/06/17 11:33 Dose: Not Given Metoprolol Tartrate (Lopressor) 12.5 mg PO BID [facility] Last Admin: 09/06/17 09:21 Dose: 12.5 mg Sennosides (Senokot Tab) 17.2 mg PO DAILY [facility] Last Admin: 09/06/17 09:20 Dose: 17.2 mg Sodium Chloride ([place] Baby Saline 30 Ml) 0 ml MACHELLE TID [facility] Last Admin: 09/06/17 13:16 Dose: 1 spr - Labs Labs: 08/31/17 08:47 08/31/17 08:47 PT 12.9 SECONDS (9.7-12.2) H 08/28/17 07:08 INR 1.2 08/28/17 07:08 APTT 29 SECONDS (21-34) 08/28/17 07:08 Attending/Attestation - Attestation I have personally seen and examined this patient.: Yes I have fully participated in the care of the patient.: Yes I have reviewed all pertinent clinical information, including history, physical exam and plan: Yes Notes (Text): patient was seen and examined No discomfort,not in distress and denies sob. I agree with the documentation of the assessment and the plan
[2017-09-04] MEDS: (Novolin R) Insulin Human Regular 100 units/ml vial SC SCH ×4 (08:02→21:39)
[2017-09-04] MEDS: (Novolog) Insulin Aspart, Recombinant 100 u/ml 10 ml vial SC SCH ×3 (08:02→16:30)
[2017-09-04] MEDS: Multiple Vitamins Tab PO SCH (09:27)
[2017-09-04] MEDS: Pantoprazole 40 mg EC Tab PO SCH (09:27)
[2017-09-04] MEDS: Enoxaparin 30 mg Syringe SC SCH (09:28)
[2017-09-04] MEDS: Sodium Chloride Nasal 0.65% Soln (30ml) NAS SCH (18:00)
[2017-09-04] MEDS: Rosuvastatin Calcium 2.5 mg Tab PO SCH (21:39)
--- NOTE | 2017-09-05 07:24 | CP.PCM.PN ---
<Bartolome Menjivar - Last Filed: 09/05/17 13:02> Subjective - Date & Time of Evaluation Date of Evaluation: 09/05/17 Time of Evaluation: 07:09 - Subjective Subjective: PGY1 Medicine Note for Dr. Cronin Patient seen and examined at bedside. Patient states that he got another nose bleed while he was working with PT. He has his nasal spray at bedside and states that he will start using it more to try and prevent another reoccurrence. Objective - Vital Signs/Intake and Output Vital Signs (last 24 hours): Temp Pulse Resp BP Pulse Ox 97.7 F 78 20 113/66 96 09/04/17 23:19 09/04/17 23:19 09/04/17 23:19 09/04/17 23:19 09/04/17 23:19 - Medications Medications: Current Medications Albuterol/Ipratropium (Duoneb 3 Mg/0.5 Mg (3 Ml) Ud) 3 ml INH RQ6 [facility] Last Admin: 08/28/17 01:51 Dose: 3 ml Aspirin (Aspirin Chewable) 81 mg PO DAILY [facility] Last Admin: 09/04/17 09:28 Dose: 81 mg Calcium Acetate (Phoslo) 667 mg PO BIDCC [facility] Last Admin: 09/04/17 17:57 Dose: 667 mg Ciprofloxacin (Cipro) 500 mg PO BID [facility] Last Admin: 09/04/17 17:54 Dose: 500 mg Clopidogrel Bisulfate (Plavix) 75 mg PO DAILY [facility] Last Admin: 09/04/17 09:28 Dose: 75 mg Docusate Sodium (Colace) 100 mg PO BID [facility] Last Admin: 09/04/17 17:54 Dose: 100 mg Enoxaparin Sodium (Lovenox) 30 mg SC DAILY [facility] Last Admin: 09/04/17 09:28 Dose: 30 mg Insulin Aspart (Novolog) 2 unit SC ACTID [facility] Last Admin: 09/04/17 16:30 Dose: Not Given Insulin Human Regular (Novolin R) 0 unit SC ACHS [facility] PRN Reason: Protocol Last Admin: 09/04/17 21:39 Dose: Not Given Metoprolol Tartrate (Lopressor) 12.5 mg PO BID [facility] Last Admin: 09/04/17 17:54 Dose: 12.5 mg Multivitamins (Hexavitamin) 1 tab PO DAILY [facility] Last Admin: 09/04/17 09:27 Dose: 1 tab Pantoprazole Sodium (Protonix Ec Tab) 40 mg PO DAILY [facility] Last Admin: 09/04/17 09:27 Dose: 40 mg Rosuvastatin Calcium (Crestor) 2.5 mg PO HS [facility] Last Admin: 09/04/17 21:39 Dose: 2.5 mg Sennosides (Senokot Tab) 17.2 mg PO DAILY [facility] Last Admin: 09/04/17 09:28 Dose: 17.2 mg Sodium Chloride ([place] Baby Saline 30 Ml) 0 ml MACHELLE TID BRIAN Last Admin: 09/04/17 18:00 Dose: 30 ml - Labs Labs: 08/31/17 08:47 08/31/17 08:47 PT 12.9 SECONDS (9.7-12.2) H 08/28/17 07:08 INR 1.2 08/28/17 07:08 APTT 29 SECONDS (21-34) 08/28/17 07:08 - Constitutional Appears: Non-toxic, No Acute Distress - Head Exam Head Exam: ATRAUMATIC, NORMOCEPHALIC - Eye Exam Eye Exam: EOMI, Normal appearance - ENT Exam ENT Exam: Mucous Membranes Moist Additional comments: minimal dried blood - Respiratory Exam Respiratory Exam: Clear to Ausculation Bilateral, NORMAL BREATHING PATTERN. absent: Accessory Muscle Use, Rales, Wheezes, Respiratory Distress - Cardiovascular Exam Cardiovascular Exam: REGULAR RHYTHM - GI/Abdominal Exam GI & Abdominal Exam: Soft, Normal Bowel Sounds. absent: Distended, Firm, Guarding, Rigid, Tenderness - Extremities Exam Extremities Exam: absent: Calf Tenderness, Pedal Edema - Neurological Exam Neurological Exam: Alert, Awake, Oriented x3 - Psychiatric Exam Psychiatric exam: Normal Affect, Normal Mood - Skin Skin Exam: Dry, Warm Assessment and Plan - Assessment and Plan (Free Text) Plan: s/p CABG (coronary artery bypass graft) F/u with Dr. Grant, Cardiothoracic surgeon * Patient seen today at [facility] [place] by Dr. Grant for post-op care; thomas removed ( 08/26/17) * Will continue to manage as per Dr. Grant's recommendation Senior Information Developer, Dr. Bautista----> Consulted * Management as per recommendation CABG at [facility] [place] 07/25/17 Cardiac catheterization (07/15/17)- Dr. Bautista: Multi-vessel disease with 95% stenosis in mid segment of LAD with in-stent re-stenosis. Intimal irregularities in the first diagonal branch. 80% stenosis in proximal segment of circumflex artery. 90% stenosis of right coronary artery. Normal LV systolic function with estimated EF of 50%. Echocardiogram (07/12/17): Showed normal LV size, borderline concentric LV hypertrophy, moderately to severely impaired systolic function, septal hypokinesis, mild to moderate aortic regurgitation, and aortic root is moderately enlarged. At [facility] [place] cabg x2, reop for bleeding,multiple blood transfusion, post op hypoxic, respiratory failure, extubated on 07/22, s/p left sided post op pneumothorax pig tail removed 08/05, noted on chest X-ray * Chest X-ray (08/08/17): Mild Right basilar atelactasis and small right sided pleural effusion * Repeat Chest X-ray (08/13/17): No change in right basilar atelectasis and left lower lobe consolidation with small pleural effusions. * Echocardiogram report (08/14/17): EF (25-30%), LV systolic is severely impaired, LV diastolic function is abnormal, LV is normal size. Right ventricle is normal size, with normal systolic function, RA is normal size. Mild Aortic root dilatation and mild triscuspid regurgitation Medications/Management: * ASA 81mg po daily * Plavix 75mg po daily * Crestor 2.5mg PO HS * Lopressor 12.5mg PO Hypoxia On ambulation Senior Sql Server Database Developer Consult, Dr. Garcia * Management as per recommendation * AB.50/34/72/27.4 * Chest CT: No CT evidence for acute pulmonary embolism. 7 mm subpleural nodule in the right lower lobe. Follow-up CT scan in 6-12 months interval is recommended to assess stability. Mild cardiomegaly, small pericardial effusion and trace bilateral pleural effusions. Continue to encourage incentive spirometer use and physical therapy * As per physical therapy, improving saturtation during gait and able to recovery desaturation with rest. Epistaxis ENT consulted - Dr. Mata- help appreciated * Rhino Rocket placed removed by Dr. Mata * As per Dr. Mata, epistaxis resolved, deviated septum and patient is stable and cleared from ENT standpoint History of coronary artery disease CABG at [facility] [place] 07/25/17 * cardiac catheterization (07/14/17) which showed multi-vessel disease with 95% stenosis in mid segment of LAD with in-stent re-stenosis. Intimal irregularities in the first diagonal branch. 80% stenosis in proximal segment of circumflex artery. 90% stenosis of right coronary artery. Normal LV systolic function with estimated EF of 50%. Medications: * ASA 81mg po daily * Plavix 75mg po daily * Crestor 2.5mg PO HS * Lopressor 12.5mg PO BID Urinary tract infection UA (LE (3+) and Urine WBC (50) UC: + Psedomonas Aeruginosa Medications: Cipro 500mg PO BID (Started 08/22/17) Constipation Resolved Medications: * Docusate 100mg PO BID * Senna A and B 17.5mg PO daily Serum lipase elevation Trending down; Normalized Continue to monitor with labs Imaging: * CT abd/pelvis showed no evidence of pancreatitis as per [facility] discharge summary History of diabetes mellitus Accuchecks Novolog 2 units TIDAC ISS low dose History of hypertension Stable with medication Continue to monitor with vital signs Medication: * Lopressor 12.5mg PO BID Prophylactic measure GI: Protonix 40mg PO daily DVT: Lovenox 30mg SC daily Multivitamins 1 tab PO daily PT and OT - work on improving conditioning - patient lives on third floor - will f/u with PT to see progress of patient to see if he can be safely discharged home without home PT. Continue to encourage Incentive spirometer used Disposition: manager configuration working with brother to obtain home health care visit once patient is medically cleared. Patient's brother is attempting to get emergency medicare for the patient that will cover home health care. No new update at this time. Case discussed with Dr. Roseanne Mancuso Otto PGY1 <Marjorie Cronin - Last Filed: 09/06/17 17:48> Objective - Vital Signs/Intake and Output Vital Signs (last 24 hours): Temp Pulse Resp BP Pulse Ox 97.8 F 73 20 146/91 H 97 09/06/17 15:08 09/06/17 15:08 09/06/17 15:08 09/06/17 15:08 09/06/17 15:08 Intake and Output: 09/06/17 09/06/17 06:59 18:59 Intake Total 0 300 Balance 0 300 - Medications Medications: Current Medications Albuterol/Ipratropium (Duoneb 3 Mg/0.5 Mg (3 Ml) Ud) 3 ml INH RQ6 [facility] Last Admin: 08/28/17 01:51 Dose: 3 ml Aspirin (Aspirin Chewable) 81 mg PO DAILY [facility] Last Admin: 09/06/17 09:20 Dose: 81 mg Calcium Acetate (Phoslo) 667 mg PO BIDCC [facility] Last Admin: 09/06/17 08:50 Dose: 667 mg Clopidogrel Bisulfate (Plavix) 75 mg PO DAILY [facility] Last Admin: 09/06/17 09:21 Dose: 75 mg Enoxaparin Sodium (Lovenox) 30 mg SC DAILY [facility] Last Admin: 09/06/17 10:19 Dose: Not Given Insulin Aspart (Novolog) 2 unit SC ACTID [facility] Last Admin: 09/06/17 11:34 Dose: Not Given Insulin Human Regular (Novolin R) 0 unit SC ACHS [facility] PRN Reason: Protocol Last Admin: 09/06/17 11:33 Dose: Not Given Metoprolol Tartrate (Lopressor) 12.5 mg PO BID [facility] Last Admin: 09/06/17 09:21 Dose: 12.5 mg Sennosides (Senokot Tab) 17.2 mg PO DAILY [facility] Last Admin: 09/06/17 09:20 Dose: 17.2 mg Sodium Chloride ([place] Baby Saline 30 Ml) 0 ml MACHELLE TID [facility] Last Admin: 09/06/17 13:16 Dose: 1 spr - Labs Labs: 08/31/17 08:47 08/31/17 08:47 PT 12.9 SECONDS (9.7-12.2) H 08/28/17 07:08 INR 1.2 08/28/17 07:08 APTT 29 SECONDS (21-34) 08/28/17 07:08 Attending/Attestation - Attestation I have personally seen and examined this patient.: Yes I have fully participated in the care of the patient.: Yes I have reviewed all pertinent clinical information, including history, physical exam and plan: Yes Notes (Text): Patient was seen and the examined I agree with the resident's documentation of the assessment and the plan
[2017-09-05] MEDS: (Novolog) Insulin Aspart, Recombinant 100 u/ml 10 ml vial SC SCH ×3 (09:19→17:23)
[2017-09-05] MEDS: (Novolin R) Insulin Human Regular 100 units/ml vial SC SCH ×4 (09:19→21:57)
[2017-09-05] MEDS: Pantoprazole 40 mg EC Tab PO SCH (10:04)
[2017-09-05] MEDS: Multiple Vitamins Tab PO SCH (10:05)
[2017-09-05] MEDS: Sodium Chloride Nasal 0.65% Soln (30ml) NAS SCH ×3 (10:05→17:35)
[2017-09-05] MEDS: Enoxaparin 30 mg Syringe SC SCH (10:06)
--- NOTE | 2017-09-06 03:08 | CP.PCM.PN ---
Subjective - Date & Time of Evaluation Date of Evaluation: 09/06/17 Time of Evaluation: 06:35 - Subjective Subjective: Medicine progress note for Dr. Cronin Patient seen and examined at bedside. Patient has no acute complaints at this time. Patient states that he is slowly building up his strength. Objective - Vital Signs/Intake and Output Vital Signs (last 24 hours): Temp Pulse Resp BP Pulse Ox 97.9 F 79 20 112/71 95 09/06/17 00:00 09/06/17 00:00 09/06/17 00:00 09/06/17 00:00 09/06/17 00:00 - Medications Medications: Current Medications Albuterol/Ipratropium (Duoneb 3 Mg/0.5 Mg (3 Ml) Ud) 3 ml INH RQ6 [facility] Last Admin: 08/28/17 01:51 Dose: 3 ml Aspirin (Aspirin Chewable) 81 mg PO DAILY [facility] Last Admin: 09/05/17 10:05 Dose: 81 mg Calcium Acetate (Phoslo) 667 mg PO BIDCC [facility] Last Admin: 09/05/17 17:32 Dose: 667 mg Clopidogrel Bisulfate (Plavix) 75 mg PO DAILY [facility] Last Admin: 09/05/17 10:04 Dose: 75 mg Enoxaparin Sodium (Lovenox) 30 mg SC DAILY [facility] Last Admin: 09/05/17 10:06 Dose: Not Given Insulin Aspart (Novolog) 2 unit SC ACTID [facility] Last Admin: 09/05/17 17:23 Dose: Not Given Insulin Human Regular (Novolin R) 0 unit SC ACHS [facility] PRN Reason: Protocol Last Admin: 09/05/17 21:57 Dose: Not Given Metoprolol Tartrate (Lopressor) 12.5 mg PO BID [facility] Last Admin: 09/05/17 17:32 Dose: 12.5 mg Sennosides (Senokot Tab) 17.2 mg PO DAILY [facility] Last Admin: 09/05/17 10:04 Dose: 17.2 mg Sodium Chloride ([place] Baby Saline 30 Ml) 0 ml MACHELLE TID [facility] Last Admin: 09/05/17 17:35 Dose: 1 spr - Labs Labs: 08/31/17 08:47 08/31/17 08:47 PT 12.9 SECONDS (9.7-12.2) H 08/28/17 07:08 INR 1.2 08/28/17 07:08 APTT 29 SECONDS (21-34) 08/28/17 07:08 - Constitutional Appears: No Acute Distress - Head Exam Head Exam: ATRAUMATIC, NORMOCEPHALIC - Eye Exam Eye Exam: EOMI, Normal appearance - ENT Exam ENT Exam: Mucous Membranes Moist - Respiratory Exam Respiratory Exam: Clear to Ausculation Bilateral. absent: Rales, Rhonchi, Wheezes - Cardiovascular Exam Cardiovascular Exam: REGULAR RHYTHM, +S1, +S2 - GI/Abdominal Exam GI & Abdominal Exam: Soft, Normal Bowel Sounds. absent: Distended, Tenderness - Extremities Exam Extremities Exam: absent: Pedal Edema, Tenderness - Neurological Exam Neurological Exam: Alert, Awake, Oriented x3 - Psychiatric Exam Psychiatric exam: Normal Affect, Normal Mood - Skin Skin Exam: Dry, Warm Assessment and Plan - Assessment and Plan (Free Text) Plan: s/p CABG (coronary artery bypass graft) F/u with Dr. Grant, Cardiothoracic surgeon * [place] [facility] [place] for post-op care; thomas removed ( 08/26/17) * Will continue to manage as per Dr. Grant's recommendation Instructor Bridge, Dr. Bautista----> Consulted * Management as per recommendation [place] [facility] [place] Cardiac catheterization (07/15/17)- Dr. Bautista: Multi-vessel disease with 95% stenosis in mid segment of LAD with in-stent re-stenosis. Intimal irregularities in the first diagonal branch. 80% stenosis in proximal segment of circumflex artery. 90% stenosis of right coronary artery. Normal LV systolic function with estimated EF of 50%. Echocardiogram (07/12/17): Showed normal LV size, borderline concentric LV hypertrophy, moderately to severely impaired systolic function, septal hypokinesis, mild to moderate aortic regurgitation, and aortic root is moderately enlarged. [place] [facility] [place], reop for bleeding,multiple blood transfusion, post op hypoxic, respiratory failure, extubated on 07/22, s/p left sided post op pneumothorax pig tail removed 08/05, noted on chest X-ray * Chest X-ray (08/08/17): Mild Right basilar atelactasis and small right sided pleural effusion * Repeat Chest X-ray (08/13/17): No change in right basilar atelectasis and left lower lobe consolidation with small pleural effusions. * Echocardiogram report (08/14/17): EF (25-30%), LV systolic is severely impaired, LV diastolic function is abnormal, LV is normal size. Right ventricle is normal size, with normal systolic function, RA is normal size. Mild Aortic root dilatation and mild triscuspid regurgitation Medications/Management: * ASA 81mg po daily * Plavix 75mg po daily * Crestor 2.5mg PO HS * Lopressor 12.5mg PO Hypoxia On ambulation Job Trainer Consult, Dr. Garcia * Management as per recommendation * AB.50/34/72/27.4 * Chest CT: No CT evidence for acute pulmonary embolism. 7 mm subpleural nodule in the right lower lobe. Follow-up CT scan in 6-12 months interval is recommended to assess stability. Mild cardiomegaly, small pericardial effusion and trace bilateral pleural effusions. Continue to encourage incentive spirometer use and physical therapy * As per physical therapy, improving saturtation during gait and able to recovery desaturation with rest. Epistaxis ENT consulted - Dr. Mata- help appreciated * Rhino Rocket placed removed by Dr. Mata * As per Dr. Mata, epistaxis resolved, deviated septum and patient is stable and cleared from ENT standpoint History of coronary artery disease CAB[place] [facility] [place] * cardiac catheterization (07/14/17) which showed multi-vessel disease with 95% stenosis in mid segment of LAD with in-stent re-stenosis. Intimal irregularities in the first diagonal branch. 80% stenosis in proximal segment of circumflex artery. 90% stenosis of right coronary artery. Normal LV systolic function with estimated EF of 50%. Medications: * ASA 81mg po daily * Plavix 75mg po daily * Crestor 2.5mg PO HS * Lopressor 12.5mg PO BID Urinary tract infection UA (LE (3+) and Urine WBC (50) UC: + Psedomonas Aeruginosa Medications: Cipro 500mg PO BID (Started 08/22/17) Constipation Resolved Medications: * Docusate 100mg PO BID * Senna A and B 17.5mg PO daily Serum lipase elevation Trending down; Normalized Continue to monitor with labs Imaging: * CT abd/pelvis showed no evidence of pancreatitis as per [facility] [place] History of diabetes mellitus Accuchecks Novolog 2 units TIDAC ISS low dose History of hypertension Stable with medication Continue to monitor with vital signs Medication: * Lopressor 12.5mg PO BID Prophylactic measure GI: Protonix 40mg PO daily DVT: Lovenox 30mg SC daily Multivitamins 1 tab PO daily PT and OT - work on improving conditioning - patient lives on third floor - will f/u with PT to see progress of patient to see if he can be safely discharged home without home PT. Continue to encourage Incentive spirometer used Disposition: rate manager working with brother to obtain home health care visit once patient is medically cleared. Patient's brother is attempting to get emergency medicare for the patient that will cover home health care. No new update at this time. Will DW with Dr. Roseanne Mcelroy PGY-1
[2017-09-06] MEDS: (Novolin R) Insulin Human Regular 100 units/ml vial SC SCH ×4 (08:13→21:18)
[2017-09-06] MEDS: (Novolog) Insulin Aspart, Recombinant 100 u/ml 10 ml vial SC SCH ×3 (08:21→18:03)
[2017-09-06] MEDS: Sodium Chloride Nasal 0.65% Soln (30ml) NAS SCH ×3 (09:20→18:01)
[2017-09-06] MEDS: Enoxaparin 30 mg Syringe SC SCH (10:19)
--- NOTE | 2017-09-07 01:24 | CP.PCM.PN ---
Subjective - Date & Time of Evaluation Date of Evaluation: 09/07/17 Time of Evaluation: 06:15 - Subjective Subjective: Medicine progress note for Dr. Cronin Patient seen and examined at bedside. Patient refused labs early this morning stating that he did not want to get repeatedly stuck with needles. Patient otherwise has no other acute complaints at this time. Objective - Vital Signs/Intake and Output Vital Signs (last 24 hours): Temp Pulse Resp BP Pulse Ox 98.2 F 77 20 116/74 95 09/06/17 23:08 09/06/17 23:08 09/06/17 23:08 09/06/17 23:08 09/06/17 23:08 Intake and Output: 09/06/17 09/07/17 18:59 06:59 Intake Total 300 350 Balance 300 350 - Medications Medications: Current Medications Albuterol/Ipratropium (Duoneb 3 Mg/0.5 Mg (3 Ml) Ud) 3 ml INH RQ6 [facility] Last Admin: 08/28/17 01:51 Dose: 3 ml Aspirin (Aspirin Chewable) 81 mg PO DAILY [facility] Last Admin: 09/06/17 09:20 Dose: 81 mg Calcium Acetate (Phoslo) 667 mg PO BIDCC [facility] Last Admin: 09/06/17 18:03 Dose: 667 mg Clopidogrel Bisulfate (Plavix) 75 mg PO DAILY [facility] Last Admin: 09/06/17 09:21 Dose: 75 mg Enoxaparin Sodium (Lovenox) 30 mg SC DAILY [facility] Last Admin: 09/06/17 10:19 Dose: Not Given Insulin Aspart (Novolog) 2 unit SC ACTID [facility] Last Admin: 09/06/17 18:03 Dose: Not Given Insulin Human Regular (Novolin R) 0 unit SC ACHS [facility] PRN Reason: Protocol Last Admin: 09/06/17 21:18 Dose: Not Given Metoprolol Tartrate (Lopressor) 12.5 mg PO BID [facility] Last Admin: 09/06/17 18:01 Dose: 12.5 mg Sennosides (Senokot Tab) 17.2 mg PO DAILY [facility] Last Admin: 09/06/17 09:20 Dose: 17.2 mg Sodium Chloride ([place] Baby Saline 30 Ml) 0 ml MACHELLE TID [facility] Last Admin: 09/06/17 18:01 Dose: 1 spr - Labs Labs: 08/31/17 08:47 08/31/17 08:47 PT 12.9 SECONDS (9.7-12.2) H 08/28/17 07:08 INR 1.2 08/28/17 07:08 APTT 29 SECONDS (21-34) 08/28/17 07:08 - Constitutional Appears: No Acute Distress - Head Exam Head Exam: ATRAUMATIC, NORMOCEPHALIC - Eye Exam Eye Exam: EOMI, Normal appearance - ENT Exam ENT Exam: Mucous Membranes Moist - Respiratory Exam Respiratory Exam: Clear to Ausculation Bilateral. absent: Rales, Rhonchi, Wheezes - Cardiovascular Exam Cardiovascular Exam: REGULAR RHYTHM, +S1, +S2 - GI/Abdominal Exam GI & Abdominal Exam: Soft, Normal Bowel Sounds. absent: Distended, Tenderness - Extremities Exam Extremities Exam: absent: Pedal Edema, Tenderness - Neurological Exam Neurological Exam: Alert, Awake, Oriented x3 - Psychiatric Exam Psychiatric exam: Normal Affect, Normal Mood - Skin Skin Exam: Dry, Warm Assessment and Plan - Assessment and Plan (Free Text) Plan: s/p CABG (coronary artery bypass graft) F/u with Dr. Grant, Cardiothoracic surgeon * Patient seen today at [facility] by Dr. Grant for post-op care; thomas removed ( 08/26/17) * Will continue to manage as per Dr. Grant's recommendation Fire Prevention Officer, Dr. Bautista----> Consulted * Management as per recommendation CABG at [facility] 07/25/17 Cardiac catheterization (07/15/17)- Dr. Bautista: Multi-vessel disease with 95% stenosis in mid segment of LAD with in-stent re-stenosis. Intimal irregularities in the first diagonal branch. 80% stenosis in proximal segment of circumflex artery. 90% stenosis of right coronary artery. Normal LV systolic function with estimated EF of 50%. Echocardiogram (07/12/17): Showed normal LV size, borderline concentric LV hypertrophy, moderately to severely impaired systolic function, septal hypokinesis, mild to moderate aortic regurgitation, and aortic root is moderately enlarged. At [facility] cabg x2, reop for bleeding,multiple blood transfusion, post op hypoxic, respiratory failure, extubated on 07/22, s/p left sided post op pneumothorax pig tail removed 08/05, noted on chest X-ray * Chest X-ray (08/08/17): Mild Right basilar atelactasis and small right sided pleural effusion * Repeat Chest X-ray (08/13/17): No change in right basilar atelectasis and left lower lobe consolidation with small pleural effusions. * Echocardiogram report (08/14/17): EF (25-30%), LV systolic is severely impaired, LV diastolic function is abnormal, LV is normal size. Right ventricle is normal size, with normal systolic function, RA is normal size. Mild Aortic root dilatation and mild triscuspid regurgitation Medications/Management: * ASA 81mg po daily * Plavix 75mg po daily * Crestor 2.5mg PO HS * Lopressor 12.5mg PO Hypoxia On ambulation Investor Relations Director Consult, Dr. Garcia * Management as per recommendation * AB.50/34/72/27.4 * Chest CT: No CT evidence for acute pulmonary embolism. 7 mm subpleural nodule in the right lower lobe. Follow-up CT scan in 6-12 months interval is recommended to assess stability. Mild cardiomegaly, small pericardial effusion and trace bilateral pleural effusions. Continue to encourage incentive spirometer use and physical therapy * As per physical therapy, improving saturtation during gait and able to recovery desaturation with rest. Epistaxis ENT consulted - Dr. Mata- help appreciated * Rhino Rocket placed removed by Dr. Mata * As per Dr. Mata, epistaxis resolved, deviated septum and patient is stable and cleared from ENT standpoint History of coronary artery disease CABG at [facility] 07/25/17 * cardiac catheterization (07/14/17) which showed multi-vessel disease with 95% stenosis in mid segment of LAD with in-stent re-stenosis. Intimal irregularities in the first diagonal branch. 80% stenosis in proximal segment of circumflex artery. 90% stenosis of right coronary artery. Normal LV systolic function with estimated EF of 50%. Medications: * ASA 81mg po daily * Plavix 75mg po daily * Crestor 2.5mg PO HS * Lopressor 12.5mg PO BID Urinary tract infection UA (LE (3+) and Urine WBC (50) UC: + Psedomonas Aeruginosa Medications: Cipro 500mg PO BID (Started 08/22/17) Constipation Resolved Medications: * Docusate 100mg PO BID * Senna A and B 17.5mg PO daily Serum lipase elevation Trending down; Normalized Continue to monitor with labs Imaging: * CT abd/pelvis showed no evidence of pancreatitis as per [facility] discharge summary History of diabetes mellitus Accuchecks Novolog 2 units TIDAC ISS low dose History of hypertension Stable with medication Continue to monitor with vital signs Medication: * Lopressor 12.5mg PO BID Prophylactic measure GI: Protonix 40mg PO daily DVT: Lovenox 30mg SC daily Multivitamins 1 tab PO daily PT and OT - work on improving conditioning - patient lives on third floor - will f/u with PT to see progress of patient to see if he can be safely discharged home without home PT. Continue to encourage Incentive spirometer used Disposition: alterations manager working with brother to obtain home health care visit once patient is medically cleared. Patient's brother is attempting to get emergency medicare for the patient that will cover home health care. No new update at this time. Will DW with Dr. Roseanne Mcelroy PGY-1
[2017-09-07] MEDS: (Novolin R) Insulin Human Regular 100 units/ml vial SC SCH ×4 (07:39→21:53)
[2017-09-07] MEDS: (Novolog) Insulin Aspart, Recombinant 100 u/ml 10 ml vial SC SCH ×3 (07:39→16:55)
[2017-09-07] MEDS: Enoxaparin 30 mg Syringe SC SCH (09:58)
[2017-09-07] MEDS: Sodium Chloride Nasal 0.65% Soln (30ml) NAS SCH ×3 (10:05→17:19)
[2017-09-08] MEDS: (Novolin R) Insulin Human Regular 100 units/ml vial SC SCH ×5 (07:35→21:28)
[2017-09-08] MEDS: (Novolog) Insulin Aspart, Recombinant 100 u/ml 10 ml vial SC SCH ×2 (07:36→11:12)
[2017-09-08] MEDS: Sodium Chloride Nasal 0.65% Soln (30ml) NAS SCH ×3 (10:22→17:25)
--- NOTE | 2017-09-08 12:28 | CP.PCM.PN ---
Subjective - Date & Time of Evaluation Date of Evaluation: 09/08/17 Time of Evaluation: 12:25 - Subjective Subjective: Medical Attending note: Patient seen at bedside. Patient is ambulatory. This is my first time seeing this patient. He is quite kind and pleasant. patient is eating at bedside. Patient denies acute complaints. Objective - Vital Signs/Intake and Output Vital Signs (last 24 hours): Temp Pulse Resp BP Pulse Ox 97.7 F 87 20 119/76 95 09/08/17 08:55 09/08/17 08:55 09/08/17 08:55 09/08/17 08:55 09/08/17 08:55 Intake and Output: 09/08/17 09/08/17 06:59 18:59 Intake Total 440 Balance 440 - Medications Medications: Current Medications Albuterol/Ipratropium (Duoneb 3 Mg/0.5 Mg (3 Ml) Ud) 3 ml INH RQ6 [facility] Last Admin: 08/28/17 01:51 Dose: 3 ml Aspirin (Aspirin Chewable) 81 mg PO DAILY [facility] Last Admin: 09/08/17 09:39 Dose: 81 mg Calcium Acetate (Phoslo) 667 mg PO BIDCC [facility] Last Admin: 09/08/17 07:58 Dose: 667 mg Clopidogrel Bisulfate (Plavix) 75 mg PO DAILY [facility] Last Admin: 09/08/17 09:39 Dose: 75 mg Insulin Aspart (Novolog) 2 unit SC ACTID [facility] Last Admin: 09/08/17 11:12 Dose: Not Given Insulin Human Regular (Novolin R) 0 unit SC ACHS [facility] PRN Reason: Protocol Last Admin: 09/08/17 11:12 Dose: Not Given Metoprolol Tartrate (Lopressor) 12.5 mg PO BID [facility] Last Admin: 09/08/17 09:39 Dose: 12.5 mg Sodium Chloride ([place] Baby Saline 30 Ml) 0 ml MACHELLE TID [facility] Last Admin: 09/08/17 10:22 Dose: Not Given - Labs Labs: 08/31/17 08:47 08/31/17 08:47 PT 12.9 SECONDS (9.7-12.2) H 08/28/17 07:08 INR 1.2 08/28/17 07:08 APTT 29 SECONDS (21-34) 08/28/17 07:08 - Constitutional Appears: Non-toxic, No Acute Distress - Head Exam Head Exam: NORMAL INSPECTION - Eye Exam Eye Exam: EOMI Pupil Exam: NORMAL ACCOMODATION - ENT Exam ENT Exam: Mucous Membranes Moist - Respiratory Exam Respiratory Exam: Clear to Ausculation Bilateral, NORMAL BREATHING PATTERN. absent: Rales, Rhonchi, Wheezes Additional comments: healed surgical excision - Cardiovascular Exam Cardiovascular Exam: REGULAR RHYTHM, +S1, +S2
--- NOTE | 2017-09-08 13:21 | CP.PCM.PN ---
<Janay Berman V - Last Filed: 09/08/17 13:41> Objective - Vital Signs/Intake and Output Vital Signs (last 24 hours): Temp Pulse Resp BP Pulse Ox 97.7 F 87 20 119/76 95 09/08/17 08:55 09/08/17 08:55 09/08/17 08:55 09/08/17 08:55 09/08/17 08:55 Intake and Output: 09/08/17 09/08/17 06:59 18:59 Intake Total 440 Balance 440 - Medications Medications: Current Medications Albuterol/Ipratropium (Duoneb 3 Mg/0.5 Mg (3 Ml) Ud) 3 ml INH RQ6 [facility] Last Admin: 08/28/17 01:51 Dose: 3 ml Aspirin (Aspirin Chewable) 81 mg PO DAILY [facility] Last Admin: 09/08/17 09:39 Dose: 81 mg Calcium Acetate (Phoslo) 667 mg PO BIDCC [facility] Last Admin: 09/08/17 07:58 Dose: 667 mg Clopidogrel Bisulfate (Plavix) 75 mg PO DAILY [facility] Last Admin: 09/08/17 09:39 Dose: 75 mg Insulin Aspart (Novolog) 2 unit SC ACTID [facility] Last Admin: 09/08/17 11:12 Dose: Not Given Insulin Human Regular (Novolin R) 0 unit SC ACHS [facility] PRN Reason: Protocol Last Admin: 09/08/17 11:12 Dose: Not Given Metoprolol Tartrate (Lopressor) 12.5 mg PO BID [facility] Last Admin: 09/08/17 09:39 Dose: 12.5 mg Sodium Chloride ([place] Baby Saline 30 Ml) 0 ml MACHELLE TID [facility] Last Admin: 09/08/17 10:22 Dose: Not Given - Labs Labs: 08/31/17 08:47 08/31/17 08:47 PT 12.9 SECONDS (9.7-12.2) H 08/28/17 07:08 INR 1.2 08/28/17 07:08 APTT 29 SECONDS (21-34) 08/28/17 07:08 Attending/Attestation - Attestation I have personally seen and examined this patient.: Yes I have fully participated in the care of the patient.: Yes I have reviewed all pertinent clinical information, including history, physical exam and plan: Yes Notes (Text): Patient seen at bedside. Patient is ambulatory. This is my first time seeing this patient. He is quite kind and pleasant. patient is eating at bedside. Patient denies acute complaints. Patient reports he is working with physical therapy with wheelchair. Patient reports he is tolerating diet. Assessment/Plan 1) s/p CABG (coronary artery bypass graft) History of coronary artery disease * Cardiothoracic surgeon-- Dr. Grant--Help appreciated * Prompted by cath 07/15/17 showing triple vessel dx; transferred to [facility] [place]G at [facility] 07/25/[place] * Patient had prolonged course following CABG procedure at [facility] required intubation/extubation, PRBC transfusion and s/p left sided post op pneumothorax pig tail removed 08/05 * Postoperative care per cardiothoracic surgery * Tabiona removed on 08/26/17 * Endband Cutter Hand, Dr. Bautista--Help appreciated * Cardiac catheterization (07/15/17)- Dr. Bautista: Multi-vessel disease with 95% stenosis in mid segment of LAD with in-stent re-stenosis. Intimal irregularities in the first diagonal branch. 80% stenosis in proximal segment of circumflex artery. 90% stenosis of right coronary artery. Normal LV systolic function with estimated EF of 50%. * Echocardiogram (07/12/17): Showed normal LV size, borderline concentric LV hypertrophy, moderately to severely impaired systolic function, septal hypokinesis, mild to moderate aortic regurgitation, and aortic root is moderately enlarged. * Chest X-ray (08/08/17): Mild Right basilar atelactasis and small right sided pleural effusion * Repeat Chest X-ray (08/13/17): No change in right basilar atelectasis and left lower lobe consolidation with small pleural effusions. * Echocardiogram report (08/14/17): EF (25-30%), LV systolic is severely impaired, LV diastolic function is abnormal, LV is normal size. Right ventricle is normal size, with normal systolic function, RA is normal size. Mild Aortic root dilatation and mild triscuspid regurgitation Medications/Management: * ASA 81mg po daily * Plavix 75mg po daily * Crestor 2.5mg PO HS * Lopressor 12.5mg PO BID-->Switched to Toprol XL 25mg PO daily to start tomorrow * Patient is not on abida/arb given low normal blood pressure 2) s/p Acute Respiratory Failure requiring intubation/extubation at [facility] Prior history of pneumothorax (resolved) * Pulmonary Consult, Dr. Garcia on board-->help appreciated * Chest CT: No CT evidence for acute pulmonary embolism. 7 mm subpleural nodule in the right lower lobe. Follow-up CT scan in 6-12 months interval is recommended to assess stability. Mild cardiomegaly, small pericardial effusion and trace bilateral pleural effusions. * Continue to encourage incentive spirometer use and physical therapy * As per physical therapy, improving saturation during gait and able to recovery desaturation with rest. Last session 09/05/17. 3) Epistaxis (resolved) * ENT consulted - Dr. Mata- help appreciated * Rhino Rocket placed removed by Dr. Mata * As per Dr. Mata, epistaxis resolved, deviated septum and patient is stable and cleared from ENT standpoint 4) Urinary tract infection (resolved) * UA (LE (3+) and Urine WBC (50) * UC: + Psedomonas Aeruginosa * Medications: Cipro 500mg PO BID (Started 08/22-) * Repeat urine culture no growth as of 08/29/17 5) Constipation (resolved) * Medications: Docusate 100mg PO BID and Senna A and B 17.5mg PO daily 6) Serum lipase elevation (resolved) * Imaging: CT abd/pelvis showed no evidence of pancreatitis as per [facility] discharge summary 7) History of diabetes mellitus (controlled) * Accuchecks QAC and HS * ISS low dose * Hgba1c: 5.6 8) History of hypertension * Lopressor 12.5mg PO BID-->Switched to Toprol XL 25mg PO daily to start tomorrow 9) Deconditioning * given recent CABG and prolonged hospitalization post CABG * c/w physical therapy and occupational therapy 10) Prophylactic measure * GI: Protonix 40mg PO daily * DVT: Lovenox 30mg SC daily * Multivitamins 1 tab PO daily * PT and OT - work on improving conditioning - patient lives on third floor - will f/u with PT to see progress of patient to see if he can be safely discharged home without home PT. * Continue to encourage Incentive spirometer used Disposition: patient is pending clearance from physical therapy for discharge. economic development manager working with patient's family to obtain home health care visit. No further updates. <Bartolome Menjivar - Last Filed: 09/08/17 19:48> Subjective - Date & Time of Evaluation Date of Evaluation: 09/08/17 Time of Evaluation: 13:21 - Subjective Subjective: PGY1 Medicine Note for Dr. Berman Patient seen and examined at bedside this morning. Patient states he is feeling great and has no complaints at this time. He was up walking back and forth in his room as a work out because he knew that he would not have PT today. Objective - Vital Signs/Intake and Output Vital Signs (last 24 hours): Temp Pulse Resp BP Pulse Ox 97.7 F 87 20 119/76 95 09/08/17 08:55 09/08/17 08:55 09/08/17 08:55 09/08/17 08:55 09/08/17 08:55 Intake and Output: 09/08/17 09/08/17 06:59 18:59 Intake Total 440 Balance 440 - Medications Medications: Current Medications Albuterol/Ipratropium (Duoneb 3 Mg/0.5 Mg (3 Ml) Ud) 3 ml INH RQ6 [facility] Last Admin: 08/28/17 01:51 Dose: 3 ml Aspirin (Aspirin Chewable) 81 mg PO DAILY [facility] Last Admin: 09/08/17 09:39 Dose: 81 mg Calcium Acetate (Phoslo) 667 mg PO BIDCC [facility] Last Admin: 09/08/17 07:58 Dose: 667 mg Clopidogrel Bisulfate (Plavix) 75 mg PO DAILY [facility] Last Admin: 09/08/17 09:39 Dose: 75 mg Insulin Aspart (Novolog) 2 unit SC ACTID [facility] Last Admin: 09/08/17 11:12 Dose: Not Given Insulin Human Regular (Novolin R) 0 unit SC ACHS [facility] PRN Reason: Protocol Last Admin: 09/08/17 11:12 Dose: Not Given Metoprolol Tartrate (Lopressor) 12.5 mg PO BID [facility] Last Admin: 09/08/17 09:39 Dose: 12.5 mg Sodium Chloride ([place] Baby Saline 30 Ml) 0 ml MACHELLE TID [facility] Last Admin: 09/08/17 10:22 Dose: Not Given - Labs Labs: 08/31/17 08:47 08/31/17 08:47 PT 12.9 SECONDS (9.7-12.2) H 08/28/17 07:08 INR 1.2 12/14/17 07:08 APTT 29 SECONDS (21-34) 08/28/17 07:08 - Constitutional Appears: Non-toxic, No Acute Distress - Head Exam Head Exam: ATRAUMATIC, NORMOCEPHALIC - Eye Exam Eye Exam: EOMI, Normal appearance - ENT Exam ENT Exam: Mucous Membranes Moist - Respiratory Exam Respiratory Exam: Clear to Ausculation Bilateral, NORMAL BREATHING PATTERN. absent: Accessory Muscle Use, Rales, Rhonchi, Wheezes, Respiratory Distress - Cardiovascular Exam Cardiovascular Exam: REGULAR RHYTHM, +S1, +S2 - Extremities Exam Extremities Exam: Normal Inspection. absent: Calf Tenderness, Pedal Edema - Neurological Exam Neurological Exam: Alert, Awake, CN II-XII Intact, Oriented x3 - Psychiatric Exam Psychiatric exam: Normal Affect, Normal Mood - Skin Skin Exam: Dry, Warm Assessment and Plan - Assessment and Plan (Free Text) Plan: s/p CABG (coronary artery bypass graft) F/u with Dr. Grant, Cardiothoracic surgeon * Patient seen today at [facility] by Dr. Grant for post-op care; thoams removed ( 08/26/17) * Will continue to manage as per Dr. Grant's recommendation Endband Cutter Hand, Dr. Bautista----> Consulted * Management as per recommendation CABG at [facility] 07/25/17 Cardiac catheterization (07/15/17)- Dr. Bautista: Multi-vessel disease with 95% stenosis in mid segment of LAD with in-stent re-stenosis. Intimal irregularities in the first diagonal branch. 80% stenosis in proximal segment of circumflex artery. 90% stenosis of right coronary artery. Normal LV systolic function with estimated EF of 50%. Echocardiogram (07/12/17): Showed normal LV size, borderline concentric LV hypertrophy, moderately to severely impaired systolic function, septal hypokinesis, mild to moderate aortic regurgitation, and aortic root is moderately enlarged. At [facility] cabg x2, reop for bleeding,multiple blood transfusion, post op hypoxic, respiratory failure, extubated on 07/22, s/p left sided post op pneumothorax pig tail removed 08/05, noted on chest X-ray * Chest X-ray (08/08/17): Mild Right basilar atelactasis and small right sided pleural effusion * Repeat Chest X-ray (08/13/17): No change in right basilar atelectasis and left lower lobe consolidation with small pleural effusions. * Echocardiogram report (08/14/17): EF (25-30%), LV systolic is severely impaired, LV diastolic function is abnormal, LV is normal size. Right ventricle is normal size, with normal systolic function, RA is normal size. 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 Garcia * Management as per recommendation * AB.50/34/72/27.4 * Chest CT: No CT evidence for acute pulmonary embolism. 7 mm subpleural nodule in the right lower lobe. Follow-up CT scan in 6-12 months interval is recommended to assess stability. Mild cardiomegaly, small pericardial effusion and trace bilateral pleural effusions. Continue to encourage incentive spirometer use and physical therapy * As per physical therapy, improving saturtation during gait and able to recovery desaturation with rest. Epistaxis (resolved) ENT consulted - Dr. Mata- help appreciated * Rhino Rocket placed removed by Dr. Mata * As per Dr. Mata, epistaxis resolved, deviated septum and patient is stable and cleared from ENT standpoint History of coronary artery disease CABG at [facility] 07/25/17 * cardiac catheterization (07/14/17) which showed multi-vessel disease with 95% stenosis in mid segment of LAD with in-stent re-stenosis. Intimal irregularities in the first diagonal branch. 80% stenosis in proximal segment of circumflex artery. 90% stenosis of right coronary artery. Normal LV systolic function with estimated EF of 50%. Medications: * ASA 81mg po daily * Plavix 75mg po daily * Crestor 2.5mg PO HS * Lopressor 12.5mg PO BID Urinary tract infection (resolved) UA (LE (3+) and Urine WBC (50) UC: + Psedomonas Aeruginosa Medications: Cipro 500mg PO BID (Started 08/22/17) Constipation (resolved) Medications: * Docusate 100mg PO BID * Senna A and B 17.5mg PO daily Serum lipase elevation (resolved) Trending down; Normalized Continue to monitor with labs Imaging: * CT abd/pelvis showed no evidence of pancreatitis as per [facility] discharge summary History of diabetes mellitus (controlled) Accuchecks Novolog 2 units TIDAC ISS low dose History of hypertension Stable with medication Continue to monitor with vital signs Medication: * Lopressor 12.5mg PO BID Deconditioning PT and OT - work on improving conditioning - patient lives on third floor - will f/u with PT to see progress of patient to see if he can be safely discharged home without home PT. Prophylactic measure GI: Protonix 40mg PO daily DVT: Lovenox 30mg SC daily Multivitamins 1 tab PO daily PT and OT - work on improving conditioning - patient lives on third floor - will f/u with PT to see progress of patient to see if he can be safely discharged home without home PT. Continue to encourage Incentive spirometer used Disposition: economic development manager working with brother to obtain home health care visit once patient is medically cleared. Patient's brother is attempting to get emergency medicare for the patient that will cover home health care. No new update at this time. Case discussed with Dr. Roseanne Mancuso [place] PGY1
[2017-09-08 23:15] VITALS: RESP 20
--- NOTE | 2017-09-09 07:25 | CP.PCM.PN ---
<Bartolome Menjivar - Last Filed: 09/09/17 15:11> Subjective - Date & Time of Evaluation Date of Evaluation: 09/09/17 Time of Evaluation: 07:24 - Subjective Subjective: PGY1 Medicine Note for Dr. Dutton Patient seen and examined at bedside this morning. Patient is awake and in good spirits, sitting in the chair next to his bed. Patient stood up and walked back and forth across the room with his walker to demonstrate how much he has improved. He was encouraged to continue walking and to start walking around the floors. He is denies any pain or discomfort of any sort. He has no complaints at this time. Objective - Vital Signs/Intake and Output Vital Signs (last 24 hours): Temp Pulse Resp BP Pulse Ox 98.5 F 84 20 118/74 96 09/08/17 23:11 09/08/17 23:11 09/08/17 23:11 09/08/17 23:11 09/08/17 23:11 Intake and Output: 09/09/17 09/09/17 06:59 18:59 Intake Total 440 Balance 440 - Medications Medications: Current Medications Albuterol/Ipratropium (Duoneb 3 Mg/0.5 Mg (3 Ml) Ud) 3 ml INH RQ6 [facility] Last Admin: 08/28/17 01:51 Dose: 3 ml Aspirin (Aspirin Chewable) 81 mg PO DAILY [facility] Last Admin: 09/08/17 09:39 Dose: 81 mg Calcium Acetate (Phoslo) 667 mg PO BIDCC [facility] Last Admin: 09/08/17 17:24 Dose: 667 mg Clopidogrel Bisulfate (Plavix) 75 mg PO DAILY [facility] Last Admin: 09/08/17 09:39 Dose: 75 mg Famotidine (Pepcid) 20 mg PO BID [facility] Last Admin: 09/08/17 17:24 Dose: 20 mg Insulin Human Regular (Novolin R) 0 unit SC ACHS [facility] PRN Reason: Protocol Last Admin: 09/08/17 21:28 Dose: Not Given Metoprolol Succinate (Toprol Xl) 25 mg PO DAILY [facility] Sodium Chloride ([place] Baby Saline 30 Ml) 0 ml MACHELLE TID [facility] Last Admin: 09/08/17 17:25 Dose: Not Given - Labs Labs: 08/31/17 08:47 08/31/17 08:47 PT 12.9 SECONDS (9.7-12.2) H 08/28/17 07:08 INR 1.2 08/28/17 07:08 APTT 29 SECONDS (21-34) 08/28/17 07:08 - Constitutional Appears: Non-toxic, No Acute Distress - Head Exam Head Exam: ATRAUMATIC, NORMOCEPHALIC - Eye Exam Eye Exam: EOMI, Normal appearance - ENT Exam ENT Exam: Mucous Membranes Moist - Neck Exam Neck Exam: Full ROM - Respiratory Exam Respiratory Exam: Clear to Ausculation Bilateral, NORMAL BREATHING PATTERN. absent: Accessory Muscle Use, Rales, Rhonchi, Wheezes, Respiratory Distress - Cardiovascular Exam Cardiovascular Exam: REGULAR RHYTHM, +S1 - GI/Abdominal Exam GI & Abdominal Exam: Soft, Normal Bowel Sounds. absent: Distended, Firm, Guarding, Rigid, Tenderness - Extremities Exam Extremities Exam: absent: Calf Tenderness, Pedal Edema - Neurological Exam Neurological Exam: Alert, Awake, Oriented x3 - Psychiatric Exam Psychiatric exam: Normal Affect, Normal Mood - Skin Skin Exam: Dry, Warm Assessment and Plan - Assessment and Plan (Free Text) Plan: s/p CABG (coronary artery bypass graft) F/u with Dr. Grant, Cardiothoracic surgeon * Patient seen today at [facility] [place] by Dr. Grant for post-op care; thomas removed ( 08/26/17) * Will continue to manage as per Dr. Grant's recommendation Hydrochloric Acid Operator, Dr. Bautista----> Consulted * Management as per recommendation CABG at [facility] [place] 07/25/17 Cardiac catheterization (07/15/17)- Dr. Bautista: Multi-vessel disease with 95% stenosis in mid segment of LAD with in-stent re-stenosis. Intimal irregularities in the first diagonal branch. 80% stenosis in proximal segment of circumflex artery. 90% stenosis of right coronary artery. Normal LV systolic function with estimated EF of 50%. Echocardiogram (07/12/17): Showed normal LV size, borderline concentric LV hypertrophy, moderately to severely impaired systolic function, septal hypokinesis, mild to moderate aortic regurgitation, and aortic root is moderately enlarged. At [facility] [place] cabg x2, reop for bleeding,multiple blood transfusion, post op hypoxic, respiratory failure, extubated on 07/22, s/p left sided post op pneumothorax pig tail removed 08/05, noted on chest X-ray * Chest X-ray (08/08/17): Mild Right basilar atelactasis and small right sided pleural effusion * Repeat Chest X-ray (08/13/17): No change in right basilar atelectasis and left lower lobe consolidation with small pleural effusions. * Echocardiogram report (08/14/17): EF (25-30%), LV systolic is severely impaired, LV diastolic function is abnormal, LV is normal size. Right ventricle is normal size, with normal systolic function, RA is normal size. Mild Aortic root dilatation and mild triscuspid regurgitation Medications/Management: * ASA 81mg po daily * Plavix 75mg po daily * Crestor 2.5mg PO HS * Lopressor 12.5mg PO s/p Acute Respiratory Failure requiring intubation/extubation at [facility] [place] Prior history of pneumothorax (resolved) On ambulation Flight Line Mechanic Consult, Dr. Garcia * Management as per recommendation * AB.50/34/72/27.4 * Chest CT: No CT evidence for acute pulmonary embolism. 7 mm subpleural nodule in the right lower lobe. Follow-up CT scan in 6-12 months interval is recommended to assess stability. Mild cardiomegaly, small pericardial effusion and trace bilateral pleural effusions. Continue to encourage incentive spirometer use and physical therapy * As per physical therapy, improving saturtation during gait and able to recovery desaturation with rest. Epistaxis (resolved) ENT consulted - Dr. Mata- help appreciated * Rhino Rocket placed removed by Dr. Mata * As per Dr. Mata, epistaxis resolved, deviated septum and patient is stable and cleared from ENT standpoint History of coronary artery disease CABG at [facility] [place] 07/25/17 * cardiac catheterization (07/14/17) which showed multi-vessel disease with 95% stenosis in mid segment of LAD with in-stent re-stenosis. Intimal irregularities in the first diagonal branch. 80% stenosis in proximal segment of circumflex artery. 90% stenosis of right coronary artery. Normal LV systolic function with estimated EF of 50%. Medications: * ASA 81mg po daily * Plavix 75mg po daily * Crestor 2.5mg PO HS * Lopressor 12.5mg PO BID Urinary tract infection (resolved) UA (LE (3+) and Urine WBC (50) UC: + Psedomonas Aeruginosa Medications: Cipro 500mg PO BID (Started 12/8/17) Constipation (resolved) Medications: * Docusate 100mg PO BID * Senna A and B 17.5mg PO daily Serum lipase elevation (resolved) Trending down; Normalized Continue to monitor with labs Imaging: * CT abd/pelvis showed no evidence of pancreatitis as per [facility] [place] discharge summary History of diabetes mellitus (controlled) Accuchecks Novolog 2 units TIDAC ISS low dose History of hypertension Stable with medication Continue to monitor with vital signs Medication: * Lopressor 12.5mg PO BID Deconditioning PT and OT - work on improving conditioning - patient lives on third floor - will f/u with PT to see progress of patient to see if he can be safely discharged home without home PT. Prophylactic measure GI: Protonix 40mg PO daily DVT: Lovenox 30mg SC daily Multivitamins 1 tab PO daily PT and OT - work on improving conditioning - patient lives on third floor - will f/u with PT to see progress of patient to see if he can be safely discharged home without home PT. Continue to encourage Incentive spirometer used Disposition: assurance senior manager working with brother to obtain home health care visit once patient is medically cleared. Patient's brother is attempting to get emergency medicare for the patient that will cover home health care. No new update at this time. Case discussed with Dr. Marija Mancuso Otto PGY1 <Florencio Dutton H - Last Filed: 09/09/17 15:20> Objective - Vital Signs/Intake and Output Vital Signs (last 24 hours): Temp Pulse Resp BP Pulse Ox 97.8 F 98 H 20 147/94 H 98 09/09/17 08:05 09/09/17 08:05 09/09/17 08:05 09/09/17 08:05 09/09/17 08:05 Intake and Output: 09/09/17 09/09/17 06:59 18:59 Intake Total 440 Balance 440 - Medications Medications: Current Medications Albuterol/Ipratropium (Duoneb 3 Mg/0.5 Mg (3 Ml) Ud) 3 ml INH RQ6 [facility] Last Admin: 08/28/17 01:51 Dose: 3 ml Aspirin (Aspirin Chewable) 81 mg PO DAILY [facility] Last Admin: 09/09/17 09:37 Dose: 81 mg Calcium Acetate (Phoslo) 667 mg PO BIDCC [facility] Last Admin: 09/09/17 08:40 Dose: 667 mg Clopidogrel Bisulfate (Plavix) 75 mg PO DAILY [facility] Last Admin: 09/09/17 09:37 Dose: 75 mg Famotidine (Pepcid) 20 mg PO BID [facility] Last Admin: 09/09/17 09:37 Dose: 20 mg Insulin Human Regular (Novolin R) 0 unit SC ACHS [facility] PRN Reason: Protocol Last Admin: 09/09/17 11:46 Dose: Not Given Metoprolol Succinate (Toprol Xl) 25 mg PO DAILY [facility] Last Admin: 09/09/17 09:37 Dose: 25 mg Sodium Chloride ([place] Baby Saline 30 Ml) 0 ml MACHELLE TID [facility] Last Admin: 09/09/17 13:25 Dose: Not Given - Labs Labs: 08/31/17 08:47 08/31/17 08:47 PT 12.9 SECONDS (9.7-12.2) H 08/28/17 07:08 INR 1.2 08/28/17 07:08 APTT 29 SECONDS (21-34) 08/28/17 07:08 Attending/Attestation - Attestation I have personally seen and examined this patient.: Yes I have fully participated in the care of the patient.: Yes I have reviewed all pertinent clinical information, including history, physical exam and plan: Yes Notes (Text): 09/09/17 15:20 Medical attending: Patient was seen and examined by me, reviewed the above note by medical staff manager and agree. The patient is doing quite well. He was able to readily walk around in his room with the assistance of the rolling walker. He had a rather strong gait with a rolling walker. He explained that he was not short of breath at rest, did not have chest pain. He's looking forward to come home relatively soon. We'll have to see how he does with physical therapy Also have to continue with his medication as well Thank you very much, Florencio Dutton
[2017-09-09] MEDS: (Novolin R) Insulin Human Regular 100 units/ml vial SC SCH ×4 (08:20→21:43)
[2017-09-09] MEDS: Metoprolol Succinate 25 mg XL Tab PO SCH (09:37)
[2017-09-09] MEDS: Sodium Chloride Nasal 0.65% Soln (30ml) NAS SCH ×4 (09:37→17:42)
[2017-09-09] MEDS: Rosuvastatin Calcium 2.5 mg Tab PO SCH (21:42)
[2017-09-10] MEDS: (Novolin R) Insulin Human Regular 100 units/ml vial SC SCH ×4 (07:53→21:39)
--- NOTE | 2017-09-10 09:08 | CP.PCM.PN ---
<Bartolome Menjivar - Last Filed: 09/10/17 11:04> Subjective - Date & Time of Evaluation Date of Evaluation: 09/10/17 Time of Evaluation: 09:05 - Subjective Subjective: PGY1 Medicine Note for Dr. Dutton Patient seen and examined at bedside this morning. Patient reports that he is feeling great. He has been able to walk back and forth in his room more and more each day. He was encouraged to walk around the floor, which he was excited and stated that he will. Patient was walked around the floor with Dr. Dutton. He denied any difficulty breathing while walking with a walker. He did not experience any problems and stated he felt well. He is requesting to be home for the new year. He was informed that we will do our best but we need to get his maximize conditioning to help prepare him to have to most amount of success once he leaves the hospital. Objective - Vital Signs/Intake and Output Vital Signs (last 24 hours): Temp Pulse Resp BP Pulse Ox 97.8 F 82 20 133/83 98 09/10/17 08:15 09/10/17 08:15 09/10/17 08:15 09/10/17 08:15 09/10/17 08:15 Intake and Output: 09/10/17 09/10/17 06:59 18:59 Intake Total 650 Balance 650 - Medications Medications: Current Medications Albuterol/Ipratropium (Duoneb 3 Mg/0.5 Mg (3 Ml) Ud) 3 ml INH RQ6 [facility] Last Admin: 08/28/17 01:51 Dose: 3 ml Aspirin (Aspirin Chewable) 81 mg PO DAILY [facility] Last Admin: 09/09/17 09:37 Dose: 81 mg Calcium Acetate (Phoslo) 667 mg PO BIDCC [facility] Last Admin: 09/10/17 08:04 Dose: 667 mg Clopidogrel Bisulfate (Plavix) 75 mg PO DAILY [facility] Last Admin: 09/09/17 09:37 Dose: 75 mg Famotidine (Pepcid) 20 mg PO BID [facility] Last Admin: 09/09/17 17:41 Dose: 20 mg Insulin Human Regular (Novolin R) 0 unit SC ACHS [facility] PRN Reason: Protocol Last Admin: 09/10/17 07:53 Dose: Not Given Metoprolol Succinate (Toprol Xl) 25 mg PO DAILY [facility] Last Admin: 09/09/17 09:37 Dose: 25 mg Rosuvastatin Calcium (Crestor) 2.5 mg PO HS [facility] Last Admin: 09/09/17 21:42 Dose: 2.5 mg Sodium Chloride ([place] Baby Saline 30 Ml) 0 ml MACHELLE TID [facility] Last Admin: 09/09/17 17:42 Dose: Not Given - Labs Labs: 08/31/17 08:47 08/31/17 08:47 PT 12.9 SECONDS (9.7-12.2) H 08/28/17 07:08 INR 1.2 08/28/17 07:08 APTT 29 SECONDS (21-34) 08/28/17 07:08 - Constitutional Appears: Non-toxic, No Acute Distress - Head Exam Head Exam: ATRAUMATIC, NORMOCEPHALIC - Eye Exam Eye Exam: EOMI, Normal appearance - ENT Exam ENT Exam: Mucous Membranes Moist - Respiratory Exam Respiratory Exam: Clear to Ausculation Bilateral, NORMAL BREATHING PATTERN. absent: Accessory Muscle Use, Rales, Rhonchi, Wheezes, Respiratory Distress - Cardiovascular Exam Cardiovascular Exam: REGULAR RHYTHM, +S1 - GI/Abdominal Exam GI & Abdominal Exam: Soft, Normal Bowel Sounds. absent: Distended, Firm, Guarding, Rigid, Tenderness - Extremities Exam Extremities Exam: absent: Calf Tenderness, Pedal Edema - Neurological Exam Neurological Exam: Alert, Awake, Normal Gait (with walker), Oriented x3 - Psychiatric Exam Psychiatric exam: Normal Affect, Normal Mood - Skin Skin Exam: Dry, Warm Assessment and Plan - Assessment and Plan (Free Text) Plan: s/p CABG (coronary artery bypass graft) F/u with Dr. Grant, Cardiothoracic surgeon * Patient seen today at [facility] by [place]. Grant for post-op care; thomas removed ( 08/26/17) * Will continue to manage as per Dr. Grant's recommendation Maintainer Operator, Dr. Bautista----> Consulted * Management as per recommendation CABG at [facility] 07/25/17 Cardiac catheterization (07/15/17)- Dr. Bautista: Multi-vessel disease with 95% stenosis in mid segment of LAD with in-stent re-stenosis. Intimal irregularities in the first diagonal branch. 80% stenosis in proximal segment of circumflex artery. 90% stenosis of right coronary artery. Normal LV systolic function with estimated EF of 50%. Echocardiogram (07/12/17): Showed normal LV size, borderline concentric LV hypertrophy, moderately to severely impaired systolic function, septal hypokinesis, mild to moderate aortic regurgitation, and aortic root is moderately enlarged. At [facility] cabg x2, reop for bleeding,multiple blood transfusion, post op hypoxic, respiratory failure, extubated on 07/22, s/p left sided post op pneumothorax pig tail removed 08/05, noted on chest X-ray * Chest X-ray (08/08/17): Mild Right basilar atelactasis and small right sided pleural effusion * Repeat Chest X-ray (08/13/17): No change in right basilar atelectasis and left lower lobe consolidation with small pleural effusions. * Echocardiogram report (08/14/17): EF (25-30%), LV systolic is severely impaired, LV diastolic function is abnormal, LV is normal size. Right ventricle is normal size, with normal systolic function, RA is normal size. Mild Aortic root dilatation and mild triscuspid regurgitation Medications/Management: * ASA 81mg po daily * Plavix 75mg po daily * Crestor 2.5mg PO HS * Lopressor 12.5mg PO s/p Acute Respiratory Failure requiring intubation/extubation at [facility] Prior history of pneumothorax (resolved) On ambulation College Advisor Consult, Dr. Garcia * Management as per recommendation * AB.50/34/72/27.4 * Chest CT: No CT evidence for acute pulmonary embolism. 7 mm subpleural nodule in the right lower lobe. Follow-up CT scan in 6-12 months interval is recommended to assess stability. Mild cardiomegaly, small pericardial effusion and trace bilateral pleural effusions. Continue to encourage incentive spirometer use and physical therapy * As per physical therapy, improving saturtation during gait and able to recovery desaturation with rest. Epistaxis (resolved) ENT consulted - Dr. Mata- help appreciated * Rhino Rocket placed removed by Dr. Mata * As per Dr. Mata, epistaxis resolved, deviated septum and patient is stable and cleared from ENT standpoint History of coronary artery disease CABG at [facility] 07/25/17 * cardiac catheterization (07/14/17) which showed multi-vessel disease with 95% stenosis in mid segment of LAD with in-stent re-stenosis. Intimal irregularities in the first diagonal branch. 80% stenosis in proximal segment of circumflex artery. 90% stenosis of right coronary artery. Normal LV systolic function with estimated EF of 50%. Medications: * ASA 81mg po daily * Plavix 75mg po daily * Crestor 2.5mg PO HS * Lopressor 12.5mg PO BID Urinary tract infection (resolved) UA (LE (3+) and Urine WBC (50) UC: + Psedomonas Aeruginosa Medications: Cipro 500mg PO BID (Started 08/22/17) Constipation (resolved) Medications: * Docusate 100mg PO BID * Senna A and B 17.5mg PO daily Serum lipase elevation (resolved) Trending down; Normalized Continue to monitor with labs Imaging: * CT abd/pelvis showed no evidence of pancreatitis as per [facility] discharge summary History of diabetes mellitus (controlled) Accuchecks Novolog 2 units TIDAC ISS low dose History of hypertension Stable with medication Continue to monitor with vital signs Medication: * Lopressor 12.5mg PO BID Deconditioning PT and OT - work on improving conditioning - patient lives on third floor - will f/u with PT to see progress of patient to see if he can be safely discharged home without home PT. Prophylactic measure GI: Protonix 40mg PO daily DVT: Lovenox 30mg SC daily Multivitamins 1 tab PO daily PT and OT - work on improving conditioning - patient lives on third floor - will f/u with PT to see progress of patient to see if he can be safely discharged home without home PT. Continue to encourage Incentive spirometer used Disposition: product introduction manager working with brother to obtain home health care visit once patient is medically cleared. Patient's brother is attempting to get emergency medicare for the patient that will cover home health care. No new update at this time. Case discussed with Dr. Marija Mancuso Otto PGY1 <Florencio Dutton - Last Filed: 09/10/17 11:51> Objective - Vital Signs/Intake and Output Vital Signs (last 24 hours): Temp Pulse Resp BP Pulse Ox 97.8 F 82 20 133/83 98 09/10/17 08:15 09/10/17 08:15 09/10/17 08:15 09/10/17 08:15 09/10/17 08:15 Intake and Output: 09/10/17 09/10/17 06:59 18:59 Intake Total 650 Balance 650 - Medications Medications: Current Medications Albuterol/Ipratropium (Duoneb 3 Mg/0.5 Mg (3 Ml) Ud) 3 ml INH RQ6 [facility] Last Admin: 08/28/17 01:51 Dose: 3 ml Aspirin (Aspirin Chewable) 81 mg PO DAILY [facility] Last Admin: 09/10/17 10:21 Dose: 81 mg Calcium Acetate (Phoslo) 667 mg PO BIDCC [facility] Last Admin: 09/10/17 08:04 Dose: 667 mg Clopidogrel Bisulfate (Plavix) 75 mg PO DAILY [facility] Last Admin: 09/10/17 10:21 Dose: 75 mg Famotidine (Pepcid) 20 mg PO BID [facility] Last Admin: 09/10/17 10:21 Dose: 20 mg Insulin Human Regular (Novolin R) 0 unit SC ACHS [facility] PRN Reason: Protocol Last Admin: 09/10/17 07:53 Dose: Not Given Metoprolol Succinate (Toprol Xl) 25 mg PO DAILY [facility] Last Admin: 09/10/17 10:21 Dose: 25 mg Rosuvastatin Calcium (Crestor) 2.5 mg PO HS [facility] Last Admin: 09/09/17 21:42 Dose: 2.5 mg Sodium Chloride ([place] Baby Saline 30 Ml) 0 ml MACHELLE TID [facility] Last Admin: 09/10/17 10:22 Dose: Not Given - Labs Labs: 08/31/17 08:47 08/31/17 08:47 PT 12.9 SECONDS (9.7-12.2) H 08/28/17 07:08 INR 1.2 08/28/17 07:08 APTT 29 SECONDS (21-34) 08/28/17 07:08 Attending/Attestation - Attestation I have personally seen and examined this patient.: Yes I have fully participated in the care of the patient.: Yes I have reviewed all pertinent clinical information, including history, physical exam and plan: Yes Notes (Text): 09/10/17 11:50 Medical attending: No new news - he did walk with us into the hallway with his walker. He looks and feels ok when walking. He denied palpitations, denied shortness of breath, denied chest pain. He was able to move around the hallwas to [facility] and back around to his room [facility] is to discharge on 09/12 thank you Florencio Dutton
[2017-09-10] MEDS: Metoprolol Succinate 25 mg XL Tab PO SCH (10:21)
[2017-09-10] MEDS: Sodium Chloride Nasal 0.65% Soln (30ml) NAS SCH ×3 (10:22→17:23)
[2017-09-10] MEDS: Rosuvastatin Calcium 2.5 mg Tab PO SCH (21:14)
--- NOTE | 2017-09-11 06:56 | CP.PCM.PN ---
Subjective - Date & Time of Evaluation Date of Evaluation: 09/11/17 Time of Evaluation: 06:55 - Subjective Subjective: PGY1 Medicine Note for Dr. Dutton Patient seen and examined at bedside this morning. Patient is walking around the halls with his walker. He is doing great. Denies any pain, sob or any complaints at this time. Objective - Vital Signs/Intake and Output Vital Signs (last 24 hours): Temp Pulse Resp BP Pulse Ox 98.2 F 77 20 104/62 96 09/10/17 23:15 09/10/17 23:15 09/10/17 23:15 09/10/17 23:15 09/10/17 23:15 Intake and Output: 09/10/17 09/11/17 18:59 06:59 Intake Total 500 710 Balance 500 710 - Medications Medications: Current Medications Albuterol/Ipratropium (Duoneb 3 Mg/0.5 Mg (3 Ml) Ud) 3 ml INH RQ6 [facility] Last Admin: 08/28/17 01:51 Dose: 3 ml Aspirin (Aspirin Chewable) 81 mg PO DAILY [facility] Last Admin: 09/10/17 10:21 Dose: 81 mg Calcium Acetate (Phoslo) 667 mg PO BIDCC [facility] Last Admin: 09/10/17 17:24 Dose: 667 mg Clopidogrel Bisulfate (Plavix) 75 mg PO DAILY [facility] Last Admin: 09/10/17 10:21 Dose: 75 mg Famotidine (Pepcid) 20 mg PO BID [facility] Last Admin: 09/10/17 17:24 Dose: 20 mg Insulin Human Regular (Novolin R) 0 unit SC ACHS [facility] PRN Reason: Protocol Last Admin: 09/10/17 21:39 Dose: Not Given Metoprolol Succinate (Toprol Xl) 25 mg PO DAILY [facility] Last Admin: 09/10/17 10:21 Dose: 25 mg Rosuvastatin Calcium (Crestor) 2.5 mg PO HS [facility] Last Admin: 09/10/17 21:14 Dose: 2.5 mg Sodium Chloride ([place] Baby Saline 30 Ml) 0 ml MACHELLE TID [facility] Last Admin: 09/10/17 17:23 Dose: Not Given - Labs Labs: 08/31/17 08:47 08/31/17 08:47 PT 12.9 SECONDS (9.7-12.2) H 08/28/17 07:08 INR 1.2 08/28/17 07:08 APTT 29 SECONDS (21-34) 08/28/17 07:08 - Constitutional Appears: Non-toxic, No Acute Distress - Head Exam Head Exam: ATRAUMATIC, NORMOCEPHALIC - Eye Exam Eye Exam: EOMI, Normal appearance - ENT Exam ENT Exam: Mucous Membranes Moist - Respiratory Exam Respiratory Exam: Clear to Ausculation Bilateral, NORMAL BREATHING PATTERN. absent: Accessory Muscle Use, Rales, Rhonchi, Wheezes, Respiratory Distress - Cardiovascular Exam Cardiovascular Exam: REGULAR RHYTHM - GI/Abdominal Exam GI & Abdominal Exam: Soft, Normal Bowel Sounds. absent: Distended, Firm, Guarding, Rigid, Tenderness - Extremities Exam Extremities Exam: Normal Inspection. absent: Calf Tenderness, Pedal Edema - Neurological Exam Neurological Exam: Alert, Awake, CN II-XII Intact, Oriented x3 - Psychiatric Exam Psychiatric exam: Normal Affect, Normal Mood - Skin Skin Exam: Dry, Warm Assessment and Plan - Assessment and Plan (Free Text) Plan: s/p CABG (coronary artery bypass graft) F/u with Dr. Grant, Cardiothoracic surgeon * Patient seen today at [facility] [place] by Dr. Grant for post-op care; thomas removed ( 08/26/17) * Will continue to manage as per Dr. Grant's recommendation Ice Handler, Dr. Bautista----> Consulted * Management as per recommendation CABG at [facility] [place] 07/25/17 Cardiac catheterization (07/15/17)- Dr. Bautista: Multi-vessel disease with 95% stenosis in mid segment of LAD with in-stent re-stenosis. Intimal irregularities in the first diagonal branch. 80% stenosis in proximal segment of circumflex artery. 90% stenosis of right coronary artery. Normal LV systolic function with estimated EF of 50%. Echocardiogram (07/12/17): Showed normal LV size, borderline concentric LV hypertrophy, moderately to severely impaired systolic function, septal hypokinesis, mild to moderate aortic regurgitation, and aortic root is moderately enlarged. At [facility] [place] cabg x2, reop for bleeding,multiple blood transfusion, post op hypoxic, respiratory failure, extubated on 07/22, s/p left sided post op pneumothorax pig tail removed 08/05, noted on chest X-ray * Chest X-ray (08/08/17): Mild Right basilar atelactasis and small right sided pleural effusion * Repeat Chest X-ray (08/13/17): No change in right basilar atelectasis and left lower lobe consolidation with small pleural effusions. * Echocardiogram report (08/14/17): EF (25-30%), LV systolic is severely impaired, LV diastolic function is abnormal, LV is normal size. Right ventricle is normal size, with normal systolic function, RA is normal size. Mild Aortic root dilatation and mild triscuspid regurgitation Medications/Management: * ASA 81mg po daily * Plavix 75mg po daily * Crestor 2.5mg PO HS * Lopressor 12.5mg PO s/p Acute Respiratory Failure requiring intubation/extubation at [facility] [place] Prior history of pneumothorax (resolved) On ambulation Keypuncher Consult, Dr. Garcia * Management as per recommendation * AB.50/34/72/27.4 * Chest CT: No CT evidence for acute pulmonary embolism. 7 mm subpleural nodule in the right lower lobe. Follow-up CT scan in 6-12 months interval is recommended to assess stability. Mild cardiomegaly, small pericardial effusion and trace bilateral pleural effusions. Continue to encourage incentive spirometer use and physical therapy * As per physical therapy, improving saturtation during gait and able to recovery desaturation with rest. Epistaxis (resolved) ENT consulted - Dr. Mata- help appreciated * Rhino Rocket placed removed by Dr. Mata * As per Dr. Mata, epistaxis resolved, deviated septum and patient is stable and cleared from ENT standpoint History of coronary artery disease CABG at [facility] [place] 07/25/17 * cardiac catheterization (07/14/17) which showed multi-vessel disease with 95% stenosis in mid segment of LAD with in-stent re-stenosis. Intimal irregularities in the first diagonal branch. 80% stenosis in proximal segment of circumflex artery. 90% stenosis of right coronary artery. Normal LV systolic function with estimated EF of 50%. Medications: * ASA 81mg po daily * Plavix 75mg po daily * Crestor 2.5mg PO HS * Lopressor 12.5mg PO BID Urinary tract infection (resolved) UA (LE (3+) and Urine WBC (50) UC: + Psedomonas Aeruginosa Medications: Cipro 500mg PO BID (Started 08/22/17) Constipation (resolved) Medications: * Docusate 100mg PO BID * Senna A and B 17.5mg PO daily Serum lipase elevation (resolved) Trending down; Normalized Continue to monitor with labs Imaging: * CT abd/pelvis showed no evidence of pancreatitis as per [facility] discharge summary History of diabetes mellitus (controlled) Accuchecks Novolog 2 units TIDAC ISS low dose History of hypertension Stable with medication Continue to monitor with vital signs Medication: * Lopressor 12.5mg PO BID Deconditioning PT and OT - work on improving conditioning - patient lives on third floor - will f/u with PT to see progress of patient to see if he can be safely discharged home without home PT. Prophylactic measure GI: Protonix 40mg PO daily DVT: Lovenox 30mg SC daily Multivitamins 1 tab PO daily PT and OT - work on improving conditioning - patient lives on third floor - will f/u with PT to see progress of patient to see if he can be safely discharged home without home PT. Continue to encourage Incentive spirometer used Disposition: manager asset working with brother to obtain home health care visit once patient is medically cleared. Patient's brother is attempting to get emergency medicare for the patient that will cover home health care. No new update at this time. Case discussed with Dr. Marija Mancuso Otto PGY1
[2017-09-11] MEDS: (Novolin R) Insulin Human Regular 100 units/ml vial SC SCH ×4 (07:24→22:24)
[2017-09-11] MEDS: Sodium Chloride Nasal 0.65% Soln (30ml) NAS SCH ×3 (09:09→17:53)
[2017-09-11] MEDS: Metoprolol Succinate 25 mg XL Tab PO SCH (09:10)
[2017-09-11] MEDS: Rosuvastatin Calcium 2.5 mg Tab PO SCH (21:06)
[2017-09-12] MEDS: (Novolin R) Insulin Human Regular 100 units/ml vial SC SCH ×4 (08:04→22:06)
[2017-09-12] MEDS: Sodium Chloride Nasal 0.65% Soln (30ml) NAS SCH ×3 (09:55→17:59)
[2017-09-12] MEDS: Metoprolol Succinate 25 mg XL Tab PO SCH (09:55)
--- NOTE | 2017-09-12 16:12 | CP.PCM.PN ---
<Bartolome Menjivar - Last Filed: 09/12/17 15:55> Subjective - Date & Time of Evaluation Date of Evaluation: 09/12/17 Time of Evaluation: 15:55 - Subjective Subjective: PGY1 Medicine Note for Dr. Dutton Patient seen and examined at bedside this morning. Patient is awake and in good spirits. He got another nose bleed yesterday and currently has a tissue wrapped and placed in his nostril. He reports that he is doing well with his PT and is taking multiple walks around the floor throughout the days. Objective - Vital Signs/Intake and Output Vital Signs (last 24 hours): Temp Pulse Resp BP Pulse Ox 97.7 F 71 20 135/79 97 09/12/17 08:06 09/12/17 08:06 09/12/17 08:06 09/12/17 08:06 09/12/17 08:06 Intake and Output: 09/12/17 09/12/17 06:59 18:59 Intake Total 930 400 Balance 930 400 - Medications Medications: Current Medications Albuterol/Ipratropium (Duoneb 3 Mg/0.5 Mg (3 Ml) Ud) 3 ml INH RQ6 [facility] Last Admin: 08/28/17 01:51 Dose: 3 ml Aspirin (Aspirin Chewable) 81 mg PO DAILY [facility] Last Admin: 09/12/17 09:54 Dose: 81 mg Calcium Acetate (Phoslo) 667 mg PO BIDCC [facility] Last Admin: 09/12/17 08:33 Dose: 667 mg Clopidogrel Bisulfate (Plavix) 75 mg PO DAILY [facility] Last Admin: 09/12/17 09:55 Dose: 75 mg Famotidine (Pepcid) 20 mg PO BID [facility] Last Admin: 09/12/17 09:55 Dose: 20 mg Insulin Human Regular (Novolin R) 0 unit SC ACHS [facility] PRN Reason: Protocol Last Admin: 09/12/17 11:36 Dose: Not Given Metoprolol Succinate (Toprol Xl) 25 mg PO DAILY [facility] Last Admin: 09/12/17 09:55 Dose: 25 mg Rosuvastatin Calcium (Crestor) 2.5 mg PO HS [facility] Last Admin: 09/11/17 21:06 Dose: 2.5 mg Sodium Chloride ([place] Baby Saline 30 Ml) 0 ml MACHELLE TID [facility] Last Admin: 09/12/17 14:28 Dose: 1 spr - Labs Labs: 08/31/17 08:47 08/31/17 08:47 PT 12.9 SECONDS (9.7-12.2) H 08/28/17 07:08 INR 1.2 08/28/17 07:08 APTT 29 SECONDS (21-34) 08/28/17 07:08 - Constitutional Appears: Non-toxic, No Acute Distress - Head Exam Head Exam: ATRAUMATIC, NORMOCEPHALIC - Eye Exam Eye Exam: EOMI, Normal appearance, PERRL - ENT Exam ENT Exam: Mucous Membranes Moist - Respiratory Exam Respiratory Exam: Clear to Ausculation Bilateral, NORMAL BREATHING PATTERN. absent: Accessory Muscle Use, Rales, Rhonchi, Wheezes, Respiratory Distress - Cardiovascular Exam Cardiovascular Exam: REGULAR RHYTHM, +S1. absent: JVD - GI/Abdominal Exam GI & Abdominal Exam: Soft, Normal Bowel Sounds. absent: Distended, Firm, Guarding, Rigid, Tenderness - Extremities Exam Extremities Exam: absent: Calf Tenderness, Pedal Edema - Neurological Exam Neurological Exam: Alert, Awake, Oriented x3 - Psychiatric Exam Psychiatric exam: Normal Affect, Normal Mood - Skin Skin Exam: Dry, Warm Assessment and Plan - Assessment and Plan (Free Text) Plan: s/p CABG (coronary artery bypass graft) F/u with Dr. Grant, Cardiothoracic surgeon * Patient seen today at [facility] by Dr. Grant for post-op care; thomas removed ( 08/26/17) * Will continue to manage as per Dr. Grant's recommendation Physical Security Manager, Dr. Bautista----> Consulted * Management as per recommendation CABG at [facility] 07/25/17 Cardiac catheterization (07/15/17)- Dr. Bautista: Multi-vessel disease with 95% stenosis in mid segment of LAD with in-stent re-stenosis. Intimal irregularities in the first diagonal branch. 80% stenosis in proximal segment of circumflex artery. 90% stenosis of right coronary artery. Normal LV systolic function with estimated EF of 50%. Echocardiogram (07/12/17): Showed normal LV size, borderline concentric LV hypertrophy, moderately to severely impaired systolic function, septal hypokinesis, mild to moderate aortic regurgitation, and aortic root is moderately enlarged. At [facility] cabg x2, reop for bleeding,multiple blood transfusion, post op hypoxic, respiratory failure, extubated on 07/22, s/p left sided post op pneumothorax pig tail removed 08/05, noted on chest X-ray * Chest X-ray (08/08/17): Mild Right basilar atelactasis and small right sided pleural effusion * Repeat Chest X-ray (08/13/17): No change in right basilar atelectasis and left lower lobe consolidation with small pleural effusions. * Echocardiogram report (08/14/17): EF (25-30%), LV systolic is severely impaired, LV diastolic function is abnormal, LV is normal size. Right ventricle is normal size, with normal systolic function, RA is normal size. Mild Aortic root dilatation and mild triscuspid regurgitation Medications/Management: * ASA 81mg po daily * Plavix 75mg po daily * Crestor 2.5mg PO HS * Metoprolol Succ. 25mg PO daily s/p Acute Respiratory Failure requiring intubation/extubation at [facility] Prior history of pneumothorax (resolved) On ambulation Obstetrics Gyn Physician Consult, Dr. Garcia * Management as per recommendation * AB.50/34/72/27.4 * Chest CT: No CT evidence for acute pulmonary embolism. 7 mm subpleural nodule in the right lower lobe. Follow-up CT scan in 6-12 months interval is recommended to assess stability. Mild cardiomegaly, small pericardial effusion and trace bilateral pleural effusions. Continue to encourage incentive spirometer use and physical therapy * As per physical therapy, improving saturtation during gait and able to recovery desaturation with rest. Epistaxis (resolved) ENT consulted - Dr. Mata- help appreciated * Rhino Rocket placed removed by Dr. Mata * As per Dr. Mata, epistaxis resolved, deviated septum and patient is stable and cleared from ENT standpoint History of coronary artery disease CABG at [facility] 07/25/17 * cardiac catheterization (07/14/17) which showed multi-vessel disease with 95% stenosis in mid segment of LAD with in-stent re-stenosis. Intimal irregularities in the first diagonal branch. 80% stenosis in proximal segment of circumflex artery. 90% stenosis of right coronary artery. Normal LV systolic function with estimated EF of 50%. Medications: * ASA 81mg po daily * Plavix 75mg po daily * Crestor 2.5mg PO HS * Metoprolol Succ. 25mg PO daily Urinary tract infection (resolved) UA (LE (3+) and Urine WBC (50) UC: + Psedomonas Aeruginosa Medications: Cipro 500mg PO BID (Started 08/22/17) Constipation (resolved) Medications: * Docusate 100mg PO BID * Senna A and B 17.5mg PO daily Serum lipase elevation (resolved) Trending down; Normalized Continue to monitor with labs Imaging: * CT abd/pelvis showed no evidence of pancreatitis as per [facility] discharge summary History of diabetes mellitus (controlled) Accuchecks Novolog 2 units TIDAC ISS low dose History of hypertension Stable with medication Continue to monitor with vital signs Medication: * Metoprolol Succ. 25mg PO daily Deconditioning PT and OT - work on improving conditioning - patient lives on third floor - will f/u with PT to see progress of patient to see if he can be safely discharged home without home PT. Prophylactic measure GI: Pepcid 20mg PO BID DVT: Lovenox 30mg SC daily Multivitamins 1 tab PO daily PT and OT - work on improving conditioning - patient lives on third floor - will f/u with PT to see progress of patient to see if he can be safely discharged home without home PT. Continue to encourage Incentive spirometer used Disposition: Patient is cleared to be discharged. He is currently awaiting placement as he can not live in his apartment alone currently. He is planning to move in with his brother on September 14. Case discussed with Dr. Marija Mancuso Otto PGY1 <Florencio Dutton - Last Filed: 09/12/17 16:23> Objective - Vital Signs/Intake and Output Vital Signs (last 24 hours): Temp Pulse Resp BP Pulse Ox 97.7 F 71 20 135/79 97 09/12/17 08:06 09/12/17 08:06 09/12/17 08:06 09/12/17 08:06 09/12/17 08:06 Intake and Output: 09/12/17 09/12/17 06:59 18:59 Intake Total 930 400 Balance 930 400 - Medications Medications: Current Medications Albuterol/Ipratropium (Duoneb 3 Mg/0.5 Mg (3 Ml) Ud) 3 ml INH RQ6 [facility] Last Admin: 08/28/17 01:51 Dose: 3 ml Aspirin (Aspirin Chewable) 81 mg PO DAILY [facility] Last Admin: 09/12/17 09:54 Dose: 81 mg Calcium Acetate (Phoslo) 667 mg PO BIDCC [facility] Last Admin: 09/12/17 08:33 Dose: 667 mg Clopidogrel Bisulfate (Plavix) 75 mg PO DAILY [facility] Last Admin: 09/12/17 09:55 Dose: 75 mg Enoxaparin Sodium (Lovenox) 30 mg SC DAILY [facility] Famotidine (Pepcid) 20 mg PO BID [facility] Last Admin: 09/12/17 09:55 Dose: 20 mg Insulin Human Regular (Novolin R) 0 unit SC ACHS [facility] PRN Reason: Protocol Last Admin: 09/12/17 11:36 Dose: Not Given Metoprolol Succinate (Toprol Xl) 25 mg PO DAILY [facility] Last Admin: 09/12/17 09:55 Dose: 25 mg Rosuvastatin Calcium (Crestor) 2.5 mg PO HS [facility] Last Admin: 09/11/17 21:06 Dose: 2.5 mg Sodium Chloride ([place] Baby Saline 30 Ml) 0 ml MACHELLE TID [facility] Last Admin: 09/12/17 14:28 Dose: 1 spr - Labs Labs: 08/31/17 08:47 08/31/17 08:47 PT 12.9 SECONDS (9.7-12.2) H 08/28/17 07:08 INR 1.2 08/28/17 07:08 APTT 29 SECONDS (21-34) 08/28/17 07:08 Attending/Attestation - Attestation I have personally seen and examined this patient.: Yes I have fully participated in the care of the patient.: Yes I have reviewed all pertinent clinical information, including history, physical exam and plan: Yes Notes (Text): 09/12/17 16:23 Medical attending: Patient was seen and examined by me, agrees the above note by the medical device engineer. We want to try to discharge the patient today however they got back to us saying that the family would not be ready to take him until the of this month. His explained to us that they're in the process of moving from [place] to [place]. Thank you very much, Florencio Dutton
[2017-09-12] MEDS: Rosuvastatin Calcium 2.5 mg Tab PO SCH (22:08)
[2017-09-13] MEDS: (Novolin R) Insulin Human Regular 100 units/ml vial SC SCH ×4 (07:48→21:20)
[2017-09-13] MEDS: Enoxaparin 30 mg Syringe SC SCH (09:15)
[2017-09-13] MEDS: Metoprolol Succinate 25 mg XL Tab PO SCH (09:15)
[2017-09-13] MEDS: Sodium Chloride Nasal 0.65% Soln (30ml) NAS SCH ×3 (09:17→17:36)
--- NOTE | 2017-09-13 13:50 | CP.PCM.PN ---
Subjective - Date & Time of Evaluation Date of Evaluation: 09/13/17 Time of Evaluation: 13:34 - Subjective Subjective: PGY1 Medicine Note for Dr. Dutton Patient seen and examined at bedside this morning. The patient feels well and currently waiting for placement. He is planning on leaving tomorrow to live with his brother who is currently moving to [place]. He has been walking around the hallways with his rolling walker and states that he is continuing to walk more and more. Patient states he has no complaints at this time. Objective - Vital Signs/Intake and Output Vital Signs (last 24 hours): Temp Pulse Resp BP Pulse Ox 98.0 F 113 H 20 139/100 H 95 09/13/17 08:15 09/13/17 08:15 09/13/17 08:15 09/13/17 08:15 09/13/17 08:15 Intake and Output: 09/13/17 09/13/17 06:59 18:59 Intake Total 750 Balance 750 - Medications Medications: Current Medications Albuterol/Ipratropium (Duoneb 3 Mg/0.5 Mg (3 Ml) Ud) 3 ml INH RQ6 [facility] Last Admin: 08/28/17 01:51 Dose: 3 ml Aspirin (Aspirin Chewable) 81 mg PO DAILY [facility] Last Admin: 09/13/17 09:14 Dose: 81 mg Calcium Acetate (Phoslo) 667 mg PO BIDCC [facility] Last Admin: 09/13/17 07:48 Dose: 667 mg Clopidogrel Bisulfate (Plavix) 75 mg PO DAILY [facility] Last Admin: 09/13/17 09:15 Dose: 75 mg Enoxaparin Sodium (Lovenox) 30 mg SC DAILY [facility] Last Admin: 09/13/17 09:15 Dose: Not Given Famotidine (Pepcid) 20 mg PO BID [facility] Last Admin: 09/13/17 09:15 Dose: 20 mg Insulin Human Regular (Novolin R) 0 unit SC [facility] PRN Reason: Protocol Last Admin: 09/13/17 11:54 Dose: Not Given Metoprolol Succinate (Toprol Xl) 25 mg PO DAILY [facility] Last Admin: 09/13/17 09:15 Dose: 25 mg Rosuvastatin Calcium (Crestor) 2.5 mg PO HS [facility] Last Admin: 09/12/17 22:08 Dose: 2.5 mg Sodium Chloride ([place] Baby Saline 30 Ml) 0 ml [facility]HELLE TID [facility] Last Admin: 09/13/17 09:17 Dose: Not Given - Labs Labs: 08/31/17 08:47 08/31/17 08:47 PT 12.9 SECONDS (9.7-12.2) H 08/28/17 07:08 INR 1.2 08/28/17 07:08 APTT 29 SECONDS (21-34) 08/28/17 07:08 - Constitutional Appears: Non-toxic, No Acute Distress - Head Exam Head Exam: ATRAUMATIC, NORMOCEPHALIC - Eye Exam Eye Exam: EOMI, Normal appearance, PERRL - ENT Exam ENT Exam: Mucous Membranes Moist - Neck Exam Neck Exam: Full ROM - Respiratory Exam Respiratory Exam: Clear to Ausculation Bilateral, NORMAL BREATHING PATTERN. absent: Accessory Muscle Use, Rales, Rhonchi, Wheezes, Respiratory Distress - Cardiovascular Exam Cardiovascular Exam: REGULAR RHYTHM, +S1. absent: JVD - GI/Abdominal Exam GI & Abdominal Exam: Soft, Normal Bowel Sounds. absent: Distended, Firm, Guarding, Rigid, Tenderness - Extremities Exam Extremities Exam: Normal Inspection. absent: Calf Tenderness, Pedal Edema - Neurological Exam Neurological Exam: Alert, Awake, Oriented x3 - Psychiatric Exam Psychiatric exam: Normal Affect, Normal Mood - Skin Skin Exam: Dry, Warm Assessment and Plan - Assessment and Plan (Free Text) Plan: s/p CABG (coronary artery bypass graft) F/u with Dr. Grant, Cardiothoracic surgeon * Patient seen today at [facility] [place] by Dr. Grant for post-op care; thomas removed ( 08/26/17) * Will continue to manage as per Dr. Grant's recommendation Check Examiner, Dr. Bautista----> Consulted * Management as per recommendation CABG at [facility] [place] 07/25/17 Cardiac catheterization (07/15/17)- Dr. Bautista: Multi-vessel disease with 95% stenosis in mid segment of LAD with in-stent re-stenosis. Intimal irregularities in the first diagonal branch. 80% stenosis in proximal segment of circumflex artery. 90% stenosis of right coronary artery. Normal LV systolic function with estimated EF of 50%. Echocardiogram (07/12/17): Showed normal LV size, borderline concentric LV hypertrophy, moderately to severely impaired systolic function, septal hypokinesis, mild to moderate aortic regurgitation, and aortic root is moderately enlarged. At [facility] [place] cabg x2, reop for bleeding,multiple blood transfusion, post op hypoxic, respiratory failure, extubated on 07/22, s/p left sided post op pneumothorax pig tail removed 08/05, noted on chest X-ray * Chest X-ray (08/08/17): Mild Right basilar atelactasis and small right sided pleural effusion * Repeat Chest X-ray (08/13/17): No change in right basilar atelectasis and left lower lobe consolidation with small pleural effusions. * Echocardiogram report (08/14/17): EF (25-30%), LV systolic is severely impaired, LV diastolic function is abnormal, LV is normal size. Right ventricle is normal size, with normal systolic function, RA is normal size. Mild Aortic root dilatation and mild triscuspid regurgitation Medications/Management: * ASA 81mg po daily * Plavix 75mg po daily * Crestor 2.5mg PO HS * Metoprolol Succ. 25mg PO daily s/p Acute Respiratory Failure requiring intubation/extubation at [facility] [place] Prior history of pneumothorax (resolved) On ambulation Collet Driller Consult, Dr. Garcia * Management as per recommendation * AB.50/34/72/27.4 * Chest CT: No CT evidence for acute pulmonary embolism. 7 mm subpleural nodule in the right lower lobe. Follow-up CT scan in 6-12 months interval is recommended to assess stability. Mild cardiomegaly, small pericardial effusion and trace bilateral pleural effusions. Continue to encourage incentive spirometer use and physical therapy * As per physical therapy, improving saturtation during gait and able to recovery desaturation with rest. Epistaxis (resolved) ENT consulted - Dr. Mata- help appreciated * Rhino Rocket placed removed by Dr. Mata * As per Dr. Mata, epistaxis resolved, deviated septum and patient is stable and cleared from ENT standpoint History of coronary artery disease CABG at [facility] 07/25/17 * cardiac catheterization (07/14/17) which showed multi-vessel disease with 95% stenosis in mid segment of LAD with in-stent re-stenosis. Intimal irregularities in the first diagonal branch. 80% stenosis in proximal segment of circumflex artery. 90% stenosis of right coronary artery. Normal LV systolic function with estimated EF of 50%. Medications: * ASA 81mg po daily * Plavix 75mg po daily * Crestor 2.5mg PO HS * Metoprolol Succ. 25mg PO daily Urinary tract infection (resolved) UA (LE (3+) and Urine WBC (50) UC: + Psedomonas Aeruginosa Medications: Cipro 500mg PO BID (Started 08/22/17) Constipation (resolved) Medications: * Docusate 100mg PO BID * Senna A and B 17.5mg PO daily Serum lipase elevation (resolved) Trending down; Normalized Continue to monitor with labs Imaging: * CT abd/pelvis showed no evidence of pancreatitis as per [facility] discharge summary History of diabetes mellitus (controlled) Accuchecks Novolog 2 units TIDAC ISS low dose History of hypertension Stable with medication Continue to monitor with vital signs Medication: * Metoprolol Succ. 25mg PO daily Deconditioning PT and OT - work on improving conditioning - patient lives on third floor - will f/u with PT to see progress of patient to see if he can be safely discharged home without home PT. Prophylactic measure GI: Pepcid 20mg PO BID DVT: Lovenox 30mg SC daily Multivitamins 1 tab PO daily PT and OT - work on improving conditioning - patient lives on third floor - will f/u with PT to see progress of patient to see if he can be safely discharged home without home PT. Continue to encourage Incentive spirometer used Disposition: Patient is cleared to be discharged. He is currently awaiting placement as he can not live in his apartment alone currently. He is planning to move in with his brother on September 14. Plan for discharge tomorrow. Case discussed with Dr. Marija Mancuso Otto PGY1
[2017-09-13] MEDS: Rosuvastatin Calcium 2.5 mg Tab PO SCH (21:27)
[2017-09-14] MEDS: (Novolin R) Insulin Human Regular 100 units/ml vial SC SCH ×4 (08:10→22:23)
[2017-09-14] MEDS: Sodium Chloride Nasal 0.65% Soln (30ml) NAS SCH ×3 (10:24→18:07)
[2017-09-14] MEDS: Enoxaparin 30 mg Syringe SC SCH (10:25)
[2017-09-14] MEDS: Metoprolol Succinate 25 mg XL Tab PO SCH (10:27)
--- NOTE | 2017-09-14 17:04 | CP.PCM.PN ---
<Bartolome Menjivar - Last Filed: 09/14/17 16:58> Subjective - Date & Time of Evaluation Date of Evaluation: 09/14/17 Time of Evaluation: 09:00 - Subjective Subjective: PGY1 Medicine Note for Dr. Dutton Patient seen and examined this morning at bedside. The patient was scheduled to go home today but states that his brother is not finished moving into his new apartment. Spoke to the patient's brother who stated he will sheepskin pickler his brother tomorrow. He does not want the patient to be alone by himself. Patient has no complaints at this time. Objective - Vital Signs/Intake and Output Vital Signs (last 24 hours): Temp Pulse Resp BP Pulse Ox 98.5 F 88 20 118/80 97 09/14/17 08:00 09/14/17 08:00 09/14/17 08:00 09/14/17 08:00 09/14/17 08:00 Intake and Output: 09/14/17 09/14/17 06:59 18:59 Intake Total 550 Output Total 500 Balance 50 - Medications Medications: Current Medications Albuterol/Ipratropium (Duoneb 3 Mg/0.5 Mg (3 Ml) Ud) 3 ml INH RQ6 [facility] Last Admin: 08/28/17 01:51 Dose: 3 ml Aspirin (Aspirin Chewable) 81 mg PO DAILY [facility] Last Admin: 09/14/17 10:24 Dose: 81 mg Calcium Acetate (Phoslo) 667 mg PO BIDCC [facility] Last Admin: 09/14/17 08:42 Dose: 667 mg Clopidogrel Bisulfate (Plavix) 75 mg PO DAILY [facility] Last Admin: 09/14/17 10:24 Dose: 75 mg Enoxaparin Sodium (Lovenox) 30 mg SC DAILY [facility] Last Admin: 09/14/17 10:25 Dose: Not Given Famotidine (Pepcid) 20 mg PO BID [facility] Last Admin: 09/14/17 10:24 Dose: 20 mg Insulin Human Regular (Novolin R) 0 unit SC [facility] PRN Reason: Protocol Last Admin: 09/14/17 12:38 Dose: Not Given Metoprolol Succinate (Toprol Xl) 25 mg PO DAILY [facility] Last Admin: 09/14/17 10:27 Dose: 25 mg Rosuvastatin Calcium (Crestor) 2.5 mg PO HS [facility] Last Admin: 09/13/17 21:27 Dose: 2.5 mg Sodium Chloride ([place] Baby Saline 30 Ml) 0 ml [facility]HELLE TID [facility] Last Admin: 09/14/17 14:21 Dose: Not Given - Labs Labs: 08/31/17 08:47 08/31/17 08:47 PT 12.9 SECONDS (9.7-12.2) H 08/28/17 07:08 INR 1.2 08/28/17 07:08 APTT 29 SECONDS (21-34) 08/28/17 07:08 - Constitutional Appears: Non-toxic, No Acute Distress - Head Exam Head Exam: ATRAUMATIC, NORMOCEPHALIC - Eye Exam Eye Exam: EOMI, Normal appearance - ENT Exam ENT Exam: Mucous Membranes Moist - Respiratory Exam Respiratory Exam: Clear to Ausculation Bilateral, NORMAL BREATHING PATTERN. absent: Accessory Muscle Use, Rales, Rhonchi, Wheezes, Respiratory Distress - Cardiovascular Exam Cardiovascular Exam: REGULAR RHYTHM, +S1 - GI/Abdominal Exam GI & Abdominal Exam: Soft, Normal Bowel Sounds. absent: Distended, Firm, Guarding, Rigid, Tenderness - Extremities Exam Extremities Exam: absent: Calf Tenderness, Pedal Edema - Neurological Exam Neurological Exam: Alert, Awake, Normal Gait, Oriented x3 - Psychiatric Exam Psychiatric exam: Normal Affect, Normal Mood - Skin Skin Exam: Dry, Warm Assessment and Plan - Assessment and Plan (Free Text) Plan: s/p CABG (coronary artery bypass graft) F/u with Dr. Grant, Cardiothoracic surgeon * Patient [place] today [place] [facility] [place] for post-op care; thomas removed ( 08/26/17) * Will continue to manage as per Dr. Grant's recommendation Online Advertising Director, Dr. Bautista----> Consulted * Management as per recommendation [place] [facility] [place] Cardiac catheterization (07/15/17)- Dr. Bautista: Multi-vessel disease with 95% stenosis in mid segment of LAD with in-stent re-stenosis. Intimal irregularities in the first diagonal branch. 80% stenosis in proximal segment of circumflex artery. 90% stenosis of right coronary artery. Normal LV systolic function with estimated EF of 50%. Echocardiogram (07/12/17): Showed normal LV size, borderline concentric LV hypertrophy, moderately to severely impaired systolic function, septal hypokinesis, mild to moderate aortic regurgitation, and aortic root is moderately enlarged. [place] [facility] [place], reop for bleeding,multiple blood transfusion, post op hypoxic, respiratory failure, extubated on 07/22, s/p left sided post op pneumothorax pig tail removed 08/05, noted on chest X-ray * Chest X-ray (08/08/17): Mild Right basilar atelactasis and small right sided pleural effusion * Repeat Chest X-ray (08/13/17): No change in right basilar atelectasis and left lower lobe consolidation with small pleural effusions. * Echocardiogram report (08/14/17): EF (25-30%), LV systolic is severely impaired, LV diastolic function is abnormal, LV is normal size. Right ventricle is normal size, with normal systolic function, RA is normal size. Mild Aortic root dilatation and mild triscuspid regurgitation Medications/Management: * ASA 81mg po daily * Plavix 75mg po daily * Crestor 2.5mg PO HS * Metoprolol Succ. 25mg PO daily s/p Acute Respiratory Failure requiring intubation/extubation at [facility] [place] history of pneumothorax (resolved) On ambulation Seafood Farmer Consult, Dr. Garcia * Management as per recommendation * AB.50/34/72/27.4 * Chest CT: No CT evidence for acute pulmonary embolism. 7 mm subpleural nodule in the right lower lobe. Follow-up CT scan in 6-12 months interval is recommended to assess stability. Mild cardiomegaly, small pericardial effusion and trace bilateral pleural effusions. Continue to encourage incentive spirometer use and physical therapy * As per physical therapy, improving saturtation during gait and able to recovery desaturation with rest. Epistaxis (resolved) ENT consulted - Dr. Mata- help appreciated * Rhino Rocket placed removed by Dr. Mata * As per Dr. Mata, epistaxis resolved, deviated septum and patient is stable and cleared from ENT standpoint History of coronary artery disease CABG [place] [facility] [place] * cardiac catheterization (07/14/17) which showed multi-vessel disease with 95% stenosis in mid segment of LAD with in-stent re-stenosis. Intimal irregularities in the first diagonal branch. 80% stenosis in proximal segment of circumflex artery. 90% stenosis of right coronary artery. Normal LV systolic function with estimated EF of 50%. Medications: * ASA 81mg po daily * Plavix 75mg po daily * Crestor 2.5mg PO HS * Metoprolol Succ. 25mg PO daily Urinary tract infection (resolved) UA (LE (3+) and Urine WBC (50) UC: + Psedomonas Aeruginosa Medications: Cipro 500mg PO BID (Started 08/22/17) Constipation (resolved) Medications: * Docusate 100mg PO BID * Senna A and B 17.5mg PO daily Serum lipase elevation (resolved) Trending down; Normalized Continue to monitor with labs Imaging: * CT abd/pelvis showed no evidence of pancreatitis as per [facility] [place] History of diabetes mellitus (controlled) Accuchecks Novolog 2 units TIDAC ISS low dose History of hypertension Stable with medication Continue to monitor with vital signs Medication: * Metoprolol Succ. 25mg PO daily Deconditioning PT and OT - work on improving conditioning - patient lives on third floor - will f/u with PT to see progress of patient to see if he can be safely discharged home without home PT. Prophylactic measure GI: Pepcid 20mg PO BID DVT: Lovenox 30mg SC daily Multivitamins 1 tab PO daily PT and OT - work on improving conditioning - patient lives on third floor - will f/u with PT to see progress of patient to see if he can be safely discharged home without home PT. Continue to encourage Incentive spirometer used Disposition: Patient is cleared to be discharged. He is currently awaiting placement as he can not live in his apartment alone currently. He is planning to move in with his brother on September 15. Patient must leave tomorrow. Discharge in the morning. Case discussed with Dr. Marija Mancuso Otto PGY1 <Florencio Dutton - Last Filed: 09/14/17 17:25> Objective - Vital Signs/Intake and Output Vital Signs (last 24 hours): Temp Pulse Resp BP Pulse Ox 98.5 F 88 20 118/80 97 09/14/17 08:00 09/14/17 08:00 09/14/17 08:00 09/14/17 08:00 09/14/17 08:00 Intake and Output: 09/14/17 09/14/17 06:59 18:59 Intake Total 550 Output Total 500 Balance 50 - Medications Medications: Current Medications Albuterol/Ipratropium (Duoneb 3 Mg/0.5 Mg (3 Ml) Ud) 3 ml INH RQ6 [facility] Last Admin: 08/28/17 01:51 Dose: 3 ml Aspirin (Aspirin Chewable) 81 mg PO DAILY [facility] Last Admin: 09/14/17 10:24 Dose: 81 mg Calcium Acetate (Phoslo) 667 mg PO BIDCC [facility] Last Admin: 09/14/17 08:42 Dose: 667 mg Clopidogrel Bisulfate (Plavix) 75 mg PO DAILY [facility] Last Admin: 09/14/17 10:24 Dose: 75 mg Enoxaparin Sodium (Lovenox) 30 mg SC DAILY [facility] Last Admin: 09/14/17 10:25 Dose: Not Given Famotidine (Pepcid) 20 mg PO BID [facility] Last Admin: 09/14/17 10:24 Dose: 20 mg Insulin Human Regular (Novolin R) 0 unit SC [facility] PRN Reason: Protocol Last Admin: 09/14/17 12:38 Dose: Not Given Metoprolol Succinate (Toprol Xl) 25 mg PO DAILY [facility] Last Admin: 09/14/17 10:27 Dose: 25 mg Rosuvastatin Calcium (Crestor) 2.5 mg PO HS [facility] Last Admin: 09/13/17 21:27 Dose: 2.5 mg Sodium Chloride ([place] Baby Saline 30 Ml) 0 ml MACHELLE TID [facility] Last Admin: 09/14/17 14:21 Dose: Not Given - Labs Labs: 08/31/17 08:47 08/31/17 08:47 PT 12.9 SECONDS (9.7-12.2) H 08/28/17 07:08 INR 1.2 08/28/17 07:08 APTT 29 SECONDS (21-34) 08/28/17 07:08 Attending/Attestation - Attestation I have personally seen and examined this patient.: Yes I have fully participated in the care of the patient.: Yes I have reviewed all pertinent clinical information, including history, physical exam and plan: Yes Notes (Text): 09/14/17 17:24 Medical attending: Patient was seen and examined by me Agree with the above note by the resident The patient spoke with his brother over the phone - whom I also spoke to. This brother explained that he could not bring Mr Troy home today and will do so tommorow. thank you Florencio Dutton
[2017-09-14] MEDS: Rosuvastatin Calcium 2.5 mg Tab PO SCH (22:21)
[2017-09-15] MEDS: (Novolin R) Insulin Human Regular 100 units/ml vial SC SCH ×2 (08:04→12:11)
[2017-09-15] MEDS: Metoprolol Succinate 25 mg XL Tab PO SCH (09:01)
[2017-09-15] MEDS: Enoxaparin 30 mg Syringe SC SCH (09:02)
[2017-09-15] MEDS: Sodium Chloride Nasal 0.65% Soln (30ml) NAS SCH ×2 (09:02→13:21)
--- NOTE | 2017-09-15 11:08 | CP.PCM.DIS ---
<ShamirRoverto powell R - Last Filed: 09/15/17 10:55> Provider - Provider Date of Admission: 08/07/17 20:42 Attending physician: Florencio Dutton DO Primary care physician: PMD: none Consults: Infectious Disease: Dr Asher [place] Reporter: Dr Bautista Pulmonary: Dr Garcia ENT: Dr Mata Time Spent in preparation of Discharge (in minutes): 45 Diagnosis - Discharge Diagnosis (1) S/P CABG (coronary artery bypass graft) Status: Resolved Priority: High (2) NSTEMI (non-ST elevated myocardial infarction) Status: Resolved Priority: High (3) Epistaxis Status: Resolved Priority: Medium (4) History of coronary artery disease Status: Chronic Priority: High (5) History of diabetes mellitus Status: Chronic Priority: High (6) History of hypertension Status: Chronic Priority: High (7) Urinary tract infection Status: Resolved Priority: Low Hospital Course - Lab Results Lab Results: Micro Results 08/29/17 14:42 Urine,Clean Catch Urine Culture - Final No Growth (<1,000 CFU/ML) 08/22/17 19:30 Blood-Venous Blood Culture - Final NO GROWTH AFTER 5 DAYS 08/22/17 19:30 Blood-Venous Gram Stain - Final TEST NOT PERFORMED 08/22/17 19:00 Blood-Venous Blood Culture - Final NO GROWTH AFTER 5 DAYS 08/22/17 19:00 Blood-Venous Gram Stain - Final TEST NOT PERFORMED 08/20/17 11:50 Urine,Clean Catch Urine Culture - Final Pseudomonas Aeruginosa 08/08/17 06:30 Blood Blood Culture - Final NO GROWTH AFTER 5 DAYS 08/08/17 06:30 Blood Gram Stain - Final TEST NOT PERFORMED 08/08/17 07:00 Blood Blood Culture - Final NO GROWTH AFTER 5 DAYS 08/08/17 07:00 Blood Gram Stain - Final TEST NOT PERFORMED 08/08/17 22:32 Urine Urine Culture - Final No Growth (<1,000 CFU/ML) Most Recent Lab Values WBC 7.0 K/uL (4.8-10.8) 08/31/17 08:47 RBC 3.77 Mil/uL (4.40-5.90) L 08/31/17 08:47 Hgb 12.0 g/dL (12.0-18.0) 08/31/17 08:47 Hct 35.0 % (35.0-51.0) 08/31/17 08:47 MCV 92.8 fL (80.0-94.0) 08/31/17 08:47 MCH 31.7 pg (27.0-31.0) H 08/31/17 08:47 MCHC 34.2 g/dL (33.0-37.0) 08/31/17 08:47 RDW 17.9 % (11.5-14.5) H 08/31/17 08:47 Plt Count 405 K/uL (130-400) H 08/31/17 08:47 MPV 7.5 fL (7.2-11.7) 08/31/17 08:47 Neut % (Auto) 70.1 % (50.0-75.0) 08/31/17 08:47 Lymph % (Auto) 20.2 % (20.0-40.0) 08/31/17 08:47 [place] % (Auto) 6.3 % (0.0-10.0) 08/31/17 08:47 Eos % (Auto) 2.4 % (0.0-4.0) 08/31/17 08:47 Baso % (Auto) 1.0 % (0.0-2.0) 08/31/17 08:47 Neut # 4.9 K/uL (1.8-7.0) 08/31/17 08:47 Lymph # 1.4 K/uL (1.0-4.3) 08/31/17 08:47 [place] # 0.4 K/uL (0.0-0.8) 08/31/17 08:47 Eos # 0.2 K/uL (0.0-0.7) 08/31/17 08:47 Baso # 0.1 K/uL (0.0-0.2) 08/31/17 08:47 Neutrophils % (Manual) 87 % (50-75) H 08/13/17 06:55 Band Neutrophils % 2 % (0-2) 08/09/17 07:18 Lymphocytes % (Manual) 10 % (20-40) L 08/13/17 06:55 Monocytes % (Manual) 2 % (0-10) 08/13/17 06:55 Eosinophils % (Manual) 1 % (0-4) 08/13/17 06:55 Toxic Granulation Present 08/09/17 07:18 Platelet Estimate Slightly increased (NORMAL) H 08/13/17 06:55 Large Platelets Present 08/09/17 07:18 Polychromasia Slight 08/13/17 06:55 Hypochromasia (manual) Slight 08/13/17 06:55 Anisocytosis (manual) Slight 08/13/17 06:55 PT 12.9 SECONDS (9.7-12.2) H 08/28/17 07:08 INR 1.2 08/28/17 07:08 APTT 29 SECONDS (21-34) 08/28/17 07:08 Puncture Site Rrad 08/21/17 13:47 pCO2 34 mm/Hg (35-45) L 08/21/17 13:47 pO2 72 mm/Hg (80-100) L 08/21/17 13:47 HCO3 27.4 mmol/L (21-28) 08/21/17 13:47 ABG pH 7.50 (7.35-7.45) H 08/21/17 13:47 ABG Total CO2 27.5 mmol/L (22-28) 08/21/17 13:47 ABG O2 Saturation 97.8 % (95-98) 08/21/17 13:47 ABG Base Excess 3.3 mmol/L (-2.0-3.0) H 08/21/17 13:47 ABG Hemoglobin 9.9 g/dL (11.7-17.4) L 08/21/17 13:47 ABG Carboxyhemoglobin 2.7 % (0.5-1.5) H 08/21/17 13:47 POC ABG HHb (Measured) 2.1 % (0.0-5.0) 08/21/17 13:47 ABG Methemoglobin 1.5 % (0.0-3.0) 08/21/17 13:47 Jason Test Pos 08/21/17 13:47 Hgb O2 Saturation 93.7 % (95.0-98.0) L 08/21/17 13:47 Sodium 138 mmol/L (132-148) 08/31/17 08:47 Potassium 4.3 mmol/L (3.6-5.2) 08/31/17 08:47 Chloride 103 mmol/L (98-107) 08/31/17 08:47 Carbon Dioxide 28 mmol/L (22-30) 08/31/17 08:47 Anion Gap 11 (10-20) 08/31/17 08:47 BUN 7 mg/dL (9-20) L 08/31/17 08:47 Creatinine 1.3 mg/dL (0.8-1.5) 08/31/17 08:47 Est GFR ( Amer) > 60 08/31/17 08:47 Est GFR (Non-Af Amer) 56 08/31/17 08:47 POC Glucose (mg/dL) 119 mg/dL (65-110) H 09/14/17 21:19 Random Glucose 149 mg/dL (75-110) H 08/31/17 08:47 Calcium 8.6 mg/dl (8.6-10.4) 08/31/17 08:47 Phosphorus 4.7 mg/dL (2.5-4.5) H 08/31/17 08:47 Magnesium 1.5 mg/dL (1.6-2.3) L 08/31/17 08:47 Total Bilirubin 0.8 mg/dL (0.2-1.3) 08/31/17 08:47 AST 29 U/L (17-59) 08/31/17 08:47 ALT 66 U/L (21-72) 08/31/17 08:47 Alkaline Phosphatase 97 U/L (38-126) 08/31/17 08:47 Total Protein 6.9 g/dL (6.3-8.3) 08/31/17 08:47 Albumin 3.7 g/dL (3.5-5.0) 08/31/17 08:47 Globulin 3.2 gm/dL (2.2-3.9) 08/31/17 08:47 Albumin/Globulin Ratio 1.2 (1.0-2.1) 08/31/17 08:47 Amylase 277 U/L (30-110) H 08/11/17 08:50 Lipase 251 U/L (23-300) 08/28/17 07:08 Urine Color Yellow (YELLOW) 08/29/17 14:50 Urine Clarity Clear (Clear) 08/29/17 14:50 Urine pH 7.0 (5.0-8.0) 08/29/17 14:50 Ur Specific [place] 1.005 (1.003-1.030) 08/29/17 14:50 Urine Protein Negative mg/dL (NEGATIVE) 08/29/17 14:50 Urine Glucose (UA) Normal mg/dL (Normal) 08/29/17 14:50 Urine Ketones Negative mg/dL (NEGATIVE) 08/29/17 14:50 Urine Blood Negative (NEGATIVE) 08/29/17 14:50 Urine Nitrate Negative (NEGATIVE) 08/29/17 14:50 Urine Bilirubin Negative (NEGATIVE) 08/29/17 14:50 Urine Urobilinogen Normal mg/dL (0.2-1.0) 08/29/17 14:50 Ur Leukocyte Esterase Trace Pavithra/uL (Negative) 08/29/17 14:50 Urine WBC (Auto) 3 /hpf (0-5) 08/29/17 14:50 Urine RBC (Auto) 100 /hpf (0-3) H 08/20/17 12:41 Urine WBC Clumps (Auto) Few /hpf (NONE) H 08/20/17 12:41 Urine Bacteria Rare (<OCC) 08/29/17 14:50 Blood Type O POSITIVE 08/28/17 07:08 Antibody Screen Negative 08/28/17 07:08 - Hospital Course Hospital Course: HPI 07/11/17: This patient is a 66 year old male with a PMHx of [place] with catherization and possible stent placement in 2006. He presented to the clinic with complaints of sharp non-radiating chest pain that started about 3: 20pm on the day of admission in which he rates an 8/10. He denies any relieving or exacerbating factors. Patient was walking home when the chest pain started. He denies any SOB, changes in vision, dizziness, or lightheadness during the event. Patient states that for the past month he has been having chest pain on and off during rest and exertion. Patient is unsure whether he had a stent put in during his catherization in 2006. He does not know the name of the instrument mechanics supervisor who did the stent, nor has he followed up with the instrument mechanics supervisor. He is unsure of the hospital he went to during the last FL, but he states that it was a hospital in [place], [place]. ROS (+) Sharp sub-sternal chest pain (non-radiating) (-) lightheadedness, dizziness, headache, changes in vision, SOB, orthopnea, abdominal pain, nausea, vomiting, diarrhea, changes in urinary symptoms. PMD: None [place] Reporter: Unknown. PMHx: FL (2006) with catherization and possible stent placement inguinal hernias (left and right) PSHx: hernia repair (1978) Allergies: NKDA Social Hx: Denies Tobacco, Alcohol, or illicit drug use. Hospitilizations: patient says he was hospitalized in 2006 for week. He states he couldn't see straight. They did a CAT scan of a head. He is unaware of what the diagnoses was. Family Hx: Denies Meds: Aspirin 81 Daily HOSPITAL COURSE: s/p CABG (coronary artery bypass graft) F/u with Dr. Grant, Cardiothoracic surgeon * Patient seen today at [facility] by Dr. Grant for post-op care; thomas removed ( 08/26/17) * Will continue to manage as per Dr. Grant's recommendation [place] Reporter, Dr. Bautista----> Consulted * Management as per recommendation CABG at [facility] 07/25/17 Cardiac catheterization (07/15/17)- Dr. Bautista: Multi-vessel disease with 95% stenosis in mid segment of LAD with in-stent re-stenosis. Intimal irregularities in the first diagonal branch. 80% stenosis in proximal segment of circumflex artery. 90% stenosis of right coronary artery. Normal LV systolic function with estimated EF of 50%. Echocardiogram (07/12/17): Showed normal LV size, borderline concentric LV hypertrophy, moderately to severely impaired systolic function, septal hypokinesis, mild to moderate aortic regurgitation, and aortic root is moderately enlarged. At [facility] cabg x2, reop for bleeding,multiple blood transfusion, post op hypoxic, respiratory failure, extubated on 07/22, s/p left sided post op pneumothorax pig tail removed 08/05, noted on chest X-ray * Chest X-ray (08/08/17): Mild Right basilar atelactasis and small right sided pleural effusion * Repeat Chest X-ray (08/13/17): No change in right basilar atelectasis and left lower lobe consolidation with small pleural effusions. * Echocardiogram report (08/14/17): EF (25-30%), LV systolic is severely impaired, LV diastolic function is abnormal, LV is normal size. Right ventricle is normal size, with normal systolic function, RA is normal size. Mild Aortic root dilatation and mild triscuspid regurgitation Medications/Management: * ASA 81mg po daily * Plavix 75mg po daily * Crestor 2.5mg PO HS * Metoprolol Succ. 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 Garcia * Management as per recommendation * AB.50/34/72/27.4 * Chest CT: No CT evidence for acute pulmonary embolism. 7 mm subpleural nodule in the right lower lobe. Follow-up CT scan in 6-12 months interval is recommended to assess stability. Mild cardiomegaly, small pericardial effusion and trace bilateral pleural effusions. Continue to encourage incentive spirometer use and physical therapy * As per physical therapy, improving saturtation during gait and able to recovery desaturation with rest. Epistaxis (resolved) ENT consulted - Dr. Mata- help appreciated * Rhino Rocket placed removed by Dr. Mata * As per Dr. Mata, epistaxis resolved, deviated septum and patient is stable and cleared from ENT standpoint History of coronary artery disease CABG at [facility] 07/25/17 * cardiac catheterization (07/14/17) which showed multi-vessel disease with 95% stenosis in mid segment of LAD with in-stent re-stenosis. Intimal irregularities in the first diagonal branch. 80% stenosis in proximal segment of circumflex artery. 90% stenosis of right coronary artery. Normal LV systolic function with estimated EF of 50%. Medications: * ASA 81mg po daily * Plavix 75mg po daily * Crestor 2.5mg PO HS * Metoprolol Succ. 25mg PO daily Urinary tract infection (resolved) UA (LE (3+) and Urine WBC (50) UC: + Psedomonas Aeruginosa Medications: Cipro 500mg PO BID (Started 08/22/17) Constipation (resolved) Medications: * Docusate 100mg PO BID * Senna A and B 17.5mg PO daily Serum lipase elevation (resolved) Trending down; Normalized Continue to monitor with labs Imaging: * CT abd/pelvis showed no evidence of pancreatitis as per [facility] discharge summary History of diabetes mellitus (controlled) Accuchecks Novolog 2 units TIDAC ISS low dose History of hypertension (controlled) Stable with medication Continue to monitor with vital signs Medication: * Metoprolol Succ. 25mg PO daily Deconditioning Seen by Physical therapy and Occupational Therapy. Patient was discharged with a script for a rolling walker. On last physical therapy treatment on 09/13/17, the patient ambulated well without complications (see PT note for full details) Prophylactic measure GI: Pepcid 20mg PO BID DVT: Lovenox 30mg SC daily Multivitamins 1 tab PO daily PT and OT - work on improving conditioning - patient lives on third floor - will f/u with PT to see progress of patient to see if he can be safely discharged home without home PT. Continue to encourage Incentive spirometer used Disposition: Patient is cleared to be discharged. He is currently awaiting placement as he can not live in his apartment alone currently. He is planning to move in with his brother on September 15. Discharge Exam - Head Exam Head Exam: ATRAUMATIC, NORMOCEPHALIC - Additional Findings Additional findings: - Constitutional Appears: Non-toxic, No Acute Distress - Head Exam Head Exam: ATRAUMATIC, NORMOCEPHALIC - Eye Exam Eye Exam: EOMI, Normal appearance - ENT Exam ENT Exam: Mucous Membranes Moist - Respiratory Exam Respiratory Exam: Clear to Ausculation Bilateral, NORMAL BREATHING PATTERN. absent: Accessory Muscle Use, Rales, Rhonchi, Wheezes, Respiratory Distress - Cardiovascular Exam Cardiovascular Exam: REGULAR RHYTHM, +S1 - GI/Abdominal Exam GI & Abdominal Exam: Soft, Normal Bowel Sounds. absent: Distended, Firm, Guarding, Rigid, Tenderness - Extremities Exam Extremities Exam: absent: Calf Tenderness, Pedal Edema - Neurological Exam Neurological Exam: Alert, Awake, Normal Gait, Oriented x3 - Psychiatric Exam Psychiatric exam: Normal Affect, Normal Mood - Skin Skin Exam: Dry, Warm Discharge Plan - Discharge Medications Prescriptions: Atorvastatin [Lipitor] 10 mg PO HS #30 tab Clopidogrel [Plavix] 75 mg PO DAILY #30 tab Lisinopril 2.5 mg PO DAILY #30 tablet metFORMIN [glucOPHAGE] 500 mg PO BID #60 tab Metoprolol Succinate [Toprol XL] 25 mg PO DAILY #30 tab - Follow Up Plan Condition: GOOD Disposition: HOME/ ROUTINE Instructions: Coronary Artery Disease (DC), Pancreatitis (DC) Additional Instructions: Patient is medically stable for discharge. Patient will be given scripts for the following medications which he must take as prescribed: 1. Lipitor 10mg 1 tablet at night 2. Plavix 75mg 1 tablet in the morning 3. Lisinopril 2.5 mg 1 tablet in the morning 4. Metformin 500mg 1 tablet in the morning and 1 tablet in the evening 5. Toprol XL 1 25mg 1 tablet in the morning Patient must follow-up with a instrument mechanics supervisor regarding his recent recent bypass surgery. Patient must follow-up with a aboriginal liaison officer regarding his respiratory respiratory failure and past pneumothorax. Patient may follow-up with Ear, Nose, and Throat Dr Mata regarding his recent nose bleed. Patient must follow-up with a PMD so the Dr may be aware of this hospital stay. If symptoms return or worsen, promptly return to the ER. Referrals: [facility] at [facility] [Outside] Orlando Mata MD [Staff Provider] - William Garcia MD [Staff Provider] - Billy Bautista MD [Staff Provider] - <Florencio Dutton - Last Filed: 09/15/17 13:03> Provider - Provider Date of Admission: 08/07/17 20:42 Attending physician: Florencio Dutton DO Hospital Course - Lab Results Lab Results: Micro Results 08/29/17 14:42 Urine,Clean Catch Urine Culture - Final No Growth (<1,000 CFU/ML) 08/22/17 19:30 Blood-Venous Blood Culture - Final NO GROWTH AFTER 5 DAYS 08/22/17 19:30 Blood-Venous Gram Stain - Final TEST NOT PERFORMED 08/22/17 19:00 Blood-Venous Blood Culture - Final NO GROWTH AFTER 5 DAYS 08/22/17 19:00 Blood-Venous Gram Stain - Final TEST NOT PERFORMED 08/20/17 11:50 Urine,Clean Catch Urine Culture - Final Pseudomonas Aeruginosa 08/08/17 06:30 Blood Blood Culture - Final NO GROWTH AFTER 5 DAYS 08/08/17 06:30 Blood Gram Stain - Final TEST NOT PERFORMED 08/08/17 07:00 Blood Blood Culture - Final NO GROWTH AFTER 5 DAYS 08/08/17 07:00 Blood Gram Stain - Final TEST NOT PERFORMED 08/08/17 22:32 Urine Urine Culture - Final No Growth (<1,000 CFU/ML) Most Recent Lab Values WBC 7.0 K/uL (4.8-10.8) 08/31/17 08:47 RBC 3.77 Mil/uL (4.40-5.90) L 08/31/17 08:47 Hgb 12.0 g/dL (12.0-18.0) 08/31/17 08:47 Hct 35.0 % (35.0-51.0) 08/31/17 08:47 MCV 92.8 fL (80.0-94.0) 08/31/17 08:47 MCH 31.7 pg (27.0-31.0) H 08/31/17 08:47 MCHC 34.2 g/dL (33.0-37.0) 08/31/17 08:47 RDW 17.9 % (11.5-14.5) H 08/31/17 08:47 Plt Count 405 K/uL (130-400) H 08/31/17 08:47 MPV 7.5 fL (7.2-11.7) 08/31/17 08:47 Neut % (Auto) 70.1 % (50.0-75.0) 08/31/17 08:47 Lymph % (Auto) 20.2 % (20.0-40.0) 08/31/17 08:47 [place] % (Auto) 6.3 % (0.0-10.0) 08/31/17 08:47 Eos % (Auto) 2.4 % (0.0-4.0) 08/31/17 08:47 Baso % (Auto) 1.0 % (0.0-2.0) 08/31/17 08:47 Neut # 4.9 K/uL (1.8-7.0) 08/31/17 08:47 Lymph # 1.4 K/uL (1.0-4.3) 08/31/17 08:47 [place] # 0.4 K/uL (0.0-0.8) 08/31/17 08:47 Eos # 0.2 K/uL (0.0-0.7) 08/31/17 08:47 Baso # 0.1 K/uL (0.0-0.2) 08/31/17 08:47 Neutrophils % (Manual) 87 % (50-75) H 08/13/17 06:55 Band Neutrophils % 2 % (0-2) 08/09/17 07:18 Lymphocytes % (Manual) 10 % (20-40) L 08/13/17 06:55 Monocytes % (Manual) 2 % (0-10) 08/13/17 06:55 Eosinophils % (Manual) 1 % (0-4) 08/13/17 06:55 Toxic Granulation Present 08/09/17 07:18 Platelet Estimate Slightly increased (NORMAL) H 08/13/17 06:55 Large Platelets Present 08/09/17 07:18 Polychromasia Slight 08/13/17 06:55 Hypochromasia (manual) Slight 08/13/17 06:55 Anisocytosis (manual) Slight 08/13/17 06:55 PT 12.9 SECONDS (9.7-12.2) H 08/28/17 07:08 INR 1.2 08/28/17 07:08 APTT 29 SECONDS (21-34) 08/28/17 07:08 Puncture Site Rrad 08/21/17 13:47 pCO2 34 mm/Hg (35-45) L 08/21/17 13:47 pO2 72 mm/Hg (80-100) L 08/21/17 13:47 HCO3 27.4 mmol/L (21-28) 08/21/17 13:47 ABG pH 7.50 (7.35-7.45) H 08/21/17 13:47 ABG Total CO2 27.5 mmol/L (22-28) 08/21/17 13:47 ABG O2 Saturation 97.8 % (95-98) 08/21/17 13:47 ABG Base Excess 3.3 mmol/L (-2.0-3.0) H 08/21/17 13:47 ABG Hemoglobin 9.9 g/dL (11.7-17.4) L 08/21/17 13:47 ABG Carboxyhemoglobin 2.7 % (0.5-1.5) H 08/21/17 13:47 POC ABG HHb (Measured) 2.1 % (0.0-5.0) 08/21/17 13:47 ABG Methemoglobin 1.5 % (0.0-3.0) 08/21/17 13:47 Jason Test Pos 12/07/17 13:47 Hgb O2 Saturation 93.7 % (95.0-98.0) L 08/21/17 13:47 Sodium 138 mmol/L (132-148) 08/31/17 08:47 Potassium 4.3 mmol/L (3.6-5.2) 08/31/17 08:47 Chloride 103 mmol/L (98-107) 08/31/17 08:47 Carbon Dioxide 28 mmol/L (22-30) 08/31/17 08:47 Anion Gap 11 (10-20) 08/31/17 08:47 BUN 7 mg/dL (9-20) L 08/31/17 08:47 Creatinine 1.3 mg/dL (0.8-1.5) 08/31/17 08:47 Est GFR ( Amer) > 60 08/31/17 08:47 Est GFR (Non-Af Amer) 56 08/31/17 08:47 POC Glucose (mg/dL) 63 mg/dL (65-110) L 09/15/17 11:35 Random Glucose 149 mg/dL (75-110) H 08/31/17 08:47 Calcium 8.6 mg/dl (8.6-10.4) 08/31/17 08:47 Phosphorus 4.7 mg/dL (2.5-4.5) H 08/31/17 08:47 Magnesium 1.5 mg/dL (1.6-2.3) L 08/31/17 08:47 Total Bilirubin 0.8 mg/dL (0.2-1.3) 08/31/17 08:47 AST 29 U/L (17-59) 08/31/17 08:47 ALT 66 U/L (21-72) 08/31/17 08:47 Alkaline Phosphatase 97 U/L (38-126) 08/31/17 08:47 Total Protein 6.9 g/dL (6.3-8.3) 08/31/17 08:47 Albumin 3.7 g/dL (3.5-5.0) 08/31/17 08:47 Globulin 3.2 gm/dL (2.2-3.9) 08/31/17 08:47 Albumin/Globulin Ratio 1.2 (1.0-2.1) 08/31/17 08:47 Amylase 277 U/L (30-110) H 08/11/17 08:50 Lipase 251 U/L (23-300) 08/28/17 07:08 Urine Color Yellow (YELLOW) 08/29/17 14:50 Urine Clarity Clear (Clear) 08/29/17 14:50 Urine pH 7.0 (5.0-8.0) 08/29/17 14:50 Ur Specific [place] 1.005 (1.003-1.030) 08/29/17 14:50 Urine Protein Negative mg/dL (NEGATIVE) 08/29/17 14:50 Urine Glucose (UA) Normal mg/dL (Normal) 08/29/17 14:50 Urine Ketones Negative mg/dL (NEGATIVE) 08/29/17 14:50 Urine Blood Negative (NEGATIVE) 08/29/17 14:50 Urine Nitrate Negative (NEGATIVE) 08/29/17 14:50 Urine Bilirubin Negative (NEGATIVE) 08/29/17 14:50 Urine Urobilinogen Normal mg/dL (0.2-1.0) 08/29/17 14:50 Ur Leukocyte Esterase Trace Pavithra/uL (Negative) 08/29/17 14:50 Urine WBC (Auto) 3 /hpf (0-5) 08/29/17 14:50 Urine RBC (Auto) 100 /hpf (0-3) H 08/20/17 12:41 Urine WBC Clumps (Auto) Few /hpf (NONE) H 08/20/17 12:41 Urine Bacteria Rare (<OCC) 08/29/17 14:50 Blood Type O POSITIVE 08/28/17 07:08 Antibody Screen Negative 08/28/17 07:08 Attending/Attestation - Attestation I have personally seen and examined this patient.: Yes I have fully participated in the care of the patient.: Yes I have reviewed all pertinent clinical information, including history, physical exam and plan: Yes Notes (Text): 09/15/17 13:03 Medical attending: the patient was seen and examined by me, agrees the above note by the medical billing manager. The patient was at rest earlier this morning he was nontender any acute distress. When I saw him he explained that his brother was given be picking up this afternoon. As mentioned previously he's can be going with the rolling walker, he'll need to take his medications in particular the Plavix, aspirin, statin He will also need to follow-up at the [facility] clinic as well. As mentioned previously he's been here for an extended period of time following CABG surgery. He was having a lot of weakness following the surgery and ideally should went to subacute rehabilitation however because of financial issues he was not able to do so and he remained here at [facility] getting physical therapy here. These done quite well, he is able to ambulate around the hallway on his own without any assistance. thank you Florencio uDtton
[2017-09-15 16:09] VITALS: BP 159/96; PULSE 91; TEMP 98.5; O2SAT 95
== END 2017-09-15 16:55 | disposition home or self-care (01) | DRG 584 ==
LOC: C.3T 20:42 → C.9I 08-28 07:17 → C.3T 08-28 08:11
PROVIDERS: ADMIT Hospitalist; ATTEND Hospitalist
PROC: 2Y41X5Z Packing of Nasal Region using Packing Material (ICD-10-PCS; principal; 2017-08-28)
DX: A41.52 Sepsis due to Pseudomonas (principal); I21.4 Non-ST elevation (NSTEMI) myocardial infarction; J90 Pleural effusion, not elsewhere classified; J95.811 Postprocedural pneumothorax; I31.3 Pericardial effusion (noninflammatory); D62 Acute posthemorrhagic anemia; I35.1 Nonrheumatic aortic (valve) insufficiency; N39.0 Urinary tract infection, site not specified; T82.855A Stenosis of coronary artery stent, initial encounter; J95.89 Other postprocedural complications and disorders of respiratory system, not elsewhere classified; J98.11 Atelectasis; R09.02 Hypoxemia; E11.9 Type 2 diabetes mellitus without complications; E78.00 Pure hypercholesterolemia, unspecified; I10 Essential (primary) hypertension; I25.10 Atherosclerotic heart disease of native coronary artery without angina pectoris; I25.2 Old myocardial infarction; I77.810 Thoracic aortic ectasia; J34.2 Deviated nasal septum; K59.00 Constipation, unspecified; R04.0 Epistaxis; Y83.2 Surgical operation with anastomosis, bypass or graft as the cause of abnormal reaction of the patient, or of later complication, without mention of misadventure at the time of the procedure; Y83.1 Surgical operation with implant of artificial internal device as the cause of abnormal reaction of the patient, or of later complication, without mention of misadventure at the time of the procedure; Z95.1 Presence of aortocoronary bypass graft; Z79.82 Long term (current) use of aspirin; Z79.4 Long term (current) use of insulin; Z74.01 Bed confinement status